=== PATIENT | male | born 1945 | race Caucasian/White ===

== ENCOUNTER 2019-10-14 00:11 | Outpatient (CLI) | payer MEDICARE, SELFPAY ==
[2019-10-14 17:13] LABS: SARS-CoV-2 RNA PCR Negative
== END 2019-10-14 00:12 | disposition home or self-care (01) ==
LOC: ANHCOVIDDT 00:11
PROVIDERS: PCP Nurse Practitioner Family; Visit Provider Internal Medicine Gastroenterology
DX: Z01.812 Encounter for preprocedural laboratory examination (principal); Z11.59 Encounter for screening for other viral diseases
CPT/HCPCS: 87635; C9803; U0003

== ENCOUNTER 2019-10-16 01:34 | Day surgery (SDC) | payer MEDICARE, SELFPAY ==
[2019-10-09 13:52] VITALS: BMI 28.8
[2019-10-16 06:52] VITALS: BP 162/89; PULSE 81; RESP 18; TEMP 37.1; O2SAT 97; BMI 28.5
[2019-10-16] MEDS: LACTATED RINGERS 1,000 ML 30 ML IV CONT (07:00)
--- NOTE | 2019-10-16 07:13 | PM.HPGS ---
History of Present Illness History of Present Illness Consent: Risks, benefits, and alternatives have been discussed and questions answered. Patient agrees to proceed with procedure. Chief complaint: epigastric pain Narrative: Ryan Varghese is a 74 year old W male 2 month history of epigastric abdominal pain which has been intermittent. Usually occurs at night. He has had no nausea vomiting no hematemesis. No prior history of peptic ulcer disease. Patient does take Prilosec 20 mg daily basis for gastroesophageal reflux disease. He states he has had a 10 lb weight loss associated with this as well. No change in bowel pattern. He did have a colonoscopy 2 years ago which was negative. Patient also had a gastroscopy 3 years ago revealing mild esophagitis. Patient states his evaluation included a CT scan of the abdomen and pelvis which was unremarkable except for benign pelvic cyst. He has also had blood work states that his blood count was slightly decreased. Patient states he also gallbladder test several years ago. [facility] Past Medical History Medical History (Updated 10/15/19 @ 08:56 by Sebastián Coppola DO) Anxiety Depression GERD (gastroesophageal reflux disease) History of prostate cancer Hypertension Surgical History Surgical History (Updated 10/15/19 @ 08:56 by Sebastián Coppola DO) History of prostatectomy Meds Home Medications and Allergies Home Medications Medication Instructions Recorded Confirmed Type cholecalciferol (vitamin D3) 25 mcg PO DAILY 10/09/19 10/09/19 History [Vitamin D3] cyanocobalamin (vitamin B-12) 1,000 mcg PO DAILY 10/09/19 10/09/19 History [Vitamin B-12] lisinopril-hydrochlorothiazide 1 tablet PO BID 10/09/19 10/09/19 History mirtazapine 7.5 mg PO DAILY 10/09/19 10/09/19 History omeprazole 20 mg PO DAILY 10/09/19 10/09/19 History vitamin B complex 1 cap PO DAILY 10/09/19 10/09/19 History Allergies Allergy/AdvReac Type Severity Reaction Status Date / Time Sulfa (Sulfonamide Allergy Unknown Muscle Verified 10/16/19 06:51 Antibiotics) Spasms Vital Signs Vital Signs - 24 hr 10/16/19 06:52 Temperature 37.1 C Pulse Rate 81 Respiratory Rate 18 Blood Pressure 162/89 H Pulse Oximetry 97 Exam Const: Orientation/consciousness: patient oriented x3 Resp: Auscultation: clear to auscultation bilaterally Cardio: Rate: regular rate Rhythm: regular rhythm Heart sounds: no murmurs GI: GI Palp: Yes Soft to palpation, No Tenderness to palpation present (GI), Yes No hepatosplenomegaly present and No Palpable mass present Auscultation: normal bowel sounds Neuro: General: patient oriented x3 and no focal motor deficits Extrem: General: no pedal edema Assessment and Plan Additional Plan Gastroscopy for evaluation epigastric abdominal pain and weight loss
--- NOTE | 2019-10-16 07:20 | P.PNAN_ITS ---
Anes - Initial Pre Proc Eval Procedure: Operation Date: 10/16/19 08:00 Proposed Procedures p Esophagogastroduodenoscopy - Jose Rodriguez MD Date/Time: 10/16/19 07:20 Surgeon: Jose Rodriguez MD Pre Op Diagnosis: epigastric pain Patient Data Age: 74 Gender: M Height: 1.78 m Weight: 90.2 kg Last Vital Signs Temp 37.1 C 10/16/19 06:52 Pulse 81 10/16/19 06:52 Resp 18 10/16/19 06:52 BP 162/89 H 10/16/19 06:52 Pulse Ox 97 10/16/19 06:52 Allergies Allergy/AdvReac Type Severity Reaction Status Date / Time Sulfa (Sulfonamide Allergy Unknown Muscle Verified 10/16/19 06:51 Antibiotics) Spasms Home Medications Medication Instructions Recorded Confirmed Type cholecalciferol (vitamin D3) 25 mcg PO DAILY 10/09/19 10/09/19 History [Vitamin D3] cyanocobalamin (vitamin B-12) 1,000 mcg PO DAILY 10/09/19 10/09/19 History [Vitamin B-12] lisinopril-hydrochlorothiazide 1 tablet PO BID 10/09/19 10/09/19 History mirtazapine 7.5 mg PO DAILY 10/09/19 10/09/19 History omeprazole 20 mg PO DAILY 10/09/19 10/09/19 History vitamin B complex 1 cap PO DAILY 10/09/19 10/09/19 History Patient hx anesthesia problems: none Family hx anesthesia problems: none [facility] Past Medical History Medical History (Updated 10/15/19 @ 08:56 by Sebastián Coppola DO) Anxiety Depression GERD (gastroesophageal reflux disease) History of prostate cancer Hypertension Surgical History Surgical History (Updated 10/15/19 @ 08:56 by Sebastián Coppola DO) History of prostatectomy Anes - Eval Final PreProcedure Day of Procedure 10/16/19 07:20 Patient weight: overweight Heart: regular rate and rhythm Lungs: clear to auscultation and normal air movement Airway: Mallampati scale class II Neurological: alert and oriented Last oral intake: >/= 8 hours ASA classification: III Emergent: no Anesthetic plan: proceed Anesthesia type and monitoring: general GIVS and standard monitoring Informed Consent: The patient's anesthetic plan and its attendant risks and benefits were discussed with the patient/family/POA. Questions were solicited and answers provided to the satisfaction of the patient/family/POA.
[2019-10-16] MEDS: BENZOCAINE (*SP) 60 ML SPRAY CAN (HURRICAINE) 1 SPRAY MUCOUS MEM (08:16)
[2019-10-16 08:37] VITALS: BP 116/67; PULSE 64; RESP 19; O2SAT 93
[2019-10-16 08:47] VITALS: BP 124/77; PULSE 64; RESP 21; O2SAT 95
[2019-10-16 08:57] VITALS: BP 138/77; PULSE 64; RESP 21; O2SAT 99
== END 2019-10-16 09:20 | disposition home or self-care (01) ==
PROVIDERS: PCP Nurse Practitioner Family; Visit Provider Internal Medicine Gastroenterology
PROC: 0DJ08ZZ Inspection of Upper Intestinal Tract, Via Natural or Artificial Opening Endoscopic (ICD-10-PCS; CPT 43235; principal; 2019-10-16 08:00)
DX: K21.9 Gastro-esophageal reflux disease without esophagitis (principal); K29.50 Unspecified chronic gastritis without bleeding; I10 Essential (primary) hypertension; F41.8 Other specified anxiety disorders; Z85.46 Personal history of malignant neoplasm of prostate
CPT/HCPCS: 43239; 87081; 88305; J2704; J7120

== ENCOUNTER 2020-04-06 08:55 | Outpatient (CLI) | payer MEDICARE, SELFPAY ==
--- NOTE | ~2020-04-06 | CT_ITS ---
EXAMINATION: CT abdomen pelvis w con EXAM DATE: 04/06/2020 09:28 INDICATION: Prostate cancer . TECHNIQUE: Spiral CT of the abdomen and pelvis was performed following intravenous injection of 100 m L Omnipaque 350. Axial, coronal and sagittal images were reviewed. The dose-length product (DLP) fo r this examination was 558.07 mGy-cm. The exposure was tailored according to patient size (auto mA e xposure control), and iterative reconstruction (ASIR) was used as additional dose reduction technique . There is no prior study for comparison. FINDINGS: The liver, spleen, adrenal glands and pancreas are unremarkable. Gallbladder is unremarkab le. No biliary obstruction. Portal and splenic veins are patent. Kidneys enhance symmetrically. T here is no hydronephrosis. There is a right renal cyst measuring 2 cm. Patient has likely had prosta tectomy. The bladder is unremarkable. There is no retroperitoneal or pelvic lymphadenopathy. Sma ll umbilical and supraumbilical fat-containing hernias. The appendix is normal. The stomach and small bowel are unremarkable. There is moderate scattered co lonic diverticulosis. There is no adjacent inflammatory change to suggest diverticulitis. No free i ntraperitoneal gas. The heart is normal in size. There are no pericardial or pleural effusions. T he lung bases are unremarkable. There are no osteoblastic or osteolytic lesions identified. IMPRESSION: Colonic diverticulosis. No evidence of metastatic disease. Reviewed, dictated and finalized at location A. [employer]
[2020-04-07 11:23] LABS: Estimated Glomerular Filt Rate > 60
== END 2020-04-06 08:56 | disposition home or self-care (01) ==
LOC: ANHIMG 09:01
PROVIDERS: PCP Nurse Practitioner Family; Visit Provider Internal Medicine Hematology & Oncology
DX: C61 Malignant neoplasm of prostate (principal); N28.1 Cyst of kidney, acquired; K42.9 Umbilical hernia without obstruction or gangrene; K57.30 Diverticulosis of large intestine without perforation or abscess without bleeding
CPT/HCPCS: 74177; Q9967

== ENCOUNTER 2022-02-18 14:40 | Outpatient (CLI) | payer MEDICARE, SELFPAY ==
--- NOTE | ~2022-02-18 | CT_ITS ---
EXAMINATION: CT chest abdomen pelvis w con DATE: 02/18/2022 15:21 INDICATION: Prostate cancer. TECHNIQUE: Computed tomography (CT) of the chest, abdomen, and pelvis was performed with 100 mL Omnip aque 350 intravenous contrast. Automated exposure control and iterative reconstruction technique were employed. The dose-length product was 914.98 mGy-cm. COMPARISON: CT abdomen and pelvis 04/06/2020 FINDINGS: CHEST CT: The lungs demonstrate minimal atelectasis. No pleural effusion. The heart size is normal. No pericard ial effusion. There are coronary artery calcifications. There is bilateral gynecomastia. There are br idging endplate osteophytes at multiple levels in the spine, consistent with diffuse idiopathic skele eva hyperostosis (DISH). ABDOMEN/PELVIS CT: The liver and spleen are normal. The pancreas and adrenal glands are normal. There are cysts in the k idneys measuring up to 2.6 cm on the right. There is a 1 mm stone in left kidney. There is a 4.5 cm c yst in left pelvis without change, likely a peritoneal inclusion cyst. There is diverticulosis of the colon without evidence of diverticulitis. There are no dilated loops of bowel. The appendix is brock l. There are no pathologically enlarged lymph nodes. There is chronic fat stranding at the root of th e small bowel mesentery, likely mesenteric panniculitis. There are supraumbilical ventral hernias con taining fat. There is an umbilical hernia containing fat. The prostate is absent. There is severe lum bar spondylosis. IMPRESSION: 1. No evidence of metastatic disease. Reviewed, dictated and finalized at location A.
[2022-02-21 13:33] LABS: Estimated Glomerular Filt Rate > 60
== END 2022-02-18 14:41 | disposition home or self-care (01) ==
PROVIDERS: PCP Nurse Practitioner Family; Visit Provider Internal Medicine Hematology & Oncology
DX: R10.9 Unspecified abdominal pain (principal); Z85.46 Personal history of malignant neoplasm of prostate
CPT/HCPCS: 71260; 74177; Q9967

== ENCOUNTER 2022-03-14 00:17 | Day surgery (SDC) | payer MEDICARE, SELFPAY ==
[2022-03-03 13:45] VITALS: BMI 28.8
[2022-03-14 12:10] VITALS: BP 172/96; PULSE 90; RESP 20; TEMP 36.6; O2SAT 100
[2022-03-14] MEDS: LACTATED RINGERS 1,000 ML 150 ML IV CONT (12:12)
--- NOTE | 2022-03-14 13:28 | WPDANESEPPF ---
Anes - Initial Pre Proc Eval Procedure: Operation Date: 03/14/22 13:30 Proposed Procedures p Esophagogastroduodenoscopy EGD - Sidney Álvarez MD Date/Time: 03/14/22 13:28 Surgeon: Sidney Álvarez MD Pre Op Diagnosis: epigastric pain Patient Data Age: 77 Gender: M Height: 1.78 m Weight: 92.3 kg Last Vital Signs Temp 97.8 F 03/14/22 12:10 Pulse 90 03/14/22 12:10 Resp 20 03/14/22 12:10 BP 172/96 H 03/14/22 12:10 Pulse Ox 100 03/14/22 12:10 O2 Del Method Room Air 03/14/22 12:10 Allergies Allergy/AdvReac Type Severity Reaction Status Date / Time Sulfa (Sulfonamide Allergy Intermediate Muscle Verified 03/14/22 12:08 Antibiotics) Spasms Home Medications Medication Instructions Recorded Confirmed Type lisinopril 20 1 tablet PO BID 10/09/19 03/14/22 History mg-hydrochlorothiazide 12.5 mg tablet mirtazapine 15 mg tablet 7.5 mg PO HS 10/09/19 03/14/22 History omeprazole 20 mg capsule,delayed 20 mg PO DAILY 10/09/19 03/14/22 History release cholecalciferol (vitamin D3) 25 25 mcg PO DAILY 03/03/22 03/14/22 History mcg (1,000 unit) capsule (Vitamin D3) cyanocobalamin (vitamin B-12) 1,000 mcg PO DAILY 03/03/22 03/14/22 History 1,000 mcg tablet (Vitamin B-12) vitamin B complex 1 cap PO DAILY 03/03/22 03/14/22 History Patient hx anesthesia problems: none Family hx anesthesia problems: none Results Review: All pre-operative results and documents have been reviewed as part of the pre-operative evaluation. [facility] Past Medical History Medical History Anxiety Depression GERD (gastroesophageal reflux disease) History of prostate cancer Hypertension Surgical History Surgical History History of prostatectomy Family History Family History Father Heart disease Mother Diabetes mellitus Heart disease Social History Social History Smoking status: Never smoker Alcohol intake: current Drinks per week: 4 Alcohol use details: BEERS Substance use: never Substance use type: does not use Living arrangements: with family Spiritual care concerns: No Anes - Eval Final PreProcedure Day of Procedure 03/14/22 13:28 Patient weight: overweight Heart: regular rate and rhythm Lungs: clear to auscultation Airway: Mallampati scale class II Neurological: alert and oriented Last oral intake: >/= 8 hours ASA classification: III Emergent: no Anesthetic plan: proceed Anesthesia type and monitoring: general GIVS and standard monitoring Results Review: All pre-operative results and documents have been reviewed as part of the pre-operative evaluation. Informed Consent: The patient's anesthetic plan and its attendant risks and benefits were discussed with the patient/family/POA. Questions were solicited and answers provided to the satisfaction of the patient/family/POA.
--- NOTE | 2022-03-14 13:36 | PM.HPGS ---
History of Present Illness History of Present Illness Consent: Risks, benefits, and alternatives have been discussed and questions answered. Patient agrees to proceed with procedure. Chief complaint: epigastric pain Narrative: Ryan Varghese is a 77 year old male Referred for investigation of epigastric pain he states that this has been going on for few years. He will have pain in the epigastric area sometimes towards the right side that will be present almost continuously. Will get a little worse every day for several weeks and then slowly subside over several weeks side each episode lasts a couple of months. He has had no weight loss or vomiting. Previous endoscopies were unremarkable. Review of Systems Review of Systems: All systems reviewed & are unremarkable except as noted in HPI and below PMFSH Past Medical History Medical History Anxiety Depression GERD (gastroesophageal reflux disease) History of prostate cancer Hypertension Surgical History Surgical History History of prostatectomy Family History Family History Father Heart disease Mother Diabetes mellitus Heart disease Social History Social History Smoking status: Never smoker Alcohol intake: current Drinks per week: 4 Alcohol use details: BEERS Substance use: never Substance use type: does not use Living arrangements: with family Spiritual care concerns: No Meds Home Medications and Allergies Home Medications Medication Instructions Recorded Confirmed Type lisinopril 20 1 tablet PO BID 10/09/19 03/14/22 History mg-hydrochlorothiazide 12.5 mg tablet mirtazapine 15 mg tablet 7.5 mg PO HS 10/09/19 03/14/22 History omeprazole 20 mg capsule,delayed 20 mg PO DAILY 10/09/19 03/14/22 History release cholecalciferol (vitamin D3) 25 25 mcg PO DAILY 03/03/22 03/14/22 History mcg (1,000 unit) capsule (Vitamin D3) cyanocobalamin (vitamin B-12) 1,000 mcg PO DAILY 03/03/22 03/14/22 History 1,000 mcg tablet (Vitamin B-12) vitamin B complex 1 cap PO DAILY 03/03/22 03/14/22 History Allergies Allergy/AdvReac Type Severity Reaction Status Date / Time Sulfa (Sulfonamide Allergy Intermediate Muscle Verified 03/14/22 12:08 Antibiotics) Spasms Vital Signs Vital Signs - 24 hr 03/14/22 12:10 Temperature 36.6 C Pulse Rate 90 Respiratory Rate 20 Blood Pressure 172/96 H Pulse Oximetry 100 Oxygen Delivery Room Air Exam Const: General: alert Orientation/consciousness: patient oriented x3 Resp: Auscultation: clear to auscultation bilaterally Cardio: Rhythm: regular rhythm GI: GI Palp: Yes Soft to palpation and No Tenderness to palpation present (GI) Neuro: General: patient oriented x3 Assessment and Plan Assessment and plan (1) Epigastric pain: Code(s): R10.13 - Epigastric pain Status: Acute Assessment and Plan: EGD with possible biopsy or dilatation or cautery.
[2022-03-14 14:12] VITALS: BP 119/75; PULSE 62; RESP 18; O2SAT 100
[2022-03-14 14:22] VITALS: BP 122/74; PULSE 61; RESP 19; O2SAT 100
[2022-03-14 14:32] VITALS: BP 141/82; PULSE 63; RESP 21; O2SAT 98
== END 2022-03-14 14:46 | disposition home or self-care (01) ==
PROVIDERS: PCP Nurse Practitioner Family; Visit Provider Internal Medicine Gastroenterology
PROC: 0DJ08ZZ Inspection of Upper Intestinal Tract, Via Natural or Artificial Opening Endoscopic (ICD-10-PCS; CPT 43235; principal; 2022-03-14 13:30)
DX: K21.9 Gastro-esophageal reflux disease without esophagitis (principal); K31.7 Polyp of stomach and duodenum; I10 Essential (primary) hypertension; F41.9 Anxiety disorder, unspecified; F32.A Depression, unspecified; Z85.46 Personal history of malignant neoplasm of prostate
CPT/HCPCS: 43239; 87081; 88305; J2704; J7120

== ENCOUNTER 2022-05-04 01:15 | Day surgery (SDC) | payer MEDICARE, SELFPAY ==
[2022-04-19 14:55] VITALS: BMI 28.8
--- NOTE | 2022-05-03 13:16 | PM.HPGS ---
History of Present Illness History of Present Illness Consent: Risks, benefits, and alternatives have been discussed and questions answered. Patient agrees to proceed with procedure. Chief complaint: family hx colon ca Narrative: Ryan Varghese is a 77 year old male Referred for colon cancer screening. He has a family history of colon cancer. Review of Systems Review of Systems: All systems reviewed & are unremarkable except as noted in HPI and below PMFSH Past Medical History Medical History Anxiety Depression GERD (gastroesophageal reflux disease) History of prostate cancer Hypertension Surgical History Surgical History History of prostatectomy Family History Family History Father Heart disease Mother Diabetes mellitus Heart disease Social History Social History Smoking status: Never smoker Alcohol intake: current Drinks per week: 5 Alcohol use details: BEERS Substance use: never Substance use type: does not use Living arrangements: with family Spiritual care concerns: No Meds Home Medications and Allergies Home Medications Medication Instructions Recorded Confirmed Type lisinopril 20 1 tablet PO BID 10/09/19 04/19/22 History mg-hydrochlorothiazide 12.5 mg tablet mirtazapine 15 mg tablet 7.5 mg PO HS 10/09/19 04/19/22 History omeprazole 20 mg capsule,delayed 20 mg PO DAILY 10/09/19 04/19/22 History release cholecalciferol (vitamin D3) 25 25 mcg PO DAILY 03/03/22 04/19/22 History mcg (1,000 unit) capsule (Vitamin D3) cyanocobalamin (vitamin B-12) 1,000 mcg PO DAILY 03/03/22 04/19/22 History 1,000 mcg tablet (Vitamin B-12) vitamin B complex 1 cap PO DAILY 03/03/22 04/19/22 History Allergies Allergy/AdvReac Type Severity Reaction Status Date / Time Sulfa (Sulfonamide Allergy Intermediate Muscle Verified 05/04/22 08:10 Antibiotics) Spasms Exam Resp: Auscultation: clear to auscultation bilaterally Cardio: Rate: regular rate Rhythm: regular rhythm GI: GI Palp: Yes Soft to palpation and No Tenderness to palpation present (GI) Assessment and Plan Assessment and plan (1) Colon cancer screening: Code(s): Z12.11 - Encounter for screening for malignant neoplasm of colon Status: Acute Assessment and Plan: Colonoscopy with possible biopsy or polypectomy or cautery or injection of substances.
[2022-05-04 08:11] VITALS: BP 175/99; PULSE 93; RESP 18; TEMP 36.4; O2SAT 97
[2022-05-04] MEDS: LACTATED RINGERS 1,000 ML 150 ML IV CONT (08:20)
--- NOTE | 2022-05-04 08:59 | P.PNAN_ITS ---
Anes - Initial Pre Proc Eval Procedure: Operation Date: 05/04/22 09:30 Proposed Procedures p Screening Colonoscopy - Sidney Álvarez MD Date/Time: 05/04/22 08:59 Surgeon: Sidney Álvarez MD Pre Op Diagnosis: family hx colon ca Patient Data Age: 77 Gender: M Height: 1.78 m Weight: 91.3 kg Last Vital Signs Temp 97.6 F 05/04/22 08:11 Pulse 93 05/04/22 08:11 Resp 18 05/04/22 08:11 BP 175/99 H 05/04/22 08:11 Pulse Ox 97 05/04/22 08:11 O2 Del Method Room Air 05/04/22 08:11 Allergies Allergy/AdvReac Type Severity Reaction Status Date / Time Sulfa (Sulfonamide Allergy Intermediate Muscle Verified 05/04/22 08:10 Antibiotics) Spasms Home Medications Medication Instructions Recorded Confirmed Type lisinopril 20 1 tablet PO BID 10/09/19 04/19/22 History mg-hydrochlorothiazide 12.5 mg tablet mirtazapine 15 mg tablet 7.5 mg PO HS 10/09/19 04/19/22 History omeprazole 20 mg capsule,delayed 20 mg PO DAILY 10/09/19 04/19/22 History release cholecalciferol (vitamin D3) 25 25 mcg PO DAILY 03/03/22 04/19/22 History mcg (1,000 unit) capsule (Vitamin D3) cyanocobalamin (vitamin B-12) 1,000 mcg PO DAILY 03/03/22 04/19/22 History 1,000 mcg tablet (Vitamin B-12) vitamin B complex 1 cap PO DAILY 03/03/22 04/19/22 History Patient hx anesthesia problems: none Family hx anesthesia problems: none Results Review: All pre-operative results and documents have been reviewed as part of the pre- operative evaluation. [facility] Past Medical History Medical History Anxiety Depression GERD (gastroesophageal reflux disease) History of prostate cancer Hypertension Surgical History Surgical History History of prostatectomy Family History Family History Father Heart disease Mother Diabetes mellitus Heart disease Social History Social History Smoking status: Never smoker Alcohol intake: current Drinks per week: 5 Alcohol use details: BEERS Substance use: never Substance use type: does not use Living arrangements: with family Spiritual care concerns: No Anes - Eval Final PreProcedure Day of Procedure 05/04/22 08:59 Patient weight: normal Heart: regular rate and rhythm Lungs: clear to auscultation Airway: Mallampati scale class II Neurological: alert and oriented Last oral intake: >/= 8 hours ASA classification: III Emergent: no Anesthetic plan: proceed Anesthesia type and monitoring: general GIVS and standard monitoring Results Review: All pre-operative results and documents have been reviewed as part of the pre- operative evaluation. Informed Consent: The patient's anesthetic plan and its attendant risks and benefits were discussed with the patient/family/POA. Questions were solicited and answers provided to the satisfaction of the patient/family/POA.
[2022-05-04 09:20] VITALS: BP 117/68; PULSE 66; RESP 20; O2SAT 97
[2022-05-04 09:30] VITALS: BP 168/89; PULSE 77; RESP 25; O2SAT 97
[2022-05-04 09:40] VITALS: BP 156/70; PULSE 78; RESP 25; O2SAT 100
== END 2022-05-04 09:58 | disposition home or self-care (01) ==
PROVIDERS: PCP Nurse Practitioner Family; Visit Provider Internal Medicine Gastroenterology
PROC: 0DJD8ZZ Inspection of Lower Intestinal Tract, Via Natural or Artificial Opening Endoscopic (ICD-10-PCS; CPT 45378; principal; 2022-05-04 09:30)
DX: Z12.11 Encounter for screening for malignant neoplasm of colon (principal); K57.30 Diverticulosis of large intestine without perforation or abscess without bleeding; K64.8 Other hemorrhoids; Z80.0 Family history of malignant neoplasm of digestive organs; K21.9 Gastro-esophageal reflux disease without esophagitis; I10 Essential (primary) hypertension; F41.9 Anxiety disorder, unspecified; F32.A Depression, unspecified; Z85.46 Personal history of malignant neoplasm of prostate
CPT/HCPCS: G0105; J2704; J7120

== ENCOUNTER 2024-02-21 13:39 | Outpatient (CLI) | payer MEDICARE, SELFPAY ==
[2024-02-21 14:16] LABS: Basophils Percent Auto 0.5 % (0.2-1.2); Hemoglobin 13.4 g/dL (14.0-18.0); Immature Granulocyte Absolute 0.02 K/mm3 (0.00-0.031); Immature Granulocyte Percent A 0.2 % (0-0.5); Lymphocytes Absolute Auto 0.99 K/mm3 (0.9-3.2); Lymphocytes Percent Auto 11.8 % (18.3-44.2); Mean Corpuscular HGB Conc 35.3 g/dl (32-36); Mean Corpuscular Hemoglobin 33.6 pg (26-34); Mean Corpuscular Volume 95.2 fl (80-100); Mean Platelet Volume 8.8 fl (7.4-10.4); Monocytes Absolute Auto 0.5 K/mm3 (0.1-0.6); Monocytes Percent Auto 5.8 % (2.6-8.5); Neutrophils Absolute Auto 6.9 K/mm3 (1.3-6.7); Neutrophils Percent Auto 81.7 % (45.5-73.1); Platelet Count Result 284 k/mm3 (150-375); Red Blood Count 3.99 M/mm3 (4.6-6.20); Red Cell Distribution Width 11.9 % (11.5-14.5); White Blood Count 8.4 K/mm3 (4.5-10.0)
[2024-02-21 14:27] LABS: Hemoglobin A1C 5.3 % (<5.7)
[2024-02-21 14:52] LABS: Free T4 Free Thyroxine 1.22 ng/mL (0.78-2.19); Vitamin D 25 Hydroxy 44.1 ng/mL
[2024-02-21 17:04] LABS: Alanine Aminotransferase 18 U/L (6-50); Albumin Level 4.8 g/dL (3.5-5.1); Alkaline Phosphatase 64 U/L (38-126); Anion Gap 12 mmol/L (4-12); Aspartate Amino Transferase 25 U/L (17-59); Blood Urea Nitrogen 9 mg/dL (9-20); Calcium 9.5 mg/dL (8.4-10.2); Carbon Dioxide 28 mmol/L (22-30); Chloride 92 mmol/L (98-107); Cholesterol 159 mg/dL (0-200); Estimated Glomerular Filt Rate > 60; Glucose 100 mg/dL (65-110); HDL Direct 57 mg/dL; Potassium 3.8 mmol/L (3.4-5.0); Sodium 132 mmol/L (137-145); Triglycerides 87 mg/dL (<150)
[2024-02-21 17:15] LABS: LDL Cholesterol Direct 73 mg/dL
[2024-02-21 18:34] LABS: Folic Acid > 20.0 ng/mL (2.76->20)
== END 2024-02-21 13:40 | disposition home or self-care (01) ==
PROVIDERS: PCP Nurse Practitioner Family; Visit Provider Internal Medicine
DX: E53.8 Deficiency of other specified B group vitamins (principal); Z79.899 Other long term (current) drug therapy; E55.9 Vitamin D deficiency, unspecified; I10 Essential (primary) hypertension; R73.09 Other abnormal glucose; Z13.220 Encounter for screening for lipoid disorders; Z13.29 Encounter for screening for other suspected endocrine disorder
CPT/HCPCS: 36415; 80053; 80061; 82306; 82607; 82746; 83036; 84439; 84443; 85025

== ENCOUNTER 2024-02-22 13:17 | Outpatient (CLI) | payer MEDICARE, SELFPAY ==
--- NOTE | ~2024-02-22 | CT_ITS ---
CT of the Abdomen and Pelvis: Indication: Abdominal pain Technique: 2.5 mm axial scans were obtained through the abdomen and pelvis following intravenous adm inistration of 100 cc of Omnipaque 350. Dose reduction technique was used on this scan by utilizing a utomated exposure control and iterative reconstruction technique. The dose-length product (DLP) was 5 22.04 mGy-cm. COMPARISON: 02/18/2022 Findings: Scans through the lung bases are unremarkable. The liver, spleen, pancreas, gallbladder, adrenals and kidneys are within normal limits. No evidence of aortic aneurysm. No lymphadenopathy. No bowel obstruction or bowel wall thickening. There is no evidence to suggest acute appendicitis. Images through the pelvis were performed. Stable 4.1 x 3.0 cm cystic mass along the left pelvic sidew all, likely lymphocele, seroma, or other benign cystic lesion. Urinary bladder unremarkable. No other pelvic mass seen. No ascites. Impression: Stable 4.1 x 3.0 cm benign-appearing cystic mass at the left pelvic sidewall region, possibly lymphoc milly or seroma. No acute abnormality evident. Reviewed, dictated and finalized at location . Impression: Stable 4.1 x 3.0 cm benign-appearing cystic mass at the left pelvic sidewall re gion, possibly lymphocele or seroma. No acute abnormality evident.
[2024-02-22 13:37] LABS: Estimated Glomerular Filt Rate > 60
== END 2024-02-22 13:18 | disposition home or self-care (01) ==
LOC: MICIMG 13:19
PROVIDERS: PCP Internal Medicine; Visit Provider Internal Medicine
DX: R19.09 Other intra-abdominal and pelvic swelling, mass and lump (principal)
CPT/HCPCS: 74177; Q9967

== ENCOUNTER 2024-03-08 10:58 | Outpatient (CLI) | payer MEDICARE, SELFPAY ==
[2024-03-08 11:39] LABS: Basophils Percent Auto 0.4 % (0.2-1.2); Eosinophils Percent Auto 0.1 % (0-4.4); Hematocrit 36.4 % (42.0-52.0); Hemoglobin 12.5 g/dL (14.0-18.0); Immature Granulocyte Absolute 0.02 K/mm3 (0.00-0.031); Immature Granulocyte Percent A 0.2 % (0-0.5); Lymphocytes Absolute Auto 0.89 K/mm3 (0.9-3.2); Lymphocytes Percent Auto 10.9 % (18.3-44.2); Mean Corpuscular HGB Conc 34.3 g/dl (32-36); Mean Platelet Volume 9.1 fl (7.4-10.4); Monocytes Absolute Auto 0.4 K/mm3 (0.1-0.6); Monocytes Percent Auto 5.2 % (2.6-8.5); Neutrophils Absolute Auto 6.8 K/mm3 (1.3-6.7); Neutrophils Percent Auto 83.2 % (45.5-73.1); Platelet Count Result 287 k/mm3 (150-375); Red Blood Count 3.79 M/mm3 (4.6-6.20); Red Cell Distribution Width 12.1 % (11.5-14.5); White Blood Count 8.1 K/mm3 (4.5-10.0)
[2024-03-08 11:58] LABS: Alanine Aminotransferase 17 U/L (6-50); Albumin Level 4.3 g/dL (3.5-5.1); Alkaline Phosphatase 52 U/L (38-126); Anion Gap 8 mmol/L (4-12); Aspartate Amino Transferase 25 U/L (17-59); Bilirubin,Total 0.6 mg/dL (0.2-1.3); Blood Urea Nitrogen 10 mg/dL (9-20); Calcium 9.4 mg/dL (8.4-10.2); Carbon Dioxide 29 mmol/L (22-30); Chloride 96 mmol/L (98-107); Estimated Glomerular Filt Rate > 60; Glucose 117 mg/dL (65-110); Potassium 4.4 mmol/L (3.4-5.0); Sodium 133 mmol/L (137-145)
[2024-03-08 12:30] LABS: Prostate Specific Antigen 0.1 ng/mL (< OR = 4.0)
== END 2024-03-08 10:59 | disposition home or self-care (01) ==
LOC: ANHLAB 10:59
PROVIDERS: PCP Internal Medicine; Visit Provider Internal Medicine Hematology & Oncology
DX: D64.9 Anemia, unspecified (principal); Z79.899 Other long term (current) drug therapy
CPT/HCPCS: 36415; 80053; 82607; 84153; 85025

== ENCOUNTER 2024-04-10 10:57 | Outpatient (CLI) | payer MEDICARE, SELFPAY ==
[2024-04-10 11:22] LABS: Add Urine Microscopic? YES; Appearance Urine Clear (Clear); Bilirubin Urine Negative (Negative); Blood Urine Negative (Negative); Color Urine Dark Yellow (Yellow); Glucose Urine UA Negative (Negative); Ketones Urine Negative (Negative); Leukocyte Esterase Ur Negative LEU/UL (Negative); Nitrate Urine Negative (Negative); Protein Urine Negative (Negative); Specific Grav Ur 1.013 (1.001-1.035); Urobilinogen Urine 0.2 mg/dL (<2.0)
[2024-04-11 16:49] LABS: SS-A <1.0 NEG AI (<1.0 NEG); SS-B <1.0 NEG AI (<1.0 NEG)
== END 2024-04-10 10:58 | disposition home or self-care (01) ==
PROVIDERS: PCP Internal Medicine; Visit Provider Internal Medicine
DX: R35.0 Frequency of micturition (principal); R68.2 Dry mouth, unspecified
CPT/HCPCS: 36415; 81001; 86235

== ENCOUNTER 2024-05-15 00:45 | Day surgery (SDC) | payer MEDICARE, SELFPAY ==
[2024-05-09 14:59] VITALS: BMI 27.3
[2024-05-15 06:23] VITALS: BP 152/76; PULSE 68; RESP 18; O2SAT 99
[2024-05-15] MEDS: LACTATED RINGERS 1,000 ML 150 ML IV CONT (06:33)
--- NOTE | 2024-05-15 06:38 | WPDANESEPPF ---
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 Patient Data Age: 79 Gender: M Height: 1.75 m Weight: 83.5 kg Last Vital Signs Pulse 68 05/15/24 06:23 Resp 18 05/15/24 06:23 BP 152/76 H 05/15/24 06:23 Pulse Ox 99 05/15/24 06:23 O2 Del Method Room Air 05/15/24 06:23 Allergies Allergy/AdvReac Type Severity Reaction Status Date / Time Sulfa (Sulfonamide Allergy Intermediate Muscle Verified 05/09/24 14:52 Antibiotics) Spasms Home Medications ?Medication ?Instructions ?Recorded ?Confirmed ?Type lisinopril 20 1 tablet PO BID 10/09/19 05/15/24 History mg-hydrochlorothiazide 12.5 mg tablet omeprazole 20 mg capsule,delayed 20 mg PO BID 10/09/19 05/15/24 History release cholecalciferol (vitamin D3) 25 25 mcg PO DAILY 03/03/22 05/15/24 History mcg (1,000 unit) capsule (Vitamin D3) cyanocobalamin (vitamin B-12) 1,000 mcg PO DAILY 03/03/22 05/15/24 History 1,000 mcg tablet (Vitamin B-12) vitamin B complex 1 cap PO DAILY 03/03/22 05/15/24 History amlodipine 10 mg tablet 10 mg PO QHS 02/01/24 05/15/24 History alprazolam 0.25 mg tablet 0.25 mg PO TID PRN anxiety 04/30/24 05/15/24 History azelastine 137 mcg (0.1 %) nasal 137 mcg intranasal Q12H PRN 04/30/24 05/09/24 History spray congestion famotidine 20 mg tablet 20 mg PO DAILY #90 tabs 04/30/24 05/15/24 Rx linaclotide 72 mcg capsule 72 mcg PO DAILY #90 caps 04/30/24 05/15/24 Rx (Linzess) eszopiclone 2 mg tablet (Lunesta) 2 mg PO QHS PRN insomnia 05/09/24 05/09/24 History melatonin 4 mg PO HS 05/09/24 05/15/24 History mirtazapine 30 mg tablet 30 mg PO HS 05/09/24 05/15/24 History Patient hx anesthesia problems: none Family hx anesthesia problems: none Results Review: All pre-operative results and documents have been reviewed as part of the pre-operative evaluation. [facility] Past Medical History Medical History Choking Abnormal ankle brachial index (ALIYAH) Encounter for Medicare annual wellness exam Follow up Anxiety and depression Encounter to establish care On salvage determiner drug therapy BMI 27.0-27.9,adult Constipation Family history of colon cancer Depression Anxiety History of prostate cancer GERD (gastroesophageal reflux disease) Hypertension Surgical History Surgical History History of prostatectomy Family History Family History Father Heart disease Mother Diabetes mellitus Heart disease Social History Social History Smoking status: Never smoker Alcohol intake: current Drinks per week: 5 Alcohol use details: BEERS Substance use: never Substance use type: does not use Living arrangements: with family Spiritual care concerns: No Anes - Eval Final PreProcedure Day of Procedure 05/15/24 06:38 Patient weight: overweight Heart: regular rate and rhythm Lungs: clear to auscultation Airway: Mallampati scale class II Neurological: alert and oriented Last oral intake: >/= 8 hours ASA classification: III Emergent: no Anesthetic plan: proceed Anesthesia type and monitoring: general GIVS and standard monitoring Results Review: All pre-operative results and documents have been reviewed as part of the pre-operative evaluation. Informed Consent: The patient's anesthetic plan and its attendant risks and benefits were discussed with the patient/family/POA. Questions were solicited and answers provided to the satisfaction of the patient/family/POA.
--- NOTE | 2024-05-15 07:28 | WPDHPUPDATE1 ---
History and Physical Update Update Date/Time: 05/15/24 07:28 History and Physical has been reviewed, including an updated exam of the patient. There are NO changes in the patient's condition. Risks, benefits, and alternatives have been discussed and questions answered. Patient agrees to proceed with procedure.
[2024-05-15 07:34] VITALS: BP 113/63; PULSE 58; RESP 18; O2SAT 96
[2024-05-15 07:44] VITALS: BP 102/55; PULSE 66; RESP 18; O2SAT 99
[2024-05-15 07:54] VITALS: BP 133/72; PULSE 65; RESP 16; O2SAT 99
--- OUTSIDE RECORDS SUMMARY | 2024-05-16 20:56 | XMS_ITS | Patient Health Summary ---
Author Organization [facility] Address [address] [place] [address] Care Team Providers Care Supervisor Word Processing Name Role Phone Sonya Reid APRN-EMPLOYMENT LAW ATTORNEY Primary Care Provider Note from [facility],non-owned Affiliates and Associated Physician Practices is amultiple site organization consisting of ambulatory clinics and hospital sitesin [place], [place], [place] and [place]. This disclosure is being madepursuant to the Care Everywhere program and may not contain all information available regarding this patient. Last updated 18.[facility] Allergies * Bactrim Ds(Other) * Sulfacetamide(Other) Medications * Be aware that medications may not be up to date on this document. Alwaysverify current medications with the patient. * lisinopril-hydroCHLOROthiazide (Prinzide; Zestoretic) 20-12.5 MG tablet Take 1 tablet twice a day by oral route. * mirtazapine (Remeron) 15 MG tablet Take 0.5 tablets every day by oral route. Active Problems No known active problems Social History Tobacco Use Types Packs/Day Years Used Date Smoking Tobacco: Never Smokeless Tobacco: Never Tobacco Cessation:Counseling Given: Not Answered Sex and Gender Information Value Date Recorded Sex Assigned at Not on file Gender Identity Not on file Sexual Orientation Not on file Procedures * NM DELAY/SECTN FLAP LID,NOS,EAR,LIP(Performed 01/27/2023) Performed for Basal cell carcinoma (BCC) of left side of nose * PROC DELAY/SECTIONING OF FLAP(Performed 01/27/2023) Performed for Basal cell carcinoma (BCC) of left side of nose * NM CHMSRG MOHS MG TQ H/N/H/F/G 1ST STAG 5 BLOC(Performed 01/06/2023) Performed for Basal cell carcinoma of nose * NM CHMSRG MOHS MG TQ H/N/H/F/G EA ADDL STAG(Performed 01/06/2023) Performed for Basal cell carcinoma of nose * NM FORM SKIN PEDICLE FLAP LID,EAR,NOSE(Performed 01/06/2023) Performed for Basal cell carcinoma of nose * DERMATOPATHOLOGY(Performed 12/07/2022) * DERMATOPATHOLOGY(Performed 08/01/2017) * DERMATOPATHOLOGY(Performed 08/30/2011) Results * NM DELAY/SECTN FLAP LID,NOS,EAR,LIP (01/27/2023 2:54 PM CDT) La Nena Bonner MD - 01/27/2023 2:54 PM CDT La Nena Vera MD ? 01/27/2023 ??4:16 PM Patient presents today for second stage of reconstruction of his left nose. His first stage of reconstruction went as follows: Procedure: Mohs micrographic surgery Date of first stage: 01/06/2023 Location: left nose Preop diagnosis: Basal cell carcinoma Postop diagnosis: Basal cell carcinoma Mohs AUC score: 8 Number of stages: 2 Preop size: 1.0x1.5 cm Postop size: 2.1x1.6 cm Depth of final defect: adipose Previous dermpath accession #: [id number] Repair type: interpolation flap Mohs accession #: [id number] DOS:01/27/2023 REPAIR: Melolabial interpolation flap division/takedown Primary Surgeon: La Nena Vera MD Certified Medicine Aide: N/A Repair Size: 4x4 cm Sutures: 5-0 monocryl, 6-0 prolene Patient presents three weeks status-post melolabial interpolation flap repair of an alar defect. The wound is well-healed and appropriate for pedicle division and repair. The defect was identified and a marking pen was used to plan the division and repair. The area was infiltrated with Lidocaine 1% with epinephrine 1:100,000 buffered with sodium bicarbonate 8.4% in a 1:10 ratio, prepped with hibiclens and draped with sterile towels. The pedicle was divided using a #15 blade. The stalk was debrided and thinned including removal of granulation tissue. Hemostasis of the residual tissue stump at the base of the pedicle was obtained using monopolar electrodesiccation. The flap was trimmed and secured to the residual defect with percutaneous simple interrupted and running sutures for meticulous wound edge approximation. The wound was cleansed with saline and ointment was applied along the wound surface. A sterile pressure dressing was applied. Wound care instructions were given verbally and in writing. The patient left the operating suite in stable condition. Dr. Vera performed the entire surgery, and documentation used to initiate this operative report. I entered the information in our [employer] DocFlowsheet with the information provided by Dr. Vera on her handwritten, paper format, surgical worksheet, which was then used to initiate the create of this note. Dr. Vera then reviewed and edited the note as needed to complete the note. Laura Murphy LPN I have reviewed the note, edited it as necessary and performed the entire procedure. La Nena Vera MD Automatic Dispenser Mechanic 01/27/2023 La Nena Vera MD PROCEDURE/MINOR SURG ICAL ORDERABLES * NM FORM SKIN PEDICLE FLAP LID,EAR,NOSE, NM CHMSRG MOHS MG TQ H/N/H/F/G EA ADDL STAG, NM CHMSRG MOHSMG TQ H/N/H/F/G 1ST STAG 5 BLOC (01/06/2023 11:53 AM CDT) Narrative La Nena Vera MD - 01/06/2023 11:53 AM CDT La Nena Vear MD ? 01/06/2023 ??4:39 PM Mohs Micrographic Surgery Operative Note Procedure: Mohs micrographic surgery Date of service: 01/06/2023 Location: left nose Preop diagnosis: Basal cell carcinoma Postop diagnosis: Basal cell carcinoma Mohs AUC score: 8 Number of stages: 2 Preop size: 1.0x1.5 cm Postop size: 2.1x1.6 cm Depth of final defect: adipose Previous dermpath accession #: [id number] Repair type: interpolation flap Mohs accession #: [id number] Surgeon and Pathologist: La Nena Vera MD served as both surgeon and pathologist. No other physician was involved in the cancer removal or pathology interpretation. Assistants: N/A Indications for Mohs Surgery Removal of the patient's tumor is complicated by the following clinical features: Clinical area critical for tissue conservation (Area H: central face, eyelids, eyebrows, nose, lips, chin, ear, periauricular, bahai, genitalia, hands, feet, ankles, nail units and areola). Based on my medical judgement, Mohs surgery is the most appropriate treatment for this cancer compared to other treatments. I discussed alternative treatments to Mohs surgery and specifically discussed the risks and benefits of curettage, excision with permanent sections, and foregoing treatment. The rationale for Mohs was explained to the patient and consent was obtained. The risks, benefits and alternatives to therapy were discussed in detail. Specifically, the risks of infection, scarring, bleeding, prolonged wound healing, incomplete removal, allergy to anesthesia, nerve injury and recurrence were addressed. Prior to the procedure, the treatment site was clearly identified and confirmed by the patient. All components of Calvin Protocol/PAUSE Rule completed. STAGE I: The patient was placed on the operating table. The cancer was identified and outlined. The entire surgical field was prepped with hibiclens. The surgical site was anesthetized using Lidocaine 1% with epinephrine 1:100,000 buffered with sodium bicarbonate 8.4% in a 1:10 ratio.The area of clinically apparent tumor was debulked with a 2 mm curette. The layer of tissue was then surgically excised using a #15 blade and was then transferred onto a specimen sheet maintaining the orientation of the specimen. Hemostasis was obtained using monopolar electrodesiccation. The wound site was then covered with a dressing while the tissue samples were processed for examination. The specimen was oriented, mapped and divided. Each section was then inked and processed in the Mohs lab using the Mohs protocol and submitted for frozen section. The histopathologic sections were reviewed by the surgeon in conjunction with the reference map. Total blocks: 1 Total slides: 3 Frozen sections were examined by the surgeon and revealed residual tumor. Tumor was indicated in red on the reference map. Cell morphology: basaloid nests with peripheral palisading and abundant mucin (nodular BCC) Pathological pattern: Basal cell carcinoma, nodular Depth of invasion: Dermis Scar tissue: Not Present Perineural invasion: Not Present Inflammation obscuring possible tumor presence: Not Present STAGE II: The patient was prepped in the same fashion as the first stage. Using a similar technique to that described above, a thin layer of tissue was removed from all areas where tumor was visible on the previous stage. The tissue was again oriented, mapped, dyed, and processed as above. Histopathologic sections were reviewed in conjunction with the reference map. Total blocks: 1 Total slides: 1 Frozen sections were examined by the surgeon and revealed: No additional tumor. Histology: No malignant cells seen in the sections examined. No additional histologic findings appreciated. Torrey Le [facility] CLIA # [id number] [facility] Blending Plant Operator: La Nena Vera MD Reconstruction: ??Cheek to Nose Interpolation Flap Surgeon: ??Haroldo Vera MD Repair size: 4x5cm Sutures: 4-0 monocryl, 5-0 prolene PROCEDURES: The patient was taken to the operative suite and placed supine on the surgical suite procedure table. ??The nasal wound was identified and infiltrated with 1 % Lidocaine with epinephrine 1:100,000 buffered with sodium bicarbonate 8.4% in a 1:10 ratio. ?? The defect was then cleansed and prepped withhibiclens and draped with sterile drapes. ??Using a marker, the cheek to nose interpolation flap repair was planned. ??The flap was incised sharply to the level of fat and raised leaving a thin layer of SQ fat on the area to be inset and a pedicle of SQ and muscle at the superior aspect. ?A pedicle of subcutaneous fat was left at the superior aspect. ??Hemostasis was obtained with monopolar electrodesiccation. ??The secondary defect and muscle repaired using buried dermal sutures along the nasofacial sulcus. ??The flap was secured to the defect using buried dermal sutures. ??The epidermis was then carefully approximated using 4-0 monocryl and 5-0 prolene epidermal sutures throughout the length of the flap and secondary defect. ??The wound was cleansed with saline and an ointment was applied. ??A sterile xeroform gauze dressing was wrapped around the pedicle and the wound was dressed with telfa, gauze and tape. ??The patient left the operating suite in stable condition. ??The patient will return in seven to ten days for suture removal. ??The patient will return in three weeks for the second stage of repair including division and takedown of the interpolation flap. ??Wound care was reviewed verbally and in writing. He will return in 3 weeks for a flap takedown and suture removal. He was also prescribed Cephalexin 500mg po tid for [address] Vera performed the entire surgery, and documentation used to initiate this operative report. I entered the information in our [facility] DocFlowsheet with the information provided by Dr. Vera on her handwritten, paper format, surgical worksheet, which was then used to initiate the create of this note. Dr. Vera then reviewed and edited the note as needed to complete the note. Laura Murphy LPN I have reviewed the note, edited it as necessary and performed the entire procedure. La Nena Vera MD Automatic Dispenser Mechanic 01/06/2023 La Nena Vera MD PROCEDURE/MINOR SURG ICAL ORDERABLES * DERMATOPATHOLOGY (12/07/2022 12:00 AM CDT) Only the most recent of3 resultswithin the time period is included. Case Report Dermatopathology Report ? Case: [id number] ? Authorizing Provider: ??Shemar Gonzalez MD ?Collected: ? 12/07/2022 12:00 AM ? Ordering Location: ? [facility] DermPath Lab ? Received: ?12/09/2022 04:56 PM ? Pathologist: ? Deisi Braxton MD ? Specimen: ?Skin, left side nose ? 3 12:56 PM CDT DERMATOPATHOLOGY LABORATORY Final Diagnosis Specimen A. SKIN, left side nose: BASAL CELL CARCINOMA, NODULAR TYPE (C44.311) 3 12:56 PM CDT DERMATOPATHOLOGY LABORATORY Clinical History R/O BCC, AK, SCC 12:56 PM CDT DERMATOPATHOLOGY LABORATORY Gross Description Specimen A: Received is one formalin filled container labeled with the patient's name and designated left side nose. The specimen consists of a shave biopsy measuring 5x6x1 mm. Jar 0. 12:56 PM CDT DERMATOPATHOLOGY LABORATORY Microscopic Description Specimen A. SKIN, left side nose: Within the dermis there are aggregates of basaloid cells with a high nuclear to cytoplasmic ratio and peripheral palisading. 12:56 PM CDT DERMATOPATHOLOGY LABORATORY Disclaimer An external and internal positive and negative controls are appropriate for the histochemical, immunohistochemical and immunofluorescence stain(s) in this case (if any), except where stated explicitly. The performance characteristics of the stain(s) cited in this report were developed and its performance characteristic determined by the Dermatopathology Laboratory at [facility], directed by Dr. Abdirahman Swann. These tests need not be, and therefore are not, approved by the [place] Food and Drug Administration. The tests are used for clinical purposes. Billing Codes Specimen Charges Stain Charges 50426 1 3 12:56 PM CDT DERMATOPATHOLOGY LABORATORY Embedded Images 3 12:56 PM CDT DERMATOPATHOLOGY LABORATORY Pathology/Cytolog y TISSUE SPECIMEN FROM SKIN / Unknown 12/07/2022 12/09/2022 4:56 PM CDT Shemar Gonzalez MD LAB - PATHOLOGY/CYTO LOGY ORDERABLES DERMATOPATHOLOGY LABORATORY [facility] - Department of Dermatology [address] [phone] Care Teams Supervisor Word Processing Relationship Specialty Start Date End Date Sonya Reid, CAR FERRIER-EMPLOYMENT LAW ATTORNEY [address] [place] [phone] PCP - General Nurse Practitioner Family 01/06/23
--- OUTSIDE RECORDS SUMMARY | 2024-05-16 20:56 | XMS_ITS | Encounter Summary ---
Author Organization [facility] Address [address] [place] [address] Care Team Providers Care Cane Weigher Helper Name Role Phone Cher Kirby MD Primary Care Provider [phone] Sonya Reid APRN-OCCUPATIONAL HEALTH AND SAFETY MANAGER Primary Care Provider Encounter Details Date Type Department Care Team (Late st Contact Info) Description 12/09/2022 Lab Requisition [facility] - DermPath Lab [address] [place] [phone] Shemar Gonzalez MD [address] [place] [address] Social History Tobacco Use Types Packs/Day Years Used Date Smoking Tobacco: Never Assessed Sex and Gender Information Value Date Recorded Sex Assigned at Not on file Gender Identity Not on file Sexual Orientation Not on file documented as of this encounter Plan of Treatment Not on file documented as of this encounter Procedures Procedure Name Priority Date/Time Associated Diagnosis Comments DERMATOPATHOLOGY Routine 12/07/2022 12:0 0 AM CDT documented in this encounter Results * DERMATOPATHOLOGY (12/07/2022 12:00 AM CDT) Case Report Dermatopathology Report ? Case: [id number] ? Authorizing Provider: ??Shemar Gonzalez MD ?Collected: ? 12/07/2022 12:00 AM ? Ordering Location: ? [facility] DermPath Lab ? Received: ?12/09/2022 04:56 PM ? Pathologist: ? Deisi Braxton MD ? Specimen: ?Skin, left side nose ? 3 12:56 PM [facility] DERMATOPATHOLOGY LABORATORY Final Diagnosis Specimen A. SKIN, left side nose: BASAL CELL CARCINOMA, NODULAR TYPE (C44.311) 3 12:56 PM [facility] DERMATOPATHOLOGY LABORATORY Clinical History R/O BCC, AK, SCC 3 12:56 PM [facility] DERMATOPATHOLOGY LABORATORY Gross Description Specimen A: Received is one formalin filled container labeled with the patient's name and designated left side nose. The specimen consists of a shave biopsy measuring 5x6x1 mm. Jar 0. 3 12:56 PM [facility] DERMATOPATHOLOGY LABORATORY Microscopic Description Specimen A. SKIN, left side nose: Within the dermis there are aggregates of basaloid cells with a high nuclear to cytoplasmic ratio and peripheral palisading. 3 12:56 PM [facility] DERMATOPATHOLOGY LABORATORY Disclaimer An external and internal positive and negative controls are appropriate for the histochemical, immunohistochemical and immunofluorescence stain(s) in this case (if any), except where stated explicitly. The performance characteristics of the stain(s) cited in this report were developed and its performance characteristic determined by the Dermatopathology Laboratory at [facility], directed by Dr. Abdirahman Swann. These tests need not be, and therefore are not, approved by the [place] Food and Drug Administration. The tests are used for clinical purposes. Billing Codes Specimen Charges Stain Charges 94868 1 3 12:56 PM CDT DERMATOPATHOLOGY LABORATORY Embedded Images 3 12:56 PM CDT DERMATOPATHOLOGY LABORATORY Pathology/Cytolog y TISSUE SPECIMEN FROM SKIN / Unknown 12/07/2022 12/09/2022 4:56 PM CDT Shemar Gonzalez MD LAB - PATHOLOGY/CYTO LOGY ORDERABLES DERMATOPATHOLOGY LABORATORY [facility] - Department of Dermatology [address] [phone] documented in this encounter Visit Diagnoses Not on filedocumented in this encounter Care Teams Cane Weigher Helper Relationship Specialty Start Date End Date Cher Kirby MD [address] [place] [phone] PCP - General 02/19/13 01/05/23 Sonya Reid APRN-OCCUPATIONAL HEALTH AND SAFETY MANAGER [address] [place] [phone] PCP - General Nurse Practitioner Family 01/06/23 documented as of this encounter
--- OUTSIDE RECORDS SUMMARY | 2024-05-16 20:56 | XMS_ITS | Referral Summary ---
Author Organization [facility] Address [address] [place] [address] Care Team Providers Care Drill Doctor Name Role Phone Sonya Reid APRN-SHAREPOINT SPECIALIST Primary Care Provider Source Comments [facility],non-owned Affiliates and Associated Physician Practices is amultiple site organization consisting of ambulatory clinics and hospital sitesin [place], [place], [place] and [place]. This disclosure is being madepursuant to the Care Everywhere program and may not contain all information available regarding this patient. Last updated 18.[facility] Allergies Active Allergy Reactions Criticality Noted Date Comments Bactrim Ds Other 01/06/2023 Muscle twitching and insomnia Sulfacetamide Other 01/06/2023 Muscles twitch and insomnia Medications * Be aware that medications may not be up to date on this document. Alwaysverify current medications with the patient. Medication Sig Dispensed Refills Start Date End Date Status lisinopril-hydroCHLORO thiazide (Prinzide; Zestoretic) 20-12.5 MG tablet Take 1 tablet twice a day by oral route. Active mirtazapine (Remeron) 15 MG tablet Take 0.5 tablets every day by oral route. Active Active Problems No known active problems Social History Tobacco Use Types Packs/Day Years Used Date Smoking Tobacco: Never Smokeless Tobacco: Never Tobacco Cessation:Counseling Given: Not Answered Sex and Gender Information Value Date Recorded Sex Assigned at Not on file Gender Identity Not on file Sexual Orientation Not on file Plan of Treatment Not on file Care Teams Drill Doctor Relationship Specialty Start Date End Date Sonya Reid APRN-SHAREPOINT SPECIALIST [address] [place] [phone] PCP - General Nurse Practitioner Family 01/06/23
--- OUTSIDE RECORDS SUMMARY | 2024-05-16 20:56 | XMS_ITS ---
Author Organization [facility] [email or web address] Address [address] [facility] [address] [place] [address] Care Team Providers Care Motorcyles Final Inspector Name Role Phone Grabiel Varma MD Primary Care Provider Gracy Sarmiento Unavailable [phone] Allergies Allergen (clinical drug ingredient) Drug/Non Drug Allergy documented on EMR Reaction Allergy Type Onset Date Status Substance with sulfonamide structure and antibacterial mechanism of action (substance) Sulfa Antibiotics Unknown Drug Allergy Active REASON FOR VISIT F/U Decrease Remeron Medications Medication SIG (Take, Route, Frequency, Duration) Notes Start Date End Date Status Omeprazole 20 MG 1 capsule 1/2 to 1 hour before morning meal Orally Once a day Active Vitamin B Complex Ac tive Vitamin E Active Mirtazapine 30 MG 1 tablet at bedtime Oral Once a day for 90 days d/c 15 mg dose Active ALPRAZolam 0.25 MG 1 tablet Oral three times a day for 30 days As needed 04/26/2024 Active Stool Softener Activ e MiraLax 17 GM/SCOOP 1 scoop mixed with 8 ounces of fluid Orally Once a day Active Fiber suplement Active amLODIPine Besylate 10 MG 1 tablet Orally Once a day Active Melatonin 5 MG 1 tablet in the evening Orally Once a day Active Lunesta 1 MG 1 tablet immediately before bedtime Orally Once a day Active Social History Tobacco Use: Social History Observation Description Date Details (start date - stop date) Never Smoker NA - NA Sex Assigned At : Social History Observation Description Sex Assigned At Male Household Question Answer Notes Marital status: Number of adults in household: 2 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 Yes with Women only Tobacco Control (Standard) Question Answer Notes Tobacco use: Nonsmoker AUDIT-C (Standard) Question Answer Notes Did you have a drink contain ing alcohol in the past year? Yes How often did you have a dri nk containing alcohol in the past year? 2 to 3 times a week (3 points) Vital Signs Blood pressure systolic 150 mm Hg 04/26/19 25 Blood pressure diastolic 90 mm Hg 025 Heart Rate 71 /min 04/26/2024 Height 70 in 04/26/2024 Weight 185 lbs 04/26/2024 BMI 26.54 kg/m2 04/26/2024 Height-cm 177.8 cm 04/26/2024 Weight-kg 83.91 kg 04/26/2024 Encounters Encounter Location Date Provider Diagnosis [facility] [address] [address] 04/26/2024 Gracy Garcia MDD (major depressive disorder), recurrent episode, mild F33.0 ; JORDAN (generalized anxiety disorder) F41.1 and Primary insomnia F51.01 Assessments Encounter Date Diagnosis (ICD Code) Assessment Notes Treatment Notes Treatment Clinical Notes Section Notes 04/26/2024 MDD (major depressive disorder), recurrent episode, mild (ICD-10 - F33.0) Learning About Depression Screening material was published, Learning About Depression material was published, Learning About How to Get Help During a Mental Health Crisis material was published, Seasonal Affective Disorder: Care Instructions material was published 1.Depression- patient reported would like to increase dose- presently taking Remeron 15 mg at bedtime - will increase Remeron 30 mg bedtime - for depression, also help sleep and appetite 2. Anxiety increase Xanax 0.25 mg three a day as needed for anxiety [facility] educated not to take with Lunesta at bedtime and risk of respitatory depression 3. Primary Insomnia hx Lunesta 1 mg- not taking in a while Melatonin 2 mg bedtime OT SLUMS= 27 02/23/24 http_s://www.ronnie. org/Ovbei-Mvqhot-L llness/Mental-Heal th-Conditions http_s://psychcent [employer].com/depression /wmq-tqydpresv-fas oxggm-wz-rxfwahwza n#treatments http__s://www.nimh .nih.gov/health/to pics/mental-health -medications http__s://www.ronnie .org/About-Mental- Illness/Treatments /Jnqgxq-Ltdaeg-Hom ications Discussed and educated pt regarding benzodiazepines are generally not intended for prolonged use and that use can cause tolerance, dependence, depression, and associated memory issues including dementias (this list is not exhaustive). Benzodiazepine use is generally not recommended concurrently with pain medications and/or other controlled substances educated on all medications, benefits, side effects and risk, and educated on depression, anxiety, and ADHD, mood d/o and educated on compliance of medications, metabolic and movement d/o education appointment is, continue therapy discussion with patient about course of treatment and patient instructions. education on serotonin syndrome SSRI/SNRI side effects discussed including but not limited to, gastric upset, nausea, vomiting, diarrhea and/or constipation, weight changes, sexual side effects including loss of libido, increased suicidal thoughts/behaviors in children and young adults, and serotonin syndrome. Medication Management and Follow-Up - Plan: - Schedule follow-up appointments every 1-3 months to monitor the patient's response to the medication regimen. - Reinforce the importance of avoiding recreational drug use due to potential neurotoxicity and interactions with prescribed medications. 04/26/2024 JORDAN (generalized anxiety disorder) (ICD-10 - F41.1) Generalized Anxiety Disorder: Care Instructions material was published, Learning About Generalized Anxiety Disorder material was published, Learning About Anxiety Disorders material was published 1.Depression- patient reported would like to increase dose- presently taking Remeron 15 mg at bedtime - will increase Remeron 30 mg bedtime - for depression, also help sleep and appetite 2. Anxiety increase Xanax 0.25 mg three a day as needed for anxiety [facility] educated not to take with Lunesta at bedtime and risk of respitatory depression 3. Primary Insomnia hx Lunesta 1 mg- not taking in a while Melatonin 2 mg bedtime OT SLUMS= 27 02/23/24 http_s://www.ronnie. org/Kemzc-Ykvxeh-Q llness/Mental-Heal th-Conditions http_s://psychcent [employer].com/depression /nye-qqfhxguep-nrg jovqv-zv-akojfmuao n#treatments http__s://www.nimh .nih.gov/health/to pics/mental-health -medications http__s://www.ronnie .org/About-Mental- Illness/Treatments /Kjjnjk-Vcxomj-Cio ications Discussed and educated pt regarding benzodiazepines are generally not intended for prolonged use and that use can cause tolerance, dependence, depression, and associated memory issues including dementias (this list is not exhaustive). Benzodiazepine use is generally not recommended concurrently with pain medications and/or other controlled substances educated on all medications, benefits, side effects and risk, and educated on depression, anxiety, and ADHD, mood d/o and educated on compliance of medications, metabolic and movement d/o education appointment is, continue therapy discussion with patient about course of treatment and patient instructions. education on serotonin syndrome SSRI/SNRI side effects discussed including but not limited to, gastric upset, nausea, vomiting, diarrhea and/or constipation, weight changes, sexual side effects including loss of libido, increased suicidal thoughts/behaviors in children and young adults, and serotonin syndrome. Medication Management and Follow-Up - Plan: - Schedule follow-up appointments every 1-3 months to monitor the patient's response to the medication regimen. - Reinforce the importance of avoiding recreational drug use due to potential neurotoxicity and interactions with prescribed medications. 04/26/2024 Primary insomnia (ICD-10 - F51.01) Learning About Sleeping Well material was published, Insomnia: Care Instructions material was published 1.Depression- patient reported would like to increase dose- presently taking Remeron 15 mg at bedtime - will increase Remeron 30 mg bedtime - for depression, also help sleep and appetite 2. Anxiety increase Xanax 0.25 mg three a day as needed for anxiety [facility] educated not to take with Lunesta at bedtime and risk of respitatory depression 3. Primary Insomnia hx Lunesta 1 mg- not taking in a while Melatonin 2 mg bedtime OTC SLUMS= 27 02/23/24 http_s://www.ronnie. org/Feali-Uwqfua-R llness/Mental-Heal th-Conditions http_s://psychcent [employer].com/depression /yxp-eccslzcqa-exf psgqn-vw-lhqzhqrxf n#treatments http__s://www.nim .nih.gov/health/to pics/mental-health -medications http__s://www.ronnie .org/About-Mental- Illness/Treatments /Qongdj-Jhihgp-Bjc ications Discussed and educated pt regarding benzodiazepines are generally not intended for prolonged use and that use can cause tolerance, dependence, depression, and associated memory issues including dementias (this list is not exhaustive). Benzodiazepine use is generally not recommended concurrently with pain medications and/or other controlled substances educated on all medications, benefits, side effects and risk, and educated on depression, anxiety, and ADHD, mood d/o and educated on compliance of medications, metabolic and movement d/o education appointment is, continue therapy discussion with patient about course of treatment and patient instructions. education on serotonin syndrome SSRI/SNRI side effects discussed including but not limited to, gastric upset, nausea, vomiting, diarrhea and/or constipation, weight changes, sexual side effects including loss of libido, increased suicidal thoughts/behaviors in children and young adults, and serotonin syndrome. Medication Management and Follow-Up - Plan: - Schedule follow-up appointments every 1-3 months to monitor the patient's response to the medication regimen. - Reinforce the importance of avoiding recreational drug use due to potential neurotoxicity and interactions with prescribed medications. Plan Of Treatment Medication Medication Name Sig Start Date Stop Date Notes Mirtazapine 30 MG 1 tablet at bedtime Oral Once a day for 90 days d/c 15 mg dose ALPRAZolam 0.25 MG 1 tablet Oral three times a day for 30 days 04/26/2024 Treatment Notes Assessment Notes MDD (major depressive disord er), recurrent episode, mild Learning About Depression Screening material was published, Learning About Depression material was published, Learning About How to Get Help During a Mental Health Crisis material was published, Seasonal Affective Disorder: Care Instructions material was published JORDAN (generalized anxiety disorder) Gener alized Anxiety Disorder: Care Instructions material was published, Learning About Generalized Anxiety Disorder material was published, Learning About Anxiety Disorders material was published Primary insomnia Learning About Sleep ing Well material was published, Insomnia: Care Instructions material was published Next Appt Details Follow Up: 2 Months, Reason: fu increase Remeron and Xanax Provider Name:Gracy Garcia , 07/01/2024 10:45:00 AM, [address], [address], [place], [address], Progress Notes * Ryan VARGHESE ADOB:[birth year] (79 yo M)Acc No.[id number]:04/26/2024 Patient:Ryan APONTE Provider:?AURORA BENSON :1945???Age:79 Y???Sex:Male Ar e:04/26/2024 Address:[address] [place] [address] Pcp:Grabiel Varma MD Subjective: * Chief Complaints: * ???1. F/U Decrease Remeron. * HPI: ???Depression Screening:?JORDAN-7 (2018 Edition)?Feeling nervous, anxious, or on edge?Several days,?Not being able to stop or control worrying?Several days,?Worrying too much about different things?More than hafl the days,?Trouble relaxing?More than half the days,?Being so restless that it is hard to sit still?Not at all,?Becoming easily annoyed or irritable?Not at all,?Feeling afraid as if something awful might happen?Not at all,?Total JORDAN-7 Score?6,?Interpretation of Total?(5 to 9) Mild.? Follow up depression, anxiety, and sleep? since last visit reported I was doing fine until 2 weeks ago I was having issues with my throat and I am a half empty type madhu and worried and anxious and think about cancer and see provider next week and I been trying to come off Remeron I have constipation and on Linezz and things going good then my throat and stress out and anxious, and thinking about getting Lorazepam to TID and I only had it BID and been cutting? back on sleep med to 15 mg dose and wonder if should go back to 30 mg dose, I am sleeping with Melatonin 4 mg and average 7 hours and once in while need to get up and walk around but most time not super fidgety and I had 4-5 things go wrong with me last 6 months, I feel down and out at times and what simona happen next, appetite not too bad I put on few pounds, I am not having any issues swallowing food or pills, no hopeless or helpless, just worried about what I have and thraot cancer worried,??no psychosis no janine no SI/HI, no agitation no irritable and motivation and interest not as much as used to be I still clean house, I get out and do things and go out with friends and store, conentration and focus comes and goes and not as much as before,? 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 ???Dixon-Suicide Severity Rating Scale:?Suicide Risk (CSRS-screener)?in the past one month Have you wished you were or wished you could go to sleep and not wake up??No.?Depression screening:?PHQ-9?Little interest or pleasure in doing things?More than half the days,?Feeling down, depressed, or hopeless?More than half the days,?Trouble falling or staying asleep, or sleeping too much?Several days,?Feeling tired or having little energy?Several days,?Poor appetite or overeating?Several days,?Feeling bad about yourself or that you are a failure, or have let yourself or your family down?Several days,?Trouble concentrating on things, such as reading the newspaper or watching television?Several days,?Moving or speaking so slowly that other people could have noticed; or the opposite, being so fidgety or restless that you have been moving around a lot more than usual?Not at all,?Thoughts that you would be better off or of hurting yourself in some way?Not at all,?Total Score?9,?Interpretation?Mild Depression.?Intervention?Depression Screening Findings?Positve,?Follow-Up for Depression?Mental health treatment assessment, Patient follow-up to return when and if necessary,?Suicide Risk Assessment Performed? ,?Additional Evaluation for Depression?Psychiatric interview and evaluation,?Name of the standardized tool used for adult depression screening:?Patient Health Questionnaire (PHQ-9).? * ROS:?Psychiatric:?Delusions?denies.?See HPI reports?no shortness of breath no chest pain,? no palpitations, no known heart murmur, and no ankle swelling;? no cough. ?reports abdominal pain, seen PCP and CT 02/22/24 no nausea, no vomiting, reported chronic constipation on rx, no changes appetite, no diarrhea, and reported GERD on rx ?reports no headaches and no migraines but reports no loss of consciousness, no weakness, no numbness, no seizures, no dizziness, no tremor, no gait dysfunction, and no paralysis. ?reports?sleep disturbances restless sleep, and no memory loss?but reports mild depression, feeling safe in a relationship, no alcohol abuse, reported mild anxiety, no hallucinations, no suicidal thoughts, no mood swings, no agitation,? ?reports?fatigue. DRY MOUTH- improved ? reports no fever, no significant weight gain, and reported weight loss. reports no incontinence, no difficulty urinating, and no increased frequency. ?reports no muscle aches, no muscle weakness, no arthralgias/joint pain, reported back pain, no swelling in the extremities, no neck pain, and no difficulty walking SLUMS= 27 02/23/24 throat issues - see PCP. * Medical History:?Past Psychi atric History: Anxiety Disorder, abdominal aortic aneurysm: No, atrial fibrillation: No, chronic fatigue syndrome: No, essential tremor: No, hyperlipidemia: No, hypertension: Yes, Parkinson's disease: No, restless leg syndrome: No, stroke: No, subdural hematoma: No, type 1 diabetes mellitus: No, type 2 diabetes mellitus: No, vitamin B12 deficiency: Yes, vitamin D deficiency: No, GERD. * Social History:?Tobacco Use:?Tobacco Control (Standard)?Tobacco use:?Nonsmoker.?Sexual History:?Sexual History?Had sex in the past 12 months (vaginal, oral, or anal)??Yes,?with?Women only.?Drug/Alcohol:?Drugs?Have you used drugs other than those for medical reasons in the past 12 months??No.?Caffeine?Intake:?none.?Do you smoke marijuana?: Denies. Do you drink alcohol?: Yes. 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 Safety issues?Are there any firearms in the house??No.?Advance Care Planning?Are you your own decision-maker?Yes,?Do you have Power of Rn Examiner for Health or Medical??Yes,?Do you have a power of resident in diagnostic radiology for health??Yes,?Do you have power of resident in diagnostic radiology for Medical ??Yes,?If yes, then please bring the POA paperwork so that we can upload it.?No.?Social History:?Household?Marital Status:?,?Number of Adults in household:?2,?Number of Children in Household:?0,?Level of Education:?Professional Schools/Masters/PhD.? * Medications:?Taking Lunesta 1 MG Tablet 1 tablet immediately before bedtime Orally Once a day , Taking Stool Softener , Taking Fiber , Notes to Pharmacist: suplement, Taking MiraLax 17 GM/SCOOP Powder 1 scoop mixed with 8 ounces of fluid Orally Once a day , Taking Melatonin 5 MG Tablet 1 tablet in the evening Orally Once a day , Taking amLODIPine Besylate 10 MG Tablet 1 tablet Orally Once a day , Taking Vitamin E , Taking Vitamin B Complex , Taking Omeprazole 20 MG Capsule Delayed Release 1 capsule 1/2 to 1 hour before morning meal Orally Once a day , Taking Mirtazapine 15 MG Tablet 1 tablet at bedtime Oral Once a day , Notes to Pharmacist: d/c 30 mg dose and 45 mg dose, Taking ALPRAZolam 0.25 MG Tablet 1 tablet Oral Twice a day As needed, Notes to Pharmacist: change dose to BID prn, Medication List reviewed and reconciled with the patient * Allergies:?Sulfa Antibiotics . Objective: * Vitals:?BP:150/90mm Hg, HR:7 1/min, Wt:185lbs, Wt-k.91 kg, Ht: 70 in, Ht-cm: 177.8 cm, BMI:26.54Index, Body Surface Area: 2.03. * Examination: ???Psychiatry: ?Appearance:?well-groomed.?Abnormal body movements:?none.?Affect / mood:?appropriate, full range.?Aggression:?low.?Anger control:?good.?Attention:?good.?Attitude:?cooperative.?Homicidal ideation:?none.?Suicidal ideation:?none.?Memory status:?SLUMS = 27 ?02/23/24 ?no impairment noted, .?Degree of awareness of surroundings:?within normal limits.?Delusions:?no.?Hallucinations:?no.?Impulse control:?good.?Insight:?good.?Intellectual functioning:?average.?Calculation - Intellectual function:?not tested.?Literacy - Intellectual function:?not tested.?Comprehension - Intellectual function:?average.?Abstract / proverb - Intellectual function:?not tested.?Similarities / opposites - Intellectual function:?not tested.?Judgement:?good.?Orientation:?awake, alert and oriented x 3.?Perceptual disorders:?no perceptual disorder noted.?Psychomotor activity:?within normal range.?Speech / language:?appropriate pitch/modulation.?Thought content:?appropriate.?Thought process:?intact.?Neurology: ?Cognition Assessment Tools Used?.? Assessment: * Assessment: 1.?MDD (major depressive dis order), recurrent episode, mild - F33.0 (Primary)???2.?JORDAN (generalized anxiety disorder) - F41.1???3.?Primary insomnia - F51.01??? 1.Depression- patient report ed would like to increase dose- presently taking Remeron 15 mg at bedtime - will increase Remeron 30 mg bedtime - for depression, also help sleep and appetite 2. Anxiety increase Xanax 0.25 mg three a day as needed for anxiety [facility] educated not to take with Lunesta at bedtime and risk of respitatory depression 3. Primary Insomnia hx Lunesta 1 mg- not taking in a while Melatonin 2 mg bedtime OT SLUMS= 27 02/23/24 http_s://www.ronnie.org/Xehsa-Ftoflm-Mydxyjc/Lromhu-Otxjbk-Bclypobwyz http_s://psychcentral.com/depression/rus-utswsulxb-rtwvunhz-of-depression#treatm ents http__s://www.nimh.nih.gov/health/topics/ufwtss-shwslx-ixxelhjdfki http__s://www.ronnie.org/Fmpyt-Idzbnv-Edpbnzg/Treatments/Fjydsl-Uebbxy-Qrzkkbtpvhh Discussed and educated pt regarding benzodiazepines are generally not intended for prolonged use and that use can cause tolerance, dependence, depression, and associated memory issues including dementias (this list is not exhaustive). Benzodiazepine use is generally not recommended concurrently with pain medications and/or other controlled substances educated on all medications, benefits, side effects and risk, and educated on depression, anxiety, and ADHD, mood d/o and educated on compliance of medications, metabolic and movement d/o education appointment is, continue therapy discussion with patient about course of treatment and patient instructions. education on serotonin syndrome SSRI/SNRI side effects discussed including but not limited to, gastric upset, nausea, vomiting, diarrhea and/or constipation, weight changes, sexual side effects including loss of libido, increased suicidal thoughts/behaviors in children and young adults, and serotonin syndrome. Medication Management and Follow-Up - Plan: - Schedule follow-up appointments every 1-3 months to monitor the patient's response to the medication regimen. - Reinforce the importance of avoiding recreational drug use due to potential neurotoxicity and interactions with prescribed medications. Plan: * Treatment: 2.?JORDAN (generalized anxiety disorder)? Refill ALPRAZolam Tablet, 0.25 MG, 1 tablet, Oral, three times a day As needed, 30 days, 90 Tablet, Refills 2.?? Notes: Generalized Anxiety Disorder: Care Instructions material was published, Learning About Generalized Anxiety Disorder material was published, Learning About Anxiety Disorders material was published?? 3.?Primary insomnia? Notes: Learning About Sleeping Well material was published, Insomnia: Care Instructions material was published?? * Procedure Codes:?18596 BEHAV ASSMT W/SCORE & DOCD/STAND INSTRUMENT, G2211 VISIT COMPLEXITY INHERENT TO ONGOING CARE RELATED TO A PATIENT'S SINGLE, SERIOUS CONDITION OR A COMPLEX CONDITION * Preventive Medicine:? ??Counseling:?BP Management:?FIRST HYPERTENSIVE BP READING FOLLOW-UP PLAN:?Follow-up 1 month Follow up with your PCP,?LIFESTYLE RECOMMENDATION:?Lifestyle education, REFERRAL TO ALTERNATIVE / PRIMARY CARE PROVIDER:?Referral to general medical service Recommended Nonpharmacologic Interventions (Lifestyle Modifications) - Weight ReductionA heart-healthy diet , such as Dietary Approaches to Stop Hypertension (DASH) Eating PlanDietary Sodium RestrictionIncreased Physical ActivityModeration in alcohol consumption,?WEIGHT REDUCTION RECOMMENDATION: educated on healthy b/p 120/80monitor b/p at homerefer to PCP, Urgent care/ERheart healthy diet and exciselimit salt intakelimit soda intake and caffieneincrease water.? * Follow Up:?2 Months (Reason: fu increase Remeron and Xanax) * Billing Information: * Visit Code:? 31302 OFFICE OUTPATIENT VISIT 25 MINUTES DETAILED HISTORY AND EXAM/MODERATE MEDICAL DECISION MAKING. * Procedure Codes:? 41468 BEHAV ASSMT W/SCORE & DOCD/STAND INSTRUMENT. G2211 VISIT COMPLEXITY INHERENT TO ONGOING CARE RELATED TO A PATIENT'S SINGLE, SERIOUS CONDITION OR A COMPLEX CONDITION. * WARE DEVELOPMENT MANAGER Sign off status: Completed true * Provider:?AURORA BENSON Date:? Generated for Serena garces/Vishal/Deborah on:?05/16/2024 08:56 PM SOFTWARE DEVELOPMENT MANAGER History and Physical Notes * HPI (History of Present Illness) Category Sub-Category Detail Notes Category Not es Depression screening PHQ-9 Little inte rest or pleasure in doing things: More than half the days Feeling down, depressed, or hopeless: Mo re than half the days Trouble falling or staying asleep, or sl eeping too much: Several days Feeling tired or having little energy: S everal days Poor appetite or overeating: Several day s Feeling bad about yourself o r that you are a failure, or have let yourself or your family down: Several days Trouble concentrating on thi ngs, such as reading the newspaper or watching television: Several days Moving or speaking so slowly that other people could have noticed; or the opposite, being so fidgety or restless that you have been moving around a lot more than usual: Not at all Thoughts that you would be b dario off or of hurting yourself in some way: Not at all Total Score: 9 Interpretation: Mild Depression Intervention Depression Screening Findings: P ositve Follow-Up for Depression: Critical access hospital treatment assessment, Patient follow-up to return when and if necessary Suicide Risk Assessment Performed: Additional Evaluation for De pression: Psychiatric interview and evaluation Name of the standardized too l used for adult depression screening:: Patient Health Questionnaire (PHQ-9) Depression Screening JORDAN-7 (2018 Edition) Feeling nervous, anxious, or on edge: Several days Follow up depression, anxiety, and sleep since last visit reported I was doing fine until 2 weeks ago I was having issues with my throat and I am a half empty type madhu and worried and anxious and think about cancer and see provider next week and I been trying to come off Remeron I have constipation and on Linezz and things going good then my throat and stress out and anxious, and thinking about getting Lorazepam to TID and I only had it BID and been cutting back on sleep med to 15 mg dose and wonder if should go back to 30 mg dose, I am sleeping with Melatonin 4 mg and average 7 hours and once in while need to get up and walk around but most time not super fidgety and I had 4-5 things go wrong with me last 6 months, I feel down and out at times and what simona happen next, appetite not too bad I put on few pounds, I am not having any issues swallowing food or pills, no hopeless or helpless, just worried about what I have and thraot cancer worried, no psychosis no janine no SI/HI, no agitation no irritable and motivation and interest not as much as used to be I still clean house, I get out and do things and go out with friends and store, conentration and focus comes and goes and not as much as before, 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 ETOH none in 2 month hx 2-3 times a week smoking denies labs PCP 02/14 drugs- denies SLUMS= 27 02/23/24 rx hx Remeron, Xanax, Melatonin, Zoloft (did not help), Pristiq, Ambien, Trazodone (fatigue in am) Not being able to stop or control worryi ng: Several days Worrying too much about different things : More than hafl the days Trouble relaxing: More than half the day s Being so restless that it is hard to sit still: Not at all Becoming easily annoyed or irritable: No t at all Feeling afraid as if something awful ron ht happen: Not at all Total JORDAN-7 Score: 6 Interpretation of Total: (5 to 9) Mild Dixon-Suicide Severity Rating Scale Suicide Risk (CSRS-screener) in the past one month Have you wished you were or wished you could go to sleep and not wake up?: No Examination Category Sub-Category Detail Notes Category Not es Neurology Cognition Assessment Tools Used Total score SLU MS: 27 Psychiatry Appearance: well-groomed Attitude: cooperative Psychomotor activity: within normal rang e Abnormal body movements: none Attention: good Degree of awareness of surroundings: wit hin normal limits Orientation: awake, alert and german ented x 3 Affect / mood: appropriate, full ra nge Speech / language: appropriate pitch/mo dulation Insight: good Judgement: good Thought process: intact Thought content: appropriate Perceptual disorders: no perceptual diso rder noted Aggression: low Anger control: good Suicidal ideation: none Homicidal ideation: none Intellectual functioning: average Impulse control: good Memory status: SLUMS = 27 02/23/24 n o impairment noted, Delusions: no Hallucinations: no Calculation - Intellectual function: not tested Literacy - Intellectual function: not te sted Comprehension - Intellectual function: a verage Abstract / proverb - Intellectual functi on: not tested Similarities / opposites - I ntellectual function: not tested
--- OUTSIDE RECORDS SUMMARY | 2024-05-16 20:56 | XMS_ITS ---
Author Organization [facility] Address [address] [facility] [address] [place] [address] Care Team Providers Care Research Management Associate Name Role Phone Grabiel Varma MD Primary Care Provider Kary Sarmiento Unavailable [phone] Allergies Allergen (clinical drug ingredient) Drug/Non Drug Allergy documented on EMR Reaction Allergy Type Onset Date Status Substance with sulfonamide structure and antibacterial mechanism of action (substance) Sulfa Antibiotics Unknown Drug Allergy Active REASON FOR VISIT Follow Up medications Medications Medication SIG (Take, Route, Frequency, Duration) Notes Start Date End Date Status MiraLax 17 GM/SCOOP 1 scoop mixed with 8 ounces of fluid Orally Once a day Active Lunesta 1 MG 1 tablet immediately before bedtime Orally Once a day Active ALPRAZolam 0.25 MG 1 tablet Oral Twice a day for 30 days As needed change dose to BID prn 03/15/2024 Active Fiber suplement Active Stool Softener Activ e Omeprazole 20 MG 1 capsule 1/2 to 1 hour before morning meal Orally Once a day Active Vitamin B Complex Ac tive Vitamin E Active Mirtazapine 15 MG 1 tablet at bedtime Oral Once a day for 90 days d/c 30 mg dose and 45 mg dose Active Melatonin 5 MG 1 tablet in the evening Orally Once a day Active amLODIPine Besylate 10 MG 1 tablet Orally Once a day Active Social History [...] (3 points) Vital Signs Blood pressure systolic 139 mm Hg 03/15/20 24 Blood pressure diastolic 78 mm Hg 024 Heart Rate 71 /min 03/15/2024 Height 70 in 03/15/2024 Weight 184.4 lbs 03/15/2024 BMI 26.46 kg/m2 03/15/2024 Height-cm 177.8 cm 03/15/2024 Weight-kg 83.64 kg 03/15/2024 Encounters Encounter Location Date Provider Diagnosis [facility] [place] [facility] [address] [address] 03/15/2024 Kary Garcia MDD (major depressive disorder), recurrent episode, mild F33.0 ; JORDAN (generalized anxiety disorder) F41.1 and Primary insomnia F51.01 Assessments Encounter Date Diagnosis (ICD Code) Assessment Notes Treatment Notes Treatment Clinical Notes Section Notes 03/15/2024 MDD (major depressive disorder), recurrent episode, mild (ICD-10 - F33.0) Learning About Depression Screening material was published, Learning About Depression material was published, Learning About How to Get Help During a Mental Health Crisis material was published, Seasonal Affective Disorder: Care Instructions material was published 1.Depression- patient reported constipation on rx and would like to decrease dose- presently taking Remeron 30 mg at bedtime - will decrease Remeron 15 mg bedtime - for depression, also help sleep and appetite 2. Anxiety Xanax 0.25 mg twice a day as needed for anxiety [facility] [employer] educated not to take with Lunesta at bedtime and risk of respitatory depression 3. Primary Insomnia patient stopepd after 2 days d/c Trazodone 50 mg at bedtime- reported fatigue in am Melatonin 2 mg bedtime OTC SLUMS= 27 02/23/24 http_s://www.ronnie. org/Zqyih-Otsbyh-I llness/Mental-Heal th-Conditions http_s://psychcent ral.com/depression /cai-vwkrtvuoy-cqg tdzlu-yi-qjtnbvbnn n#treatments http__s://www.nimh .nih.gov/health/to pics/mental-health -medications http__s://www.ronnie .org/About-Mental- Illness/Treatments /Kxalso-Pepqjy-Sfe ications Discussed and educated pt regarding benzodiazepines [...] potential neurotoxicity and interactions with prescribed medications. 03/15/2024 JORDAN (generalized anxiety disorder) (ICD-10 - F41.1) Generalized Anxiety Disorder: Care Instructions material was published, Learning About Generalized Anxiety Disorder material was published, Learning About Anxiety Disorders material was published 1.Depression- patient reported constipation on rx and would like to decrease dose- presently taking Remeron 30 mg at bedtime - will decrease Remeron 15 mg bedtime - for depression, also help sleep and appetite 2. Anxiety Xanax 0.25 mg twice a day as needed for anxiety [facility] [employer] educated not to take with Lunesta at bedtime and risk of respitatory depression 3. Primary Insomnia patient stopepd after 2 days d/c Trazodone 50 mg at bedtime- reported fatigue in am Melatonin 2 mg bedtime OTC SLUMS= 27 02/23/24 http_s://www.ronnie. org/Drrxt-Gqcwei-J llness/Mental-Heal th-Conditions http_s://psychcent ral.com/depression /man-kquteqyxj-fll xdync-oa-bvrzpzlqn n#treatments http__s://www.nimh .nih.gov/health/to pics/mental-health -medications http__s://www.ronnie .org/About-Mental- Illness/Treatments /Ghyaoj-Korwhb-Zci ications Discussed and educated pt regarding benzodiazepines [...] potential neurotoxicity and interactions with prescribed medications. 03/15/2024 Primary insomnia (ICD-10 - F51.01) Learning About Sleeping Well material was published, Insomnia: Care Instructions material was published 1.Depression- patient reported constipation on rx and would like to decrease dose- presently taking Remeron 30 mg at bedtime - will decrease Remeron 15 mg bedtime - for depression, also help sleep and appetite 2. Anxiety Xanax 0.25 mg twice a day as needed for anxiety [facility] [employer] educated not to take with Lunesta at bedtime and risk of respitatory depression 3. Primary Insomnia patient stopepd after 2 days d/c Trazodone 50 mg at bedtime- reported fatigue in am Melatonin 2 mg bedtime OTC SLUMS= 27 02/23/24 http_s://www.ronnie. org/Qcfdl-Enxsrc-R llness/Mental-Heal th-Conditions http_s://psychMaster Route.com/depression /ysf-lespijhir-xtj mmnxl-du-qhbgvugqb n#treatments http__s://www.nimh .nih.gov/health/to pics/mental-health -medications http__s://www.ronnie .org/About-Mental- Illness/Treatments /Atcgsf-Jmzbmm-Vah ications Discussed and educated pt regarding benzodiazepines [...] Name Sig Start Date Stop Date Notes ALPRAZolam 0.25 MG 1 tablet Oral Twice a day for 30 days 03/15/2024 change dose to BID prn traZODone HCl 50 MG 1 tablet at bedtime Orally Once a day for 30 days Mirtazapine 15 MG 1 tablet at bedtime Oral Once a day for 90 days d/c 30 mg dose and 4 5 mg dose Treatment Notes Assessment Notes MDD (major depressive [...] was published Next Appt Details Follow Up: 6 Weeks, Reason: F/U Decrease Remeron Provider Name:Kary Garcia , 07/01/2024 10:45:00 AM, [address] [facility] [address] [address] [address], [facility] [address], [place], [address], Progress Notes * Ryan VARGHESE ADOB:[birth year] (79 yo M)Acc No.[id number]:03/15/2024 Patient:?Ryan VARGHESE Provider:?KARY GARCIA PMHNP :1945???Age:79 Y???Sex:Male Ar e:03/15/2024 Address:[address] [place], [place] [id number] Pcp:Grabiel Varma MD Subjective: * Chief Complaints: * ???1. Follow Up medications. * HPI: ???[place]-Suicide Severity Rating Scale:?Suicide Risk (CSRS-screener)?in the past one month Have you wished you were or wished you could go to sleep and not wake up??No,?in the past one month Have you actually had any thoughts of killing yourself??No,?Have you ever done anything, started to do anything, or prepared to do anything to end your life??No.?Depression Screening:?JORDAN-7 (2018 Edition)?Feeling nervous, anxious, or on edge?Several days,?Not being able to stop or control worrying?Not at all,?Worrying too much about different things?Nearly every day,?Trouble relaxing?Nearly every day, Being so restless that it is hard to sit still?Several days,?Becoming easily annoyed or irritable?Not at all,?Feeling afraid as if something awful might happen?Not at all.? Follow up depression, anxiety, and sleep? since last visit reported increase Remeron, Xanax and stopped Lunesta and added Trazodone I feel I had Tazadone made me tired in day and I stopped it and I am on Remeron, Melatonin and if I get up in middle night I take 0.25 Xanax, I sleep pretty good I feel like i have to urinate more and mouth dry and I felt increase constipation at 45 mg dose Remeron and I went back to 30 mg dose after 2 days, If I start to feel better I may like to taper off rx, and I feel looking back on hx constipation with rx I may want to come down on rx, I take rx for constipation, I saw provider and Madayzz I am going to try, I am sleeping average 6.5 hours, appetite comes and goes, seen PCP yesterday weight been stable, I feel once in a while sad and uptight when see providers and always have, I feel sometimes need ot ge tup and move around, no psychosis no janine no SI/HI, no agitation no irritable and motivation and interest comes and goes, conentration and focus comes and goes,??I take Xanax 0.5 mg at night and I have not picked up the one from here and I cu tit in half I have enough at home. I usuallt not need it in day and I have anxious today and when see providers,I like ot stayy on lowest dose Xanax if I can, no hopeless or helpless just sometimes frustrated with how things are going,? 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 ???Depression screening:?PHQ-9?Little interest or pleasure in doing things?More than half the days,?Feeling down, depressed, or hopeless?Not at all,?Trouble falling or staying asleep, or sleeping too much?Several days,?Feeling tired or having little energy?Several days,?Poor appetite or overeating?Several days,?Feeling bad about yourself or that you are a failure, or have let yourself or your family down?Not at all,?Trouble concentrating on things, such as reading the newspaper or watching television?Not at all,?Moving or speaking so slowly that other people could have noticed; or the opposite, being so fidgety or restless that you have been moving around a lot more than usual?Not at all,?Thoughts that you would be better off or of hurting yourself in some way?Not at all,?Total Score?5,?Interpretation?Mild Depression.?Intervention?Depression Screening Findings?Positve,?Follow-Up for Depression?Mental health treatment assessment, Patient follow-up to return when and if necessary,?Suicide Risk Assessment Performed? ,?Additional Evaluation for Depression?Psychiatric interview and evaluation,?Name of the standardized tool used for adult depression screening:?Patient Health Questionnaire (PHQ-9).? * ROS:?Psychiatric:?Delusions?denies.?See HPI reports?no shortness of breath when walking but reports no chest pain, no arm pain on exertion, no shortness of breath when lying down, no palpitations, no known heart murmur, and no ankle swelling;? no cough. ?reports abdominal pain, seen PCP and CT 02/22/24 no nausea, no vomiting, reported chronic constipation on rx, less appetite, no diarrhea, and reported GERD on [...] thoughts, no mood swings, no agitation,? ?reports?fatigue. ? reports no fever, no significant weight gain, and reported weight loss. reports no incontinence, no difficulty urinating, and no increased frequency. ?reports no muscle aches, no muscle weakness, no arthralgias/joint pain, reported back pain, no swelling in the extremities, no neck pain, and no difficulty walking SLUMS= 27 02/23/24. * Medical History:?Past Psychi atric History: Anxiety [...] your own decision-maker?Yes,?Do you have Power of Lacing Cutter for Health or Medical??Yes,?Do you have a power of sous chef kitchen manager for health??Yes,?Do you have power of sous chef kitchen manager for Medical ??Yes,?If yes, then please bring [...] meal Orally Once a day , Taking traZODone HCl 50 MG Tablet 1 tablet at bedtime Orally Once a day , Taking Mirtazapine 45 MG Tablet 1 tablet at bedtime Oral Once a day , Notes to Pharmacist: d/c 30 mg dose, Taking ALPRAZolam 0.25 MG Tablet 1 tablet Oral three times a day As needed, Notes to Pharmacist: change dose to TID prn, Medication List reviewed and reconciled with the patient * Allergies:?Sulfa Antibiotics . Objective: * Vitals:?BP:139/78mm Hg, HR:7 1/min, Wt:184.4lbs, Wt-k.64 kg, Ht: 70 in, Ht- cm: 177.8 cm, BMI:26.46Index, Body Surface Area: 2.03. * Examination: ???Psychiatry: [...] - F41.1???3.?Primary insomnia - F51.01??? 1.Depression- patient reported constipation on rx and would like to decrease dose- presently taking Remeron 30 mg at bedtime? - will decrease Remeron 15 mg bedtime - for depression, also help sleep and appetite 2. Anxiety ?Xanax 0.25 mg twice a day as needed for anxiety ?[employer]? educated not to take with Lunesta at bedtime and risk of respitatory depression 3. Primary Insomnia patient stopepd after 2 days? d/c Trazodone 50 mg at bedtime- reported fatigue in am? Melatonin 2 mg bedtime OTC SLUMS= 27 02/23/24 http_s://www.ronnie.org/Dmqcd-Ujcgpy-Ggjjepd/Gpzcpt-Ssslcx-Gfatqucnxa http_s://psychcentral.com/depression/aib-bjhshotre-nbudbxbt-of-depression#treatm ents http__s://www.nimh.nih.gov/health/topics/pcrjlf-ghggqy-kghusrofncz http__s://www.ronnie.org/Lgyyr-Sluiib-Hyjvpdc/Treatments/Pstdwe-Fotept-Kzchwxdgqwk Discussed and educated pt regarding benzodiazepines are [...] ALPRAZolam Tablet, 0.25 MG, 1 tablet, Oral, Twice a day As needed, 30 days, 60 Tablet, Refills 0, Notes to Pharmacist: change dose to BID prn.?? Notes: Generalized Anxiety Disorder: Care Instructions material was published, Learning About Generalized Anxiety Disorder material was published, Learning About Anxiety Disorders material was published?? 3.?Primary insomnia? Stop traZODone HCl Tablet, 50 MG, 1 tablet at bedtime, Orally, Once a day, 30 days, 30 Tablet.?? Notes: Learning About Sleeping Well material was published, Insomnia: Care Instructions material was published?? * Procedure Codes:?90181 BEHAV ASSMT W/SCORE & DOCD/STAND INSTRUMENT, 36968 BEHAV ASSMT W/SCORE & DOCD/STAND INSTRUMENT, G2211 VISIT COMPLEXITY INHERENT TO ONGOING CARE RELATED TO A PATIENT'S SINGLE, SERIOUS CONDITION OR A COMPLEX CONDITION * Preventive Medicine:? ??Counseling:?BP Management:?PRE-HYPERTENSIVE FOLLOW-UP PLAN:?Follow-up 2 weeks ____,?LIFESTYLE RECOMMENDATION:?Lifestyle education,?REFERRAL TO ALTERNATIVE / PRIMARY CARE PROVIDER:?Referral to general physician educated on healthy b/p 120/80monitor b/p at homerefer to PCP, Urgent care/ERheart healthy diet and exciselimit salt intakelimit soda intake and caffieneincrease water.? * Follow Up:?6 Weeks (Reason: F/U Decrease Remeron) * Billing Information: * Visit Code:? 58412 OFFICE OUTPATIENT VISIT 25 MINUTES DETAILED HISTORY AND EXAM/MODERATE MEDICAL DECISION MAKING. * Procedure Codes:? 11369 BEHAV ASSMT W/SCORE & DOCD/STAND INSTRUMENT. 78117 BEHAV ASSMT W/SCORE & DOCD/STAND INSTRUMENT. G2211 VISIT COMPLEXITY INHERENT TO ONGOING CARE RELATED TO A PATIENT'S SINGLE, SERIOUS CONDITION OR A COMPLEX CONDITION. * ROLLING SUPERVISOR Sign off status: Completed true * Provider:?AURORA BENSON Date:? Generated for Serena garecs/Vishal/eTransmitting on:?05/16/2024 08:56 PM COLD ROLLING SUPERVISOR History and Physical Notes * HPI (History of Present Illness) Category Sub-Category Detail Notes Category Not es Depression screening PHQ-9 Little inte rest or pleasure in doing things: More than half the days Feeling down, depressed, or hopeless: No t at all Trouble falling or staying asleep, or sl eeping too much: Several days Feeling tired or having little energy: S everal days Poor appetite or overeating: Several day s Feeling bad about yourself o r that you are a failure, or have let yourself or your family down: Not at all Trouble concentrating on thi ngs, such as reading the newspaper or watching television: Not at all Moving or speaking so slowly that other people could have noticed; or the opposite, being so fidgety or restless that you have been moving around a lot more than usual: Not at all Thoughts that you would be b dario off or of hurting yourself in some way: Not at all Total Score: 5 Interpretation: Mild Depression Intervention Depression Screening Findings: P ositve Follow-Up for Depression: [facility] treatment assessment, Patient follow-up to return when and if necessary Suicide Risk Assessment Performed: Additional Evaluation for De pression: Psychiatric interview and evaluation Name of the standardized too l used for adult depression screening:: Patient Health Questionnaire (PHQ-9) Depression Screening JORDAN-7 (2018 Edition) Feeling nervous, anxious, or on edge: Several days Follow up depression, anxiety, and sleep since last visit reported increase Remeron, Xanax and stopped Lunesta and added Trazodone I feel I had Tazadone made me tired in day and I stopped it and I am on Remeron, Melatonin and if I get up in middle night I take 0.25 Xanax, I sleep pretty good I feel like i have to urinate more and mouth dry and I felt increase constipation at 45 mg dose Remeron and I went back to 30 mg dose after 2 days, If I start to feel better I may like to taper off rx, and I feel looking back on hx constipation with rx I may want to come down on rx, I take rx for constipation, I saw provider and Madayzz I am going to try, I am sleeping average 6.5 hours, appetite comes and goes, seen PCP yesterday weight been stable, I feel once in a while sad and uptight when see providers and always have, I feel sometimes need ot ge tup and move around, no psychosis no janine no SI/HI, no agitation no irritable and motivation and interest comes and goes, conentration and focus comes and goes, I take Xanax 0.5 mg at night and I have not picked up the one from here and I cu tit in half I have enough at home. 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 ETOH none in 2 month hx 2-3 times a week smoking denies labs PCP 02/14 drugs- denies SLUMS= 27 02/23/24 rx hx Remeron, Xanax, Melatonin, Zoloft (did not help), Pristiq, Ambien, Trazodone (fatigue in am) Not being able to stop or control worryi ng: Not at all Worrying too much about different things : Nearly every day Trouble relaxing: Nearly every day Being so restless that it is hard to sit still: Several days Becoming easily annoyed or irritable: No t at all Feeling afraid as if something awful ron ht happen: Not at all [place]-Suicide Severity Rating Scale Suicide Risk (CSRS-screener) in the past one month Have you wished you were or wished you could go to sleep and not wake up?: No in the past one month Have y ou actually had any thoughts of killing yourself?: No ?Have you ever done anything , started to do anything, or prepared to do anything to end your life?: No Examination Category Sub-Category Detail Notes Category [...]
--- OUTSIDE RECORDS SUMMARY | 2024-05-16 20:56 | XMS_ITS ---
Author Organization [facility] [employer] [facility] Address [address] [facility] [address] [facility] [address] [place] [address] Care Team Providers Care Type Inspector Name Role Phone Grabiel Varma MD Primary Care Provider Gracy Sarmiento Unavailable [phone] REASON FOR VISIT Alprazolam Social History Sex Assigned At : Social History Observation Description Sex Assigned At Male Encounters Encounter Location Date Provider Diagnosis [facility] [place] [id number] [facility] [address] [address] 02/23/2024 Gracy Garcia Plan Of Treatment Next Appt Details Provider Name:Gracy Garcia , 07/01/2024 10:45:00 AM, [address], [facility] [address], [place], [address], Progress Notes * Ryan VARGHESE ADOB:[birth year] (78 yo M)Acc No.[id number]:02/23/2024 Patient:?Ryan VARGHESE :1945???Age:78 Y???Sex:Male Address:[address] [place] [address], [address] * true * Date:? Generated for Carmeni mili/Vishal/eTransmitting on:?05/16/2024 08:56 PM TERRAZZO LAYER
--- OUTSIDE RECORDS SUMMARY | 2024-05-16 20:56 | XMS_ITS | Encounter Summary ---
Author Organization [facility] Address [address] [place] [address] Care Team Providers Care Product Representative Name Role Phone Cher Kirby MD Primary Care Provider Sonya Reid Primary Care Provider Encounter Details Date Type Department Care Team (Late st Contact Info) Description 08/01/2017 Lab Requisition [facility] DermPath Lab [address] [facility] [place] [address] Shemar Gonzalez MD [address] [place] [address] Social History Tobacco Use Types Packs/Day Years Used Date Smoking Tobacco: Never Assessed Sex and Gender Information Value Date Recorded Sex Assigned at Not on file Gender Identity Not on file Sexual Orientation Not on file documented as of this encounter Plan of Treatment Not on file documented as of this encounter Procedures Procedure Name Priority Date/Time Associated Diagnosis Comments DERMATOPATHOLOGY Routine 08/01/2017 12:0 0 AM CDT documented in this encounter Results * DERMATOPATHOLOGY (08/01/2017 12:00 AM CDT) Case Report Dermatopathology Report ? Case: [id number] ? Authorizing Provider: ??Shemar Gonzalez MD ?Collected: ? 08/01/2017 12:00 AM ? Pathologist: ? Birgit Sherwood MD ?Received: ?08/01/2017 11:57 AM ? Specimen: ?Skin, right sup. occiput scalp hairline ? 1:58 PM CDT DERMATOPATHOLOGY LABORATORY Final Diagnosis Specimen A. SKIN, right sup. occiput scalp hairline: INTRADERMAL NEVUS (D23.4) PRESENT AT MARGIN 1:58 PM CDT DERMATOPATHOLOGY LABORATORY Clinical History R/O nevus vs BCC. Check margins. 1:58 PM CDT DERMATOPATHOLOGY LABORATORY Gross Description Specimen: A: Received is one formalin filled container labeled with the patient's name and designated right sup. occiput scalp hairline. The specimen consists of a shave biopsy measuring 8c9o3dm. The margin is inked green. Jar 0. 1:58 PM CDT DERMATOPATHOLOGY LABORATORY Microscopic Description Specimen A. SKIN, right sup. occiput scalp hairline: There are nests of cytologically bland melanocytes within the dermis that mature with depth. This lesion is present at the margin of the specimen. 1:58 PM CDT DERMATOPATHOLOGY LABORATORY Disclaimer An external and internal positive and negative controls are appropriate for the histochemical, immunohistochemical and immunofluorescence stain(s) in this case (if any), except where stated explicitly. The performance characteristics of the stain(s) cited in this report were developed and its performance characteristic determined by the Dermatopathology Laboratory at [facility]. These tests need not be, and therefore are not, approved by the [place] Food and Drug Administration. The tests are used for clinical purposes. Billing Codes Specimen Charges Stain Charges 34009 1 8 1:58 PM CDT DERMATOPATHOLOGY LABORATORY Embedded Images 8 1:58 PM CDT DERMATOPATHOLOGY LABORATORY Pathology/Cytolog y TISSUE SPECIMEN FROM SKIN / Unknown 08/01/2017 08/01/2017 11:57 AM CDT Shemar Gonzalez MD LAB - PATHOLOGY/CYTO LOGY ORDERABLES DERMATOPATHOLOGY LABORATORY [facility] - Department of Dermatology [address] [place] [address], 5th Floor Lab [address] [phone] documented in this encounter Visit Diagnoses Not on filedocumented in this encounter Care Teams Product Representative Relationship Specialty Start Date End Date Cher Kirby MD [address] [place] [phone] PCP - General 02/19/13 01/05/23 Sonya Reid, MARKETING PROGRAMS MANAGER-LEGAL OFFICER [address] [place] [phone] PCP - General Nurse Practitioner Family 01/06/23 documented as of this encounter
--- OUTSIDE RECORDS SUMMARY | 2024-05-16 20:56 | XMS_ITS | CONTINUITY OF CARE DOCUMENT ---
Author Name crystal rojas Address Unknown Organization [facility] Address [address] [place] [address] [address] [place] [address] Phone [phone] Care Team Providers Care Travel Physical Therapist Name Role Phone Ludin Martinez MD Unavailable [phone] KONG HEALY MD Unavailable [phone] KONG HEALY MD Unavailable [phone] VITAL SIGNS Date Observation Value Provider blood pressure, diastolic 86 mm[Hg] Claire seph [place] blood pressure, systolic 118 mm[Hg] Benjamín eph [place] SOCIAL HISTORY Date Observation Value Provider smoking status never Sunny khan FUNCTIONAL STATUS Date Observation Value Provider periodic limb movement index absent (0) Sunny De La Garza INSURANCE PROVIDERS Payer name Policy type / Coverage type Amber red alliance party ID [email or web address] insurance company [id number] [place] [employer] Medicare [id number]
--- OUTSIDE RECORDS SUMMARY | 2024-05-16 20:56 | XMS_ITS | Clinical Summary ---
Author Organization [facility] Address [address] [place] [address] Care Team Providers Care Machine Lay Out Worker Name Role Phone Sonya Reid APRN-WAITER/WAITRESS TOURIST CLASS Primary Care Provider Source Comments [facility],non-owned Affiliates and Associated Physician Practices is amultiple site organization consisting of ambulatory clinics and hospital sitesin [place], [place], [place]. This disclosure is being madepursuant to the Care Everywhere program and may not contain all information available regarding this patient. Last updated 18.[facility] Allergies Active Allergy Reactions Criticality Noted Date [...] Orientation Not on file Plan of Treatment Health Maintenance Due Date Last Done Comments MEDICARE AWV ? 12 MONTHS 1945 HEPATITIS C SCREENING 03/07/1965 DTAP/TDAP/TD VACCINES (1 - Tdap) 1966 PNEUMOCOCCAL VACCINE 50+ (1 of 1 - PCV) 1997 ZOSTER VACCINE (1 of 2) 1997 Respiratory Syncytial Virus (RSV) Vaccine Pt: or over 60 yrs (1 - 1-dose 75+ series) 2022 COVID-19 VACCINE (3 - 2023-2 5 season) 2023 07/26/2020, 06/25/2020 INFLUENZA VACCINE (#1) 2023 12/23/2021 DEPRESSION SCREENING 04/24/2024 HEPATITIS B VACCINE Aged Out No longe r eligible based on patient's age to complete this topic HIB VACCINE Aged Out No longer eligi ble based on patient's age to complete this topic HPV VACCINE Aged Out No longer eligi ble based on patient's age to complete this topic MENINGOCOCCAL (Group B) VACCINE Aged Out No longer eligible b ased on patient's age to complete this topic MENINGOCOCCAL VACCINE Aged Out No dereck tommy eligible based on patient's age to complete this topic Care Teams Machine Lay Out Worker Relationship Specialty Start Date End Date Sonya Reid APRN-WAITER/WAITRESS TOURIST CLASS [address] [place] [phone] PCP - General Nurse Practitioner Family 01/06/23
--- OUTSIDE RECORDS SUMMARY | 2024-05-16 20:57 | XMS_ITS | Patient Health Record ---
Author Organization [facility] [employer] Address [address] [facility] [address] [place] [address] Care Team Providers Care Hospital Attendant Name Role Phone Kojo ORR, Grabiel Primary Care Provider Gracy Sarmiento Unavailable [phone] Allergies Allergen (clinical drug ingredient) Drug/Non Drug Allergy documented on EMR Reaction Allergy Type Onset Date Status Substance with sulfonamide structure and antibacterial mechanism of action (substance) Sulfa Antibiotics Unknown Drug Allergy Active Results Component Value Reference Range Notes UDT Reviewed date:02/23/2024 10:47:14 AM Interpretation: Performing Lab: Notes/Report: THC NEG 0 - 50 ng/ml Cocaine NEG 0 - 300 ng/ml Amphetamine NEG 0 - 1000 ng/ml Buprenorphine (BUP) NEG 0 - 10 ng/ml Secobarbital (Bar) NEG 0 - 300 ng/ml Oxazepam (BZO) NEG 0 - 300 ng/ml 3-krpnrwmrop-1,3-brorsqtq-0,3-diphenylpyrrolidine (JOHNNIE P) NEG 0 - 300 ng/ml Methamphetamine (MET) NEG 0 - 1000 ng/ml Methylenedioxymethamphetamine (MDMA) NEG 0 - 500 ng/ml Morphine (MOP 300/VUR9164) NEG 0 - 300 ng/ml Methadone (MTD) NEG 0 - 300 ng/ml Phencyclidine (PCP) NEG 0 - 25 ng/ml Propoxyphene (PPX) NEG 0 - 300 ng/ml Nortriptyline (TCA) NEG 0 - 1000 ng/ml Oxycodone NEG 0 - 300 ng/ml Reason For Referral No Information Medications Medication SIG (Take, Route, Frequency, Duration) Notes Start Date End Date Status Omeprazole 20 MG 1 capsule 1/2 to 1 hour before morning meal Orally Once a day Active Stool Softener Activ e Lunesta 1 MG 1 tablet immediately before bedtime Orally Once a day Active MiraLax 17 GM/SCOOP 1 scoop mixed with 8 ounces of fluid Orally Once a day Active Fiber suplement Active amLODIPine Besylate 10 MG 1 tablet Orally Once a day Active Melatonin 5 MG 1 tablet in the evening Orally Once a day Active Vitamin B Complex Ac tive Vitamin E Active Mirtazapine 30 MG 1 tablet at bedtime Oral Once a day for 90 days d/c 15 mg dose Active ALPRAZolam 0.25 MG 1 tablet Oral three times a day for 30 days As needed 04/26/2024 Active Social History Tobacco Use: Social History [...] to 3 times a week (3 points) Problems Problem Type SNOMED Code ICD Code Onset Dates Problem Status W/U Status Risk Notes Problem 3413380 Primary insomnia (F51.01) Active confirmed Problem 31527367 JORDAN (generalized anxiety disorder) (F41.1) Active confirmed Problem [id number] MDD (major depressive disorder), recurrent episode, mild (F33.0) Active confirmed Vital Signs Heart Rate 71 /min 04/26/2024 Respiratory Rate 16 /min 02/23/2024 Height-cm 177.8 cm 04/26/2024 Blood pressure diastolic 90 mm Hg 04/26/2024 Weight-kg 83.91 kg 04/26/2024 Height 70 in 04/26/2024 Blood pressure systolic 150 mm Hg 04/26/2024 Weight 185 lbs 04/26/2024 BMI 26.54 kg/m2 04/26/2024 Encounters Encounter Location Date Provider Diagnosis [place] [address] [facility] [address] [place] [address] 02/23/2024 Gracy Therlázaro MDD (major depressive disorder), recurrent episode, mild F33.0 ; JORDAN (generalized anxiety disorder) F41.1 and Primary insomnia F51.01 [facility] [address] [facility] [address] [place] [address] 03/15/2024 Gracy Radha MDD (major depressive disorder), recurrent episode, mild F33.0 ; JORDAN (generalized anxiety disorder) F41.1 and Primary insomnia F51.01 [facility] [address] [facility] [address] [place] [address] 04/26/2024 Gracy Radha MDD (major depressive disorder), recurrent episode, mild F33.0 ; JORDAN (generalized anxiety disorder) F41.1 and Primary insomnia F51.01 [facility] [address] [address] 02/22/2024 Gracy Radha [place] [address] [address] 02/23/2024 Gracy Radha Assessments Encounter Date Diagnosis (ICD Code) Assessment [...] three a day as needed for anxiety [facility] educated not to take with Lunesta at bedtime and risk of respitatory depression 3. Primary Insomnia hx Lunesta 1 mg- not taking in a while Melatonin 2 mg bedtime OTC SLUMS= 27 02/23/24 http_s://www.ronnie. org/Tgeun-Sopsuy-U llness/Mental-Heal th-Conditions http_s://psychcent ral.com/depression /wqo-ybnizgklr-jot xurnm-cd-znijwmjkt n#treatments http__s://www.nimh .nih.gov/health/to pics/mental-health -medications http__s://www.ronnie .org/About-Mental- Illness/Treatments /Dnpflt-Viaxws-Vjw ications Discussed and educated pt regarding benzodiazepines [...] twice a day as [facility] educated not to take with Lunesta at bedtime and risk of respitatory depression 3. Primary Insomnia patient stopepd after 2 days d/c Trazodone 50 mg at bedtime- reported fatigue in am Melatonin 2 mg bedtime OTC SLUMS= 27 02/23/24 http_s://www.ronnie. org/Ywbng-Vqouhd-V llness/Mental-Heal th-Conditions http_s://psychcent Puridify.com/depression /qeq-zdxqdhadi-yiq ctxym-dh-juthspyfc n#treatments http__s://www.[facility] .nih.gov/health/to pics/mental-health -medications http__s://www.ronnie .org/About-Mental- Illness/Treatments /Avlxkm-Jwdrbs-Lfr ications Discussed and educated pt regarding benzodiazepines [...] neurotoxicity and interactions with prescribed medications. 03/15/2024 MDD (major depressive disorder), recurrent episode, [...] twice a day as needed [facility] educated not to take with Lunesta at bedtime and risk of respitatory depression 3. Primary Insomnia patient stopepd after 2 days d/c Trazodone 50 mg at bedtime- reported fatigue in am Melatonin 2 mg bedtime OTC SLUMS= 27 02/23/24 http_s://www.ronnie. org/Eapte-Hrltan-T llness/Mental-Heal th-Conditions http_s://psychcent Puridify.com/depression /icr-cuhqxjald-bcs uwrdr-mm-iizpccwfu n#treatments http__s://www.nimh .nih.gov/health/to pics/mental-health -medications http__s://www.ronnie .org/About-Mental- Illness/Treatments /Xqxpcv-Nrgdjn-Eaa ications Discussed and educated pt regarding benzodiazepines [...] potential neurotoxicity and interactions with prescribed medications. 02/23/2024 JORDAN (generalized anxiety disorder) (ICD-10 - F41.1) Generalized Anxiety Disorder: Care Instructions material was published, Learning About Generalized Anxiety Disorder material was published, Learning About Anxiety Disorders material was published presently taking Remeron 30 mg bedtime, Xanax 0.25 mg bedtime, Melatonin 5 mg bedtime, Lunesta 1 mg bedtime 1.Depression - increase Remeron 45 mg bedtime - for depression, also help sleep and appetite 2. Anxiety will increase Xanax 0.25 mg three times a day as needed for anxiety PCP filled RX Recently [facility] [address] [facility] due 02/29/24 educated not to take with Lunesta at bedtime and risk of respitatory depression 3. Primary Insomnia discuss Trazodone for sleep and educated on rx add Trazodone 50 mg at bedtime- will tritate as needed Melatonin 5-10 mg bedtime OTC d/c Lunesta 1 mg bedtime discuss control substance Lunesta and Benzo and will try to stop Lunesta and adding Trazodone in place of Lunesta SLUMS= 27 02/23/24 http_s://www.ronnie. org/Ufxgu-Rntrkf-G llness/Mental-Heal th-Conditions http_s://psychNXTM.com/depression /hpr-qoetfbart-zll ckpov-oy-udfhaesnx n#treatments http__s://www.nimh .nih.gov/health/to pics/mental-health -medications http__s://www.ronnie .org/About-Mental- Illness/Treatments /Yaztum-Ivrjto-Gwx ications Discussed and educated pt regarding benzodiazepines [...] potential neurotoxicity and interactions with prescribed medications. 02/23/2024 MDD (major depressive disorder), recurrent episode, mild (ICD-10 - F33.0) Learning About Depression Screening material was published, Learning About Depression material was published, Learning About How to Get Help During a Mental Health Crisis material was published, Seasonal Affective Disorder: Care Instructions material was published presently taking Remeron 30 mg bedtime, Xanax 0.25 mg bedtime, Melatonin 5 mg bedtime, Lunesta 1 mg bedtime 1.Depression - increase Remeron 45 mg bedtime - for depression, also help sleep and appetite 2. Anxiety will increase Xanax 0.25 mg three times a day as needed for anxiety PCP filled RX Recently [facility] due 02/29/24 educated not to take with Lunesta at bedtime and risk of respitatory depression 3. Primary Insomnia discuss Trazodone for sleep and educated on rx add Trazodone 50 mg at bedtime- will tritate as needed Melatonin 5-10 mg bedtime OTC d/c Lunesta 1 mg bedtime discuss control substance Lunesta and Benzo and will try to stop Lunesta and adding Trazodone in place of Lunesta SLUMS= 27 02/23/24 http_s://www.ronnie. org/Dyfpr-Yfdyiv-P llness/Mental-Heal th-Conditions http_s://psychcent Puridify.com/depression /fub-zuxbplapx-vsw eyqdi-hg-twnwguuuk n#treatments http__s://www.nimh .nih.gov/health/to pics/mental-health -medications http__s://www.ronnie .org/About-Mental- Illness/Treatments /Onunzd-Aunylc-Jyx ications Discussed and educated pt regarding benzodiazepines [...] potential neurotoxicity and interactions with prescribed medications. 02/23/2024 Primary insomnia (ICD-10 - F51.01) Learning About Sleeping Well material was published, Insomnia: Care Instructions material was published presently taking Remeron 30 mg bedtime, Xanax 0.25 mg bedtime, Melatonin 5 mg bedtime, Lunesta 1 mg bedtime 1.Depression - increase Remeron 45 mg bedtime - for depression, also help sleep and appetite 2. Anxiety will increase Xanax 0.25 mg three times a day as needed for anxiety PCP filled RX Recently [facility] due 02/29/24 educated not to take with Lunesta at bedtime and risk of respitatory depression 3. Primary Insomnia discuss Trazodone for sleep and educated on rx add Trazodone 50 mg at bedtime- will tritate as needed Melatonin 5-10 mg bedtime OTC d/c Lunesta 1 mg bedtime discuss control substance Lunesta and Benzo and will try to stop Lunesta and adding Trazodone in place of Lunesta SLUMS= 27 02/23/24 http_s://www.ronnie. org/Favxz-Twxcah-J llness/Mental-Heal th-Conditions http_s://psychcent Puridify.com/depression /woy-gdszavhvi-dsl wbxbq-cp-qtijszxls n#treatments http__s://www.nimh .nih.gov/health/to pics/mental-health -medications http__s://www.ronnie .org/About-Mental- Illness/Treatments /Djugea-Ngxfhe-Kmf ications Discussed and educated pt regarding benzodiazepines [...] twice a day as needed for anxiety [facility] educated not to take with Lunesta at bedtime and risk of respitatory depression 3. Primary Insomnia patient stopepd after 2 days d/c Trazodone 50 mg at bedtime- reported fatigue in am Melatonin 2 mg bedtime OTC SLUMS= 27 02/23/24 http_s://www.ronnie. org/Qkhfi-Toolie-N llness/Mental-Heal th-Conditions http_s://psychcent Puridify.com/depression /sno-ybtjtijnd-bij dmhva-ie-hsykvzyyz n#treatments http__s://www.nimh .nih.gov/health/to pics/mental-health -medications http__s://www.ronnie .org/About-Mental- Illness/Treatments /Nzodso-Senolp-Vlv ications Discussed and educated pt regarding benzodiazepines [...] three a day as needed for anxiety [facility] educated not to take with Lunesta at bedtime and risk of respitatory depression 3. Primary Insomnia hx Lunesta 1 mg- not taking in a while Melatonin 2 mg bedtime OTC SLUMS= 27 02/23/24 http_s://www.ronnie. org/Pkvoc-Elfaoy-K llness/Mental-Heal th-Conditions http_s://psychNXTM.com/depression /kac-hvjhrtvry-qsx ulzee-jd-umctozrfk n#treatments http__s://www.nimh .nih.gov/health/to pics/mental-health -medications http__s://www.ronnie .org/About-Mental- Illness/Treatments /Pyrldx-Mbtsdp-Fqy ications Discussed and educated pt regarding benzodiazepines [...] three a day as needed for anxiety [facility] educated not to take with Lunesta at bedtime and risk of respitatory depression 3. Primary Insomnia hx Lunesta 1 mg- not taking in a while Melatonin 2 mg bedtime OTC SLUMS= 27 02/23/24 http_s://www.ronnie. org/Najmc-Xelaun-A llness/Mental-Heal th-Conditions http_s://[employer] [place].Blucarat/depression /wnl-qfcjwmrad-byb ixzeb-qv-bpksxlupc n#treatments http__s://www.nimh .nih.gov/health/to pics/mental-health -medications http__s://www.ronnie .org/About-Mental- Illness/Treatments /Pzsjsw-Srlqbo-Bln ications Discussed and educated pt regarding benzodiazepines [...] potential neurotoxicity and interactions with prescribed medications. 02/23/2024 Other Learning About Depression Screening material was printed referral to the local chapter or national office of the Alzheimer's Association ( ; http://www.alz. org), the Alzheimer's Disease Education and Referral Center (ADEAR) ( ; http://www.[place]. nih.gov/Alzheim ers/), , Mirtazapine Oral Tablet (MIRTAZAPINE - ORAL) material was published, Alprazolam Oral Tablet (ALPRAZOLAM - ORAL) material was published, Trazodone Oral Tablet (TRAZODONE - ORAL) material was published presently taking Remeron 30 mg bedtime, Xanax 0.25 mg bedtime, Melatonin 5 mg bedtime, Lunesta 1 mg bedtime 1.Depression - increase Remeron 45 mg bedtime - for depression, also help sleep and appetite 2. Anxiety will increase Xanax 0.25 mg three times a day as needed for anxiety PCP filled RX Recently [employer] [facility] due 02/29/24 educated not to take with Lunesta at bedtime and risk of respitatory depression 3. Primary Insomnia discuss Trazodone for sleep and educated on rx add Trazodone 50 mg at bedtime- will tritate as needed Melatonin 5-10 mg bedtime OTC d/c Lunesta 1 mg bedtime discuss control substance Lunesta and Benzo and will try to stop Lunesta and adding Trazodone in place of Lunesta SLUMS= 27 02/23/24 http_s://www.ronnie. org/Nrivu-Flknyb-D llness/Mental-Heal th-Conditions http_s://psychcent ral.com/depression /uto-xzjxfjtmo-tik fmynj-xh-mluxtolch n#treatments http__s://www.nimh .nih.gov/health/to pics/mental-health -medications http__s://www.ronnie .org/About-Mental- Illness/Treatments /Csrkwn-Wzcjlx-Dqt ications Discussed and educated pt regarding benzodiazepines [...] interactions with prescribed medications. Plan Of Treatment Next Appt Details Provider Name:Gracy Garcia , 07/01/2024 10:45:00 AM, [address] [facility] [address] [facility], [place], [address], Insurance Providers Payer Name Payer Address Payer Phone Subscriber Number Group Number Insured Name Patient Relationship to Insured Coverage Start Date Coverage End Date Medicare-[place] Medicare [address] [place] [address] [id number] Ryan Varghese Self - patient is the insured [facility] Medicare Supplement [address] [facility] [address] [id number] VargheseRyan Self - patient is the insured Medical (General) History Medical History History ICD Code Past Psychiatric History: Anxiety Disord er abdominal aortic aneurysm: No atrial fibrillation: No chronic fatigue syndrome: No essential tremor: No hyperlipidemia: No hypertension: Yes Parkinson's disease: No restless leg syndrome: No stroke: No subdural hematoma: No type 1 diabetes mellitus: No type 2 diabetes mellitus: No vitamin B12 deficiency: Yes vitamin D deficiency: No GERD Surgical History Surgery Date(Month/Year) Prostate Removal 2015
--- OUTSIDE RECORDS SUMMARY | 2024-05-16 20:57 | XMS_ITS | Clinical Summary ---
Author Organization [facility] Address [facility] [place] [address] Care Team Providers Care Bathing Suit Maker Name Role Phone Baldo Perera Primary Care Provider [phone] Allergies Active Allergy Reactions Criticality Noted Date Comments Sulfa (Sulfonamide Antibiotics) Other (See comments) Low 10/07/2019 Reaction: Insomnia, ??Other, Reaction: Other Reaction: Insomnia, ??Other, ?? Muscles twitch and insomnia Sulfamethoxazole-Tri methoprim Other (See comments) Medium 10/07/2019 Muscle twitching and insomnia Medications amLODIPine (NORVASC) 5 mg tablet Take 1 tablet (5 mg total) by mouth daily Active azelastine (ASTELIN) 137 mcg (0.1 %) nasal spray Administer 2 sprays into each nostril daily Active cyclobenzaprine (FLEXERIL) 10 mg tablet Take by mouth every 12 (twelve) hours as needed for muscle spasms [address] (VOLTAREN) 75 mg EC tablet Take 1 tablet (75 mg total) by mouth every 12 (twelve) hours as needed for pain Active famotidine (PEPCID) 20 mg tablet Take 1 tablet (20 mg total) by mouth nightly as needed for indigestion or heartburn Active lisinopril-hydr oCHLOROthiazide (ZESTORETIC) 20-12.5 mg per tablet Take 2 tablets by mouth daily 9 Active mirtazapine (REMERON) 15 mg tablet Take 0.5 tablets (7.5 mg total) by mouth nightly 0 Active omeprazole (PriLOSEC) 20 mg capsule Take 1 capsule (20 mg total) by mouth daily 0 Active cetirizine (ZyrTEC) 10 mg tablet Take 1 tablet (10 mg total) by mouth daily as needed for allergies Active cholecalciferol (VITAMIN D-3) 1,000 unit capsule Take 1 capsule (1,000 Units total) by mouth daily 5 Active cyanocobalamin, vitamin B-12, (Vitamin B-12) 2,500 mcg tablet Take 1 tablet (2,500 mcg total) by mouth daily 9 Active vitamin B complex capsule Take 1 capsule by mouth daily 9 Active tamsulosin (FLOMAX) 0.4 mg extended release capsule Acti ve tadalafiL (Cialis) 5 mg tablet TK UTD 6 Active sertraline (ZOLOFT) 50 mg tablet Active polymyxin B-trimethoprim (POLYTRIM) ophthalmic solution INSTILL 1 DROP INTO both AFFECTED EYES BY OPHTHALMIC ROUTE EVERY 6 HOURS for 5 days Active oxyCODONE-aceta minophen (PERCOCET) 5-325 mg per tablet Active hydroCHLOROthia zide (HYDRODIURIL) 25 mg tablet TAKE 1 TABLET EVERY DAY BY ORAL ROUTE Active finasteride (PROSCAR) 5 mg tablet Active eszopiclone (Lunesta) 3 mg tablet Take 1 tablet every day by oral route for 90 days. Active diazePAM (VALIUM) 2 mg tablet Active ciprofloxacin (CIPRO) 500 mg tablet Take by mouth every 12 (twelve) hours Active aspirin 81 mg enteric coated tablet Take 1 tablet every day by oral route for 90 days. 3 Active methocarbamoL (ROBAXIN) 500 mg tablet Take 2 tablets 4 times a day by oral route. 3 Active ALPRAZolam (XANAX) 0.5 mg tablet Take 1 tablet every day by oral route for 90 days. Active predniSONE (DELTASONE) 10 mg tablet pack Take 1 tablet (10 mg total) by mouth daily 4 Active cyclobenzaprine (FLEXERIL) 10 mg tablet Take 1 tablet (10 mg total) by mouth every 12 (twelve) hours as needed for muscle spasms Active methylPREDNISol one (MEDROL DOSEPACK) 4 mg Dosepack Take 1 tablet (4 mg total) by mouth Active Active Problems Problem Noted Date Diagnosed Date Prostatism 01/19/2024 Abdominal pain 01/19/2024 Anxiety 01/19/2024 Diarrhea 01/19/2024 Dysuria 01/19/2024 Hyperlipidemia 01/19/2024 Essential hypertension 01/19/2024 Left lower quadrant pain 01/19/2024 Pernicious anemia 01/19/2024 Sleep disorder 01/19/2024 Vitamin D deficiency 01/19/2024 Lumbar radiculopathy 01/09/2024 Lumbar spondylosis 01/09/2024 Arthralgia of left knee 01/01/2024 Chronic low back pain 01/01/2024 Neuralgia of left sciatic nerve 01/01/2024 Cervical lymphadenopathy 11/20/2023 Cough 11/20/2023 Nasal congestion 11/20/2023 Seasonal allergic rhinitis 11/20/2023 Sore throat 11/20/2023 Gastroesophageal reflux disease without esophagi tis 10/11/2023 History of radical prostatectomy 10/11/2023 Overweight 10/11/2023 Vitamin B12 deficiency (non anemic) 10/11/2023 Major depressive disorder 10/06/2022 Mixed anxiety and depressive disorder 10/06/2022 Macrocytic anemia 04/08/2021 History of prostate cancer 04/09/2020 Primary erectile dysfunction 09/07/2017 Fatigue 11/07/2016 Rib pain 11/07/2016 Tight chest 11/07/2016 Low back strain 08/31/2016 Steatosis of liver 08/31/2016 Malignant neoplasm of prostate 07/29/2015 Overview (08/03/2017): Description: s/p RRP 09/07/2015------[place] 4+3, (-) margins, T2c Prostate cancer 07/29/2015 Nocturia 01/03/2012 Pain in testicle 01/03/2012 Immunizations Name Administration Dates Next Due Influenza, Quad, Adjuvantate d, Intramuscular 02/16/2022,02/11/2021 Influenza, Quadrivalent, Hig h Dose, Preservative Free, Intrr 02/18/2023,12/28/2020 Influenza, Unspecified 12/23/2021 Moderna SARS-CoV-2 Monovalen t Vaccination (12+ YRS) 07/26/2020 Pneumococcal Conjugate PCV 13 06/01/2016, 017 Pneumococcal Polysaccharide PPV23 07/03/2012 RSV Vaccine, Pref, Recombina nt, Subunit, Adjuvanted, PF, IM (Arexvy) 12/30/2022 Sars-CoV-2, Unspecified 11/22/2021,07/26/2021, Tdap 12/29/2019,02/15/2010 ZOSTER LIVE 06/05/2007 ZOSTER Recombinant 04/08/2019,01/07/2019 Surgical History Surgery Date Site/Laterality Comments TONSILLECTOMY Tonsillectomy - (Added by TW Conv) PROSTATE BIOPSY Needle Biopsy Of Prostate - 2008 - PIN (Added by TW Conv) PROSTATE SURGERY FL UPPER GI AIR CONTRAST W KUB 01/29/2024 Left Medical History Medical History Date Comments Personal history of diseases of the blood and blood-forming organs and certain disorders involving the immune mechanism History of anemia - (Added b y TW Conv) Personal history of other di seases of the circulatory system History of hypertension - (A dded by TW Conv) GERD (gastroesophageal reflux disease) Cancer (CMS/HCC) (HCC) Hypertension Family History Medical History Relation Name Comments Cancer Father Shemar Family history of malignant neoplasm - (Added by TW Conv) Cancer Mother [place] Family history of malignant neoplasm - (Added by TW Conv) Diabetes Mother [place] Heart disease Mother [place] Hypertension Mother [place] Relation Name Status Comments Father Shemar Mother [place] Social History Tobacco Use Types Packs/Day Years Used Date Smoking Tobacco: Never Cigarettes Smokeless Tobacco: Never AUDIT-C Answer Date Recorded Q1: How often do you have a drink containing alc ohol? Monthly or less 02/06/2024 Q2: How many drinks containi ng alcohol do you have on a typical day when you are drinking? 1 or 2 02/06/2024 Q3: How often do you have si x or more drinks on one occasion? Never 02/06/2024 Personal Safety Answer Date Recorded Have you ever been in or are you currently in a harmful physical or emotional relationship or is someone making you feel afraid or unsafe? 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 Gender Identity Not on file Sexual Orientation Not on file Occupation Industry Job Start Date Job End Date Not on file Not on file Not on file Not on file Obstetrics History Last Filed Vital Signs Vital Sign Reading Time Taken Comments Blood Pressure 145/69 01/29/2024 9:32 AM CDT Pulse 66 01/29/2024 9:32 AM CDT Temperature 36.9 ??C (98.4 ??F) 01/09/2024 6:44 AM CD T Respiratory Rate 16 01/29/2024 9:32 AM CDT Oxygen Saturation 100% 01/09/2024 10:35 AM CDT Inhaled Oxygen Concentration - - Weight 86.7 kg (191 lb 3.2 oz) 01/19/2024 10:07 AM CDT Height 172.1 cm (5' 7.75 ) 01/19/2024 10:07 AM C DT Body Mass Index 29.29 01/19/2024 10:07 AM CDT Plan of Treatment Health Maintenance Due Date Last Done Comments Depression Screening 1945 Fall Risk Assessment 1945 Hepatitis C Screening 1945 Hepatitis B Screening 1965 Well Visit 65+ 2012 Covid-19 Vaccine ( season) 2023 02/03/2023, 01/02/2022, 11/22/2021, Additional history exists Influenza Vaccine (#1) 2023 , 02/16/2022, 12/23/2021, Additional history exists DTaP/Tdap/Td Vaccine (3 - Td or Tdap) 12/28/2029 12/29/2019, 02/15/2010 Pneumococcal vaccine 65+ Completed 017, 05/01/2016, 07/03/2012 Zoster Vaccine Completed 04/08/2019, 12/23, 06/05/2007 Insurance [facility] MEDICARE [facility] Care Teams Bathing Suit Maker Relationship Specialty Start Date End Date Baldo Perera PA [address] [place] [address] PCP - General Physician [employer] Developer 01/15/24
--- OUTSIDE RECORDS SUMMARY | 2024-05-16 20:57 | XMS_ITS | Referral Summary ---
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
--- OUTSIDE RECORDS SUMMARY | 2024-05-16 20:57 | XMS_ITS | Data Portability ---
Author Organization MD Ludmila PABONAshanti Rey Address [address] [place] [address] Assessment No assessment recorded. Plan of Treatment Reminders Order Date Submit Date Provider Last Modified By Organization Details Last Modified Time Details Appointments None record ed. Lab None record ed. Referral None record ed. Procedures None record ed. Surgeries None record ed. Imaging None record ed. Medication Orders None record ed. Patient TargetsNo targets recorded. Patient InstructionsNo instructions recorded. Reason for Referral None Reported. Medical Equipment None Reported. Vitals None Recorded Social History None recorded. Functional Status None recorded. Mental Status None recorded. Family History Nothing Reported. Medical History No medical history recorded. Immunizations Vaccine Type Date Status Note Provider Nam e and Address Organization Details Recorded Time COVID-19, mRNA, LNP-S, PF, 100 mcg/0.5mL dose or 50 mcg/0.25mL dose 05/28/2020 completed MARGARET Balbuena, [facility] 05/28/2020 16:10:53 COVID-19, mRNA, LNP-S, PF, 100 mcg/0.5mL dose or 50 mcg/0.25mL dose 06/25/2020 completed JOHN Hughes, [facility] 06/25/2020 13:20:39 Past Encounters Encounter ID Performer Location Encounter Start Date Encounter Closed Date Diagnosis/Indication Diagnosis SNOMED-CT Code Diagnosis ICD10 Code Diagnosis Note [id number] JEFF Hawley 14 4 [facility] [place] [id number] 1 05/28/2020 12:54:50 05/29/2020 06:10:51 Administration of SARS-CoV-2 antigen vaccine [id number] Z23 [id number] JEFF Hawley 14 IM 4 [facility] [place] [id number] 06/25/2020 12:06:15 06/26/2020 07:27:52 Administration of SARS-CoV-2 antigen vaccine [id number] Z23 Health Concerns Section Related Observation LastModified by Organization Detai ls LastModified Time None Recorded Concern Status LastModified by Organization Details LastModified Time None Recorded Advance Directives Directive None Recorded Payers Encounter Date Sequence Insurance Name Policy Number Policy Lozano Covered Member ID Lozano Member ID Guarantor Name 05/28/2020 1 [place] Ryan Varghese [id number] Ryan Varghese 05/28/2020 2 [employer] OPTIONS (MEDICARE SUPPLEMENT) Ryan Varghese [id number] Ryan Varghese 06/25/2020 1 [place] Ryan Varghese [id number] Ryan Varghese 06/25/2020 2 [employer] OPTIONS (MEDICARE SUPPLEMENT) Ryan Varghese [id number] Ryan Vagrhese
--- OUTSIDE RECORDS SUMMARY | 2024-05-16 20:57 | XMS_ITS | Clinical Summary ---
Author Organization [facility] Marie Nugent Address [address] [place] [address] Care Team Providers Care Gem Technician Name Role Phone Sonya Reid SAMPLE WORKER Primary Care Provider [phone] Allergies Active Allergy Reactions Criticality Noted Date Comments Sulfa (Sulfonamide Antibiotics) Other (See Comments) 10/07/2019 Reaction: Insomnia, Other, Sulfamethoxazole-Tri methoprim Hepatic Dysfunction Medium 10/07/2019 Medications lisinopril-hydr oCHLOROthiazide (ZESTORETIC) 20-12.5 mg tablet 0 Active omeprazole (PriLOSEC) 20 mg Capsule, Delayed Release(E.C.) 0 Active mirtazapine (REMERON) 15 mg tablet PATIENT TAKE HALF OF DOSAGE 7.5 0 Active amLODIPine (NORVASC) 2.5 mg tablet amlodipine 2.5 mg tablet TAKE 1 TABLET BY MOUTH DAILY Active ALPRAZolam (XANAX) 0.5 mg tablet Take 0.5 mg by mouth daily. Active Active Problems Problem Noted Date Diagnosed Date Macrocytic anemia 04/08/2021 History of prostate cancer 04/09/2020 Encounters Date Type Department Care Team Description 05/16/2024 External Device Data STL ABSTRACTION Provider, Abstract 05/14/2024 External Device Data STL ABSTRACTION Provider, Abstract 05/07/2024 External Device Data STL ABSTRACTION Provider, Abstract 03/14/2024 10:00 AM CARBURETOR MECHANIC Office Visit [facility] On[facility] H[facility]ology - [address] [place] [phone] Noé Gill MD Chronic anemia (Primary Dx); History of prostate cancer 2024 Orders Only [facility] [address] [place] [address] Noé Gill MD 02/26/2024 External Device Data STL ABSTRACTION Provider, Abstract from Last 3 Months Family History Medical History Relation Name Comments Cancer Brother Cancer Father Shemar Lung Heart Disease Father Shemar Lung Cancer Father Shemar Cancer Mother [place] Colon Cancer Mother [place] Diabetes Mother [place] Heart Disease Mother [place] Hypertension Mother [place] Breast Cancer Sister 3 Liset Relation Name Status Comments Brother Daughter Alive Father [place] Mother [place] Sister 1 Alive Sister 2 Alive Sister 3 [place] Social History Tobacco Use Types Packs/Day Years Used Date Smoking Tobacco: Never Smokeless Tobacco: Never Tobacco Cessation:Counseling Given: Not Answered Alcohol Use Standard Drinks/Week Comments Yes 12 (1 standard drink = 0.6 oz pu re alcohol) OCCASSIONLLY Sex and Gender Information Value Date Recorded Sex Assigned at Not on file Legal Sex Male 1:23 PM CDT Gender Identity Not on file Sexual Orientation Not on file Last Filed Vital Signs Vital Sign Reading Time Taken Comments Blood Pressure 132/66 03/14/2024 10:16 AM CARBURETOR MECHANIC Pulse 74 03/14/2024 10:16 AM CARBURETOR MECHANIC Temperature 36.7 ??C (98 ??F) 03/14/2024 10:16 AM CARBURETOR MECHANIC Respiratory Rate 14 03/14/2024 10:16 AM CARBURETOR MECHANIC Oxygen Saturation 98% 03/14/2024 10:16 AM CARBURETOR MECHANIC Inhaled Oxygen Concentration - - Weight 83.5 kg (184 lb) 03/14/2024 10:16 AM CARBURETOR MECHANIC Height 177.8 cm (5' 10 ) 02/17/2022 10:57 AM CDT Body Mass Index 26.4 02/17/2022 10:57 AM CDT Plan of Treatment Upcoming Encounters Date Type Department Care Team (Late st Contact Info) Description 03/10/2025 10:15 AM CARBURETOR MECHANIC Office Visit [facility] Hematology [address] [place] [address] Noé Gill MD [facility] [address] [place] [address] Health Maintenance Due Date Last Done Comments RSV VACCINE (60+ or ) (1 - 1-dose 75+ series) 2022 INFLUENZA VACCINE (#1) 2023 3, 02/16/2022, 02/11/2021, Additional history exists DTAP/TDAP/TD VACCINES (3 - T d or Tdap) 12/28/2029 12/29/2019, 02/15/2010 PNEUMOCOCCAL VACCINE 65+ YEARS Completed 0 06/01/2016, 05/01/2016, 07/03/2012 ZOSTER VACCINE Completed 04/08/2019, 12/23, 06/05/2007 COLORECTAL SCREENING Discontinued 05/04/2022, 05/03/2022, 05/15/2017, Additional history exists Colorectal Cancer Screening Discontinued FIT-DNA Q 3 years Discontinued FIT/FOBT Q 1 year Discontinued Flex Sig/CT Colonography Q 5 years Discontinued Procedures Procedure Name Priority Date/Time Associated Diagnosis Comments COMPREHENSIVE METABOLIC PANEL Routine 03/08/2024 11:01 AM CARBURETOR MECHANIC from Last 3 Months Results * COMPREHENSIVE METABOLIC PANEL (03/08/2024 11:01 AM CARBURETOR MECHANIC) Blood Noé Gill MD CHEMISTRY ORDERABLES Final Resu lt from Last 3 Months Insurance MEDICARE PART A AND B [facility] [id number] [place] [id number] MEDICARE PART A AND B [facility] [id number] [place] [id number] Care Teams Gem Technician Relationship Specialty Start Date End Date Sonya Reid FNP [address] [phone] PCP - General Nurse Practitioner Family 10/04/19
--- OUTSIDE RECORDS SUMMARY | 2024-05-16 20:57 | XMS_ITS | Data Portability ---
Author Organization [place] - [facility] [employer], Main Office Address [address] [place] [address] Care Team Providers Care Medical Sales Associate Name Role Phone NILSON KEARNEY Primary Care Provider [phone] NILSON KEARNEY Referring Provider NILSON KEARNEY Primary Care Provider [phone] Assessment Encounter Date Assessment Date Assessment LastModified by Organization Details LastModified Time 01/09/2024 01/09/2024 The patient has lumbar radiculopathy affecting the left lower extremity mainly in the lateral calf and leg. He has positive provocative maneuvers he may have significant stenosis with nerve root impingement due to hypertrophic changes or disc impingement. Other sources of the pain have been ruled out, he has taken a course of oral steroids followed by diclofenac which is not helping. We will get him started with a course of physical therapy in the meantime we will also set up an MRI scan of his lumbar spine to see if he does indeed have significant nerve root impingement and or stenosis. We will talk about treatment options from there once we get the MRI scan results. If his symptoms suddenly worsen or change he is instructed to call immediately. He voiced understanding and agrees with the above plan. 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 He has such significant findings I think we need to refer him to a spine surgeon he would like to go over to [facility] for spine surgery consultation. Talked about the possibility of lumbar epidural steroid injections versus surgical options he is going to speak with the spine surgeon about these options and go from there. Certainly if his symptoms worsen or change suddenly he is instructed to call or go to the emergency room. We will give him a course of oral prednisone to take in case he needs it currently he is on diclofenac 75 mg b.i.d. I have advised him take this on a regular basis unless he is on the prednisone. He also has physical therapy set up he is starting this today. He will continue with current conservative vision until he sees the spine surgeon he voiced understanding and agreed with the above plan. He was given a copy of his x-rays and MRI scan and reports today to take with him as well. Not available 01/15/2024 10:12:35 Plan of Treatment Reminders Order Date Submit Date Provider Last Modified By Organization Details Last Modified Time Details Appointments None recorded. Lab BMP, serum or plasma 2023 [facility] (Lab), [address] [place], [address], 15:13:06 magnesium, serum or plasma 2023 [facility] (Lab), [address] [place], [address], 15:13:00 Referral physical therapist referral - please contact patient to schedule [address] [facility], [address], [place], [address], 12:02:23 orthopedic spine surgeon referral - please contact patient to schedule 2023 [facility] Referral Program, [facility], [place], [address], 09:14:22 Procedures None recorded. Surgeries None recorded. Imaging MRI, lumbar spine, w/o contrast - patient to schedule 2023 JERMAN Not available 13:20:21 Medication Orders prednisone 10 mg tablets in a dose pack 2023 [facility] [address], [address], [place], [address], 17:43:32 docusate sodium [address] [facility] [address], [address], [place], [address], 17:46:49 polyethylen e glycol 3350 17 gram/dose oral powder 2023 [facility] [address], [address], [place], [address], 17:46:50 Trulance [address] [facility] [address], [address], [place], [address], 17:52:54 buspirone [address] [facility] [address], [address], [place], [address], 17:50:26 mirtazapine 30 mg tablet 2023 [facility], [address], [id number], 17:50:23 Lunesta [address] [facility] [address], [address], [place], [address], 17:51:44 alprazolam 0.[address] [facility] [address], [address], [place], [address], 15:10:23 mirtazapine 30 mg tablet 2023 024 JERMAN [facility] [address], [address] [facility], [place], [address], 15:10:18 Patient TargetsNo targets recorded. Patient InstructionsNo instructions recorded. Reason for Referral Physical Therapist Referral for Low back pain please contact patient to schedule Referring Physician: Yony Mast Orthopedic Surgery, Encounter Date: 01/09/2024 Orthopedic Spine Surgeon Ref erral for Lumbar radiculopathy please contact patient to schedule Referring Physician: Yony Mast Orthopedic Surgery, Encounter Date: 01/15/2024 Results Created Date Observation Date Name Description Value Unit Range Abnormal Flag Note LastModifiedBy Organization Detail LastModifiedTime 02/15/2002/15/2024 MAGNE SIUM magnesium 2.0 mg/dL 1.6-2. 3 Not Available [facility] (Lab) [address] [place], [address], 02/15/2024 15:13:00 02/15/2002/15/2024 BASIC METAB OLIC PANEL sodium 131 mmol/ L 137-14 5 low Not Available [facility] (Lab) [address] [place], [address], 02/15/2024 15:13:06 02/15/2002/15/2024 BASIC METAB OLIC PANEL potassium 4.6 mmol/ L 3.5-5. 1 Not Available [facility] (Lab) [address] [place], [address], 02/15/2024 15:13:06 02/15/2002/15/2024 BASIC METAB OLIC PANEL chloride 98 mmol/ L 98-107 Not Available [facility] (Lab) [address] [place], [address], 02/15/2024 15:13:06 02/15/2002/15/2024 BASIC METAB OLIC PANEL carbon dioxide 29 mmol/ L 22-30 Not Available [facility] (Lab) [address] [place], [address], 02/15/2024 15:13:06 02/15/2002/15/2024 BASIC METAB OLIC PANEL anion gap 8.6 mmol/ L 14-22 low Not Available [facility] (Lab) [address] [place], [address], 02/15/2024 15:13:06 02/15/2002/15/2024 BASIC METAB OLIC PANEL glucose 101 mg/dL 70-99 high Not Available [facility] (Lab) [address] [place], [address], 02/15/2024 15:13:06 02/15/2002/15/2024 BASIC METAB OLIC PANEL BUN 7 mg/dL 8-19 low Not Available [facility] (Lab) [address] [place], [address], 02/15/2024 15:13:06 02/15/2002/15/2024 BASIC METAB OLIC PANEL creatinine 0.88 mg/dL 0.66-1 .25 Not Available [facility] (Lab) [address] [place], [address], 02/15/2024 15:13:06 02/15/2002/15/2024 BASIC METAB OLIC PANEL GFR >60 Refer ence Range : [place] [facility] GFR Healt hy Adult : >60 mL/mi n/1.7 3 m2 Chron ic Kidne y Disea se: 15-60 mL/mi n/1.7 3 m2 Kidne y Failu re: <15/m L/min /1.73 m2 www.n iddk. nih.g ov The MDRD study equat ion has not been valid ated in child lakhwinder <18 years of age; pregn ant women ; the elder ly >85 years of age; or in some racia l or ethni c subgr oups, such as Hispa nics. Outsi de the valid ated adilene eters , estim ated GFR is less accur ate, requi ring clini sathish judgm ent on a case- by-ca se basis . Clini sathish inter preta tion for other races and ages must be made by the clini radha. The MDRD study equat ion has not been valid ated for the evalu ation of serum creat inine relat ed to nutri katelynn l statu s or medic ation usage . For perso ns <18 years of age, a pedia tric GFR calcu lator is avail able on the [facility] websi te: https ://ww w.kid chris.o rg/pr ofess ional s/kdo qi/gf r_cal culat or Not Available [facility] (Lab) [address] [place], [address], 02/15/2024 15:13:06 02/15/2002/15/2024 BASIC METAB OLIC PANEL calcium 10.1 mg/dL 8.4-10 .2 Not Available [facility] (Lab) [address] [place], [address], 02/15/2024 15:13:06 01/02/20 XR, knee, 3 view [facility] [address] [place] [address] [phone] Patien t Name: DEEPTHI MARTINEZ Access ion #: [id number] Sex: M : 1944 5 Dictat ed By: Michaelle cardoza Attend ing Physic shahram: WALI KEARNEY Orderi Physic shahram: WALI KEARNEY Exam Date: 2023 09:21 AM Exam Name: XR KNEE LT 3V Admitt ing Diagno sis(es ): CLINIC AL INFORM ATION: 78 years old, Male; PAIN OF LEFT KNEE JOINT. TECHNI QUE: 3 views of the left knee were obtain ed. COMPAR MARCELINA: None FINDIN GS: No acute fractu re or disloc ation. Modera te joint space narrow ing in the medial and patell ofemor al compar tments . No focal soft tissue swelli ng. Small joint effusi on. IMPRES FRANKIE: 1. No eviden ce of acute bony abnorm ality. 2. Nonacu te findin gs as detail ed above. Electr onical ly Signed by: Michaelle cardoza at 2023 08:01: 49 AM Page 1 [email or web address] [facility] (Imaging) [address] [place], [address], 01/02/2024 11:32:12 01/02/20 24 XR, lumbo sacra l spine , 4 or more view [facility] [address] [place] [address] Patien t Name: DEEPTHI MARTINEZ Access ion #: [id number] Sex: M : 1944 7 Dictat ed By: Michaelle cardoza Attend ing Physic shahram: WALI KEARNEY Orderi ng Physic shahram: WALI KEARNEY Exam Date: 2023 09:26 AM Exam Name: XR L SPINE 4V+ Admitt ing Diagno sis(es ): CLINIC AL INFORM ATION: 78 years old, Male; LOW BACK PAIN. TECHNI QUE: 5 views of the lumbar spine were obtain ed. COMPAR MARCELINA: None FINDIN GS: Straig htenin g of the normal lumbar lordos is. Minima l retrol isthes is of L2 on L3 and minima l retrol isthes is of L3 on L4. Verteb ral body height s are mainta ined. Enameler ior elemen ts are intact . No acute fractu re. Multil evel disc space narrow ing, greate st at the L4-L5 level, where there is modera te to severe disc space narrow ing with associ ated endpla te sclero sis and endpla te spurri ng. Multil evel modera te facet hypert rophy, greate st at the L4-L5 level. Promin ent osteop hytic spurri ng at multip le levels , promin ent bridgi ng anteri or osteop hytes at L1-L2. Parasp inal soft tissue s are grossl y unrema rkable . IMPRES FRANKIE: 1. No acute fractu re or malali gnment . 2. Degene rative disc diseas e and facet diseas e in the lumbar spine as detail ed above. Electr onical ly Signed by: Michaelle cardoza at 2023 08:03: 54 AM Page 1 [email or web address] [facility] (Imaging) [address] [place], [address], 01/02/2024 11:32:13 01/11/20 24 MRI, lumba r spine , w/o contr ast [facility] [address] [place] [address] Patien t Name: DEEPTHI MARTINEZ Access ion #: [id number] Sex: M : 1944 5 Dictat ed By: Michaelle cardoza Attend ing Physic shahram: YONY MAST Orderi ng Physic shahram: YONY MAST Exam Date: 2023 09:06 AM Exam Name: MRI L SPINE WO Admitt ing Diagno sis(es ): CLINIC AL INFORM ATION: 78 years old, Male; low back pain. TECHNI QUE: Multis equenc e multip lanar MRI images of the lumbar spine were obtain ed withou t contra st. COMPAR MARCELINA: Radiog raphs dated 2023. INTERP RETATI ON: Minima l retrol isthes is of L2 on L3. Minima l retrol isthes is of L5 on S1. Verteb ral body height s are mainta ined. Enameler ior elemen ts are intact . No focal suspic ious marrow signal abnorm ality. Visual ized spinal cord and cauda equina are within normal limits . The conus medull tyron is approp riate in signal at the L1 level. Mild fatty change s in the parasp inal muscul ature in the lumbos acral spine. Partia lly visual ized 2 cm right renal cyst. L1-L2: Disc desicc ation. No signif icant disc bulge or spinal canal stenos is. Facet hypert rophy with mild bilate ral neural forami nal stenos es. L2-L3: Disc desicc ation with modera te disc space narrow ing and diffus e disc bulge causin g severe spinal canal stenos is and efface ment of the latera l recess es with concom itant infold ing of the ligame ntum flavum contri buting to the spinal canal stenos is. Facet hypert rophy and encroa chment of the neural forami na by the disc bulge contri buting to severe bilate ral neural forami nal stenos es. Severe crowdi ng of the cauda equina due to the spinal canal stenos is. L3-L4: Disc desicc ation with diffus e disc bulge causin g modera te spinal canal stenos is and partia l efface ment of the latera l recess es. Facet hypert rophy and encroa chment of the neural forami na by the disc bulge contri butes to modera te to severe spinal canal stenos is. L4-L5: Disc desicc ation with severe disc space narrow ing. Mild disc bulge Page 1 [facility] [address] [address] Patien t Name: DEEPTHI MARTINEZ Access ion #: [id number] Sex: M : 1944 3 Dictat ed By: Michaelle Pacheco [facility] Physic shahram: KEZIA BHAKTA [facility] Physic shahram: YONY MAST Exam Date: 2023 09:06 AM Exam Name: MRI L SPINE WO Admitt ing Diagno sis(es ): mildly indent ing the ventra l aspect of the thecal sac. Mild spinal canal stenos is. Partia l efface ment of the latera l recess es. Facet hypert rophy and encroa chment of the neural forami na by the disc bulge contri butes to severe bilate ral neural forami nal stenos es. L5-S1: Disc desicc ation with diffus e disc bulge mildly indent ing the ventra l aspect of the thecal sac. No signif icant spinal canal stenos is. Facet hypert rophy with modera te bilate ral neural forami nal stenos es, right greate r than left. IMPRES FRANKIE: 1. Degene rative disc diseas e and facet diseas e in the lumbar spine with associ ated spinal canal, subart icular , and neural forami nal stenos es as detail ed above. 2. Minima l retrol isthes is of L2 on L3 and minima l retrol isthes is of L5 on S1. 3. Additi onal findin gs as detail ed above. Electr onical ly Signed by: Michaelle cardoza at 2023 10:07: 22 AM Page 2 [email or web address] [facility] ([facility]) [address] [place], [address], 01/11/2024 13:44:05 Result Notes None recorded. Problems Name Problem SNOMED Code Status Onset Date Resolution Date Notes Provider Name and Address Organization Details Recorded Time Mixed anxiety and depressive disorder 355056440 Active 2022 Not Available [employer] 3 11:41:48 Major depressive disorder 345488967 Active 2022 Not Available [facility] 3 11:41:48 Hypertensi ve disorder 67620924 Active 2023 Nilson Kearney MD [address] [place] [address], [place], [address] , [employer] 4 10:53:38 Gastroesop hageal reflux disease without esophagiti s 637384513 Active 2023 Nilson Kearney MD [address] [place] [address], [place], [address] , [employer] 4 10:53:45 Overweight 744975973 Active 2023 Nilson Kearney MD [address] [facility], [place], [address] , [employer] 4 10:54:01 History of radical prostatect alyssia 0270037147852 09 Active 2023 Nilson Kearney MD [address] [facility], [place], [address] , [place] [facility] 4 11:07:18 Depressive disorder 01824455 Active 2023 Nilson Kearney MD [address], [place], [address] , [place] [facility] 4 11:11:15 Vitamin B12 deficiency (non anemic) 13920317 Active 2023 Nilson Kearney MD [address], [place], [address] , [facility] 4 11:15:57 Nasal congestion 71879867 Active 2023 Nilson Kearney MD [address], [place], [address] , [facility] 4 10:34:01 Sore throat 633943472 Active 2023 Nilson Kearney MD [address], [place], [address] , [facility] - [facility] 4 10:34:07 Cough 66305545 Active 2023 Nilson Kearney MD [address], [place], [address] , [facility] - [facility] 4 10:34:13 Seasonal allergic rhinitis 703509522 Active 2023 Nilson Kearney MD [address], [place], [address] , [facility] - [facility] 4 10:42:15 Lateral cervical lymphadeno chelsey 648561782 Active 2023 Nilson Kearney MD [address], [place], [address] , [facility] - [facility] 4 11:24:27 Chronic low back pain 363626413 Active 2023 Nilson Kearney MD [address], [place], [address] , [facility] - [facility] 4 15:24:59 Pain of left knee joint 7819963021205 07 Active 2023 Nilson Kearney MD [address], [place], [address] , [facility] - [facility] 4 15:26:04 Left side sciatica 1853870010321 04 Active 2023 Nilson Kearney MD [address], [place], [address] , [facility] - [facility] 4 15:27:20 Low back pain 696693679 Active 2023 Malena Sabihajamal sampson, [place] [facility] 4 15:02:51 Lumbar radiculopa thy 790176738 Active 2023 ROSS Quevedo [address], [place], [address] , [facility] - [facility] 4 15:15:06 Lumbar spondylosi s 497407139 Active 2023 ROSS Quevedo [address], [place], [address] , [facility] - [facility] 4 15:15:14 Chronic idiopathic constipati on 99217048 Active 2023 Nilson Kearney MD [address], [place], [address] , [facility] - [facility] 4 17:43:46 Anxiety disorder 245896777 Active 2023 Nilson Kearney MD [address], [place], [address] , [facility] 4 17:49:15 Chronic insomnia 793173059 Active 2023 Nilson Kearney MD [address], [place], [address] , [facility] 4 17:50:36 Hypomagnes emia 147545707 Active 2023 Nilson Kearney MD [address], [place], [address] , [employer] 4 15:03:25 Isolated head tremor 062236650 Active 2023 Nilson Kearney MD [address], [place], [address] , [employer] 4 15:21:08 Nocturia 113509317 Active Not Available [facility] 3 11:41:48 History of prostatism 320191559 Active Not Available [facility] 3 11:41:48 Steatosis of liver 790313420 Active 2016 Not Available [facility] 3 11:41:48 Abdominal pain 66998275 Active Not Available [facility] 3 11:41:48 Gastroesop hageal reflux disease 011419220 Active Not Available [facility] 3 11:41:48 Tight chest 00347937 Active 2016 Not Available [facility] 3 11:41:48 Rib pain 584824360 Active 2016 Not Available [facility] 3 11:41:48 Low back strain 352623795 Active 2016 Not Available [facility] 3 11:41:48 Left lower quadrant pain 258814831 Active Not Available [facility] 3 11:41:48 Vitamin D deficiency 92465573 Active Not Available [facility] 3 11:41:48 Sleep disorder 66313739 Active Not Available [facility] 3 11:41:48 Primary erectile dysfunctio n 519169169 Active 2017 Not Available [facility] 3 11:41:48 Anxiety 57018567 Active Not Available [facility] 3 11:41:48 Dysuria 93856625 Active Not Available [facility] 3 11:41:48 Hyperlipid emia 95904097 Active Not Available [facility] 3 11:41:48 Essential hypertensi on 74893456 Active Not Available [facility] 3 11:41:48 Diarrhea 49026014 Active Not Available [facility] 3 11:41:48 Pernicious anemia 45797807 Active Not Available [facility] 3 11:41:48 Fatigue 48436558 Active 2016 Not Available [facility] 3 11:41:48 History of pancreatit is 0413664529475 7 Active 2016 Not Available [facility] 3 11:41:48 Problem Notes None recorded. Procedures Surgical History Date Name Laterality Status Provider Name and Address Organization Details Recorded Time 3 colonoscopy completed Not Available [facility] 06/23/19 04:43:10 8 Colonoscopy completed Not Available [facility] 06/23/19 04:43:10 6 Prostatectomy completed Not Available [facility] 2022 04:43:10 3 colonoscopy completed Not Available [facility] 06/23/19 04:43:10 1 endoscopy completed Not Available [facility] 04:43:10 Imaging Results Imaging Date Name Status LastModified by Organiz ation Details LastModified Time 01/02/2024 XR, knee, 3 view completed [address] (Imaging) [address] [place], [address], 01/02/2024 11:32:12 01/02/2024 XR, lumbosacral spine, 4 or more view completed [email or web address] [facility] (Imaging) [address] [place], [address], 01/02/2024 11:32:13 01/11/2024 MRI, lumbar spine, w/o contrast completed [email or web address] [facility] (Imaging) [address] [place], [address], 01/11/2024 13:44:05 Procedure Notes None recorded. Medical Equipment None Reported. Allergies Allergen ID Allergen Name Allergen Category Reaction Reaction Severity Criticality Documentation Date Start Date Code Code System Note Provider Name and Address Organization Details Recorded Time 83495 Substance with sulfonami de structure and antibacte rial mechanism of action (substanc e) medicatio n insomnia Not available Not available 01/09/2024 46987 8003 SNOMED Nitza Paz, [employer] null, [place] [facility] 4 14:44:52 7150 Bactrim medicatio n Not available Not available Not available 06/22/2022 80470 9 RxNorm insom francisco Not Available [facility] 3 04:56:37 Medications Name Sig Start Date Stop Date Status Note LastModified by Organization Details LastModified Time cyclobenzap rine 10 mg tablet TAKE 1 TABLET BY MOUTH EVERY 12 HOURS NEEDED 01/08 completed Not Available Not Available Not Available amoxicillin 500 mg capsule TAKE ONE CAPSULE BY MOUTH THREE TIMES DAILY UNTIL GONE 04/05 completed Not Available Not Available Not Available prednisone 10 mg tablet TAKE 1 TABLET BY MOUTH, 3 TIMES A DAY FOR 3 DAYS, TAKE 1 TABLET BY MOUTH 2 TIMES A DAY FOR 2 DAYS, TAKE 1 TABLET BY MOUTH ONCE A DAY FOR 1 DAY 01/29 completed Not Available Not Available Not Available doxycycline hyclate 100 mg capsule 12/31 completed Not Available Not Available Not Available trazodone 50 mg tablet TAKE 1 TABLET BY MOUTH ONCE DAILY AT BEDTIME FOR 30 DAYS active Not Available Not Available No t Available cetirizine 10 mg tablet TAKE 1 TABLET BY MOUTH EVERY DAY DIRECTED FOR 30 DAYS 01/08 completed Not Available Not Available Not Available Stool Softener 100 mg capsule TAKE 1 CAPSULE BY MOUTH TWICE DAILY DIRECTED active Not Available Not Available No t Available lisinopril 20 mg-hydrochl orothiazide 12.5 mg tablet TAKE 2 TABLETS BY MOUTH DAILY IN THE MORNING 2023 active Not Available Not Available Not Avai lable nystatin 100,000 unit/gram topical ointment JUANA QID TO RED RASH AT CORNERS OF LIPS 04/08 completed Not Available Not Available Not Available sucralfate 1 gram tablet TK 1 T PO TID AC AND HS active Not Available Not Available No t Available phenazopyri dine 200 mg tablet TK ONE T PO TID 12/10 completed Not Available Not Available Not Available amlodipine 2.5 mg tablet TAKE 1 TABLET BY MOUTH DAILY 10/10 completed Not Available Not Available Not Available Aspir-Low 81 mg tablet,shannon yed release Take 1 tablet every day by oral route for 90 days. 2012 active Not Available Not Available Not Avai lable amlodipine 5 mg tablet TAKE 1 TABLET BY MOUTH DAILY AT BEDTIME 2023 active Not Available Not Available Not Avai lable ciprofloxac in 500 mg tablet TK 1 T PO Q 12 H active Not Available Not Available No t Available prednisone 10 mg tablets in a dose pack Take 1 tab by mouth, 3 times a day for 3 daysTake 1 tab by mouth 2 times a day for 2 daysTake 1 tab by mouth once a day for 1 day 01/29 completed Not Available Not Available Not Available oxycodone-a cetaminophe n 5 mg-325 mg tablet active Not Available Not Available No t Available alprazolam 0.5 mg tablet TAKE 1 TABLET BY MOUTH ONCE DAILY active Not Available Not Available No t Available alprazolam 0.25 mg tablet active Not Available Not Available Not Available famotidine 20 mg tablet TAKE 1 TABLET BY MOUTH DAILY AT BEDTIME NEEDED active Not Available Not Available No t Available tamsulosin 0.4 mg capsule active Not Available Not Available Not Available Robaxin 500 mg tablet Take 2 tablets 4 times a day by oral route. 2012 active Not Available Not Available Not Avai lable diazepam 2 mg tablet active Not Available Not Available No t Available prednisolon e sodium phosphate 1 % eye drops 11/07 completed Not Available Not Available Not Available cephalexin 500 mg capsule TAKE 1 CAPSULE BY MOUTH THREE TIMES DAILY FOR 7 DAYS 04/05 completed Not Available Not Available Not Available mirtazapine 30 mg tablet Take 1 tablet every day by oral route at bedtime for 90 days. 2023 active Not Available Not Available Not Avai lable diclofenac 0.1 % eye drops 11/07 completed Not Available Not Available Not Available tobramycin 0.3 % eye drops 11/07 completed Not Available Not Available Not Available buspirone 10 mg tablet TAKE 1 TABLET BY MOUTH EVERY 12 HOURS NEEDED active Not Available Not Available No t Available polymyxin B sulfate 10,000 unit-trimet hoprim 1 mg/mL eye drops INSTILL 1 DROP INTO both AFFECTED EYES BY OPHTHALMI C ROUTE EVERY 6 HOURS for 5 days active Not Available Not Available No t Available omeprazole 20 mg capsule,del ayed release TAKE 1 CAPSULE BY MOUTH IN THE MORNING 2023 active Not Available Not Available Not Avai lable mirtazapine 45 mg tablet active Not Available Not Available Not Available diclofenac sodium 75 mg tablet,shannon yed release TAKE 1 TABLET BY MOUTH EVERY 12 HOURS NEEDED 01/08 completed Not Available Not Available Not Available hydrochloro thiazide 25 mg tablet TAKE 1 TABLET EVERY DAY BY ORAL ROUTE active Not Available Not Available No t Available mirtazapine 15 mg tablet Take 0.5 tablets every day by oral route at bedtime for 90 days. 02/13 completed Not Available Not Available Not Available azelastine 137 mcg (0.1 %) nasal spray USE 2 SPRAYS IN EACH NOSTRIL DAILY 01/08 completed Not Available Not Available Not Available polyethylen e glycol 3350 17 gram/dose oral powder MIX 17 G OF POWDER WITH 8 OZ OF LIQUID AND DRINK ONCE DAILY active Not Available Not Available No t Available methylpredn isolone 4 mg tablets in a dose pack TAKE BY MOUTH DIRECTED ON INSIDE OF PACKAGE 01/29 completed Not Available Not Available Not Available lisinopril 40 mg tablet TAKE 1 TABLET EVERYDAY BY ORAL ROUTE 10/08 completed Not Available Not Available Not Available sertraline 50 mg tablet active Not Available Not Available Not Available doxycycline hyclate 100 mg tablet 12/31 completed Not Available Not Available Not Available finasteride 5 mg tablet active Not Available Not Available Not Available amoxicillin 875 mg-potassiu m clavulanate 125 mg tablet TAKE 1 TABLET BY MOUTH EVERY 12 HOURS FOR 10 DAYS DIRECTED 12/31 completed Not Available Not Available Not Available tobramycin 0.3 %-dexametha sone 0.1 % eye drops,suspe nsion 08/31 completed Not Available Not Available Not Available Vitamin B12 500 mcg tablet Take 1 tablet every day by oral route. 01/08 completed Not Available Not Available Not Available Vitamin D3 25 mcg (1,000 unit) capsule Take 1 capsule every day by oral route. 01/08 completed Not Available Not Available Not Available Vigamox 0.5 % eye drops INSTILL 1 GTT IN SURGICAL EYE TID TO BEGIN ONE DAY PRIOR TO SURGERY active Not Available Not Available No t Available Cialis 5 mg tablet TK UTD active Not Available Not Available Not Available eszopiclone 2 mg tablet TAKE 1 TABLET BY MOUTH EVERY DAY AT BEDTIME active Not Available Not Available No t Available Lunesta 3 mg tablet Take 1 tablet every day by oral route for 90 days. active Not Available Not Available No t Available Boostrix Tdap 2.5 Lf unit-8 mcg-5 Lf/0.5 mL intramuscul ar syringe PHARMACY ADMINISTE RED 04/08 completed Not Available Not Available Not Available sildenafil (pulmonary hypertensio n) 20 mg tablet TAKE UP TO 5 TABLETS BY MOUTH ON AN EMPTY STOMACH NEEDED 04/07 completed Not Available Not Available Not Available Nevanac 0.1 % eye drops,suspe nsion 12/31 completed Not Available Not Available Not Available vitamin B complex 1 PO QD 08/31 completed Not Available Not Available Not Available diclofenac sodium 2023 active Not Available Not Available Not Avai lable Baby Aspirin 01/08 completed Not Available Not Available Not Available peg 3350 240 gram-electr olytes 22.72 gram-6.72 g-5.84 g powdr for soln 03/07 completed Not Available Not Available Not Available Pristiq 50 mg tablet,exte nded release TAKE ONE TABLET BY MOUTH ONCE DAILY 11/07 completed Not Available Not Available Not Available Durezol 0.05 % eye drops 12/31 completed Not Available Not Available Not Available PEG-3350 with flavor packs 420 gram oral solution 12/31 completed Not Available Not Available Not Available Linzess 72 mcg capsule active Not Available Not Available Not Available Trulance 3 mg tablet Take 1 tablet every day by oral route for 30 days. 2023 active Not Available Not Available Not Avai lable Shingrix (PF) 50 mcg/0.5 mL intramuscul ar suspension, kit PHARMACIS T ADMINISTE RED IMMUNIZAT ION ADMINISTE RED AT TIME OF DISPENSIN G 09/24 completed Not Available Not Available Not Available Vitals Date Recorded Body height Body mass index (BMI) Body weight Provider Name and Address Organization Details Last Updated DateTime 01/09/2024 177.8 cm 28.7 kg/m2 34625.47 g Nitza Paz CNA [facility] 01/09/2024 14:44:18 Date Recorded Body height Body mass index (BMI) Body weight Provider Name and Address Organization Details Last Updated DateTime 01/15/2024 177.8 cm 28.7 kg/m2 00945.47 g Nitza Paz CNA [facility] 01/15/2024 09:40:16 Date Recorded Body height Body mass index (BMI) Body weight Body temperature Heart rate Respiratory rate Oxygen saturation Oxygen saturation in Arterial blood by Pulse oximetry Systolic blood pressure Diastolic blood pressure Provider Name and Address Organization Details Last Updated DateTime 177.8 cm 27.5 kg/m2 02799.5 8 g 98.6 [degF] 74 /min 20 /min 99 % 99 % 134 mm[Hg] 70 mm[Hg] Chauncey Bledsoe [facility] 17:41:19 Date Recorded Body height Body mass index (BMI) Body weight Body temperature Heart rate Respiratory rate Oxygen saturation Oxygen saturation in Arterial blood by Pulse oximetry Systolic blood pressure Diastolic blood pressure Provider Name and Address Organization Details Last Updated DateTime 177.8 cm 27.7 kg/m2 60191.3 3 g 98.2 [degF] 78 /min 16 /min 99 % 99 % 118 mm[Hg] 70 mm[Hg] Chauncey Bledsoe [facility] 14:56:56 Social History Question Answer Notes LastModified by Organizat ion Details LastModified Time Tobacco Smoking Status [facility]23 10:51:53 Do You Have An Advance Directive? Yes [email or web address] Information not available 10/06/2022 What Is Your Level Of Alcohol Consumption? Occasional [id number] Information not available 06/22/2022 Are You Blind Or Do You Have Difficulty Seeing? No Information not available 04/05/2023 Is Blood Transfusion Acceptable In An Emergency? Yes Information not available 04/05/2023 What Is Your Level Of Caffeine Consumption? Moderate [id number] Information not available 06/22/2022 How Much Tobacco Do You Chew? None [id number] Information not available 06/22/2022 What Is Your Code Status? Full Code Information not available 04/05/2023 In The 14 Days Before Symptom Onset, Have You Had Close Contact With A Laboratory-confi rmed COVID-19 While That Case Was Ill? No Information not available 04/05/2023 In The 14 Days Before Symptom Onset, Have You Had Close Contact With A Person Who Is Under Investigation For COVID-19 While That Person Was Ill? No Information not available 04/05/2023 Are You Currently Employed? No Information not available 04/05/2023 Are You Deaf Or Do You Have Serious Difficulty Hearing? No Information not available 04/05/2023 What Type Of Diet Are You Following? REGULAR [id number] Information not available 06/22/2022 Which Illicit Or Recreational Drugs Have You Used? None Information not available 04/05/2023 Do You Or Have You Ever Used E-cigarettes Or Vape? Never Used Electronic Cigarettes Information not available 04/05/2023 What Is Your Occupation? RETIRED Information not available 04/05/2023 Have There Been Any Changes To Your Family Or Social Situation? No Information not available 04/05/2023 Do You Use Insect Repellent Routinely? Yes Information not available 04/05/2023 [facility] Information not available 04/05/2023 Do You Have A Medical Power Of Field Project Manager? Yes Information not available 04/05/2023 Have You Ever Been Counseled For Unhealthy Alcohol Use? No Information not available 04/05/2023 Do You Have Any Pets? No Information not available 04/05/2023 What Is Your Relationship Status? [id number] Information not available 06/22/2022 Do You Use Your Seat Belt Or Car Seat Routinely? Yes Information not available 04/05/2023 Do You Have Smoke And Carbon Monoxide Detectors In Your Home? Yes Information not available 04/05/2023 Are You Passively Exposed To Smoke? No Information not available 04/05/2023 Are There Any Smokers In Your House? No Information not available 04/05/2023 Do You Participate In Social Media? No Information not available 04/05/2023 Do You Feel Stressed (tense, Restless, Nervous, Or Anxious, Or Unable To Sleep At Night)? [id number] Information not available 04/05/2023 Do You Use Any Illicit Or Recreational Drugs? No Information not available 04/05/2023 Do You Use Sunscreen Routinely? Yes Information not available 04/05/2023 Have You Recently Traveled Abroad? No Information not available 04/05/2023 Do You Have Any Dietary Restrictions? No Information not available 04/05/2023 Sex: Unknown Functional Status Question Answer Note LastModified by Organizat ion Details LastModified Time Do you have difficulty walking or climbing stairs? No Information not available 04/05/2023 Do you have transportation difficulties? No Information not available 04/05/2023 Are you able to walk? YESWOREST Information not available 04/05/2023 Do you have difficulty doing errands alone? No Information not available 04/05/2023 Are you able to care for yourself? No Information n ot available 04/05/2023 Do you have difficulty dressing or bathing? No Information not available 04/05/2023 What is your exercise level? Moderate [id number] Information not available 06/22/2022 Mental Status Question Answer Note LastModified by Organization D etails LastModified Time Do you have difficulty concentrating, remembering or making decisions? No Information no t available 04/05/2023 Family History Relationship Description Onset Age of this Age Resolved Age Notes LastModified by Organization Details LastModified Time Father Malignant tumor of lung [email or web address] Not available 2023 09:38:40 Father Family history of stroke [email or web address] Not available 2023 09:38:40 Mother Coronary arterioscler osis garcia ry bypass 4 vessel [email or web address] Not available 01/15/2024 09:38:40 Mother Malignant tumor of colon [email or web address] Not available 2023 09:38:40 Mother Heart disease [email or web address] Not available 2023 14:46:55 Mother Hypertensive disorder [email or web address] Not available 2023 14:47:18 Mother Diabetes mellitus [email or web address] Not available 2023 14:47:28 Sister Malignant tumor of breast [email or web address] Not available 2023 09:38:40 Medical History Condition Response BLINDNESS N RHEUMATIC FEVER N KIDNEY STONES N BLADDER PROBLEMS N MRSA N OTHER # 1 N POLIO N LUNG DISEASE/DISORDER N RADIATION / CHEMOTHERAPY N COPD N Other # 2 N BLOOD DISEASES N SURGERY N EAR OR HEARING PROBLEMS N MUMPS N BOWEL PROBLEMS N FEMALE PROBLEMS / INFECTIONS N DEPRESSION (INCLUDING POST ) N STROKE/TIA N THYROID DISEASE N ULCERS N BENIGN PROSTATIC HYPERPLASIA N MEASLES N CERVICALGIA N TB SKIN TEST N MYOCARDIAL INFARCTION N PARAPELGIA N OBESITY N GERD/NAUSEA N ANEURYSM N URINARY/BLADDER/KIDNEY PROBLEMS N CORONARY ARTERY DISEASE (CAD) Y MENIERE'S DISEASE N ADDICTION CONCERNS N ENDOMETRIOSIS N USE OF BLOOD THINNERS N SKIN PROBLEMS N EMPHYSEMA N GASTROINTESTINAL DISORDER N MUSCLE,JOINT OR BONE PROBLEMS N GASTROINTESTINAL BLEEDING N BLOOD CLOTS N ASTHMA N CATARACTS N ERECTILE DYSFUNCTION N GI PROBLEMS N CHF N Low Testosterone N NEUROPATHY N INFERTILITY N AIDS/HIV N FRACTURES N CHEMOTHERAPY / RADIATION N VISION/EYE PROBLEMS N LIVER DISEASE N MALE HYPOGONADISM N HYPERTENSION Y TOURETTE'S N ANXIETY DISORDER Y BLOOD TRANSFUSION N ANEMIA/BLOOD DISORDER Y CHRONIC EAR INFECTIONS N BRONCHITIS N TUBERCULOSIS N GLAUCOMA N FOOT PROBLEM N DIVERTICULITIS N CHICKENPOX N SLEEP APNEA N ALLERGIES/HAYFEVER Y INFECTIOUS DISEASE N HEART ARRHYTHMIA N PROSTATE Y INSOMNIA N HIGH CHOLESTEROL / HYPERLIPIDEMIA N HYPERTHYROIDISM N EYE PROBLEMS N EATING DISORDER N EDEMA N CHRONIC PAIN SYNDROME N CAROTID BLOCKAGE N CONSTIPATION N BACK / NECK PROBLEMS Y HAVE YOU BEEN HOSPITALIZED OR SEEN IN [facility] IN THE PAST YEAR ? N ATHEROSCLEROSIS N BREAST PROBLEMS N DIALYSIS N ECZEMA N FIBROMYALGIA N OSTEOPOROSIS N ARTHRITIS N NO SIGNIFICANT PAST MEDICAL HISTORY N APPENDICITIS N DIABETES, TYPE N BAD TEETH N HEARTBURN / REFLUX Y ADD/ADHD N AUTISM SPECTRUM DISORDER (ASD) N HEPATITIS / LIVER DISEASE N PULMONARY DISEASE N GOUT N SLEEP DISORDER N ALZHEIMER'S DISEASE N PAIN N HERPES N DEMENTIA N HEADACHES/MIGRAINES N SEIZURES/EPILEPSY N VASCULAR DISEASE N PACEMAKER N DIZZINESS N HEART DISEASE/HEART PROBLEMS N KIDNEY DISEASE N DEVELOPMENTAL OR BEHAVIORAL DISORDERS N MULTIPLE SCLEROSIS N SCARLET FEVER N MENTAL DISORDER/ILLNESS N CARDIAC ARRHYTHMIA N CANCER: SPECIFY Y PNEUMONIA N ATRIAL FIBRILLATION N Gall Stones N PULMONARY EMBOLISM N AUTOIMMUNE DISEASE N Immunizations Vaccine Type Date Status Note Provider Nam e and Address Organization Details Recorded Time RSV, recombinant, protein subunit RSVpreF, adjuvant reconstituted, 0.5 mL, PF 3 completed KAREL Wilson, [facility] 04/05/2023 10:55:58 SARS-COV-2 (COVID-19) vaccine, UNSPECIFIED 2 [facility] 10:55:58 SARS-COV-2 (COVID-19) vaccine, UNSPECIFIED 1 completed KAREL Wilson, [facility] 04/05/2023 10:55:58 COVID-19, mRNA, LNP-S, PF, 100 mcg/0.5mL dose or 50 mcg/0.25mL dose 1 [facility]05/2023 10:55:58 COVID-19, mRNA, LNP-S, PF, 100 mcg/0.5mL dose or 50 mcg/0.25mL dose 1 completed KAREL Wilson, [facility] 04/05/2023 10:55:58 zoster live 9 completed KAREL Wilson, [facility] 04/05/2023 10:55:58 zoster live 9 [facility]23 10:55:58 Pneumococcal conjugate PCV 13 7 completed KAREL Wilson, [facility] 04/05/2023 10:55:58 influenza, unspecified formulation 2 completed Sonya Rodriguez RN null, [facility] 04/05/2023 10:55:58 SARS-COV-2 (COVID-19) vaccine, UNSPECIFIED 2 completed Sonya Rodriguez RN null, [facility] 04/05/2023 10:55:58 Influenza, high-dose, quadrivalent, PF 1 completed Sonya Rodriguez RN null, [facility] 04/05/2023 10:55:58 Tdap 0 completed Sonya Rodriguez RN null, [facility] 04/05/2023 10:55:58 pneumococcal polysaccharide PPV23 3 completed Sonya Rodriguez RN null, [facility] 04/05/2023 10:55:58 Tdap 0 completed Sonya Rodriguez RN null, [facility] 04/05/2023 10:55:58 zoster live 8 completed Sonya Rodriguez RN null, [facility] 04/05/2023 10:55:58 Past Encounters Encounter ID Performer Location Encounter Start Date Encounter Closed Date Diagnosis/Indication Diagnosis SNOMED-CT Code Diagnosis ICD10 Code Diagnosis Note [id number] [address] [address] 1 10/07/2020 00:00:00 10/07/2020 11:14:[id number] [address] 1 04/07/2021 00:00:00 04/07/2021 11:23:[id number] [address] 1 10/06/2021 00:00:00 10/06/2021 11:45:[id number] [address] 1 04/06/2022 00:00:00 04/06/2022 11:26:25 [id number] Sonya Reid NP [address] [address] 1 10/06/2022 10:51:42 10/06/2022 11:42:46 Essential hypertension 71368601 I10 Amlodipine 2.5 mg po daily.Symone nopril 20 mg- hctz 12.5 mg po bid Hyperlipidemia 68780931 E78.5 Low fat diet. Vitamin D deficiency 347 95210 E55.9 Vit d 1,000 IU po daily. Gastroesop hageal reflux disease 430111490 K21.9 Omeprazole 20 mg po daily. 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 Nocturia 951102507 R35.[address] Gill in May 2022. Pt states ok. Major depr essive disorder 548758946 F32.9 Mirtazapin e 15 mg, 1/2 tab po daily.Dr[address] Gonzalez left practice.P t to watch weight and stay rested. [id number] Sonya Reid NP [address] [address] 04/05/2023 10:50:18 04/05/2023 11:39:22 Hyperlipidemia 09823572 E78.5 Low fat diet. Essential hypertension 81928991 I10 Amlodipine 2.5 mg po daily. Incraese to 5 mg po nightly and call in 5 days with bp readings.L isinopril 20 mg- hctz 12.5 mg po bid Vitamin D deficiency 347 82392 E55.9 Vit d 1,000 IU po daily. Gastroesop hageal reflux disease 600639874 K21.9 Omeprazole 20 mg po daily. Anxiety 14448520 F41.9 Stable. Mixed anxi ety and depressive disorder 754496403 F41.8 Mirtazapin e 15 mg 1/2 tab po nightly.Dr Colton Gonzalez left practice. [place] office took over.Pt to watch weight and stay rested. Nocturia 102089515 R35.[address] Gill in May 2022. Pt states ok. Major depr essive disorder 591517488 F32.9 Mirtazapin e 15 mg, 1/2 tab po daily.Dr[address] Gonzalez left practice.P t to watch weight and stay rested. [id number] Nilson Kearney MD [address] [address] 10/11/2023 10:47:53 10/11/2023 11:46:16 Hypertensive disorder 49913071 I10 Gastroesop hageal reflux disease without esophagitis 577874746 K21.9 Vitamin D deficiency 347 48230 E55.9 Overweight 092336702 E66 .3 History of radical prostatectomy 7119908876 88576 Z90.79 2016 Depressive disorder 3548 9007 F32.A Vitamin B1 2 deficiency (non anemic) 54903916 E53.8 Hyperlipidemia 57791628 E78.5 [id number] Nilson Kearney MD [address] [address] 11/20/2023 10:25:15 11/20/2023 11:26:52 Nasal congestion 25875417 R09.81 Sore throat 950135973 J0 2.9 Seasonal a llergic rhinitis 952308113 J30.2 Lateral ce rvical lymphadenopathy 045491793 R59.0 Lt - 1 [id number] Nilson Kearney MD [address] [address] 01/01/2024 15:10:20 01/01/2024 15:42:43 Chronic low back pain 863000346 M54.50 Pain of le ft knee joint 1484897210 97313 M25.562 Left side sciatica 99072 40044 73830 M54.32 Overweight 382537979 E66 .3 [id number] ROSS Quevedo [facility] [address] [place] [address] 01/09/2024 14:39:41 01/09/2024 16:18:09 Low back pain 664105099 M54.50 Lumbar radiculopathy 128 076024 M54.16 Lumbar spondylosis 08208 0009 M47.420 [id number] ROSS Quevedo [facility] Ortho Karin Mitchell [address] [place] [address] 01/15/2024 09:37:34 01/15/2024 10:40:15 Lumbar radiculopathy 152808588 M54.16 Lumbar spondylosis 02221 0009 M47.896 Low back pain 740838075 M54.50 [id number] Nilson Keanrey MD [address] [address] 01/30/2024 17:25:24 01/30/2024 17:57:04 Chronic idiopathic constipation 01277638 K59.04 Depressive disorder 3548 9007 F32.A Anxiety disorder 2408851 06 F41.9 Chronic insomnia 2109696 04 F51.04 [id number] Nilson Kearney MD [address] [address] 02/14/2024 14:45:22 02/14/2024 15:24:03 Anxiety disorder 857225000 F41.9 Chronic id iopathic constipation 05109696 K59.04 Advised pt to f/u with his GI about this too. Depressive disorder 3548 9007 F32.A Gastroesop hageal reflux disease without esophagitis 864714313 K21.9 Advised pt to f/u with his GI about this too. Hypomagnesemia 760476700 E83.42 Hypertensive disorder 38 204974 I10 Isolated head tremor 230 680527 G25.0 [id number] Nilson Kearney MD [address] [address] 02/15/2024 09:17:55 02/15/2024 14:06:20 Health Concerns Section Related Observation LastModified by Organization Detai ls LastModified Time None Recorded Concern Status LastModified by Organization Details LastModified Time None Recorded Advance Directives Directive Y: Payers Encounter Date Sequence Insurance Name Policy Number Policy Lozano Covered Member ID Lozano Member ID Guarantor Name 01/09/2024 1 [place] Ryan Martinez [id number] Ryan Martinez 01/09/2024 2 [employer] OPTION - PLAN F (MEDICARE SUPPLEMENT) Ryan Martinez [id number] Ryan Martinez 01/15/2024 1 [place] Martinez [id number] Ryan Martinez 01/15/2024 2 [employer] HE[employer] OPTION - PLAN F (MEDICARE SUPPLEMENT) Ryan Martinez [id number] Ryan Martinez 01/30/2024 1 [place] Martinez [id number] Ryan Martinez 01/30/2024 2 [employer] OPTION - PLAN F (MEDICARE SUPPLEMENT) Ryan Martinez [id number] Ryan Martinez 02/14/2024 1 [place] Martinez [id number] Ryan Martinez 02/14/2024 2 [employer] OPTION - PLAN F (MEDICARE SUPPLEMENT) Ryan Martinez [id number] Ryan Martinez 02/15/2024 1 [place] Martinez [id number] Ryan Martinez 02/15/2024 2 [facility] HEALTHCARE OPTION - PLAN F (MEDICARE SUPPLEMENT) Ryan Martinez [id number] Ryan Martinez Notes Date Note Type Note Provider Name and Address Organization Details Recorded Time 01/09/2024 text/html The patient is a 78-year-old male who presents with left lower extremity pain ongoing for about 3 weeks now. He denies any trauma or injury no weakness in the lower extremity pain is localized to the left lateral calf radiating down towards the ankle. He was having a lot of pain went to see his primary care physician who ordered a course of oral prednisone followed by diclofenac 75 mg b.i.d. with food. He states that the prednisone was working pretty well giving him some relief allowing him to sleep however as soon as he finished the steroids within 24 hours he was back at the emergency room complaining of severe aching pain. He denies any bowel or bladder symptoms does not have any back pain but has had previous back issues with similar symptoms 13 years ago. He states that time he did physical therapy and took steroids and this took care of the problem. States this time the pain is much worse. Despite recent conservative measures his symptoms continue. He had x-rays done of his left knee which did not show any significant findings minor osteoarthritis is noted. He also had x-rays done of his lumbar spine as it sounds more like he has radiculopathy. He states he does not have any numbness or tingling no bowel or bladder symptoms no weakness in the lower extremity. If he tries to bend over to far or have a straight leg raise exam done this reproduces his left lower extremity pain. He also had a venous duplex scan to check for DVT which was negative. He has no trauma or injuries to the left lower extremity no evidence of swelling or tightness no bruising is noted. He comes in today for initial evaluation and treatment. His back x-rays and his knee x-rays were reviewed in detail today with the patient his back x-rays show pretty significant multilevel degenerative change with disc space narrowing greatest at L4-5 with endplate spurring at multiple levels there is a prominent bridging anterior osteophyte noted at the L1-L2 level. I agree with the above findings. New past medical history sheet was reviewed and signed on intake sheet of today's date drug allergies current medications family social history previous surgical history 10 point review of systems was reviewed and discussed in detail today with the patient. ROSS Quevedo [address] [facility], [facility] [address], [place], [address], [place] - [facility] [employer] 01/09/2024 15:15:48 01/15/2024 text/html Patient returns for recheck and MRI scan results of his lumbar spine. The patient was having severe pain with radiculopathy down the left lower extremity. He had positive provocative maneuvers on his exam consistent with likely significant stenosis and nerve root impingement. The MRI scan results show severe central spinal canal stenosis with effacement of the lateral recesses contributing to the impingement of the neural foraminal canals causing severe bilateral neural foraminal stenosis also. L3-4 shows moderate spinal canal stenosis facet hypertrophy and encroachment on the neural foraminal canals the disc bulge does contribute to moderate to severe spinal canal stenosis. There is a mild disc bulge at L4-5 and multiple levels of moderate to severe neural foraminal stenosis due to degenerative disc disease and facet joint hypertrophy. Today I reviewed the MRI scan in detail today with the patient I agree with the above findings. The patient went through a course of oral prednisone stated this really only helped while he was on the prednisone today he states he is not feeling quite as bad as it was last week. His pain comes and goes but he does get some pretty severe symptoms that keeps him awake at night prevents him from going about his daily activities. Denies any bowel or bladder symptoms no weakness but does have deep aching pain along the course of the lateral calf of the left lower extremity. He comes in today for recheck. ROSS Quevedo [address] [facility], [address], [place], [address], [employer] [facility] [employer] 01/15/2024 10:14:21 01/30/2024 text/html ACV: C/o constipation for last 1.5-2 months that is not getting better with otc meds. Last BM today, but it was little. Denies any blood in stool. Pt is f/u with Pain clinic and got epidural shot with them yesterday. Denies any incontinence. Pt is going on a cruise for 18 days on this [place]. Last c-scope in 05/16 and it was normal as per pt. Needs refills on his meds for his mood, anxiety and insomnia. Denies any mood swings/SI/HI. Nilson Kearney MD [address], [facility] [address], [place], [address], [facility] [employer] [facility] [employer] 01/30/2024 18:05:01 02/14/2024 text/html ACV: C/o facial flushing and hot feeling for last 4-5 days. Pt has started taking OTC Magnesium for last 2.5 weeks and its helping with his constipation. Pt also has talked with is GI about her GERD and PPI use and he has cut down Omeprazole from BID to QD and famotidine at bedtime. C/o his anxiety is not controlled with Buspirone. Pt was on Xanax in the past and it was controlling his symptoms better, so he wants to go back on it. Trulance and Linzess are costly for pt. Nilson Kearney MD [address], [address], [place], [address], [facility] [employer] [facility] [employer] 02/14/2024 15:22:14
--- OUTSIDE RECORDS SUMMARY | 2024-05-16 20:57 | XMS_ITS | Encounter Summary ---
Author Organization [facility] Address [address] [place] [address] Care Team Providers Care Assistant Cook Name Role Phone Sonya Reid Primary Care Provider [phone] Encounter Details Date Type Department Care Team (Late st Contact Info) Description 05/14/2024 External Device Data STL ABSTRACTION Provider, Abstract NO ADDRESS ON FILE Social History Tobacco Use Types Packs/Day Years Used Date Smoking Tobacco: Never Smokeless Tobacco: Never Alcohol Use Standard Drinks/Week Comments Yes 12 (1 standard drink = 0.6 oz pu re alcohol) OCCASSIONLLY Sex and Gender Information Value Date Recorded Sex Assigned at Not on file Legal Sex Male 1:23 PM CDT Gender Identity Not on file Sexual Orientation Not on file documented as of this encounter Plan of Treatment Upcoming Encounters Date Type Department Care Team (Late st Contact Info) Description 03/10/2025 10:15 AM DIRECTOR MARKET INTELLIGENCE Office Visit [facility] Oncology and Hematology - Richard [address] [facility] [address] [place] [address] Noé Gill MD [address] [facility] [address] [place] [address] documented as of this encounter Visit Diagnoses Not on filedocumented in this encounter Care Teams Assistant Cook Relationship Specialty Start Date End Date Sonya Reid FNP [address] [facility] [address] [place] [phone] PCP - General Nurse Practitioner Family 10/04/19 documented as of this encounter
--- OUTSIDE RECORDS SUMMARY | 2024-05-16 20:57 | XMS_ITS ---
Author Organization [facility] Address [address] [place] [address] Care Team Providers Care Training Specialist Name Role Phone Baldo Perera Primary Care Provider [phone] Active Problems Problem Noted Date Diagnosed Date [...] prostate 07/29/2015 Overview (08/03/2017): Description: s/p RRP 09/07/2015------Deborah 4+3, (-) margins, T2c Prostate cancer 07/29/2015 Nocturia 01/03/2012 Pain in testicle 01/03/2012 Current Oncology Plans No current plan information found. Past Plans No past plan information found. Radiation Treatments * No radiation treatments are documented for this patient in [facility]. Treatments may have been administered in another system. Lifetime Dose Tracking * Chemical Lifetime Dose Automatic Entry Manual Entr y Fluoro Time 1.002 minutes 1.002 minutes 0 minutes Air kerma at the reference point (Ka,r) 0.001 mGy 0 .001 mGy 0 mGy
== END 2024-05-15 08:10 | disposition home or self-care (01) ==
PROVIDERS: PCP Internal Medicine; Visit Provider Internal Medicine Gastroenterology
PROC: 0DJ08ZZ Inspection of Upper Intestinal Tract, Via Natural or Artificial Opening Endoscopic (ICD-10-PCS; CPT 43239; principal; 2024-05-15 07:30)
DX: R19.8 Other specified symptoms and signs involving the digestive system and abdomen (principal); K29.50 Unspecified chronic gastritis without bleeding; K21.9 Gastro-esophageal reflux disease without esophagitis; I10 Essential (primary) hypertension; F41.8 Other specified anxiety disorders; Z79.899 Other long term (current) drug therapy; Z98.890 Other specified postprocedural states; Z85.46 Personal history of malignant neoplasm of prostate; Z80.0 Family history of malignant neoplasm of digestive organs; Z82.49 Family history of ischemic heart disease and other diseases of the circulatory system
CPT/HCPCS: 43239; 88305; 88342; J2704; J7120

== ENCOUNTER 2024-05-20 13:27 | Outpatient (CLI) | payer MEDICARE, SELFPAY ==
--- NOTE | ~2024-05-20 | XR_ITS ---
MODIFIED ESOPHAGRAM HISTORY: Dysphagia. TECHNIQUE: Modified barium esophagram was performed by speech pathologist under radiologist fluorosco pic guidance. This was recorded on tape. The exam was reviewed on 05/20/2024 15:25 EPIC PRELUDE ANALYST. The DAP for this procedure was 0.8Gycm2. Fluoroscopy time is 1 minute. FINDINGS: Lateral projection of the cervical spine demonstrates atherosclerotic disease with anteri or osteophyte formation at the level of C5/C6. Trace penetration which clears without aspiration.. IMPRESSION: Please refer to speech pathologist detailed report. Reviewed, dictated and finalized at location A. PRELUDE ANALYST
--- OUTSIDE RECORDS SUMMARY | 2024-05-20 14:12 | XMS_ITS | Encounter Summary ---
Author Organization [facility] Address [address] [place] [address] Care Team Providers Care Hand Box Coverer Name Role Phone Cher Kirby MD Primary Care Provider Sonya Reid Primary Care Provider Encounter Details Date Type Department Care Team (Late st Contact Info) Description 08/01/2017 Lab Requisition [facility] DermPath Lab [address] [facility] [place] [address] Shemar Gonzalez MD [address] [place] [address] Social History Tobacco Use Types Packs/Day Years [...] CDT) Case Report Dermatopathology Report ? Case: [id number] ? Authorizing Provider: ??Shemar Gonzalez MD ?Collected: [...] specimen consists of a shave biopsy measuring [id number]. The margin is inked green. Jar 0. [...] characteristic determined by the Dermatopathology Laboratory at [facility]. These tests need not be, and therefore are not, approved by the [place] Food and Drug Administration. The tests are used for clinical purposes. Billing Codes Specimen Charges Stain Charges 06701 1 8 1:58 PM CDT DERMATOPATHOLOGY LABORATORY Embedded Images 8 1:58 PM CDT DERMATOPATHOLOGY LABORATORY Pathology/Cytolog y TISSUE SPECIMEN FROM SKIN / Unknown 08/01/2017 08/01/2017 11:57 AM CDT Shemar Gonzalez MD LAB - PATHOLOGY/CYTO LOGY ORDERABLES DERMATOPATHOLOGY LABORATORY [facility] - Department of Dermatology [address] [place] [address], 5th Floor Lab [address] [phone] documented in this encounter Visit Diagnoses Not on filedocumented in this encounter Care Teams Hand Box Coverer Relationship Specialty Start Date End Date Cher Kirby MD [address] [place] [phone] PCP - General 02/19/13 01/05/23 Sonya Reid, CAR CUSTOMIZER-PRESSURE TANK OPERATOR [address] [place] [phone] PCP - General Nurse Practitioner Family 01/06/23 documented as of this encounter
--- OUTSIDE RECORDS SUMMARY | 2024-05-20 14:12 | XMS_ITS | Clinical Summary ---
Author Organization [facility] Marie Nugent Address [address] [place] [address] Care Team Providers Care Assembly Line Brazer Name Role Phone Sonya Reid SWIMMING PROFESSOR Primary Care Provider Allergies Active Allergy Reactions Criticality Noted Date [...] STL ABSTRACTION Provider, Abstract 03/14/2024 10:00 AM HALL COORDINATOR Office Visit [facility] Oncology and Hematology - Richard [address] [place] [address] Noé Gill MD Chronic anemia (Primary Dx); History of prostate cancer 2024 Orders Only [facility] Oncology and Hematology Richard [address] [place] [address] Noé Gill MD 02/26/2024 External Device Data STL ABSTRACTION Provider, Abstract from Last 3 Months Family History Medical History Relation Name Comments Cancer Brother Cancer Father Shemar Lung Heart Disease Father Shemar Lung Cancer Father Shemar Cancer Mother [place] Colon Cancer Mother [place] Diabetes Mother [place] Heart Disease Mother [place] Hypertension Mother [place] Breast Cancer Sister 3 Liset Relation Name Status Comments Brother Daughter Alive Father Shemar Mother [place] Sister 1 Alive Sister 2 Alive Sister [...] Comments Blood Pressure 132/66 03/14/2024 10:16 AM HALL COORDINATOR Pulse 74 03/14/2024 10:16 AM HALL COORDINATOR Temperature 36.7 ??C (98 ??F) 03/14/2024 10:16 AM HALL COORDINATOR Respiratory Rate 14 03/14/2024 10:16 AM HALL COORDINATOR Oxygen Saturation 98% 03/14/2024 10:16 AM HALL COORDINATOR Inhaled Oxygen Concentration - - Weight 83.5 kg (184 lb) 03/14/2024 10:16 AM HALL COORDINATOR Height 177.8 cm (5' 10 ) 02/17/2022 10:57 AM CDT Body Mass Index 26.4 02/17/2022 10:57 AM CDT Plan of Treatment Upcoming Encounters Date Type Department Care Team (Late st Contact Info) Description 03/10/2025 10:15 AM HALL COORDINATOR Office Visit [facility] Oncology and Hematology Richard [address] [place] [address] Noé Gill MD [address] [facility] [address] [place] [address] Health Maintenance Due Date Last [...] COMPREHENSIVE METABOLIC PANEL Routine 03/08/2024 11:01 AM HALL COORDINATOR from Last 3 Months Results * COMPREHENSIVE METABOLIC PANEL (03/08/2024 11:01 AM HALL COORDINATOR) Blood Noé Gill MD CHEMISTRY ORDERABLES Final Resu lt from Last 3 Months Insurance MEDICARE PART A AND B [facility] [id number] [place] [id number] MEDICARE PART A AND B [facility] [id number] [place] [id number] Care Teams Assembly Line Brazer Relationship Specialty Start Date End Date Sonya Reid FNP [address] [phone] PCP - General Nurse Practitioner Family 10/04/19
--- OUTSIDE RECORDS SUMMARY | 2024-05-20 14:12 | XMS_ITS | Data Portability ---
Author Organization [place] [facility] Address [address] [facility] [place] [address] Assessment No assessment recorded. Plan of Treatment [...] 50 mcg/0.25mL dose 05/28/2020 completed MARGARET Balbuena, [facility] 05/28/2020 16:10:53 COVID-19, mRNA, LNP-S, PF, 100 mcg/0.5mL dose or 50 mcg/0.25mL dose 06/25/2020 completed JOHN Hughes, [facility] 06/25/2020 13:20:39 Past Encounters Encounter ID Performer Location Encounter Start Date Encounter Closed Date Diagnosis/Indication Diagnosis SNOMED-CT Code Diagnosis ICD10 Code Diagnosis Note [id number] JEFF Hawley 14 4 [facility] [place] [address]293 1 05/28/2020 12:54:50 05/29/2020 06:10:51 Administration of SARS-CoV-2 antigen vaccine [id number] Z23 [id number] JEFF Hawley 14 IM 4 [facility] [place] 12320-034 1 06/25/2020 12:06:15 06/26/2020 07:27:52 Administration of SARS-CoV-2 antigen vaccine [id number] Z23 Health Concerns Section Related Observation LastModified by Organization Detai ls LastModified Time None Recorded Concern Status LastModified by Organization Details LastModified Time None Recorded Advance Directives Directive None Recorded Payers Encounter Date Sequence Insurance Name Policy Number Policy Lozano Covered Member ID Lozano Member ID Guarantor Name 05/28/2020 1 [place] Ryan Varghese [id number] Ryan Varghese 05/28/2020 2 [employer] OPTIONS (MEDICARE SUPPLEMENT) Ryan Varghese [id number] Ryan Varghese 06/25/2020 1 [place] Ryan Varghese [id number] Ryan Varghese 06/25/2020 2 [employer] OPTIONS (MEDICARE SUPPLEMENT) Ryan Varghese [id number] Ryan Varghese
--- OUTSIDE RECORDS SUMMARY | 2024-05-20 14:12 | XMS_ITS ---
Author Organization [facility] [employer] Address [address] [facility] [address] [place] [address] Care Team Providers Care Chrome Tanner Name Role Phone Grabiel Varma MD Primary Care Provider Kary Sarmiento Unavailable [phone] Allergies Allergen (clinical drug ingredient) Drug/Non Drug [...] 03/15/2024 Encounters Encounter Location Date Provider Diagnosis [facility] [employer] [facility] [address] [address] 03/15/2024 Kary Garcia MDD (major depressive disorder), [...] twice a day as needed for [facility] educated not to take with Lunesta at bedtime and risk of respitatory depression 3. Primary Insomnia patient stopepd after 2 days d/c Trazodone 50 mg at bedtime- reported fatigue in am Melatonin 2 mg bedtime OTC SLUMS= 27 02/23/24 http_s://www.ronnie. org/Zlfzs-Uepfwq-Q llness/Mental-Heal th-Conditions http_s://psychcent ral.com/depression /pas-kyuqjlxqc-oqm xfojz-ls-ozehdgmen n#treatments http__s://www.nimh .nih.gov/health/to pics/mental-health -medications http__s://www.ronnie .org/About-Mental- Illness/Treatments /Tyfvvi-Hksaox-Dmy ications Discussed and educated pt regarding benzodiazepines [...] twice a day as needed for anxiety [facility] [employer] [facility] educated not to take with Lunesta at bedtime and risk of respitatory depression 3. Primary Insomnia patient stopepd after 2 days d/c Trazodone 50 mg at bedtime- reported fatigue in am Melatonin 2 mg bedtime OTC SLUMS= 27 02/23/24 http_s://www.ronnie. org/Xvwvg-Nkirvt-W llness/Mental-Heal th-Conditions http_s://psychcent ral.com/depression /jdl-jfyrwhmjq-umg anfwr-fi-oymvhlrrg n#treatments http__s://www.nimh .nih.gov/health/to pics/mental-health -medications http__s://www.ronnie .org/About-Mental- Illness/Treatments /Troumy-Xxfpza-Onv ications Discussed and educated pt regarding benzodiazepines [...] twice a day as needed for anxiety [facility] [employer] educated not to take with Lunesta at bedtime and risk of respitatory depression 3. Primary Insomnia patient stopepd after 2 days d/c Trazodone 50 mg at bedtime- reported fatigue in am Melatonin 2 mg bedtime OTC SLUMS= 27 02/23/24 http_s://www.ronnie. org/Zpyyp-Bijfqk-F llness/Mental-Heal th-Conditions http_s://psychPodaddies.com/depression /lgr-qzxmuojok-ums iueek-qp-dycdyhrwf n#treatments http__s://www.nimh .nih.gov/health/to pics/mental-health -medications http__s://www.ronnie .org/About-Mental- Illness/Treatments /Luyodu-Zajukv-Fwo ications Discussed and educated pt regarding benzodiazepines [...] Provider Name:Kary Garcia , 07/01/2024 10:45:00 AM, [address] [facility] [address], [facility] [address], [place], [address], Progress Notes * Ryan VARGHESE ADOB:[birth year] (79 yo M)Acc No.[id number]:03/15/2024 Patient:?Ryan VARGHESE Provider:?KARY GARCIA PMHNP :1945???Age:79 Y???Sex:Male Ar e:03/15/2024 Address:[address] [place], [place] [id number] Pcp:Grabiel Varma MD Subjective: * Chief Complaints: * ???1. Follow Up medications. * HPI: ???[place]-Suicide Severity Rating Scale:?Suicide Risk (CSRS-screener)?in the past [...] frustrated with how things are going,? 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 educated not to take with Lunesta at bedtime and risk of respitatory depression 3. Primary Insomnia patient stopepd after 2 days? d/c Trazodone 50 mg at bedtime- reported fatigue in am? Melatonin 2 mg bedtime OTC SLUMS= 27 02/23/24 http_s://www.ronnie.org/Zeimn-Dzrtxj-Zgbzadd/Vnphyk-Zrdqos-Sdmaracgsy http_s://psychcentral.com/depression/gyn-gytjsdjmd-guaureya-of-depression#treatm ents http__s://www.nimh.nih.gov/health/topics/fkheif-qkmltp-ywdunckbuoq http__s://www.ronnie.org/Txhld-Rasfhq-Dmpaqif/Treatments/Vuzusj-Zuwhvr-Kzwgibutoln Discussed and educated pt regarding benzodiazepines are [...] Care Instructions material was published?? * Procedure Codes:?17754 BEHAV ASSMT W/SCORE & DOCD/STAND INSTRUMENT, 66773 BEHAV ASSMT W/SCORE & DOCD/STAND INSTRUMENT, G2211 [...] Remeron) * Billing Information: * Visit Code:? 23957 OFFICE OUTPATIENT VISIT 25 MINUTES DETAILED HISTORY AND EXAM/MODERATE MEDICAL DECISION MAKING. * Procedure Codes:? 59161 BEHAV ASSMT W/SCORE & DOCD/STAND INSTRUMENT. 38006 BEHAV ASSMT W/SCORE & DOCD/STAND INSTRUMENT. G2211 VISIT COMPLEXITY INHERENT TO ONGOING CARE RELATED TO A PATIENT'S SINGLE, SERIOUS CONDITION OR A COMPLEX CONDITION. * R WORKER WELL SERVICE Sign off status: Completed true * Provider:?AURORA BENSON Date:? 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
--- OUTSIDE RECORDS SUMMARY | 2024-05-20 14:13 | XMS_ITS ---
Author Organization [facility] [employer] Address [address] [facility] [address] [place] [address] Care Team Providers Care Engine Setter Name Role Phone Grabiel Varma MD Primary Care Provider Gracy Sarmiento Unavailable [phone] Allergies Allergen (clinical drug ingredient) Drug/Non Drug [...] 04/26/2024 Encounters Encounter Location Date Provider Diagnosis [facility] [employer] [facility] [address] [address] 04/26/2024 Gracy Garcia MDD (major depressive disorder), [...] three a day as needed for anxiety [facility] educated not to take with Lunesta at bedtime and risk of respitatory depression 3. Primary Insomnia hx Lunesta 1 mg- not taking in a while Melatonin 2 mg bedtime OT SLUMS= 27 02/23/24 http_s://www.ronnie. org/Arxaz-Zmqqcu-D llness/Mental-Heal th-Conditions http_s://psychcent Productiv.com/depression /vil-blocqppdv-wvg beejm-fu-qxdhikusg n#treatments http__s://www.nimh .nih.gov/health/to pics/mental-health -medications http__s://www.ronnie .org/About-Mental- Illness/Treatments /Aebrtd-Zgpsne-Uzh ications Discussed and educated pt regarding benzodiazepines [...] three a day as needed for anxiety [facility] educated not to take with Lunesta at bedtime and risk of respitatory depression 3. Primary Insomnia hx Lunesta 1 mg- not taking in a while Melatonin 2 mg bedtime OT SLUMS= 27 02/23/24 http_s://www.ronnie. org/Ltpnf-Lvzkgu-L llness/Mental-Heal th-Conditions http_s://psychcent Productiv.com/depression /fvf-riycidlli-esq wrjzi-bv-itgrwobuv n#treatments http__s://www.nimh .nih.gov/health/to pics/mental-health -medications http__s://www.ronnie .org/About-Mental- Illness/Treatments /Ufjzdu-Mgfzlt-Gmg ications Discussed and educated pt regarding benzodiazepines [...] three a day as needed for anxiety [facility] Place educated not to take with Lunesta at bedtime and risk of respitatory depression 3. Primary Insomnia hx Lunesta 1 mg- not taking in a while Melatonin 2 mg bedtime OTC SLUMS= 27 02/23/24 http_s://www.ronnie. org/Mupaj-Fhatqr-X llness/Mental-Heal th-Conditions http_s://psychcent Productiv.com/depression /uby-zkaqpzzsm-jto adgvh-ll-apqtpbtol n#treatments http__s://www.nim .nih.gov/health/to pics/mental-health -medications http__s://www.ronnie .org/About-Mental- Illness/Treatments /Aeztlu-Daoiok-Ais ications Discussed and educated pt regarding benzodiazepines [...] Provider Name:Gracy Garcia , 07/01/2024 10:45:00 AM, [address], [address], [place], [address], Progress Notes * Ryan VARGHESE ADOB:[birth year] (79 yo M)Acc No.[id number]:04/26/2024 Patient:Ryan APONTE Provider:?AURORA BENSON :1945???Age:79 Y???Sex:Male Ar e:04/26/2024 Address:[address] [place] [address] Pcp:Grabiel Varma MD Subjective: * Chief Complaints: [...] and not as much as before,? 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 ???[place]-Suicide Severity Rating Scale:?Suicide Risk (CSRS-screener)?in the past [...] your own decision-maker?Yes,?Do you have Power of Car Worker Helper for Health or Medical??Yes,?Do you have a power of injection molding process technician for health??Yes,?Do you have power of injection molding process technician for Medical ??Yes,?If yes, then please bring [...] three a day as needed for anxiety [facility] educated not to take with Lunesta at bedtime and risk of respitatory depression 3. Primary Insomnia hx Lunesta 1 mg- not taking in a while Melatonin 2 mg bedtime OT SLUMS= 27 02/23/24 http_s://www.ronnie.org/Sryoa-Frdouj-Mpaxirn/Wynmww-Yaqutp-Pzhtblusjt http_s://psychcentral.com/depression/tri-xfmhxfmyn-xzjznuia-of-depression#treatm ents http__s://www.nimh.nih.gov/health/topics/qsfejw-hdfowc-pqeabilvvlc http__s://www.ronnie.org/Uprpp-Vbaeqx-Erjehap/Treatments/Dakhhq-Zqbedk-Powtrvpkwra Discussed and educated pt regarding benzodiazepines are [...] Care Instructions material was published?? * Procedure Codes:?08108 BEHAV ASSMT W/SCORE & DOCD/STAND INSTRUMENT, G2211 [...] Xanax) * Billing Information: * Visit Code:? 83058 OFFICE OUTPATIENT VISIT 25 MINUTES DETAILED HISTORY AND EXAM/MODERATE MEDICAL DECISION MAKING. * Procedure Codes:? 26240 BEHAV ASSMT W/SCORE & DOCD/STAND INSTRUMENT. G2211 VISIT COMPLEXITY INHERENT TO ONGOING CARE RELATED TO A PATIENT'S SINGLE, SERIOUS CONDITION OR A COMPLEX CONDITION. * L ENGINE TECHNICIAN Sign off status: Completed true * Provider:?AURORA BENSON Date:? 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
--- OUTSIDE RECORDS SUMMARY | 2024-05-20 14:13 | XMS_ITS ---
Author Organization [facility] Potential [facility] Address [address] [facility] [address] [facility] [address] [place] [address] Care Team Providers Care Skilled Nursing Case Manager Name Role Phone Grabiel Varma MD Primary Care Provider Gracy Sarmiento Unavailable [phone] REASON FOR VISIT Alprazolam Social History Sex Assigned At : Social History Observation Description Sex Assigned At Male Encounters Encounter Location Date Provider Diagnosis [facility] [place] [id number] [facility] [address] [address] 02/23/2024 Gracy Garcia Plan Of Treatment Next Appt Details Provider Name:Gracy Garcia , 07/01/2024 10:45:00 AM, [address], [facility] [address], [place], [address], Progress Notes * Ryan VARGHESE ADOB:[birth year] (78 yo M)Acc No.[id number]:02/23/2024 Patient:?Ryan VARGHESE :1945???Age:78 Y???Sex:Male Address:[address] [place] [address], [address] * true * Date:? Generated for Carmeni mili/Vishal/eTransmitting on:?05/20/2024 02:13 PM [employer]
--- OUTSIDE RECORDS SUMMARY | 2024-05-20 14:13 | XMS_ITS | Encounter Summary ---
Author Organization [facility] Address [address] [place] [address] Care Team Providers Care Mental Health Advanced Practice Nurse Name Role Phone Cher Kirby MD Primary Care Provider Sonya Reid APRN-CHIEF PSYCHOLOGIST Primary Care Provider Encounter Details Date Type Department Care Team (Late st Contact Info) Description 12/09/2022 Lab Requisition [facility] - DermPath Lab [address] [facility] [place] [id number] Shemar Gonzalez MD [address] [place] [address] Social History Tobacco Use Types Packs/Day Years [...] CDT) Case Report Dermatopathology Report ? Case: [id number] ? Authorizing Provider: ??Shemar Gonzalez MD ?Collected: ? 12/07/2022 12:00 AM ? Ordering Location: ? [facility] DermPath Lab ? Received: ?12/09/2022 04:56 PM ? Pathologist: ? Deisi Braxton MD ? Specimen: ?Skin, left side nose ? 3 12:56 PM [facility] DERMATOPATHOLOGY LABORATORY Final Diagnosis Specimen A. SKIN, left side nose: BASAL CELL CARCINOMA, NODULAR TYPE (C44.311) 3 12:56 PM [facility] DERMATOPATHOLOGY LABORATORY Clinical History R/O BCC, AK, SCC 3 12:56 PM [facility] DERMATOPATHOLOGY LABORATORY Gross Description Specimen A: Received is one formalin filled container labeled with the patient's name and designated left side nose. The specimen consists of a shave biopsy measuring 5x6x1 mm. Jar 0. 3 12:56 PM [facility] DERMATOPATHOLOGY LABORATORY Microscopic Description Specimen A. SKIN, left side nose: Within the dermis there are aggregates of basaloid cells with a high nuclear to cytoplasmic ratio and peripheral palisading. 3 12:56 PM [facility] DERMATOPATHOLOGY LABORATORY Disclaimer An external and internal positive and negative controls are appropriate for the histochemical, immunohistochemical and immunofluorescence stain(s) in this case (if any), except where stated explicitly. The performance characteristics of the stain(s) cited in this report were developed and its performance characteristic determined by the Dermatopathology Laboratory at [facility], directed by Dr. Abdirahman Swann. These tests need not be, and therefore are not, approved by the [place] Food and Drug Administration. The tests are used for clinical purposes. Billing Codes Specimen Charges Stain Charges 10628 1 3 12:56 PM [facility] DERMATOPATHOLOGY LABORATORY Embedded Images 3 12:56 PM [facility] DERMATOPATHOLOGY LABORATORY Pathology/Cytolog y TISSUE SPECIMEN FROM SKIN / Unknown 12/07/2022 12/09/2022 4:56 PM CDT Shemar Gonzalez MD LAB - PATHOLOGY/CYTO LOGY ORDERABLES DERMATOPATHOLOGY LABORATORY [facility] - Department of Dermatology [address], [address] [phone] documented in this encounter Visit Diagnoses Not on filedocumented in this encounter Care Teams Mental Health Advanced Practice Nurse Relationship Specialty Start Date End Date Cher Kirby MD [address] [place] [phone] PCP - General 02/19/13 01/05/23 Sonya Reid APRN-CHIEF PSYCHOLOGIST [address] [place] [phone] PCP - General Nurse Practitioner Family 01/06/23 documented as of this encounter
--- OUTSIDE RECORDS SUMMARY | 2024-05-20 14:13 | XMS_ITS | Data Portability ---
Author Organization [place] - [facility] [employer], Main Office Address [address] [place] [address] Care Team Providers Care Tactical Debriefer Name Role Phone NILSON KEARNEY Primary Care Provider NILSON KEARNEY Referring Provider NILSON KEARNEY Primary Care Provider Assessment Encounter Date Assessment Date Assessment LastModified [...] he would like to go over to [facility] for spine surgery consultation. Talked about [...] recorded. Lab BMP, serum or plasma 2023 [facility] (Lab), [address] [place], [address], 15:13:06 magnesium, serum or plasma 2023 [facility] (Lab), [address] [place], [address], 15:13:00 Referral physical therapist referral - please contact patient to schedule [email or web address] [facility], [address], [place], [address], 12:02:23 orthopedic spine surgeon referral - please contact patient to schedule 2023 [facility] Referral Program, [facility], [place], [address], 09:14:22 Procedures None recorded. Surgeries None recorded. Imaging MRI, lumbar spine, w/o contrast - patient to schedule 2023 JERMAN Not available 13:20:21 Medication Orders prednisone 10 mg tablets in a dose pack 2023 [email or web address] [facility] [address], [address], [place], [address], 17:43:32 docusate sodium 100 mg capsule 2023 [facility] [address], [address], [place], [address], 17:46:49 polyethylen e glycol 3350 17 gram/dose oral powder 2023 [facility] [address], [address], [place], [address], 17:46:50 Trulance 3 mg tablet 2023 [facility] [address], [address], [place], [address], 17:52:54 buspirone 10 mg tablet 2023 [facility] [address], [address], [place], [address], 17:50:26 mirtazapine 30 mg tablet 2023 [facility], [address], [id number], 17:50:23 Lunesta 2 mg tablet 2023 [facility] [address], [address], [place], [address], 17:51:44 alprazolam 0.5 mg tablet 2023 [facility] [address], [address], [place], [address], 15:10:23 mirtazapine 30 mg tablet 2023 024 JERMAN [facility] [address]25, [address] [facility], [place], [address], 15:10:18 Patient TargetsNo targets recorded. Patient InstructionsNo [...] magnesium 2.0 mg/dL 1.6-2. 3 Not Available [facility] (Lab) [address] [place], [address], 02/15/2024 15:13:00 02/15/2002/15/2024 BASIC METAB OLIC PANEL sodium 131 mmol/ L 137-14 5 low Not Available [facility] (Lab) [address] [place], [address], 02/15/2024 15:13:06 02/15/2002/15/2024 BASIC METAB OLIC PANEL potassium 4.6 mmol/ L 3.5-5. 1 Not Available [facility] (Lab) [address] [place], [address], 02/15/2024 15:13:06 02/15/2002/15/2024 BASIC METAB OLIC PANEL chloride 98 mmol/ L 98-107 Not Available [facility] (Lab) [address] [place], [address], 02/15/2024 15:13:06 02/15/2002/15/2024 BASIC METAB OLIC PANEL carbon dioxide 29 mmol/ L 22-30 Not Available [facility] (Lab) [address] [place], [address], 02/15/2024 15:13:06 02/15/2002/15/2024 BASIC METAB OLIC PANEL anion gap 8.6 mmol/ L 14-22 low Not Available [facility] (Lab) [address] [place], [address], 02/15/2024 15:13:06 02/15/2002/15/2024 BASIC METAB OLIC PANEL glucose 101 mg/dL 70-99 high Not Available [facility] (Lab) [address] [place], [address], 02/15/2024 15:13:06 02/15/2002/15/2024 BASIC METAB OLIC PANEL BUN 7 mg/dL 8-19 low Not Available [facility] (Lab) [address] [place], [address], 02/15/2024 15:13:06 02/15/2002/15/2024 BASIC METAB OLIC PANEL creatinine 0.88 mg/dL 0.66-1 .25 Not Available [facility] (Lab) [address] [place], [address], 02/15/2024 15:13:06 02/15/2002/15/2024 BASIC METAB OLIC PANEL GFR >60 Refer ence Range : [place] ge GFR Healt hy Adult : >60 [...] calcu lator is avail able on the [facility] websi te: https ://ww w.kid chris.o rg/pr ofess ional s/kdo qi/gf r_cal culat or Not Available [facility] (Lab) [address] [place], [address], 02/15/2024 15:13:06 02/15/2002/15/2024 BASIC METAB OLIC PANEL calcium 10.1 mg/dL 8.4-10 .2 Not Available [facility] (Lab) [address] [place], [address], 02/15/2024 15:13:06 01/02/20 XR, knee, 3 view [facility] [address] [place] [address] [phone] Patien t Name: DEEPTHI MARTINEZ Access ion #: [id number] Sex: M : 1944 5 Dictat [...] at 2023 08:01: 49 AM Page 1 [email or web address] [facility] (Imaging) [address] [place], [address], 01/02/2024 11:32:12 01/02/20 24 XR, lumbo sacra l spine , 4 or more view [facility] [address] [place] [address] Patien t Name: DEEPTHI MARTINEZ Access ion #: [id number] Sex: M : 1944 5 Dictat [...] ral body height s are mainta ined. Safety Consultant ior elemen ts are intact . No [...] at 2023 08:03: 54 AM Page 1 [email or web address] [facility] (Imaging) [address] [place], [address], 01/02/2024 11:32:13 01/11/20 24 MRI, lumba r spine , w/o contr ast [facility] [address] [place] [address] Patien t Name: DEEPTHI MARTINEZ Access ion #: [id number] Sex: M : 1944 3 Dictat ed By: Michaelle cardoza Attend ing Physic shahram: YONY MAST Orderi ng Physic shahram: YONY MATS Exam Date: 2023 09:06 AM Exam Name: [...] ral body height s are mainta ined. Safety Consultant ior elemen ts are intact . No [...] narrow ing. Mild disc bulge Page 1 [facility] [address] [address] Patien t Name: DEEPTHI MARTINEZ Access ion #: [id number] Sex: M : 1944 3 Dictat ed By: Michaelle Pacheco [facility] Physic shahram: KEZIA BHAKTA [facility] Physic shahram: YONY MAST Exam Date: 2023 [...] 2023 10:07: 22 AM Page 2 [email or web address] [facility] ([facility]) [address] [facility] [place], [address], 01/11/2024 13:44:05 Result Notes None recorded. Problems Name Problem SNOMED Code Status Onset Date Resolution Date Notes Provider Name and Address Organization Details Recorded Time Mixed anxiety and depressive disorder 439743654 Active 2022 Not Available [facility] 3 11:41:48 Major depressive disorder 618789773 Active 2022 Not Available [facility] 3 11:41:48 Hypertensi ve disorder 69057134 Active 2023 Nilson Kearney MD [address] [address], [place], [address] , [employer] 4 10:53:38 Gastroesop hageal reflux disease without esophagiti s 629647602 Active 2023 Nilson Kearney MD [address] [place] [address], [place], [address] , [employer] 4 10:53:45 Overweight 168439499 Active 2023 Nilson Kearney MD [address] [facility], [place], [address] , [employer] 4 10:54:01 History of radical prostatect alyssia 8577617940771 09 Active 2023 Nilson Kearney MD [address] [facility], [place], [address] , [place] [facility] 4 11:07:18 Depressive disorder 33221945 Active 2023 Nilson Kearney MD [address], [place], [address] , [place] [facility] 4 11:11:15 Vitamin B12 deficiency (non anemic) 49670889 Active 2023 Nilson Kearney MD [address], [place], [address] , [facility] 4 11:15:57 Nasal congestion 96578818 Active 2023 Nilson Kearney MD [address], [place], [address] , [facility] 4 10:34:01 Sore throat 095948824 Active 2023 Nilson Kearney MD [address], [place], [address] , [facility] 4 10:34:07 Cough 05428066 Active 2023 Nilson Kearney MD [address], [place], [address] , [facility] 4 10:34:13 Seasonal allergic rhinitis 127624377 Active 2023 Nilson Kearney MD [address], [place], [address] , [facility] 4 10:42:15 Lateral cervical lymphadeno chelsey 735302650 Active 2023 Nilson Kearney MD [address], [place], [address] , [facility] 4 11:24:27 Chronic low back pain 226796845 Active 2023 Nilson Kearney MD [address], [place], [address] , [facility] 4 15:24:59 Pain of left knee joint 4871957772898 07 Active 2023 Nilson Kearney MD [address], [place], [address] , [facility] 4 15:26:04 Left side sciatica 6116977793296 04 Active 2023 Nilson Kearney MD [address], [place], [address] , [facility] 4 15:27:20 Low back pain 481772999 Active 2023 Malena Sabihajamal sampson, [place] [facility] 4 15:02:51 Lumbar radiculopa thy 559640673 Active 2023 ROSS Quevedo [address], [place], [address] , [facility] 4 15:15:06 Lumbar spondylosi s 636143523 Active 2023 ROSS Quevedo [address], [place], [address] , [facility] 4 15:15:14 Chronic idiopathic constipati on 31530712 Active 2023 Nilson Kearney MD [address], [place], [address] , [facility] 4 17:43:46 Anxiety disorder 632304648 Active 2023 Nilson Kearney MD [address], [place], [address] , [facility] 4 17:49:15 Chronic insomnia 682598602 Active 2023 Nilson Kearney MD [address], [place], [address] , [facility] 4 17:50:36 Hypomagnes emia 960183817 Active 2023 Nilson Kearney MD [address], [place], [address] , [employer] 4 15:03:25 Isolated head tremor 859069414 Active 2023 Nilson Kearney MD [address], [place], [address] , [employer] 4 15:21:08 Nocturia 222458450 Active Not Available [facility] 3 11:41:48 History of prostatism 434157969 Active Not Available [facility] 3 11:41:48 Steatosis of liver 498934168 Active 2016 Not Available [facility] 3 11:41:48 Abdominal pain 47792919 Active Not Available [facility] 3 11:41:48 Gastroesop hageal reflux disease 855077427 Active Not Available [facility] 3 11:41:48 Tight chest 42273309 Active 2016 Not Available [facility] 3 11:41:48 Rib pain 683345716 Active 2016 Not Available [facility] 3 11:41:48 Low back strain 060933359 Active 2016 Not Available [facility] 3 11:41:48 Left lower quadrant pain 195361286 Active Not Available [facility] 3 11:41:48 Vitamin D deficiency 57236097 Active Not Available [facility] 3 11:41:48 Sleep disorder 83114443 Active Not Available [facility] 3 11:41:48 Primary erectile dysfunctio n 000533340 Active 2017 Not Available [facility] 3 11:41:48 Anxiety 49405238 Active Not Available [facility] 3 11:41:48 Dysuria 03046039 Active Not Available [facility] 3 11:41:48 Hyperlipid emia 95697818 Active Not Available [facility] 3 11:41:48 Essential hypertensi on 65771387 Active Not Available [facility] 3 11:41:48 Diarrhea 27352668 Active Not Available [facility] 3 11:41:48 Pernicious anemia 30862730 Active Not Available [facility] 3 11:41:48 Fatigue 61375026 Active 2016 Not Available [facility] 3 11:41:48 History of pancreatit is 3737649017744 7 Active 2016 Not Available [facility] 3 11:41:48 Problem Notes None recorded. Procedures Surgical History Date Name Laterality Status Provider Name and Address Organization Details Recorded Time 3 colonoscopy completed Not Available [facility] 06/23/19 04:43:10 8 Colonoscopy completed Not Available [facility] 06/23/19 04:43:10 6 Prostatectomy completed Not Available [facility] 2022 04:43:10 3 colonoscopy completed Not Available [facility] 06/23/19 04:43:10 1 endoscopy completed Not Available [facility] 04:43:10 Imaging Results Imaging Date Name Status LastModified by Organiz ation Details LastModified Time 01/02/2024 XR, knee, 3 view completed [address] (Imaging) [address] [place], [address], 01/02/2024 11:32:12 01/02/2024 XR, lumbosacral spine, 4 or more view completed [email or web address] [facility] (Imaging) [address] [place], [address], 01/02/2024 11:32:13 01/11/2024 MRI, lumbar spine, w/o contrast completed [email or web address] [facility] (Imaging) [address] [place], [address], 01/11/2024 13:44:05 Procedure Notes None recorded. Medical Equipment None Reported. Allergies Allergen ID Allergen Name Allergen Category Reaction Reaction Severity Criticality Documentation Date Start Date Code Code System Note Provider Name and Address Organization Details Recorded Time 81302 Substance with sulfonami de structure and antibacte rial mechanism of action (substanc e) medicatio n insomnia Not available Not available 01/09/2024 43436 8003 SNOMED Nitza Paz, FREIGHT BROKER null, [place] [facility] [place] [employer] 4 14:44:52 7150 Bactrim medicatio n Not available Not available Not available 06/22/2022 75762 9 RxNorm insom francisco Not Available [facility] [...] Updated DateTime 01/09/2024 177.8 cm 28.7 kg/m2 86086.47 g Nitza Paz CNA [facility] 01/09/2024 14:44:18 Date Recorded Body height Body mass index (BMI) Body weight Provider Name and Address Organization Details Last Updated DateTime 01/15/2024 177.8 cm 28.7 kg/m2 13512.47 g Nitza Paz CNA [facility] 01/15/2024 09:40:16 Date Recorded Body height Body mass index (BMI) Body weight Body temperature Heart rate Respiratory rate Oxygen saturation Oxygen saturation in Arterial blood by Pulse oximetry Systolic blood pressure Diastolic blood pressure Provider Name and Address Organization Details Last Updated DateTime 177.8 cm 27.5 kg/m2 22757.5 8 g 98.6 [degF] 74 /min 20 /min 99 % 99 % 134 mm[Hg] 70 mm[Hg] Chauncey Bledsoe [facility] 17:41:19 Date Recorded Body height Body mass index (BMI) Body weight Body temperature Heart rate Respiratory rate Oxygen saturation Oxygen saturation in Arterial blood by Pulse oximetry Systolic blood pressure Diastolic blood pressure Provider Name and Address Organization Details Last Updated DateTime 177.8 cm 27.7 kg/m2 87710.3 3 g 98.2 [degF] 78 /min 16 /min 99 % 99 % 118 mm[Hg] 70 mm[Hg] Chauncey Bledsoe [facility] 14:56:56 Social History Question Answer Notes LastModified by Organizat ion Details LastModified Time Tobacco Smoking Status Never [facility]oker [facility]05[facility]2023 10:51:53 Do You Have An Advance Directive? Yes [email or web address] Information not available 10/06/2022 What Is Your Level Of Alcohol Consumption? Occasional [id number] Information not available 06/22/2022 Are You Blind Or Do You Have Difficulty Seeing? No Information not available 04/05/2023 Is Blood Transfusion Acceptable In An Emergency? Yes Information not available 04/05/2023 What Is Your Level Of Caffeine Consumption? Moderate [id number] Information not available 06/22/2022 How Much Tobacco Do You Chew? None [id number] Information not available 06/22/2022 What Is Your [...] Type Of Diet Are You Following? REGULAR [id number] Information not available 06/22/2022 Which Illicit Or [...] not available 04/05/2023 Where Do You Live? [facility] Information not available 04/05/2023 Do You Have A Medical Power Of Customer Solutions Specialist? Yes Information not available 04/05/2023 Have You Ever Been Counseled For Unhealthy Alcohol Use? No Information not available 04/05/2023 Do You Have Any Pets? No Information not available 04/05/2023 What Is Your Relationship Status? [id number] Information not available 06/22/2022 Do You Use [...] Anxious, Or Unable To Sleep At Night)? [id number] Information not available 04/05/2023 Do You Use [...] 04/05/2023 What is your exercise level? Moderate [id number] Information not available 06/22/2022 Mental Status [...] EAR OR HEARING PROBLEMS N MUMPS N FEMALE PROBLEMS / INFECTIONS N DEPRESSION (INCLUDING POST ) N BOWEL PROBLEMS N STROKE/TIA N THYROID DISEASE N ULCERS [...] GLAUCOMA N FOOT PROBLEM N DIVERTICULITIS N SLEEP APNEA N CHICKENPOX N ALLERGIES/HAYFEVER Y INFECTIOUS DISEASE N PROSTATE Y HEART ARRHYTHMIA N INSOMNIA N HIGH CHOLESTEROL / HYPERLIPIDEMIA N EYE PROBLEMS N HYPERTHYROIDISM N EATING DISORDER N EDEMA N CHRONIC PAIN SYNDROME N CAROTID BLOCKAGE N CONSTIPATION N BACK / NECK PROBLEMS Y HAVE YOU BEEN HOSPITALIZED OR SEEN IN [facility] IN THE PAST YEAR ? N ATHEROSCLEROSIS [...] DISORDER N ALZHEIMER'S DISEASE N PAIN N DEMENTIA N HERPES N SEIZURES/EPILEPSY N HEADACHES/MIGRAINES N VASCULAR DISEASE N PACEMAKER N DIZZINESS N HEART DISEASE/HEART PROBLEMS N KIDNEY DISEASE N SCARLET FEVER N MULTIPLE SCLEROSIS N DEVELOPMENTAL OR BEHAVIORAL DISORDERS N MENTAL DISORDER/ILLNESS N CANCER: SPECIFY Y CARDIAC ARRHYTHMIA N PNEUMONIA N ATRIAL FIBRILLATION N Gall Stones N PULMONARY EMBOLISM N AUTOIMMUNE DISEASE N Immunizations Vaccine Type Date Status Note Provider Nam e and Address Organization Details Recorded Time RSV, recombinant, protein subunit RSVpreF, adjuvant reconstituted, 0.5 mL, PF 3 completed KAREL Wilson, [facility] 04/05/2023 10:55:58 SARS-COV-2 (COVID-19) vaccine, UNSPECIFIED 2 completed [facility] 04/05/2023 10:55:58 SARS-COV-2 (COVID-19) vaccine, UNSPECIFIED 1 completed KAREL Wilson, [facility] 04/05/2023 10:55:58 COVID-19, mRNA, LNP-S, PF, 100 mcg/0.5mL dose or 50 mcg/0.25mL dose 1 completed [facility] 04/05/2023 10:55:58 COVID-19, mRNA, LNP-S, PF, 100 mcg/0.5mL dose or 50 mcg/0.25mL dose 1 completed KAREL Wilson, [facility] 04/05/2023 10:55:58 zoster live 9 completed KAREL Wilson, [facility] 04/05/2023 10:55:58 zoster live 9 completed [facility] 04/05/2023 10:55:58 Pneumococcal conjugate PCV 13 7 completed KAREL Wilson, [facility] 04/05/2023 10:55:58 influenza, unspecified formulation 2 completed Sonya Rodriguez RN null, [facility] 04/05/2023 10:55:58 SARS-COV-2 (COVID-19) vaccine, UNSPECIFIED 2 completed Sonya Rodriguez RN null, [facility] 04/05/2023 10:55:58 Influenza, high-dose, quadrivalent, PF 1 completed Sonya Rodriguez RN null, [facility] 04/05/2023 10:55:58 Tdap 0 completed Sonya Rodriguez RN null, [facility] 04/05/2023 10:55:58 pneumococcal polysaccharide PPV23 3 completed Sonya Rodriguez RN null, [facility] 04/05/2023 10:55:58 Tdap 0 completed Sonya Rodriguez RN null, [facility] 04/05/2023 10:55:58 zoster live 8 completed Sonya Rodriguez RN null, [facility] 04/05/2023 10:55:58 Past Encounters Encounter ID Performer Location Encounter Start Date Encounter Closed Date Diagnosis/Indication Diagnosis SNOMED-CT Code Diagnosis ICD10 Code Diagnosis Note [id number] [address] [address] 10/07/2020 00:00:00 10/07/2020 11:14:[id number] [address] 04/07/2021 00:00:00 04/07/2021 11:23:[id number] [address] 10/06/2021 00:00:00 10/06/2021 11:45:[id number] [address] 04/06/2022 00:00:00 04/06/2022 11:26:25 [id number] Sonya Reid NP [address] [address] 10/06/2022 10:51:42 10/06/2022 11:42:46 Essential hypertension 22016910 I10 Amlodipine 2.5 mg po daily.Symone nopril 20 mg- hctz 12.5 mg po bid Hyperlipidemia 02328592 E78.5 Low fat diet. Vitamin D deficiency 347 24748 E55.9 Vit d 1,000 IU po daily. Gastroesop hageal reflux disease 509982420 K21.9 Omeprazole 20 mg po daily. Mixed anxi ety and depressive disorder 881991284 F41.8 Mirtazapin e 15 mg 1/2 tab po nightly.Dr Colton Gonzalez left practice.P t to watch weight and stay rested. Nocturia 336732541 R35.[address] Gill in May 2022. Pt states ok. Major depr essive disorder 376605514 F32.9 Mirtazapin e 15 mg, 1/2 tab po daily.Dr. Gonzalez left practice.P t to watch weight and stay rested. [id number] Sonya Reid NP [address] [address] 04/05/2023 10:50:18 04/05/2023 11:39:22 Hyperlipidemia 73671288 E78.5 Low fat diet. Essential hypertension 50199296 I10 Amlodipine 2.5 mg po daily. Incraese to 5 mg po nightly and call in 5 days with bp readings.L isinopril 20 mg- hctz 12.5 mg po bid Vitamin D deficiency 347 36284 E55.9 Vit d 1,000 IU po daily. Gastroesop hageal reflux disease 079377975 K21.9 Omeprazole 20 mg po daily. Anxiety 80352732 F41.9 Stable. Mixed anxi ety and depressive disorder 897961823 F41.8 Mirtazapin e 15 mg 1/2 tab po nightly.Dr Colton Gonzalez left practice. [place] office took over.Pt to watch weight and stay rested. Nocturia 698708960 R35.[address] Gill in May 2022. Pt states ok. Major depr essive disorder 262886006 F32.9 Mirtazapin e 15 mg, 1/2 tab po daily.Dr[address] Gonzalez left practice.P t to watch weight and stay rested. [id number] Nilson Kearney MD [address] [address] 10/11/2023 10:47:53 10/11/2023 11:46:16 Hypertensive disorder 43840885 I10 Gastroesop hageal reflux disease without esophagitis 443839001 K21.9 Vitamin D deficiency 347 77370 E55.9 Overweight 351220125 E66 .3 History of radical prostatectomy 6066174252 68284 Z90.79 2016 Depressive disorder 3548 9007 F32.A Vitamin B1 2 deficiency (non anemic) 40468586 E53.8 Hyperlipidemia 06694282 E78.5 [id number] Nilson Kearney MD [address] [address] 11/20/2023 10:25:15 11/20/2023 11:26:52 Nasal congestion 66285370 R09.81 Sore throat 178578024 J0 2.9 Seasonal a llergic rhinitis 002823428 J30.2 Lateral ce rvical lymphadenopathy 197087056 R59.0 Lt - 1 [id number] Nilson Kearney MD [address] [address] 01/01/2024 15:10:20 01/01/2024 15:42:43 Chronic low back pain 230919890 M54.50 Pain of le ft knee joint 7664142237 48036 M25.562 Left side sciatica 64725 73614 70364 M54.32 Overweight 508040912 E66 .3 [id number] ROSS Quevedo [facility] [place] [address] [place] [address] 01/09/2024 14:39:41 01/09/2024 16:18:09 Low back pain 689620124 M54.50 Lumbar radiculopathy 128 307043 M54.16 Lumbar spondylosis 05314 0009 M47.198 [id number] ROSS Quevedo [facility] [place] [address] [place] [address] 01/15/2024 09:37:34 01/15/2024 10:40:15 Lumbar radiculopathy 897575157 M54.16 Lumbar spondylosis 45972 0009 M47.896 Low back pain 853175685 M54.50 [id number] Nilson Kearney MD [address] [address] 01/30/2024 17:25:24 01/30/2024 17:57:04 Chronic idiopathic constipation 35701699 K59.04 Depressive disorder 3548 9007 F32.A Anxiety disorder 2828342 06 F41.9 Chronic insomnia 3691145 04 F51.04 [id number] Nilson Kearney MD [address] [address] 02/14/2024 14:45:22 02/14/2024 15:24:03 Anxiety disorder 854647395 F41.9 Chronic id iopathic constipation 86867546 K59.04 Advised pt to f/u with his GI about this too. Depressive disorder 3548 9007 F32.A Gastroesop hageal reflux disease without esophagitis 585082263 K21.9 Advised pt to f/u with his GI about this too. Hypomagnesemia 399624091 E83.42 Hypertensive disorder 38 577851 I10 Isolated head tremor 230 679207 G25.0 [id number] Nilson Kearney MD [address] [address] 02/15/2024 09:17:55 02/15/2024 14:06:20 Health Concerns Section Related Observation LastModified by Organization Detai ls LastModified Time None Recorded Concern Status LastModified by Organization Details LastModified Time None Recorded Advance Directives Directive Y: Payers Encounter Date Sequence Insurance Name Policy Number Policy Lozano Covered Member ID Lozano Member ID Guarantor Name 01/09/2024 1 [place] Ryan Martinez [id number] Ryan Martinez 01/09/2024 2 [employer] HE[employer] OPTION - PLAN F (MEDICARE SUPPLEMENT) Ryan Martinez [id number] Ryan Martinez 01/15/2024 1 [place] Martinez [id number] Ryan Martinez 01/15/2024 2 [employer] HEALTHCARE OPTION - PLAN F (MEDICARE SUPPLEMENT) Ryan Martinez [id number] Ryan Martinez 01/30/2024 1 [place] Martinez [id number] Ryan Martinez 01/30/2024 2 [employer] HE[employer] OPTION - PLAN F (MEDICARE SUPPLEMENT) Ryan Martinez [id number] Ryan Martinez 02/14/2024 1 [place] Martinez [id number] Ryan Martinez 02/14/2024 2 [employer] HE[employer] OPTION - PLAN F (MEDICARE SUPPLEMENT) Ryan Martinez [id number] Ryan Martinez 02/15/2024 1 [place] Martinez [id number] Ryan Martinez 02/15/2024 2 [facility] HEALTH[facility] OPTION - PLAN F (MEDICARE SUPPLEMENT) Ryan Martinez [id number] Ryan Martinez Notes Date Note Type Note [...] today with the patient. ROSS Quevedo [address] [facility], [facility] [address], [place], [address], [place] [facility] [employer] 01/09/2024 15:15:48 01/15/2024 text/html Patient returns for [...] in today for recheck. ROSS Quevedo [address] [facility], [place], [address], [employer] [facility] [employer] 01/15/2024 10:14:21 01/30/2024 text/html ACV: C/o constipation [...] swings/SI/HI. Nilson Kearney MD [address], [facility] [address], [place], [address], [facility] [employer] [facility] [employer] 01/30/2024 18:05:01 02/14/2024 text/html ACV: C/o facial [...] pt. Nilson Kearney MD [address], [address], [place], [address], [facility] [employer] [facility] [employer] 02/14/2024 15:22:14
--- OUTSIDE RECORDS SUMMARY | 2024-05-20 14:13 | XMS_ITS | Patient Health Record ---
Author Organization [facility] Address [address] [facility] [address] [place] [address] Care Team Providers Care Academic Affairs Director Name Role Phone Kojo ORR, Grabiel Primary Care Provider Gracy Sarmiento Unavailable [phone] Allergies Allergen (clinical drug ingredient) Drug/Non Drug [...] Oxazepam (BZO) NEG 0 - 300 ng/ml 5-duihrpkydx-8,4-iysnvipx-0,3-diphenylpyrrolidine (JOHNNIE P) NEG 0 - 300 ng/ml Methamphetamine (MET) NEG 0 - 1000 ng/ml Methylenedioxymethamphetamine (MDMA) NEG 0 - 500 ng/ml Morphine (MOP 300/LFA4649) NEG 0 - 300 ng/ml Methadone (MTD) [...] Problem Status W/U Status Risk Notes Problem 9811226 Primary insomnia (F51.01) Active confirmed Problem 74706755 JORDAN (generalized anxiety disorder) (F41.1) Active confirmed Problem 943239615 MDD (major depressive disorder), recurrent episode, mild (F33.0) Active confirmed Vital Signs Heart Rate 71 /min 04/26/2024 Respiratory Rate 16 /min 02/23/2024 Height-cm 177.8 cm 04/26/2024 Blood pressure diastolic 90 mm Hg 04/26/2024 Weight-kg 83.91 kg 04/26/2024 Height 70 in 04/26/2024 Blood pressure systolic 150 mm Hg 04/26/2024 Weight 185 lbs 04/26/2024 BMI 26.54 kg/m2 04/26/2024 Encounters Encounter Location Date Provider Diagnosis [place] [address] [facility] [address] [place] [address] 02/23/2024 Gracy Radha MDD (major depressive disorder), recurrent episode, mild F33.0 ; JORDAN (generalized anxiety disorder) F41.1 and Primary insomnia F51.01 [facility] [facility] [address] [facility] [address] [place] [address] 03/15/2024 Gracy Radha MDD (major depressive disorder), recurrent episode, mild F33.0 ; JORDAN (generalized anxiety disorder) F41.1 and Primary insomnia F51.01 [facility] [facility] [address] [facility] [address] [place] [address] 04/26/2024 Gracy Radha MDD (major depressive disorder), recurrent episode, mild F33.0 ; JORDAN (generalized anxiety disorder) F41.1 and Primary insomnia F51.01 [facility] [facility] [address] [address] 02/22/2024 [facility] [employer] [place] [address] [address] 02/23/2024 Gracy Garcia Assessments Encounter Date Diagnosis (ICD Code) Assessment Notes Treatment Notes Treatment Clinical Notes Section Notes 02/23/2024 JORDAN (generalized anxiety disorder) (ICD-10 - [...] place of Lunesta SLUMS= 27 02/23/24 http_s://www.ronnie. org/Insou-Ospmwa-O llness/Mental-Heal th-Conditions http_s://psychcent Graspr.com/depression /ttj-koqdgkona-wml uadrg-kj-miciurmhb n#treatments http__s://www.nimh .nih.gov/health/to pics/mental-health -medications http__s://www.ronnie .org/About-Mental- Illness/Treatments /Tuquey-Ebzvkl-Srg ications Discussed and educated pt regarding benzodiazepines [...] needed for anxiety PCP filled RX Recently [facility] due 02/29/24 educated not to [...] place of Lunesta SLUMS= 27 02/23/24 http_s://www.ronnie. org/Kgaqu-Vjksmn-R llness/Mental-Heal th-Conditions http_s://psychcent Graspr.com/depression /vqg-clgccophg-blb qowwt-tz-dnfdpujzo n#treatments http__s://www.nimh .nih.gov/health/to pics/mental-health -medications http__s://www.ronnie .org/About-Mental- Illness/Treatments /Izbhuh-Egyvie-Lad ications Discussed and educated pt regarding benzodiazepines [...] twice a day as needed for anxiety [facility] educated not to take with Lunesta at bedtime and risk of respitatory depression 3. Primary Insomnia patient stopepd after 2 days d/c Trazodone 50 mg at bedtime- reported fatigue in am Melatonin 2 mg bedtime OT SLUMS= 27 02/23/24 http_s://www.ronnie. org/Yakys-Avvdqg-P llness/Mental-Heal th-Conditions http_s://psychcent Graspr.com/depression /uxl-myqzvhdzh-ahr yxpqo-qz-hkdsthhbd n#treatments http__s://www.nimh .nih.gov/health/to pics/mental-health -medications http__s://www.ronnie .org/About-Mental- Illness/Treatments /Knjhci-Rckqte-Hos ications Discussed and educated pt regarding benzodiazepines [...] twice a day as needed for anxiety [facility] educated not to take with Lunesta at bedtime and risk of respitatory depression 3. Primary Insomnia patient stopepd after 2 days d/c Trazodone 50 mg at bedtime- reported fatigue in am Melatonin 2 mg bedtime OT SLUMS= 27 02/23/24 http_s://www.ronnie. org/Bwqql-Qjsjsj-M llness/Mental-Heal th-Conditions http_s://psychcent Graspr.com/depression /fin-kmklbsuqx-ftj stgwg-gl-lcorgrgbp n#treatments http__s://www.nimh .nih.gov/health/to pics/mental-health -medications http__s://www.ronnie .org/About-Mental- Illness/Treatments /Rulksz-Kkghvn-Cgx ications Discussed and educated pt regarding benzodiazepines [...] neurotoxicity and interactions with prescribed medications. 04/26/2024 MDD (major depressive disorder), recurrent episode, [...] three a day as needed for anxiety [facility] educated not to take with Lunesta at bedtime and risk of respitatory depression 3. Primary Insomnia hx Lunesta 1 mg- not taking in a while Melatonin 2 mg bedtime OT SLUMS= 27 02/23/24 http_s://www.ronnie. org/Mhpvi-Gihwrq-B llness/Mental-Heal th-Conditions http_s://psychcent Graspr.com/depression /wsz-yznhgqklc-pmo vqktn-gc-ptiayplgk n#treatments http__s://www.nimh .nih.gov/health/to pics/mental-health -medications http__s://www.ronnie .org/About-Mental- Illness/Treatments /Dcetid-Ewixqb-Ogd ications Discussed and educated pt regarding benzodiazepines [...] place of Lunesta SLUMS= 27 02/23/24 http_s://www.ronnie. org/Ciomm-Fsuqtl-G llness/Mental-Heal th-Conditions http_s://psychcent Graspr.com/depression /dkm-piazacdos-hws zetto-ut-kysnbmwwv n#treatments http__s://www.nimh .nih.gov/health/to pics/mental-health -medications http__s://www.ronnie .org/About-Mental- Illness/Treatments /Tmetiu-Cyyuiu-Lao ications Discussed and educated pt regarding benzodiazepines [...] three a day as needed for anxiety [facility] educated not to take with Lunesta at bedtime and risk of respitatory depression 3. Primary Insomnia hx Lunesta 1 mg- not taking in a while Melatonin 2 mg bedtime OTC SLUMS= 27 02/23/24 http_s://www.ronnie. org/Eqbxz-Rdhuuv-L llness/Mental-Heal th-Conditions http_s://psychcent Graspr.com/depression /ktj-vyhzqwaxz-cos jqwkm-mw-qwqfieyaz n#treatments http__s://www.nimh .nih.gov/health/to pics/mental-health -medications http__s://www.ronnie .org/About-Mental- Illness/Treatments /Ojhawq-Nrniro-Eyc ications Discussed and educated pt regarding benzodiazepines [...] twice a day as needed for anxiety [facility] educated not to take with Lunesta at bedtime and risk of respitatory depression 3. Primary Insomnia patient stopepd after 2 days d/c Trazodone 50 mg at bedtime- reported fatigue in am Melatonin 2 mg bedtime OT SLUMS= 27 02/23/24 http_s://www.ronnie. org/Lruyz-Kkcmmk-I llness/Mental-Heal th-Conditions http_s://psychEvomail.com/depression /ovf-hijgtlzlk-iok xznhj-lf-dldzllzzu n#treatments http__s://www.nimh .nih.gov/health/to pics/mental-health -medications http__s://www.ronnie .org/About-Mental- Illness/Treatments /Lcguqi-Mdxsqz-Qde ications Discussed and educated pt regarding benzodiazepines [...] three a day as needed for anxiety [facility] educated not to take with Lunesta at bedtime and risk of respitatory depression 3. Primary Insomnia hx Lunesta 1 mg- not taking in a while Melatonin 2 mg bedtime OTC SLUMS= 27 02/23/24 http_s://www.ronnie. org/Yiqhv-Lpaohd-B llness/Mental-Heal th-Conditions http_s://AVOB.Altobeam/depression /qmh-plnqetwrk-ysw jqfya-ha-pmzdlvvsx n#treatments http__s://www.nimh .nih.gov/health/to pics/mental-health -medications http__s://www.ronnie .org/About-Mental- Illness/Treatments /Vrrdrl-Giwxnz-Evr ications Discussed and educated pt regarding benzodiazepines [...] needed for anxiety PCP filled RX Recently [facility] due 02/29/24 educated not to [...] place of Lunesta SLUMS= 27 02/23/24 http_s://www.ronnie. org/Wtajh-Uuljgg-R llness/Mental-Heal th-Conditions http_s://psychcent ral.com/depression /zpf-jubnrigxy-qhb zlxke-mm-crvoljfpt n#treatments http__s://www.nimh .nih.gov/health/to pics/mental-health -medications http__s://www.ronnie .org/About-Mental- Illness/Treatments /Jquyzi-Dlgtja-Ewf ications Discussed and educated pt regarding benzodiazepines [...] Name:Gracy Garcia , 07/01/2024 10:45:00 AM, [address] [facility] [address], [facility] [address], [place], [address], Insurance Providers Payer Name Payer Address Payer Phone Subscriber Number Group Number Insured Name Patient Relationship to Insured Coverage Start Date Coverage End Date Medicare-Nd Medicare [address] [place] [address] [id number] Ryan Varghese Self - patient is the insured [facility] Medicare Supplement [address] [facility] [place] [address] [id number] VargheseRyan Self - patient is the [...]
--- OUTSIDE RECORDS SUMMARY | 2024-05-20 14:13 | XMS_ITS | Clinical Summary ---
Author Organization [facility] Address [address] [place] [address] Care Team Providers Care Public Address System Operator Name Role Phone Sonya Reid APRN-MUNICIPAL FIREFIGHTER Primary Care Provider Source Comments [facility],non-owned Affiliates and Associated Physician Practices is amultiple site organization consisting of ambulatory clinics and hospital sitesin [place], [place] and [place]. This disclosure is being madepursuant to the Care Everywhere program and may not contain all information available regarding this patient. Last updated 18.[facility] Allergies Active Allergy Reactions Criticality Noted Date [...] age to complete this topic Care Teams Public Address System Operator Relationship Specialty Start Date End Date Sonya Reid APRN-MUNICIPAL FIREFIGHTER [address] [place] [address] PCP - General Nurse Practitioner Family 01/06/23
--- OUTSIDE RECORDS SUMMARY | 2024-05-20 14:13 | XMS_ITS | CONTINUITY OF CARE DOCUMENT ---
Author Name crystal rojas Address Unknown Organization [facility] Address [address] [place] [address] [address] [place] [address] Phone [phone] Care Team Providers Care Construction Trench Digger Name Role Phone Ludin Martinez MD Unavailable [phone] KONG HEALY MD Unavailable KONG HEALY MD Unavailable VITAL SIGNS Date Observation Value Provider blood pressure, diastolic 86 mm[Hg] Claire seph [place] blood pressure, systolic 118 mm[Hg] Benjamín eph [place] SOCIAL HISTORY Date Observation Value Provider smoking status never Sunny khan FUNCTIONAL STATUS Date Observation Value Provider periodic limb movement index absent (0) Sunny De La Garza INSURANCE PROVIDERS Payer name Policy type / Coverage type Amber red republican ID AARP [place] insurance company [id number] [employer] Medicare [id number]
--- OUTSIDE RECORDS SUMMARY | 2024-05-20 14:13 | XMS_ITS | Referral Summary ---
Author Organization [facility] Address [address] [place] [address] Care Team Providers Care Labourers Name Role Phone Sonya Reid APRN-STREET AND BUILDING DECORATOR Primary Care Provider Source Comments [facility],non-owned Affiliates and Associated Physician Practices is amultiple site organization consisting of ambulatory clinics and hospital sitesin [place], [place], [place] and [place]. This disclosure is being madepursuant to the Care Everywhere program and may not contain all information available regarding this patient. Last updated 18.[facility] Allergies Active Allergy Reactions Criticality Noted Date [...] of Treatment Not on file Care Teams Labourers Relationship Specialty Start Date End Date Sonya Reid APRN-STREET AND BUILDING DECORATOR [address] [place] [address] PCP - General Nurse Practitioner Family 01/06/23
--- OUTSIDE RECORDS SUMMARY | 2024-05-20 14:13 | XMS_ITS | Patient Health Summary ---
Author Organization [facility] Address [address] [place] [address] Care Team Providers Care Talent Acquisition Partner Name Role Phone Sonya Reid APRN-LARD RENDERER Primary Care Provider Note from [facility],non-owned Affiliates and Associated Physician Practices is amultiple site organization consisting of ambulatory clinics and hospital sitesin [place], [place], [place] and [place]. This disclosure is being madepursuant to the Care Everywhere program and may not contain all information available regarding this patient. Last updated 18.[facility] Allergies * Bactrim Ds(Other) * Sulfacetamide(Other) Medications [...] Sexual Orientation Not on file Procedures * CA DELAY/SECTN FLAP LID,NOS,EAR,LIP(Performed 01/27/2023) Performed for Basal cell carcinoma (BCC) of left side of nose * PROC DELAY/SECTIONING OF FLAP(Performed 01/27/2023) Performed for Basal cell carcinoma (BCC) of left side of nose * CA CHMSRG MOHS MG TQ H/N/H/F/G 1ST STAG 5 BLOC(Performed 01/06/2023) Performed for Basal cell carcinoma of nose * CA [facility] MOHS MG TQ H/N/H/F/G EA ADDL STAG(Performed 01/06/2023) Performed for Basal cell carcinoma of nose * CA FORM SKIN PEDICLE FLAP LID,EAR,NOSE(Performed 01/06/2023) Performed for Basal cell carcinoma of nose * DERMATOPATHOLOGY(Performed 12/07/2022) * DERMATOPATHOLOGY(Performed 08/01/2017) * DERMATOPATHOLOGY(Performed 08/30/2011) Results * CA DELAY/SECTN FLAP LID,NOS,EAR,LIP (01/27/2023 2:54 PM CDT) [...] final defect: adipose Previous dermpath accession #: [id number] Repair type: interpolation flap Mohs accession #: [id number] DOS:01/27/2023 REPAIR: Melolabial interpolation flap division/takedown Primary Surgeon: La Nena Vera MD Neurology Director: N/A Repair Size: 4x4 cm Sutures: 5-0 [...] report. I entered the information in our [employer] DocFlowsheet with the information provided by Dr. Vera on her handwritten, paper format, surgical worksheet, which was then used to initiate the create of this note. Dr. Vera then reviewed and edited the note as needed to complete the note. Laura Murphy LPN I have reviewed the note, edited it as necessary and performed the entire procedure. La Nena Vera MD Underwriter Solicitation Director 01/27/2023 La Nena Vera MD PROCEDURE/MINOR SURG ICAL ORDERABLES * CA FORM SKIN PEDICLE FLAP LID,EAR,NOSE, CA CHMSRG MOHS MG TQ H/N/H/F/G EA ADDL STAG, CA CHMSRG MOHSMG TQ H/N/H/F/G 1ST STAG 5 BLOC (01/06/2023 11:53 AM CDT) Narrative La Nena Vera MD - 01/06/2023 11:53 AM CDT La Nena Vera MD ? 01/06/2023 ??4:39 PM Mohs Micrographic Surgery Operative Note Procedure: Mohs micrographic surgery Date of service: 01/06/2023 Location: left nose Preop diagnosis: Basal cell carcinoma Postop diagnosis: Basal cell carcinoma Mohs AUC score: 8 Number of stages: 2 Preop size: 1.0x1.5 cm Postop size: 2.1x1.6 cm Depth of final defect: adipose Previous dermpath accession #: [id number] Repair type: interpolation flap Mohs accession #: [...] eyelids, eyebrows, nose, lips, chin, ear, periauricular, church, genitalia, hands, feet, ankles, nail units and [...] confirmed by the patient. All components of [place] Protocol/PAUSE Rule completed. STAGE I: The patient [...] No additional histologic findings appreciated. [facility] CLIA # [id number] [facility] [employer] Construction Worker: La Nena Vera MD Reconstruction: ??Cheek to [...] report. I entered the information in our [facility] DocFlowsheet with the information provided by Dr. Vera on her handwritten, paper format, surgical worksheet, which was then used to initiate the create of this note. Dr. Vera then reviewed and edited the note as needed to complete the note. Laura Murphy LPN I have reviewed the note, edited it as necessary and performed the entire procedure. La Nena Vera MD Underwriter Solicitation Director 01/06/2023 La Nena Vera MD PROCEDURE/MINOR SURG ICAL ORDERABLES * DERMATOPATHOLOGY (12/07/2022 12:00 AM CDT) Only the most recent of3 resultswithin the time period is included. Case Report Dermatopathology Report ? Case: [id number] ? Authorizing Provider: ??Shemar Gonzalez MD ?Collected: ? 12/07/2022 12:00 AM ? Ordering Location: ? [facility] DermPath Lab ? Received: ?12/09/2022 [...] characteristic determined by the Dermatopathology Laboratory at [facility], directed by Dr. Abdirahman Swann. These tests need not be, and therefore are not, approved by the [place] Food and Drug Administration. The tests are used for clinical purposes. Billing Codes Specimen Charges Stain Charges 17811 1 3 12:56 PM CDT DERMATOPATHOLOGY LABORATORY Embedded Images 3 12:56 PM CDT DERMATOPATHOLOGY LABORATORY Pathology/Cytolog y TISSUE SPECIMEN FROM SKIN / Unknown 12/07/2022 12/09/2022 4:56 PM CDT Shemar Gonzalez MD LAB - PATHOLOGY/CYTO LOGY ORDERABLES DERMATOPATHOLOGY LABORATORY [facility] - Department of Dermatology [address] [phone] Care Teams Talent Acquisition Partner Relationship Specialty Start Date End Date Sonya Reid, LEATHERSMITH-LARD RENDERER [address] [place] [address] PCP - General Nurse Practitioner Family 01/06/23
--- NOTE | 2024-05-23 11:16 | REHSTMBS ---
Assessment and note entered by Harmony Graves, FREIGHT AND PASSENGER AGENT Modified Barium Swallow Evaluation Feeding Type Recommended Oral Food Consistency Regular, Level 7 Liquid Consistency Thin (0) ST Clinical Summary The above pleasant and cooperative pt was seen for an outpatient modified barium swallow. He was alert & oriented, and able to follow commands. He is currently on a regular diet and reports a 2 week difficulty in that food is catching in his throat but then added that it suddenly went away which he could not explain as to why but thought it was nerves . He denied coughing or choking associated with liquids or solids. The patient was seated for a lateral view and presented with 5cc of thin liquid barium via spoon , pudding consistency barium via a spoon, cracker coated with barium pudding via spoon, and uncontrolled thin liquid barium. This was presented via a cup & straw. Oral preparatory and oral phase symptoms: none. Pharyngeal phase symptoms: within functional limits; trace and very shallow laryngeal penetration occurred (age appropriate) but cleared and no aspiration risk. However, it should be noted that pt presented with small bony anterior protrusions at C5/6 which were without effect. Esophageal stage symptoms: none . Overall, no aspiration occurred. Impressions: Normal swallow Ability No further ST is warranted at this time.
== END 2024-05-20 13:28 | disposition home or self-care (01) ==
PROVIDERS: PCP Internal Medicine; Visit Provider Internal Medicine Gastroenterology
DX: R19.8 Other specified symptoms and signs involving the digestive system and abdomen (principal); T17.308A Unspecified foreign body in larynx causing other injury, initial encounter
CPT/HCPCS: 92611

== ENCOUNTER 2024-07-23 09:08 | Outpatient (CLI) | payer MEDICARE, SELFPAY ==
--- NOTE | ~2024-07-23 | US_ITS ---
EXAMINATION: US art doppler w press LE BI DATE: 07/23/2024 11:13 CDT INDICATION: History of prostate malignancy. Hypertension. Paralysis, tingling and numbness in the fee t TECHNIQUE: Segmental pressures and plethysmographic and Doppler waveforms of the brachial and lower e xtremity arteries were obtained. COMPARISON: None. FINDINGS: Right and left brachial artery pressures of 147 mm Hg and 149 mm Hg, respectively, are concordant (no rmal difference <= 30 mmHg). The right high-thigh pressure index is not obtained. The right ankle-brachial index (ALIYAH) is 1.25 (no rmal >= 0.9-1.0). The right great toe-brachial index (TBI) is 0.64 (normal >= 0.60). Doppler waveform s are biphasic in the right lower extremity. The left high-thigh pressure index is 1.31. The left ALIYAH is 0.66. Arterial Doppler waveforms are mixe d biphasic and triphasic. IMPRESSION: 1. Normal bilateral ankle-brachial indices. Reviewed, dictated and finalized at location A.
--- OUTSIDE RECORDS SUMMARY | 2024-07-23 09:37 | XMS_ITS | CONTINUITY OF CARE DOCUMENT ---
Author Name crystal rojas Address Unknown Organization [facility] Address [address] [place] [address] [address] [place] [address] Phone [phone] Care Team Providers Care Bottom Painter Name Role Phone Ludin Martinez MD Unavailable [phone] KONG HEALY MD Unavailable [phone] KONG HEALY MD Unavailable VITAL SIGNS Date [...] Policy type / Coverage type Amber red libertarian ID AARP [place] insurance company [id number] [place] Medicare [id number]
--- OUTSIDE RECORDS SUMMARY | 2024-07-23 09:37 | XMS_ITS | Encounter Summary ---
Author Organization [facility] Address [address] [place] [address] Care Team Providers Care Inspector Tester Sorter Name Role Phone Cher Kirby MD Primary Care Provider [phone] Sonya Reid Primary Care Provider Encounter Details Date Type Department Care Team (Late st Contact Info) Description 12/09/2022 Lab Requisition [facility] - DermPath Lab [address] [facility] [facility] [place] [address] Shemar Goznalez MD [address] [place] [address] Social History Tobacco Use Types Packs/Day Years [...] 12:00 AM CDT) Case Report Dermatopathology Report Case: [id number] Authorizing Provider: Shemar Gonzalez MD Collected: 12/07/2022 12:00 AM Ordering Location: [facility] DermPath Lab Received: 12/09/2022 04:56 PM Pathologist: Deisi Braxton MD Specimen: Skin, left side nose 12:56 PM CDT DERMATOPATHOLOGY LABORATORY Final Diagnosis Specimen A. SKIN, left side nose: BASAL CELL CARCINOMA, NODULAR TYPE (C44.311) 12:56 PM CDT DERMATOPATHOLOGY LABORATORY Clinical History [...] characteristic determined by the Dermatopathology Laboratory at [facility], directed by Dr. Abdirahman Swann. These tests need not be, and therefore are not, approved by the [place] Food and Drug Administration. The tests are used for clinical purposes. Billing Codes Specimen Charges Stain Charges 95197 1 12:56 PM CDT DERMATOPATHOLOGY LABORATORY Embedded Images 12:56 PM CDT DERMATOPATHOLOGY LABORATORY Pathology/Cytolog y TISSUE SPECIMEN FROM SKIN / Unknown 12/07/2022 12/09/2022 4:56 PM CDT Shemar Gonzalez MD LAB - PATHOLOGY/CYTO LOGY ORDERABLES DERMATOPATHOLOGY LABORATORY [facility] - Department of Dermatology [facility] Medicine [address] [place] [address], [address] [phone] documented in this encounter Visit Diagnoses Not on filedocumented in this encounter Care Teams Inspector Tester Sorter Relationship Specialty Start Date End Date Cher Kirby MD [address] [place] [phone] PCP - General 02/19/13 01/05/23 Sonya Reid APRN-FOOD SERVICE LEAD [address] [place] [phone] PCP - General Nurse Practitioner Family 01/06/23 documented as of this encounter
--- OUTSIDE RECORDS SUMMARY | 2024-07-23 09:37 | XMS_ITS ---
Author Organization [facility] Address [address] [place] [phone] Care Team Providers Care Pastry Supervisor Name Role Phone Baldo Perera Primary Care Provider [phone] Active Problems Problem Noted Date Diagnosed Date [...] prostate 07/29/2015 Overview (08/03/2017): Description: s/p RRP 09/07/2015------[place] 4+3, (-) margins, T2c Prostate cancer 07/29/2015 Nocturia 01/03/2012 Pain in testicle 01/03/2012 Current Treatment and Therapy Plans No current plan information found. Past Treatment and Therapy Plans No past plan information found. Lifetime Dose Tracking * Chemical Lifetime Dose Automatic Entry Manual Entr y Fluoro Time 1.002 minutes 1.002 minutes 0 minutes Air kerma at the reference point (Ka,r) 0.001 mGy 0 .001 mGy 0 mGy
--- OUTSIDE RECORDS SUMMARY | 2024-07-23 09:37 | XMS_ITS | Encounter Summary ---
Author Organization [facility] Address [address] [facility] [place] [address] Care Team Providers Care Computer Tape Librarian Name Role Phone Sonya Reid HARBOR BOAT PILOT-POLYSOMNOGRAPHY TECHNOLOGIST Primary Care Provider Encounter Details Date Type Department Care Team (Late st Contact Info) Description 05/21/2024 Lab Requisition [facility] - DermPath Lab [address] [facility], [place] [address] Marilyn Nicolas MD [address] [facility] [address] [place] [address] Social History Tobacco Use Types Packs/Day Years Used Date Smoking Tobacco: Never Smokeless Tobacco: Never Sex and Gender Information Value Date Recorded Sex Assigned at Not on file Gender Identity Not on file Sexual Orientation Not on file documented as of this encounter Plan of Treatment Not on file documented as of this encounter Procedures Procedure Name Priority Date/Time Associated Diagnosis Comments DERMATOPATHOLOGY Routine 05/21/2024 2:33 PM IMMERSION METAL CLEANER documented in this encounter Results * DERMATOPATHOLOGY (05/21/2024 2:33 PM IMMERSION METAL CLEANER) Case Report Dermatopathology Report Case: [id number] Authorizing Provider: Marilyn Nicolas MD Collected: 05/21/2024 02:33 PM Ordering Location: [facility] Physician [facility] - Received: 05/22/2024 01:03 PM DermPath Lab Pathologist: Deisi Braxton MD Specimens: A) - Skin, right inf cheek B) - Skin, right neck 3:57 PM IMMERSION METAL CLEANER DERMATOPATHOLOGY LABORATORY Final Diagnosis Specimen A. SKIN, right inf cheek: HYPERPLASTIC (HYPERTROPHIC) ACTINIC KERATOSIS, ERODED; EXTENDING TO THE BASE OF THE SPECIMEN (L57.0) (see microscopic description and comment) Specimen B. SKIN, right neck: SQUAMOUS CELL CARCINOMA IN-SITU, PAGETOID TYPE; PRESENT AT THE BASE OF THE SPECIMEN (D04.4) (see microscopic description and comment) 3:57 PM [facility] DERMATOPATHOLOGY LABORATORY Clinical History A: R/O BCC B: R/O NMSC 3:57 PM [facility] DERMATOPATHOLOGY LABORATORY Gross Description Specimen A: Received is one formalin filled container labeled with the patient's name and designated right inf cheek. The specimen consists of a shave biopsy measuring 7x4x1 mm. Jar 0. Specimen B: Received is one formalin filled container labeled with the patient's name and designated right neck. The specimen consists of a shave biopsy measuring 7x5x1 mm. Jar 0. 3:57 PM [facility] DERMATOPATHOLOGY LABORATORY Microscopic Description Specimen A. SKIN, right inf cheek: There is hyperkeratosis alternating with parakeratosis. There is epidermal hyperplasia with disorderly maturation of keratinocytes with nuclear pleomorphism confined to the lower half of the epidermis. This process extends to the base of the specimen. The epidermis is focally necrotic and covered with a scale-crust. There is fibrin at the base. COMMENT: A squamous cell carcinoma cannot be ruled out. Specimen B. SKIN, right neck: Sections show nests of cells with pale cytoplasm and thin strands of relatively normal keratinocytes intervening. There is overlying parakeratosis. The lesion extends to the base of the biopsy. Lesional cells are positive with p63. MART-1/Melan-A staining highlights regular periodicity of melanocytes along the dermoepidermal junction. COMMENT: An invasive squamous cell carcinoma cannot be ruled out. 3:57 PM [facility] DERMATOPATHOLOGY LABORATORY Disclaimer An external and internal positive and negative controls are appropriate for the histochemical, immunohistochemical and immunofluorescence stain(s) in this case (if any), except where stated explicitly. The performance characteristics of the stain(s) cited in this report were developed and its performance characteristic determined by the Dermatopathology Laboratory at [facility], directed by Dr. Abdirahman Swann. These tests need not be, and therefore are not, approved by the [place] Food and Drug Administration. The tests are used for clinical purposes. Billing Codes Specimen Charges Stain Charges 13511 22726 1 1 93376 96139 1 1 5 3:57 PM IMMERSION METAL CLEANER DERMATOPATHOLOGY LABORATORY Embedded Images 3:57 PM IMMERSION METAL CLEANER DERMATOPATHOLOGY LABORATORY Pathology/Cytology TISSUE SPECIMEN FROM SKIN / Unknown 05/21/2024 2:33 PM IMMERSION METAL CLEANER 05/22/2024 1:03 PM IMMERSION METAL CLEANER Miscellaneous samples (specimen) TISSUE SPECIMEN FROM SKIN / Unknown 05/21/2024 2:33 PM IMMERSION METAL CLEANER 05/22/2024 1:03 PM IMMERSION METAL CLEANER Marilyn Nicolas MD LAB - PATHOLOGY/CYT OLOGY ORDERABLES DERMATOPATHOLOGY LABORATORY [facility] - Department of Dermatology [facility] [address] [place] [address], [address] [phone] documented in this encounter Visit Diagnoses Not on filedocumented in this encounter Care Teams Computer Tape Librarian Relationship Specialty Start Date End Date Sonya Reid, HARBOR BOAT PILOT-POLYSOMNOGRAPHY TECHNOLOGIST [address] [place] [address] PCP - General Nurse Practitioner Family 01/06/23 documented as of this encounter
--- OUTSIDE RECORDS SUMMARY | 2024-07-23 09:37 | XMS_ITS | Clinical Summary ---
Author Organization [facility] [employer] Address [address] [place] [address] Care Team Providers Care Oil Pipeline Dispatcher Name Role Phone Sonya Reid APRN-PRIMARY SPECIAL EDUCATION TEACHER Primary Care Provider Source Comments [facility] [employer],non-owned Affiliates and Associated Physician Practices is amultiple site organization consisting of ambulatory clinics and hospital sitesin [place], [place], [place] and [place]. This disclosure is being madepursuant to the Care Everywhere program and may not contain all information available regarding this patient. Last updated 18.[facility] [employer] Allergies Active Allergy Reactions Criticality Noted Date [...] Active Active Problems No known active problems Encounters Date Type Department Care Team Description 07/15/2024 Lab Requisition [facility] - DermPath Lab [address] [place] [phone] Marilyn Nicolas MD 06/27/2024 Lab Requisition [facility] - DermPath Lab [address] [place] [phone] Benita OrtizeDO 05/21/2024 Lab Requisition [facility] - DermPath Lab [address] [place] [address] Marilyn Nicolas MD from Last 3 Months Social History Tobacco Use Types Packs/Day Years Used Date Smoking Tobacco: Never Smokeless Tobacco: Never Tobacco Cessation:Counseling Given: Not Answered Sex and Gender Information Value Date Recorded Sex Assigned at Not on file Gender Identity Not on file Sexual Orientation Not on file Plan of Treatment Health Maintenance Due Date Last Done Comments MEDICARE AWV 12 MONTHS 1945 HEPATITIS C SCREENING 03/07/1965 [...] complete this topic MENINGOCOCCAL (Group B) VACCINE SHARED DECISION-MAKING Aged Out No longer eligible based on patient's age to complete this topic MENINGOCOCCAL GROUPS A/C/Y/W VACCINE Aged Out No longer eligible b ased on patient's age to complete this topic Procedures Procedure Name Priority Date/Time Associated Diagnosis Comments DERMATOPATHOLOGY Routine 06/27/2024 1:15 PM WOODEN FRAME BUILDER DERMATOPATHOLOGY Routine 05/21/2024 2:33 PM WOODEN FRAME BUILDER from Last 3 Months Results * DERMATOPATHOLOGY (06/27/2024 1:15 PM WOODEN FRAME BUILDER) Only the most recent of2 resultswithin the time period is included. Case Report Dermatopathology Report Case: [id number] Authorizing Provider: Benita Ortiz DO Collected: 06/27/2024 01:15 PM Ordering Location: [facility] - Received: 07/01/2024 08:03 AM DermPath Lab Pathologist: Remington Swann MD Specimen: Skin, right neck 1:41 PM CDT DERMATOPATHOLOGY LABORATORY Final Diagnosis Specimen A. SKIN, right neck: DERMAL SCAR RESIDUAL SQUAMOUS CELL CARCINOMA NOT IDENTIFIED (L90.5) 1:41 PM CDT DERMATOPATHOLOGY LABORATORY Clinical History BC Proven, R/O SCCIS, Pagetoid Type 1:41 PM CDT DERMATOPATHOLOGY LABORATORY Gross Description Specimen A: Received is one formalin filled container labeled with the patient's name and designated right neck. The specimen consists of a non-oriented ellipse of skin measuring 86y63d1 mm. The epidermal surface is unremarkable. The margin is inked green. The 12 o'clock and 6 o'clock tips are submitted in cassette 1. The remainder of the ellipse is serially sectioned and submitted in cassette 2-3. Jar 0. 1:41 PM CDT DERMATOPATHOLOGY LABORATORY Microscopic Description Specimen A. SKIN, right neck: There are fibroblasts and collagen bundles oriented parallel to the skin surface. There are elongated blood vessels, some of which are oriented perpendicular to the skin surface. No residual squamous cell carcinoma is identified. 1:41 PM CDT DERMATOPATHOLOGY LABORATORY Disclaimer An external and internal positive and negative controls are appropriate for the histochemical, immunohistochemical and immunofluorescence stain(s) in this case (if any), except where stated explicitly. The performance characteristics of the stain(s) cited in this report were developed and its performance characteristic determined by the Dermatopathology Laboratory at [facility], directed by Dr. Abdirahman Swann. These tests need not be, and therefore are not, approved by the [place] Food and Drug Administration. The tests are used for clinical purposes. Billing Codes Specimen Charges Stain Charges 59858 1 1:41 PM CDT DERMATOPATHOLOGY LABORATORY Embedded Images 1:41 PM CDT DERMATOPATHOLOGY LABORATORY Pathology/Cytolo gy TISSUE SPECIMEN FROM SKIN / Unknown 06/27/2024 1:15 PM WOODEN FRAME BUILDER 07/01/2024 8:03 AM CDT Benita Ortiz DO LAB - PATHOLOGY/C YTOLOGY ORDERABLES DERMATOPATHOLOGY LABORATORY [facility] - Department of Dermatology [address], [address] [phone] from Last 3 Months Care Teams Oil Pipeline Dispatcher Relationship Specialty Start Date End Date Sonya Reid, DINING ROOM CASHIER-PRIMARY SPECIAL EDUCATION TEACHER [address] [place] [phone] PCP - General Nurse Practitioner Family 01/06/23
--- OUTSIDE RECORDS SUMMARY | 2024-07-23 09:37 | XMS_ITS | Encounter Summary ---
Author Organization [facility] Address [address] [facility] [place] [address] Care Team Providers Care Transfer And Pumphouse Operator Name Role Phone Cher Kirby MD Primary Care Provider [phone] Sonya Reid Primary Care Provider Encounter Details Date Type Department Care Team (Late st Contact Info) Description 08/01/2017 Lab Requisition [facility] Care DermPath Lab [address] [facility] [place] [address] Shemar Gonzalez MD [address] [place] [address] Social History Tobacco Use Types Packs/Day Years [...] AM CDT) Case Report Dermatopathology Report Case: [id number] Authorizing Provider: Shemar Gonzalez MD Collected: 08/01/2017 12:00 AM Pathologist: Birgit Sherwood MD Received: 08/01/2017 11:57 AM Specimen: Skin, right sup. occiput scalp hairline 8 1:58 PM CDT DERMATOPATHOLOGY LABORATORY Final Diagnosis [...] specimen consists of a shave biopsy measuring 5b5v1gd. The margin is inked green. Jar 0. [...] characteristic determined by the Dermatopathology Laboratory at [facility]. These tests need not be, and therefore are not, approved by the [place] Food and Drug Administration. The tests are used for clinical purposes. Billing Codes Specimen Charges Stain Charges 43220 1 1:58 PM CDT DERMATOPATHOLOGY LABORATORY Embedded Images 1:58 PM CDT DERMATOPATHOLOGY LABORATORY Pathology/Cytolog y TISSUE SPECIMEN FROM SKIN / Unknown 08/01/2017 08/01/2017 11:57 AM CDT Shemar Gonzalez MD LAB - PATHOLOGY/CYTO LOGY ORDERABLES DERMATOPATHOLOGY LABORATORY [facility] - Department of Dermatology [address] [place] [address], 5th Floor Lab [address] [phone] documented in this encounter Visit Diagnoses Not on filedocumented in this encounter Care Teams Transfer And Pumphouse Operator Relationship Specialty Start Date End Date Cher Kirby MD [address] [place] [phone] PCP - General 02/19/13 01/05/23 Sonya Reid APRN-WOOL HAT SANDING MACHINE OPERATOR [address] [place] [phone] PCP - General Nurse Practitioner Family 01/06/23 documented as of this encounter
--- OUTSIDE RECORDS SUMMARY | 2024-07-23 09:37 | XMS_ITS | Clinical Summary ---
Author Organization [facility] Address [facility] [place] [address] Care Team Providers Care Interior Designer Name Role Phone Baldo Perera Primary Care Provider [phone] Allergies Active Allergy Reactions Criticality Noted Date Comments Sulfa (Sulfonamide Antibiotics) Other (See comments) Low 10/07/2019 Reaction: Insomnia, Other, Reaction: Other Reaction: Insomnia, Other, Muscles twitch and insomnia Sulfamethoxazole-Tri methoprim Other [...] Nocturia 01/03/2012 Pain in testicle 01/03/2012 Immunizations Immunization Administration Dates Next Due Influenza, Quad, Adjuvantate [...] TW Conv) GERD (gastroesophageal reflux disease) Cancer (HCC) Hypertension Family History Medical History Relation Name Comments Cancer Father Shemar Family history of malignant neoplasm - (Added by TW Conv) Cancer Mother [place] Family history of malignant neoplasm - (Added by TW Conv) Diabetes Mother [place] Heart disease Mother [place] Hypertension Mother [place] Relation Name Status Comments Father Shemar Mother [place] Social History Tobacco Use Types Packs/Day Years [...] on file Legal 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 Gender Identity Not on file Sexual Orientation Not on file Occupation Industry Job Start Date Job End Date Not on file Not on file Not on file Not on file Obstetrics History Last Filed Vital Signs Vital Sign Reading Time Taken Comments Blood Pressure 145/69 01/29/2024 9:32 AM CDT Pulse 66 01/29/2024 9:32 AM CDT Temperature 36.9 C (98.4 F) 01/09/2024 6:44 AM CDT Respiratory Rate 16 01/29/2024 9:32 AM CDT [...] Zoster Vaccine Completed 04/08/2019, 12/23, 06/05/2007 Insurance MEDICARE [facility] MEDICARE [facility] Care Teams Interior Designer Relationship Specialty Start Date End Date Baldo Perera PA [address] [place] [address] PCP - General Physician Biology Department Chair 01/15/24
--- OUTSIDE RECORDS SUMMARY | 2024-07-23 09:37 | XMS_ITS ---
Author Organization [facility] [employer] Address [address] [facility] [address] [place] [address] Care Team Providers Care Bridge Leverman Name Role Phone Grabiel Varma MD Primary Care Provider Gracy Sarmiento Unavailable [phone] Allergies Allergen (clinical drug ingredient) Drug/Non Drug [...] 04/26/2024 Encounters Encounter Location Date Provider Diagnosis [facility] [employer] [facility] [address] [address] 04/26/2024 Gracy Garcia MDD (major depressive disorder), [...] three a day as needed for anxiety [facility] [employer] educated not to take with Lunesta at bedtime and risk of respitatory depression 3. Primary Insomnia hx Lunesta 1 mg- not taking in a while Melatonin 2 mg bedtime OT SLUMS= 27 02/23/24 http_s://www.ronnie. org/Kcifu-Uyyprn-Z llness/Mental-Heal th-Conditions http_s://psychcent dbTwang.com/depression /ect-uushslkca-fft dskba-gx-jsyurbxwc n#treatments http__s://www.nimh .nih.gov/health/to pics/mental-health -medications http__s://www.ronnie .org/About-Mental- Illness/Treatments /Rnzxmg-Qdxttr-Ucj ications Discussed and educated pt regarding benzodiazepines [...] three a day as needed for anxiety [facility] [employer] educated not to take with Lunesta at bedtime and risk of respitatory depression 3. Primary Insomnia hx Lunesta 1 mg- not taking in a while Melatonin 2 mg bedtime OT SLUMS= 27 02/23/24 http_s://www.ronnie. org/Qtuiq-Sryodi-F llness/Mental-Heal th-Conditions http_s://psychcent dbTwang.com/depression /hhq-wkxmygbjo-cqt qsurp-to-eznvtxdvh n#treatments http__s://www.nimh .nih.gov/health/to pics/mental-health -medications http__s://www.ronnie .org/About-Mental- Illness/Treatments /Pkauyi-Rjhvwz-Kkr ications Discussed and educated pt regarding benzodiazepines [...] three a day as needed for anxiety [facility] educated not to take with Lunesta at bedtime and risk of respitatory depression 3. Primary Insomnia hx Lunesta 1 mg- not taking in a while Melatonin 2 mg bedtime OTC SLUMS= 27 02/23/24 http_s://www.ronnie. org/Vxeon-Wvmpey-E llness/Mental-Heal th-Conditions http_s://psychcent dbTwang.com/depression /vll-oqauzhfbg-std ehjof-oo-shsmzwsbx n#treatments http__s://www.nim .nih.gov/health/to pics/mental-health -medications http__s://www.ronnie .org/About-Mental- Illness/Treatments /Wkjzjx-Qflbzw-Nnk ications Discussed and educated pt regarding benzodiazepines [...] Remeron and Xanax Provider Name:Gracy Garcia , 10/01/2024 10:45:00 AM, [address], [address], [place], [address], Progress Notes * Ryan VARGHESE ADOB:[birth year] (79 yo M)Acc No.[id number]:04/26/2024 Patient: Ryan PHELAN Provider: AURORA OTT :1945 A ge:79 Y S ex:Male Date:04/26/2024 Address:[address] [place] [address] Pcp:Grabiel Varma MD Subjective: * Chief Complaints: * 1 . F/U Decrease Remeron. * HPI: D epression Screening: JORDAN-7 (2018 Edition) F eeling nervous, anxious, or on edge?Several days, N ot being able to stop or control worrying S everal days, W orrying too much about different things M ore than hafl the days, T rouble relaxing M ore than half the days, B eing so restless that it is hard to sit still N ot at all, B ecoming easily annoyed or irritable N ot at all, F eeling afraid as if something awful might happen?Not at all, T otal JORDAN-7 Score 6 , I nterpretation of Total ( 5 to 9) Mild. 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 C [place]-Suicide Severity Rating Scale: Suicide Risk (CSRS-screener) i n the past one month Have you wished you were or wished you could go to sleep and not wake up? N o. D epression screening: PHQ-9 L ittle interest or pleasure in doing things M ore than half the days, F eeling down, depressed, or hopeless M ore than half the days, T rouble falling or staying asleep, or sleeping too much S everal days, F eeling tired or having little energy S everal days, P oor appetite or overeating S everal days, F eeling bad about yourself or that you are a failure, or have let yourself or your family down S everal days, T rouble concentrating on things, such as reading the newspaper or watching television?Several days, M oving or speaking so slowly that other people could have noticed; or the opposite, being so fidgety or restless that you have been moving around a lot more than usual N ot at all, T houghts that you would be better off or of hurting yourself in some way N ot at all, T otal Score 9 , I nterpretation M ild Depression. I ntervention D epression Screening Findings P ositve, F ollow-Up for Depression M ental health treatment assessment, Patient follow-up to return when and if necessary, S uicide Risk Assessment Performed , A dditional Evaluation for Depression P sychiatric interview and evaluation, N samanta of the standardized tool used for adult depression screening: P atient Health Questionnaire (PHQ-9). * ROS: P sychiatric: Delusions d enies. S ee HPI reports n o shortness of breath no chest pain, no palpitations, no known heart murmur, and no ankle swelling; no cough. r eports abdominal pain, seen PCP and CT 02/22/24 no nausea, no vomiting, reported chronic constipation on rx, no changes appetite, no diarrhea, and reported GERD on rx r eports no headaches and no migraines but reports no loss of consciousness, no weakness, no numbness, no seizures, no dizziness, no tremor, no gait dysfunction, and no paralysis. r eports s leep disturbances restless sleep, and no memory loss b ut reports mild depression, feeling safe in a relationship, no alcohol abuse, reported mild anxiety, no hallucinations, no suicidal thoughts, no mood swings, no agitation, r eports f atigue. DRY MOUTH- improved reports no fever, no significant weight gain, and reported weight loss. reports no incontinence, no difficulty urinating, and no increased frequency. r eports no muscle aches, no muscle weakness, no arthralgias/joint pain, reported back pain, no swelling in the extremities, no neck pain, and no difficulty walking SLUMS= 27 02/23/24 throat issues - see PCP. * Medical History: P ast Psychiatric History: Anxiety Disorder, abdominal aortic aneurysm: No, atrial fibrillation: No, chronic fatigue syndrome: No, essential tremor: No, hyperlipidemia: No, hypertension: Yes, Parkinson's disease: No, restless leg syndrome: No, stroke: No, subdural hematoma: No, type 1 diabetes mellitus: No, type 2 diabetes mellitus: No, vitamin B12 deficiency: Yes, vitamin D deficiency: No, GERD. * Social History: T obacco Use: T obacco Control (Standard) T obacco use: N onsmoker. S exual History: S exual History H ad sex in the past 12 months (vaginal, oral, or anal)? Y es, w ith W omen only. D rug/Alcohol: D rugs H ave you used drugs other than those for medical reasons in the past 12 months??No. C affeine I ntake: n one. D o you smoke marijuana?: Denies. Do you drink alcohol?: Yes. AUDIT-C (Standard) D id you have a drink containing alcohol in the past year? Y es, H ow often did you have a drink containing alcohol in the past year? 2 to 3 times a week (3 points). 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 N o, A md household pets? N o. M iscellaneous: O ccupation: Retiered. Safety issues A re there any firearms in the house? N o. A dvance Care Planning A re you your own decision-maker Y es, D o you have Power of Prison Classification Counselor for Health or Medical? Y es, D o you have a power of commercial real estate attorney for health? Y es, D o you have power of commercial real estate attorney for Medical ? Y es, I f yes, then please bring the POA paperwork so that we can upload it. N o. S ocial History: Miguel A Macedo arital Status: Hiral Aiken umber of Adults in household: 2 , N umber of Children in Household: 0 , L evel of Education: P SEAT 4a/Masters/PhD. * Medications: T aking Lunesta 1 MG Tablet 1 tablet immediately [...] reviewed and reconciled with the patient * Allergies: S ulfa Antibiotics. Objective: * Vitals: B P:150/90mm Hg, HR:71/min, Wt:185lbs, Wt-k.91 kg, Ht: 70 in, Ht-cm: 177.8 cm, BMI:26.54Index, Body Surface Area: 2.03. * Examination: P sychiatry: Appearance: w ell-groomed. Abnormal body movements: n one. Affect / mood: a ppropriate, full range. Aggression: l ow. Anger control: g ood. Attention: g ood. Attitude: c ooperative. Homicidal ideation: n one. Suicidal ideation: n one. Memory status: S LUMS = 27 02/23/24 no impairment noted, . Degree of awareness of surroundings: w ithin normal limits.? Delusions: n o. Hallucinations: n o. Impulse control: g ood. Insight: g ood. Intellectual functioning: a verage. Calculation - Intellectual function: n ot tested. Literacy - Intellectual function: n ot tested. Comprehension - Intellectual function: a verage. Abstract / proverb - Intellectual function: n ot tested.? Similarities / opposites - Intellectual function: n ot tested. Judgement: g ood. Orientation: a wake, alert and oriented x 3. Perceptual disorders: n o perceptual disorder noted. Psychomotor activity: w ithin normal range. Speech / language: a ppropriate pitch/modulation. Thought content: a ppropriate. Thought process: i ntact. N eurology: Cognition Assessment Tools Used T otal score SLUMS 27. Assessment: * Assessment: 1. M DD (major depressive disorder), recurrent episode, mild - F33.0 (Primary) 2 . G AD (generalized anxiety disorder) - F41.1 3 . 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 Anxiety increase Xanax 0.25 mg three a day as needed for anxiety [employer] educated not to take with Lunesta at bedtime and risk of respitatory depression 3. Primary Insomnia hx Lunesta 1 mg- not taking in a while Melatonin 2 mg bedtime OT SLUMS= 27 02/23/24 http_s://www.ronnie.org/Ojebj-Kcgvxf-Avkosqt/Rqjult-Jpezad-Fpdssykvgv http_s://psychcentral.com/depression/itj-lzohzzfjk-mgkqhmto-of-depression#treatm ents http__s://www.nimh.nih.gov/health/topics/ecppdv-prpzvw-rildhdfmwdi http__s://www.ronnie.org/Thndl-Uohqer-Aubgqdf/Treatments/Abxbrk-Hylbfc-Rfglwswqfpy Discussed and educated pt regarding benzodiazepines are [...] interactions with prescribed medications. Plan: * Treatment: 2. G AD (generalized anxiety disorder) Refill ALPRAZolam Tablet, 0.25 MG, 1 tablet, Oral, three times a day As needed, 30 days, 90 Tablet, Refills 2. Notes: Generalized Anxiety Disorder: Care Instructions material was published, Learning About Generalized Anxiety Disorder material was published, Learning About Anxiety Disorders material was published 3. P rimary insomnia Notes: Learning About Sleeping Well material was published, Insomnia: Care Instructions material was published * Procedure Codes: 9 6127 BEHAV ASSMT W/SCORE & DOCD/STAND INSTRUMENT, G2211 VISIT COMPLEXITY INHERENT TO ONGOING CARE RELATED TO A PATIENT'S SINGLE, SERIOUS CONDITION OR A COMPLEX CONDITION * Preventive Medicine: Counseling: B P Management: F IRST HYPERTENSIVE BP READING FOLLOW-UP PLAN: F ollow-up 1 month Follow up with your PCP, Keivn BALL RECOMMENDATION: Kevin ball education, REFERRAL TO ALTERNATIVE / PRIMARY CARE PROVIDER: R eferral to general medical service Recommended Nonpharmacologic Interventions (Lifestyle Modifications) - Weight ReductionA heart-healthy diet , such as Dietary Approaches to Stop Hypertension (DASH) Eating PlanDietary Sodium RestrictionIncreased Physical ActivityModeration in alcohol consumption, W EIGHT REDUCTION RECOMMENDATION: educated on healthy b/p 120/80monitor b/p at homerefer to PCP, Urgent care/ERheart healthy diet and exciselimit salt intakelimit soda intake and caffieneincrease water. * Follow Up: 2 Months (Reason: fu increase Remeron and Xanax) * Billing Information: * Visit Code: 17406 OFFICE OUTPATIENT VISIT 25 MINUTES DETAILED HISTORY AND EXAM/MODERATE MEDICAL DECISION MAKING. * Procedure Codes: 75745 BEHAV ASSMT W/SCORE & DOCD/STAND INSTRUMENT. G2211 VISIT COMPLEXITY INHERENT TO ONGOING CARE RELATED TO A PATIENT'S SINGLE, SERIOUS CONDITION OR A COMPLEX CONDITION. 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
--- OUTSIDE RECORDS SUMMARY | 2024-07-23 09:37 | XMS_ITS | Encounter Summary ---
Author Organization [facility] Address [address] [place] [address] Care Team Providers Care Stores Assistant Name Role Phone Sonya Reid Primary Care Provider Encounter Details Date Type Department Care Team (Late st Contact Info) Description 07/15/2024 Lab Requisition [facility] [address] [facility] [place] [address] Marilyn Nicolas MD [address] [facility] [address] [place] [address] Social History Tobacco Use Types Packs/Day Years Used Date Smoking Tobacco: Never Smokeless Tobacco: Never Sex and Gender Information Value Date Recorded Sex Assigned at Not on file Gender Identity Not on file Sexual Orientation Not on file documented as of this encounter Plan of Treatment Pending Results Name Type Priority Associated Diagnoses Date /Time DERMATOPATHOLOGY Pathology Cytology Routine 07/15/2024 9:16 AM CDT documented as of this encounter Visit Diagnoses Not on filedocumented in this encounter Care Teams Stores Assistant Relationship Specialty Start Date End Date Sonya Reid APRN-CNP [address] [place] [address] PCP - General Nurse Practitioner Family 01/06/23 documented as of this encounter
--- OUTSIDE RECORDS SUMMARY | 2024-07-23 09:37 | XMS_ITS ---
Author Organization [facility] [employer] Address [address] [facility] [address] [place] [address] Care Team Providers Care Dairy Inspector Name Role Phone Grabiel Varma MD Primary Care Provider Gracy Sarmiento Unavailable [phone] Allergies Allergen (clinical drug ingredient) Drug/Non Drug Allergy documented on EMR Reaction Allergy Type Onset Date Status Substance with sulfonamide structure and antibacterial mechanism of action (substance) Sulfa Antibiotics Unknown Drug Allergy Active REASON FOR VISIT f/u increase Remeron Medications Medication SIG (Take, Route, Frequency, Duration) Notes Start Date End Date Status Mirtazapine 30 MG 1 tablet at bedtime Oral Once a day for 90 days Active Vitamin B Complex Ac tive Vitamin E Active ALPRAZolam 0.25 MG 1 tablet Oral three times a day for 30 days As needed 04/26/2024 Active Omeprazole 20 MG 1 capsule 1/2 to 1 h our before morning meal Orally Once a day Active MiraLax 17 GM/SCOOP 1 scoop mixed with 8 ounces of fluid Orally Once a day Active Fiber suplement Active Stool Softener Activ e amLODIPine Besylate 10 MG 1 tablet Orally Once a day Active Melatonin 5 MG 1 tablet in the even ing Orally Once a day Active Lunesta 1 MG 1 tablet immediately before bedtime Orally Once a day Active Mirtazapine 15 MG 1 tablet at bedtime Oral Once a day for 90 days Active Social History Tobacco Use: Social History [...] Problem Status W/U Status Risk Notes Problem Depression Screening (852723138) Encounter for screening for depression (Z13.31) Active confirmed Problem Screening for cardiovascular system disease (202472359) Encounter for screening for cardiovascular disorders (Z13.6) Active confirmed Vital Signs Blood pressure systolic 133 mm Hg 07/02/19 25 Blood pressure diastolic 76 mm Hg 025 Heart Rate 77 /min 07/01/2024 Height 70 in 07/01/2024 Weight 189.4 lbs 07/01/2024 BMI 27.17 kg/m2 07/01/2024 Height-cm 177.8 cm 07/01/2024 Weight-kg 85.91 kg 07/01/2024 Encounters Encounter Location Date Provider Diagnosis 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 Anxiety Xanax 0.25 mg three a day as needed for anxiety- not taking often [employer] educated not to take with Lunesta at bedtime and risk of respitatory depression 3. Primary Insomnia hx Lunesta 1 mg- not taking in a while Melatonin bedtime OT SLUMS= 27 02/23/24 http_s://www.ronnie .org/About-Mental -Illness/Mental-H ealth-Conditions http_s://psychcen [employer]Loopl.com/depressi on/the-cognitive- blvfcqvh-hu-egbsg ssion#treatments http__s://www.[facility].nih.gov/health/ topics/mental-hea lt-medications http__s://www.nam i.org/About-Menta l-Illness/Treatme nts/Mental-Health -Medications Discussed and educated pt regarding benzodiazepines are [...] effects including loss of libido, increased suicidal thoughts/behavior s in children and young adults, and serotonin syndrome. Medication Management and Follow-Up - Plan: - Schedule follow-up appointments every 1-3 months to monitor the patient's response to the medication regimen. - Reinforce the importance of avoiding recreational drug use due to potential neurotoxicity and interactions with prescribed medications. 07/01/2024 Encounter for screening for cardiovascular disorders (ICD-10 - Z13.6) 1.Depression- patient reported would like to decrease dose- presently taking Remeron 30 mg at bedtime reported improved bowel issues on rx and helped mood - will decrease Remeron 15 mg bedtime - for depression, also help sleep and appetite 2. Anxiety Xanax 0.25 mg three a day as needed for anxiety- not taking often [employer] educated not to take with Lunesta at bedtime and risk of respitatory depression 3. Primary Insomnia hx Lunesta 1 mg- not taking in a while Melatonin bedtime OTC SLUMS= 27 02/23/24 http_s://www.ronnie .org/About-Mental -Illness/Mental-H ealth-Conditions http_s://psychcen tral.com/depressi on/the-cognitive- cklxsanb-hi-zyhyb ssion#treatments http__s://www.[facility].nih.gov/health/ topics/mental-hea [facility]-medications http__s://www.nam i.org/About-Menta l-Illness/Treatme nts/Mental-Health -Medications Discussed and educated pt regarding benzodiazepines are [...] effects including loss of libido, increased suicidal thoughts/behavior s in children and young adults, and serotonin syndrome. Medication Management and Follow-Up - Plan: - Schedule follow-up appointments every 1-3 months to monitor the patient's response to the medication regimen. - Reinforce the importance of avoiding recreational drug use due to potential neurotoxicity and interactions with prescribed medications. 07/01/2024 MDD (major depressive disorder), recurrent episode, mild (ICD-10 - F33.0) Learning About Depression Screening material was published, Learning About Depression material was published, Learning About How to Get Help During a Mental Health Crisis material was published, Seasonal Affective Disorder: Care Instructions material was published 1.Depression- patient reported would like to decrease dose- presently taking Remeron 30 mg at bedtime reported improved bowel issues on rx and helped mood - will decrease Remeron 15 mg bedtime - for depression, also help sleep and appetite 2. Anxiety Xanax 0.25 mg three a day as needed for anxiety- not taking often [employer] educated not to take with Lunesta at bedtime and risk of respitatory depression 3. Primary Insomnia hx Lunesta 1 mg- not taking in a while Melatonin bedtime OTC SLUMS= 27 02/23/24 http_s://www.ronnie .org/About-Mental -Illness/Mental-H ealth-Conditions http_s://psychcen SaveUp.com/depressi on/the-cognitive- oqrivoex-rs-kfoen ssion#treatments http__s://www.[facility].nih.gov/health/ topics/mental-hea lth-medications http__s://www.nam i.org/About-Menta l-Illness/Treatme nts/Mental-Health -Medications Discussed and educated pt regarding benzodiazepines are [...] effects including loss of libido, increased suicidal thoughts/behavior s in children and young adults, and serotonin syndrome. Medication Management and Follow-Up - Plan: - Schedule follow-up appointments every 1-3 months to monitor the patient's response to the medication regimen. - Reinforce the importance of avoiding recreational drug use due to potential neurotoxicity and interactions with prescribed medications. 07/01/2024 JORDAN (generalized anxiety disorder) (ICD-10 - F41.1) Generalized Anxiety Disorder: Care Instructions material was published, Learning About Generalized Anxiety Disorder material was published, Learning About Anxiety Disorders material was published 1.Depression- patient reported would like to decrease dose- presently taking Remeron 30 mg at bedtime reported improved bowel issues on rx and helped mood - will decrease Remeron 15 mg bedtime - for depression, also help sleep and appetite 2. Anxiety Xanax 0.25 mg three a day as needed for anxiety- not taking often [employer] educated not to take with Lunesta at bedtime and risk of respitatory depression 3. Primary Insomnia hx Lunesta 1 mg- not taking in a while Melatonin bedtime OTC SLUMS= 27 02/23/24 http_s://www.ronnie .org/About-Mental -Illness/Mental-H ealth-Conditions http_s://psychcen [employer]Loopl.com/depressi on/the-cognitive- ozwaflol-kt-iqpmc ssion#treatments http__s://www.[facility].nih.gov/health/ topics/mental-hea lth-medications http__s://www.nam i.org/About-Menta l-Illness/Treatme nts/Mental-Health -Medications Discussed and educated pt regarding benzodiazepines are [...] effects including loss of libido, increased suicidal thoughts/behavior s in children and young adults, and serotonin syndrome. Medication Management and Follow-Up - Plan: - Schedule follow-up appointments every 1-3 months to monitor the patient's response to the medication regimen. - Reinforce the importance of avoiding recreational drug use due to potential neurotoxicity and interactions with prescribed medications. 07/01/2024 Primary insomnia (ICD-10 - F51.01) Learning About Sleeping Well material was published, Insomnia: Care Instructions material was published 1.Depression- patient reported would like to decrease dose- presently taking Remeron 30 mg at bedtime reported improved bowel issues on rx and helped mood - will decrease Remeron 15 mg bedtime - for depression, also help sleep and appetite 2. Anxiety Xanax 0.25 mg three a day as needed for anxiety- not taking often [employer] educated not to take with Lunesta at bedtime and risk of respitatory depression 3. Primary Insomnia hx Lunesta 1 mg- not taking in a while Melatonin bedtime OTC SLUMS= 27 02/23/24 http_s://www.ornnie .org/About-Mental -Illness/Mental-H ealth-Conditions http_s://psychcen SaveUp.com/depressi on/the-cognitive- tqmhcxjo-ly-tcmjn ssion#treatments http__s://www.[facility].nih.gov/health/ topics/mental-hea lth-medications http__s://www.nam i.org/About-Menta l-Illness/Treatme nts/Mental-Health -Medications Discussed and educated pt regarding benzodiazepines are [...] effects including loss of libido, increased suicidal thoughts/behavior s in children and young adults, and serotonin syndrome. Medication Management and Follow-Up - Plan: - Schedule follow-up appointments every 1-3 months to monitor the patient's response to the medication regimen. - Reinforce the importance of avoiding recreational drug use due to potential neurotoxicity and interactions with prescribed medications. Plan Of Treatment Medication Medication Name Sig Start Date Stop Date Notes Mirtazapine 15 MG 1 tablet at bedtime Oral Once a day for 90 days Treatment Notes Assessment Notes MDD (major depressive [...] was published Next Appt Details Follow Up: 3 Months, Reason: decrease Remeron Provider Name:Gracy Radha , 10/01/2024 10:45:00 AM, [address], [facility] [address], [place], [address], Progress Notes * Ryan VARGHESE ADOB:[birth year] (79 yo M)Acc No.[id number]:07/01/2024 Patient: Ryan PHELAN Provider: HERMINIA OTTHNP :1945 A ge:79 Y S ex:Male Date:07/01/2024 Address:[address] [place], [place] [address] Pcp:Grabiel Varma MD Subjective: * Chief Complaints: * 1 . f/u increase Remeron. * HPI: D epression Screening: JORDAN-7 (2018 Edition) F eeling nervous, anxious, or on edge?Several days, N ot being able to stop or control worrying N ot at all, W orrying too much about different things N ot at all, T rouble relaxing S everal days, B eing so restless that it is hard to sit still S everal days, B ecoming easily annoyed or irritable?Not at all, F eeling afraid as if something awful might happen N ot at all, T otal JORDAN-7 Score 3 , I nterpretation of Total ( 0 to 4) No Anxiety. Follow up depression, anxiety, and sleep since last visit reported I was doing fine I feel I want to decreae Remeron 15 mg I went on cruise and gave me something to do, I was in [facility] and had a lot to do and things been pretty good other coleman, rt side neck skin cancer removed last , and did not do Mols cut it out and biopsy and I feel not too bad wiht depression and anxiety, I feel not sad or down, no hopeless and no helpless, sleep good, Melatonin 4 mg and Magnesuim 250 mg and not taking much Xanax 3 -4 tablets since last visit, appetite good and anxiety good, no psychosis no janine no SI/HI, no agitation no irritable and motivation and interest good and I feel concentration and focus not bad I used to do my own taxes and not take them, 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 ETOH [...] ittle interest or pleasure in doing things S everal days, F eeling down, depressed, or hopeless N ot at all, T rouble falling or staying asleep, or sleeping too much N ot at all, F eeling tired or having little energy N ot at all, P oor appetite or overeating N ot at all, F eeling bad about yourself or that you are a failure, or have let yourself or your family down N ot at all, T rouble concentrating on things, such as reading the newspaper or watching television S everal , M oving or speaking so slowly that other people could have noticed; or the opposite, being so fidgety or restless that you have been moving around a lot more than usual N ot at all, T houghts that you would be better off or of hurting yourself in some way N ot at all, T otal Score 2 , Interpretation M inimal Depression. I ntervention D epression Screening Findings?Negative, S uicide Risk Assessment Performed . * ROS: P sychiatric: Delusions d enies. P erformance Met: N ormal blood pressure reading documented, follow-up not required ( G8783)See HPI reports n o shortness of breath no chest pain, no palpitations, no known heart murmur, and no ankle swelling; no cough. r eports abdominal pain, seen PCP and CT 02/22/24 no nausea, no vomiting, reported chronic constipation on rx, no changes appetite, no diarrhea, and reported GERD on rx on RX for bowels and improved r eports no headaches and no migraines [...] swings, no agitation, r eports f atigue. right side neck bandage - skin cancer removed 07/16 DRY MOUTH- improved reports no fever, no [...] times a week (3 points). 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 N o, A dc household pets? N o. M iscellaneous: O ccupation: Retiered. Safety issues A re there any firearms in the house? N o. A dvance Care Planning A re you your own decision-maker Y es, D o you have Power of Nutritional Chemist for Health or Medical? Y es, D o you have a power of senior trial attorney for health? Y es, D o you have power of senior trial attorney for Medical ? Y es, I f yes, then please bring the POA paperwork so that we can upload it. N o. S ocial History: Miguel A Macedo arital Status: Adair gonzalez, N umber of Adults in household: 2 , N umber of Children in Household: 0 , L evel of Education: P [employer]/Masters/PhD. * Medications: T aking Lunesta 1 MG [...] meal Orally Once a day , Taking ALPRAZolam 0.25 MG Tablet 1 tablet Oral three times a day As needed, Taking Mirtazapine 30 MG Tablet 1 tablet at bedtime Oral Once a day , Medication List reviewed and reconciled with the patient * Allergies: S ulfa Antibiotics. Objective: * Vitals: B P:133/76mm Hg, HR:77/min, Wt:189.4lbs, Wt-k.91 kg, Ht: 70 in, Ht-cm: 177.8 cm, BMI:27.17Index, Body Surface Area: 2.06. * Examination: P sychiatry: Appearance: w ell-groomed. [...] episode, mild - F33.0 (Primary) 2 . E ncounter for screening for depression - Z13.31 3 . E ncounter for screening for cardiovascular disorders - Z13.6 4 . G AD (generalized anxiety disorder) - F41.1 5 . P rimary insomnia - F51.01 1.Depression- patient report ed would like to decrease dose- presently taking Remeron 30 mg at bedtime reported improved bowel issues on rx and helped mood - will decrease Remeron 15 mg bedtime - for depression, also help sleep and appetite 2. Anxiety Xanax 0.25 mg three a day as needed for anxiety- not taking often [employer] educated not to take with Lunesta at bedtime and risk of respitatory depression 3. Primary Insomnia hx Lunesta 1 mg- not taking in a while Melatonin bedtime OT SLUMS= 27 02/23/24 http_s://www.ronnie.org/Zolnl-Kuhgux-Maaydls/Tzetvn-Orqcrk-Xlpmpyouoh http_s://psychcentral.com/depression/nzj-saljwjfaj-ejzfduqb-of-depression#treatm ents http__s://www.nim.nih.gov/health/topics/aqjxmy-wbqzwo-jfiqwbifraz http__s://www.ronnie.org/Vafgq-Wkcihr-Vpjxous/Treatments/Mwxwge-Jhcnra-Mfoftmtbqdd Discussed and educated pt regarding benzodiazepines are [...] Treatment: 2. G AD (generalized anxiety disorder) Notes: Generalized Anxiety Disorder: Care Instructions material was published, Learning About Generalized Anxiety Disorder material was published, Learning About Anxiety Disorders material was published 3. P rimary insomnia Notes: Learning About Sleeping Well material was published, Insomnia: Care Instructions material was published * Procedure Codes: 9 6127 BEHAV ASSMT W/SCORE & DOCD/STAND INSTRUMENT, G8783 NORMAL BP READING DOC F/U NOT RQR, G2211 VISIT COMPLEXITY INHERENT TO ONGOING CARE RELATED TO A PATIENT'S SINGLE, SERIOUS CONDITION OR A COMPLEX CONDITION, G8752 MOST RECENT SYSTOLIC BP < 140MM HG, G8754 MOST RECENT DIASTOLIC BP < 90MM HG * Follow Up: 3 Months (Reason: decrease Remeron) * Billing Information: * Visit Code: 15713 OFFICE OUTPATIENT VISIT 25 MINUTES DETAILED HISTORY AND EXAM/MODERATE MEDICAL DECISION MAKING. * Procedure Codes: 09452 BEHAV ASSMT W/SCORE & DOCD/STAND INSTRUMENT. G8783 NORMAL BP READING DOC F/U NOT RQR. G2211 VISIT COMPLEXITY INHERENT TO ONGOING CARE RELATED TO A PATIENT'S SINGLE, SERIOUS CONDITION OR A COMPLEX CONDITION. G8752 MOST RECENT SYSTOLIC BP < 140MM HG. G8754 MOST RECENT DIASTOLIC BP < 90MM HG. * Sign off status: Completed true * Provider: AURORA OTT Date: 0 07/01/2024 Generated for Serena garces/Vishal/Deborah on: 0 07/23/2024 09:37 AM CDT History and Physical Notes * HPI (History of Present Illness) Category Sub-Category Detail Notes Category Not es Depression screening PHQ-9 Little inte rest or pleasure in doing things: Several days Feeling down, depressed, or hopeless: No t at all Trouble falling or staying asleep, or sl eeping too much: Not at all Feeling tired or having little energy: N ot at all Poor appetite or overeating: Not at all Feeling bad about yourself o r that [...] some way: Not at all Total Score: 2 Interpretation: Minimal Depression Intervention Depression Screening Findings: N egative Suicide Risk Assessment Performed: ____ Depression Screening JORDAN-7 (2018 Edition) Feeling nervous, anxious, or on edge: Several days Follow up depression, anxiety, and sleep since last visit reported I was doing fine I feel I want to decreae Remeron 15 mg I went on cruise and gave me something to do, I was in [place] and had a lot to do and things been pretty good other co[place], rt side neck skin cancer removed last , and did not do Mols cut it out and biopsy and I feel not too bad wiht depression and anxiety, I feel not sad or down, no hopeless and no helpless, sleep good, Melatonin 4 mg and Magnesuim 250 mg and not taking much Xanax 3 -4 tablets since last visit, appetite good and anxiety good, no psychosis no janine no SI/HI, no agitation no irritable and motivation and interest good and I feel concentration and focus not bad I used to do my own taxes and not take them, 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 ETOH none in 2 month hx 2-3 times a week smoking denies labs PCP 02/14 drugs- denies SLUMS= 27 02/23/24 rx hx Remeron, Xanax, Melatonin, Zoloft (did not help), Pristiq, Ambien, Trazodone (fatigue in am) Not being able to stop or control worryi ng: Not at all Worrying too much about different things : Not at all Trouble relaxing: Several days Being so restless that it is hard to sit still: Several days Becoming easily annoyed or irritable: No t at all Feeling afraid as if something awful ron ht happen: Not at all Total JORDAN-7 Score: 3 Interpretation of Total: (0 to 4) No Anx iety [place]-Suicide Severity Rating Scale Suicide Risk (CSRS-screener) in [...]
--- OUTSIDE RECORDS SUMMARY | 2024-07-23 09:37 | XMS_ITS ---
Author Organization [facility] Address [address] [facility] [address] [place] [address] Care Team Providers Care Journeyman Carpenter Name Role Phone Grabiel Varma MD Primary Care Provider Gracy Sarmiento Unavailable [phone] Allergies Allergen (clinical drug ingredient) Drug/Non Drug [...] 03/15/2024 Encounters Encounter Location Date Provider Diagnosis [facility] Differential [facility] [address] [address] 03/15/2024 Gracy Garcia MDD (major depressive disorder), recurrent [...] twice a day as needed for anxiety [facility] educated not to take with Lunesta at bedtime and risk of respitatory depression 3. Primary Insomnia patient stopepd after 2 days d/c Trazodone 50 mg at bedtime- reported fatigue in am Melatonin 2 mg bedtime OTC SLUMS= 27 02/23/24 http_s://www.ronnie. org/Rfzpi-Matyqy-Y llness/Mental-Heal th-Conditions http_s://psychcent ral.com/depression /prr-dfopgwaqb-ktz iobrn-sw-ncsnhllzq n#treatments http__s://www.nimh .nih.gov/health/to pics/mental-health -medications http__s://www.ronnie .org/About-Mental- Illness/Treatments /Xtrlor-Arrfsi-Cdj ications Discussed and educated pt regarding benzodiazepines [...] twice a day as needed for anxiety [facility] [place] educated not to take with Lunesta at bedtime and risk of respitatory depression 3. Primary Insomnia patient stopepd after 2 days d/c Trazodone 50 mg at bedtime- reported fatigue in am Melatonin 2 mg bedtime OTC SLUMS= 27 02/23/24 http_s://www.ronnie. org/Vogfk-Qlctib-R llness/Mental-Heal th-Conditions http_s://psychcent ral.com/depression /qbv-abibqtquf-maf fsejo-zf-dlfvcgglh n#treatments http__s://www.nimh .nih.gov/health/to pics/mental-health -medications http__s://www.ronnie .org/About-Mental- Illness/Treatments /Ykdkyw-Zmkokk-Gak ications Discussed and educated pt regarding benzodiazepines [...] twice a day as needed for anxiety [facility] [place] educated not to take with Lunesta at bedtime and risk of respitatory depression 3. Primary Insomnia patient stopepd after 2 days d/c Trazodone 50 mg at bedtime- reported fatigue in am Melatonin 2 mg bedtime OTC SLUMS= 27 02/23/24 http_s://www.ronnie. org/Ngpej-Jzfnzf-E llness/Mental-Heal th-Conditions http_s://psychMimi [employer].com/depression /plp-umfvhqxto-msi vtgyv-ko-gejpusoky n#treatments http__s://www.nimh .nih.gov/health/to pics/mental-health -medications http__s://www.ronnie .org/About-Mental- Illness/Treatments /Teqkuy-Yzxvrt-Obx ications Discussed and educated pt regarding benzodiazepines [...] 6 Weeks, Reason: F/U Decrease Remeron Provider Name:Gracy Radha , 10/01/2024 10:45:00 AM, [address], [facility] [address], [place], [address], Progress Notes * Ryan VARGHESE ADOB:[birth year] (79 yo M)Acc No.[id number]:03/15/2024 Patient: Ryan PHELAN Provider: Lore GARCIA PMHNP :1945 A ge:79 Y S ex:Male Date:03/15/2024 Address:[address] [place], [place] [id number] Pcp:Grabiel Varma MD Subjective: * Chief Complaints: * 1 . Follow Up medications. * HPI: C [place]-Suicide Severity Rating Scale: Suicide Risk (CSRS-screener) i n the past one month Have you wished you were or wished you could go to sleep and not wake up? N o, i n the past one month Have you actually had any thoughts of killing yourself? N o, H ave you ever done anything, started to do anything, or prepared to do anything to end your life? N o. D epression Screening: JORDAN-7 (2018 Edition) F eeling nervous, anxious, or on edge?Several days, N ot being able to stop or control worrying N ot at all, W orrying too much about different things N early every day, T rouble relaxing N early every day, Being so restless that it is hard to sit still S everal days, B ecoming easily annoyed or irritable N ot at all, F eeling afraid as if something awful might happen N ot at all.? 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 D epression screening: PHQ-9 L ittle interest [...] as reading the newspaper or watching television N ot at all,?Moving or speaking so slowly that other people could have noticed; or the opposite, being so fidgety or restless that you have been moving around a lot more than usual N ot at all, T houghts that you would be better off or of hurting yourself in some way N ot at all, T otal Score 5 , I nterpretation M ild Depression. I ntervention D epression Screening Findings P ositve, F ollow-Up for Depression M ental health treatment assessment, Patient follow-up to return when and if necessary, S uicide Risk Assessment Performed , A dditional Evaluation for Depression P sychiatric interview and evaluation, N samanta of the standardized tool used for adult depression screening: [facility] (PHQ-9). * ROS: P sychiatric: Delusions d enies. S ee HPI reports n o shortness of breath when walking but reports [...] swings, no agitation, r eports f atigue. reports no fever, no significant weight gain, and reported weight loss. reports no incontinence, no difficulty urinating, and no increased frequency. r eports no muscle aches, no muscle weakness, no arthralgias/joint pain, reported back pain, no swelling in the extremities, no neck pain, and no difficulty walking SLUMS= 27 02/23/24. * Medical History: P ast Psychiatric History: [...] a week (3 points). H ousehold: H frandy M arital status: m arried, N umber of adults in household: 2 , L evel of education: p [employer]/Masters/PhD retired teacher, A il household tobacco use? N o, A il household pets? N o. M iscellaneous: O ccupation: Retiered. Safety issues A re there any firearms in the house? N o. A dvance Care Planning A re you your own decision-maker Y es, D o you have Power of Box Toe Cutter for Health or Medical? Y es, D o you have a power of assistant prosecuting attorney for health? Y es, D o you have power of assistant prosecuting attorney for Medical ? Y es, I f yes, then please bring the POA paperwork so that we can upload it. N o. S ocial History: H ouseparul M arital Status: M arried, N umber of Adults in household: 2 , N umber of Children in Household: 0 , L evel of Education: P [employer]/Masters/PhD. * Medications: T aking Lunesta 1 MG [...] S ulfa Antibiotics. Objective: * Vitals: B P:139/78mm Hg, HR:71/min, Wt:184.4lbs, Wt-k.64 kg, Ht: 70 in, Ht-cm: 177.8 cm, BMI:26.46Index, Body Surface Area: 2.03. * Examination: P [...] P rimary insomnia - F51.01 1.Depression- patient reported constipation on rx and would like to decrease dose- presently taking Remeron 30 mg at bedtime - will decrease Remeron 15 mg bedtime - for depression, also help sleep and appetite 2. Anxiety X anax 0.25 mg twice a day as needed for anxiety [facility] educated not to take with Lunesta at bedtime and risk of respitatory depression 3. Primary Insomnia patient stopepd after 2 days d/c Trazodone 50 mg at bedtime- reported fatigue in am Melatonin 2 mg bedtime OT SLUMS= 27 02/23/24 http_s://www.ronnie.org/Txasw-Cepfla-Lzuqcbt/Kmkgwv-Qqkfya-Jzsiyhcsio http_s://psychcentral.com/depression/fdl-ttyovpwge-lbjpfgke-of-depression#treatm ents http__s://www.nimh.nih.gov/health/topics/eahxwe-svsbso-prgwhplrsey http__s://www.ronnie.org/Mnrks-Gmhkom-Fblcuhi/Treatments/Vvllwp-Uystok-Wanvocxhzjk Discussed and educated pt regarding benzodiazepines are [...] Notes to Pharmacist: change dose to BID prn. Notes: Generalized Anxiety Disorder: Care Instructions material was published, Learning About Generalized Anxiety Disorder material was published, Learning About Anxiety Disorders material was published 3. P rimary insomnia Stop traZODone HCl Tablet, 50 MG, 1 tablet at bedtime, Orally, Once a day, 30 days, 30 Tablet. Notes: Learning About Sleeping Well material was published, Insomnia: Care Instructions material was published * Procedure Codes: 9 6127 BEHAV ASSMT W/SCORE & DOCD/STAND INSTRUMENT, 82686 BEHAV ASSMT W/SCORE & DOCD/STAND INSTRUMENT, G2211 VISIT COMPLEXITY INHERENT TO ONGOING CARE RELATED TO A PATIENT'S SINGLE, SERIOUS CONDITION OR A COMPLEX CONDITION * Preventive Medicine: Counseling: B P Management: P RE-HYPERTENSIVE FOLLOW-UP PLAN: F ollow-up 2 weeks ____, L QUINN RECOMMENDATION: L ifestyle education, R EFERRAL TO ALTERNATIVE / PRIMARY CARE PROVIDER: R eferral to general physician educated on healthy b/p 120/80monitor b/p at homerefer to PCP, Urgent care/ERheart healthy diet and exciselimit salt intakelimit soda intake and caffieneincrease water. * Follow Up: 6 Weeks (Reason: F/U Decrease Remeron) * Billing Information: * Visit Code: 05653 OFFICE OUTPATIENT VISIT 25 MINUTES DETAILED HISTORY AND EXAM/MODERATE MEDICAL DECISION MAKING. * Procedure Codes: 13054 BEHAV ASSMT W/SCORE & DOCD/STAND INSTRUMENT. 25749 BEHAV ASSMT W/SCORE & DOCD/STAND INSTRUMENT. G2211 VISIT COMPLEXITY INHERENT TO ONGOING CARE RELATED TO A PATIENT'S SINGLE, SERIOUS CONDITION OR A COMPLEX CONDITION. 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
--- OUTSIDE RECORDS SUMMARY | 2024-07-23 09:37 | XMS_ITS | Data Portability ---
Author Organization [facility] Address [address] [place] [address] Assessment No assessment recorded. Plan of Treatment [...] 50 mcg/0.25mL dose 05/28/2020 completed MARGARET Balbuena, [facility] 05/28/2020 16:10:53 COVID-19, mRNA, LNP-S, PF, 100 mcg/0.5mL dose or 50 mcg/0.25mL dose 06/25/2020 completed JOHN Hughes, [facility] 06/25/2020 13:20:39 Past Encounters Encounter ID Performer Location Encounter Start Date Encounter Closed Date Diagnosis/Indication Diagnosis SNOMED-CT Code Diagnosis ICD10 Code Diagnosis Note [id number] JEFF Hawley 14 [address] [facility] [place] [id number] 1 05/28/2020 12:54:50 05/29/2020 06:10:51 Administration of SARS-CoV-2 antigen vaccine [id number] Z23 [id number] JEFF Hawley 14 IM 4 [facility] [place] [id number] 1 06/25/2020 12:06:15 06/26/2020 07:27:52 Administration of SARS-CoV-2 antigen vaccine [id number] Z23 Health Concerns Section Related Observation LastModified by Organization Detai ls LastModified Time None Recorded Concern Status LastModified by Organization Details LastModified Time None Recorded Advance Directives Directive None Recorded Payers Encounter Date Sequence Insurance Name Policy Number Policy Lozano Covered Member ID Lozano Member ID Guarantor Name 05/28/2020 1 [place] Ryan Varghese [id number] Ryan Varghese 05/28/2020 2 [employer] HE[employer] OPTIONS (MEDICARE SUPPLEMENT) Ryan Varghese [id number] Ryan Varghese 06/25/2020 1 [place] Varghese [id number] Ryan Varghese 06/25/2020 2 [employer] HE[employer] OPTIONS (MEDICARE SUPPLEMENT) Ryan Varghese [id number] Ryan Varghese
--- OUTSIDE RECORDS SUMMARY | 2024-07-23 09:37 | XMS_ITS | Referral Summary ---
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
--- OUTSIDE RECORDS SUMMARY | 2024-07-23 09:37 | XMS_ITS | Encounter Summary ---
Author Organization [facility] Address [address] [facility] [place] [address] Care Team Providers Care Diving Coach Name Role Phone Sonya Reid BRENDON-INDUSTRIAL RENDERER Primary Care Provider Encounter Details Date Type Department Care Team (Late st Contact Info) Description 06/27/2024 Lab Requisition [facility] - DermPath Lab [address] [facility] [place] [address] Benita Ortiz DO [address] [facility] [address] [place] [address] Social History Tobacco Use Types Packs/Day Years [...] Diagnosis Comments DERMATOPATHOLOGY Routine 06/27/2024 1:15 PM CHANGE CONTROL MANAGER documented in this encounter Results * DERMATOPATHOLOGY (06/27/2024 1:15 PM CHANGE CONTROL MANAGER) Case Report Dermatopathology Report Case: [id number] Authorizing Provider: Benita Ortiz DO Collected: 06/27/2024 01:15 PM Ordering Location: [facility] - Received: 07/01/2024 08:03 AM DermPath Lab [...] of a non-oriented ellipse of skin measuring 76f02p2 mm. The epidermal surface is unremarkable. The [...] characteristic determined by the Dermatopathology Laboratory at [facility], directed by Dr. Abdirahman Swann. These tests need not be, and therefore are not, approved by the [place] Food and Drug Administration. The tests are used for clinical purposes. Billing Codes Specimen Charges Stain Charges 30395 1 1:41 PM CDT DERMATOPATHOLOGY LABORATORY Embedded Images 1:41 PM CDT DERMATOPATHOLOGY LABORATORY Pathology/Cytolo gy TISSUE SPECIMEN FROM SKIN / Unknown 06/27/2024 1:15 PM CHANGE CONTROL MANAGER 07/01/2024 8:03 AM CDT Benita Ortiz DO LAB - PATHOLOGY/C YTOLOGY ORDERABLES DERMATOPATHOLOGY LABORATORY [facility] - Department of Dermatology [facility] [address] [place] [address], [address] [phone] documented in this encounter Visit Diagnoses Not on filedocumented in this encounter Care Teams Diving Coach Relationship Specialty Start Date End Date Sonya Reid APRN-INDUSTRIAL RENDERER [address] [place] [phone] PCP - General Nurse Practitioner Family 01/06/23 documented as of this encounter
--- OUTSIDE RECORDS SUMMARY | 2024-07-23 09:37 | XMS_ITS | Clinical Summary ---
Author Organization [facility] Marie Nugent Address [address] [place] [address] Care Team Providers Care Automotive Manager Name Role Phone Sonya Reid Primary Care Provider Allergies Active Allergy Reactions [...] Encounters Date Type Department Care Team Description 07/10/2024 External Device Data STL ABSTRACTION Provider, Abstract 06/29/2024 External Device Data STL ABSTRACTION Provider, Abstract 06/28/2024 External Device Data STL ABSTRACTION Provider, Abstract 06/11/2024 External Device Data STL ABSTRACTION Provider, Abstract 05/16/2024 External Device Data STL ABSTRACTION Provider, Abstract 05/14/2024 External Device Data STL ABSTRACTION Provider, Abstract 05/07/2024 External Device Data STL ABSTRACTION Provider, Abstract from Last 3 Months Family History Medical History Relation Name Comments Cancer Brother Cancer Father Shemar Lung Heart Disease Father Shemar Lung Cancer Father Shemar Cancer Mother [place] Colon Cancer Mother [place] Diabetes Mother [place] Heart Disease Mother [place] Hypertension Mother [place] Breast Cancer Sister 3 Liset Relation Name Status Comments Brother Daughter Alive Father Shemar Mother [place] Sister 1 Alive Sister 2 Alive Sister [...] Comments Blood Pressure 132/66 03/14/2024 10:16 AM PAPETERIE TABLE ASSEMBLER Pulse 74 03/14/2024 10:16 AM PAPETERIE TABLE ASSEMBLER Temperature 36.7 C (98 F) 03/14/2024 10:16 AM PAPETERIE TABLE ASSEMBLER Respiratory Rate 14 03/14/2024 10:16 AM PAPETERIE TABLE ASSEMBLER Oxygen Saturation 98% 03/14/2024 10:16 AM PAPETERIE TABLE ASSEMBLER Inhaled Oxygen Concentration - - Weight 83.5 kg (184 lb) 03/14/2024 10:16 AM PAPETERIE TABLE ASSEMBLER Height 177.8 cm (5' 10 ) 02/17/2022 10:57 AM CDT Body Mass Index 26.4 02/17/2022 10:57 AM CDT Plan of Treatment Upcoming Encounters Date Type Department Care Team (Late st Contact Info) Description 03/10/2025 10:15 AM PAPETERIE TABLE ASSEMBLER Office Visit [facility] Oncology and Hematology - [place] [address] [facility] [address] [facility] [address] [place] [address] Noé Gill MD [address] [facility] [address] [place] [address] Health Maintenance Due Date Last Done Comments RSV VACCINE (60+ or ) (1 - 1-dose 75+ series) 2022 INFLUENZA VACCINE (#1) 2023 3, 02/16/2022, 02/11/2021, Additional history exists DTAP/TDAP/TD VACCINES (3 - T d or Tdap) 12/28/2029 12/29/2019, 02/15/2010 PNEUMOCOCCAL VACCINE 50+ YEARS Completed 0 06/01/2016, 05/01/2016, 07/03/2012 ZOSTER VACCINE Completed 04/08/2019, 12/23, 06/05/2007 COLORECTAL SCREENING Discontinued 05/04/2022, 05/03/2022, 05/15/2017, Additional history exists Colorectal Cancer Screening Discontinued FIT-DNA Q 3 years Discontinued FIT/FOBT Q 1 year Discontinued Flex Sig/CT Colonography Q 5 years Discontinued Insurance MEDICARE PART A AND B [facility] [id number] MEDICARE PART A AND B [facility] [id number] Care Teams Automotive Manager Relationship Specialty Start Date End Date Sonya Reid FNP [address] [address] PCP - General Nurse Practitioner Family 10/04/19
--- OUTSIDE RECORDS SUMMARY | 2024-07-23 09:38 | XMS_ITS | Data Portability ---
Author Organization MD - [facility], Main Office Address [address] [place] [address] Care Team Providers Care Cherry Cutter Name Role Phone NILSON KEARNEY Primary Care Provider NILSON KEARNEY Referring Provider [phone] NILSON KEARNEY Primary Care Provider Assessment Encounter [...] he would like to go over to [facility] for spine surgery consultation. Talked about the [...] recorded. Lab BMP, serum or plasma 2023 [facility] (Lab), [address] [place], [address], 15:13:06 magnesium, serum or plasma 2023 [facility] (Lab), [address] [place], [address], 15:13:00 Referral orthopedic spine surgeon referral - please contact patient to schedule 2023 [facility] Stream[facility] Referral Program, [facility] [place], [address], 09:14:22 physical therapist referral - please contact patient to schedule [email or web address], [address], [place], [address], 12:02:23 Procedures None recorded. Surgeries None recorded. Imaging MRI, lumbar spine, w/o contrast - patient to schedule 2023 PECUL[facility]AR Not available 13:20:21 Medication Orders alprazolam 0.5 mg tablet 2023 [facility] [address], [address], [place], [address], 15:10:23 mirtazapine 30 mg tablet 2023 [facility] [address], [address], [place], [address], 15:10:18 docusate sodium 100 mg capsule 2023 [facility] [address], [address], [place], [address], 17:46:49 polyethylen e glycol 3350 17 gram/dose oral powder 2023 [facility] [address], [address], [place], [address], 17:46:50 Trulance 3 mg tablet 2023 [facility] [address], [address], [place], [address], 17:52:54 buspirone 10 mg tablet 2023 [facility] [address], [address], [place], [address], 17:50:26 mirtazapine 30 mg tablet 2023 [facility], [address], [id number], 17:50:23 Lunesta 2 mg tablet 2023 [facility] [address], [address], [place], [address], 17:51:44 prednisone 10 mg tablets in a dose pack 2023 024 [email or web address] [facility] [address], [address] [place], [address], 17:43:32 Patient TargetsNo targets recorded. Patient InstructionsNo instructions [...] magnesium 2.0 mg/dL 1.6-2. 3 Not Available [facility] (Lab) [address] [place], [address], 02/15/2024 15:13:00 02/15/2002/15/2024 BASIC METAB OLIC PANEL sodium 131 mmol/ L 137-14 5 low Not Available [facility] (Lab) [address] [place], [address], 02/15/2024 15:13:06 02/15/2002/15/2024 BASIC METAB OLIC PANEL potassium 4.6 mmol/ L 3.5-5. 1 Not Available [facility] (Lab) [address] [place], [address], 02/15/2024 15:13:06 02/15/2002/15/2024 BASIC METAB OLIC PANEL chloride 98 mmol/ L 98-107 Not Available [facility] (Lab) [address] [place], [address], 02/15/2024 15:13:06 02/15/2002/15/2024 BASIC METAB OLIC PANEL carbon dioxide 29 mmol/ L 22-30 Not Available [facility] (Lab) [address] [place], [address], 02/15/2024 15:13:06 02/15/2002/15/2024 BASIC METAB OLIC PANEL anion gap 8.6 mmol/ L 14-22 low Not Available [facility] (Lab) [address] [place], [address], 02/15/2024 15:13:06 02/15/2002/15/2024 BASIC METAB OLIC PANEL glucose 101 mg/dL 70-99 high Not Available [facility] (Lab) [address] [place], [address], 02/15/2024 15:13:06 02/15/2002/15/2024 BASIC METAB OLIC PANEL BUN 7 mg/dL 8-19 low Not Available [facility] (Lab) [address] [place], [address], 02/15/2024 15:13:06 02/15/2002/15/2024 BASIC METAB OLIC PANEL creatinine 0.88 mg/dL 0.66-1 .25 Not Available [facility] (Lab) [address] [place], [address], 02/15/2024 15:13:06 02/15/2002/15/2024 BASIC METAB OLIC PANEL GFR >60 Refer ence Range : [place] [facility] GFR Healt hy Adult : >60 [...] calcu lator is avail able on the [facility] websi te: https ://ww w.kid chris.o rg/pr ofess ional s/kdo qi/gf r_cal culat or Not Available [facility] (Lab) [address] [place], [address], 02/15/2024 15:13:06 02/15/2002/15/2024 BASIC METAB OLIC PANEL calcium 10.1 mg/dL 8.4-10 .2 Not Available [facility] (Lab) [address] [place], [address], 02/15/2024 15:13:06 01/02/20 XR, knee, 3 view [facility] [address] [place] [address] Patien t Name: DEEPTHI MARTINEZ Access ion #: [id number] Sex: M : 1944 5 Dictat [...] at 2023 08:01: 49 AM Page 1 [facility] (Imaging) [address] [place], [address], 01/02/2024 11:32:12 01/02/20 24 XR, lumbo sacra l spine , 4 or more view [facility] [address] [place] [address] [phone] Patien t Name: DEEPTHI MARTINEZ Access ion #: [id number] Sex: M : 1944 5 Dictat [...] ral body height s are mainta ined. [employer] Le[employer] Tester ior elemen ts are intact . No [...] at 2023 08:03: 54 AM Page 1 [email or web address] [facility] (Imaging) [address] [place], [address], 01/02/2024 11:32:13 01/11/20 24 MRI, lumba r spine , w/o contr ast [facility] [address] [place] [address] Patien t Name: DEEPTHI MARTINEZ Access ion #: [id number] Sex: M : 1944 3 Dictat [...] ral body height s are mainta ined. [employer] ior elemen ts are intact . No [...] narrow ing. Mild disc bulge Page 1 [facility] [address] [address] Patien t Name: DEEPTHI MARTINEZ Access ion #: [id number] Sex: M : 1944 3 Dictat ed By: Michaelle Pacheco [facility] Physic shahram: KEZIA [facility] Physic shahram: YONY MAST Exam Date: [...] 2023 10:07: 22 AM Page 2 [email or web address] [facility] ([facility]) [address] [place], [address], 01/11/2024 13:44:05 Result Notes None recorded. Problems Name Problem SNOMED Code Status Onset Date Resolution Date Notes Provider Name and Address Organization Details Recorded Time Mixed anxiety and depressive disorder 760528514 Active 2022 Not Available [employer] 3 11:41:48 Major depressive disorder 268155998 Active 2022 Not Available [facility] 3 11:41:48 Hypertensi ve disorder 63384121 Active 2023 Nilson Kearney MD [address], [place] [address], [place], [address] , [employer] 4 10:53:38 Gastroesop hageal reflux disease without esophagiti s 665154507 Active 2023 Nilson Kearney MD [address] [place] [address], [place], [address] , [employer] 4 10:53:45 Overweight 626101423 Active 2023 Nilson Kearney MD [address] [facility], [place], [address] , [employer] 4 10:54:01 History of radical prostatect alyssia 4255059258892 09 Active 2023 Nilson Kearney MD [address] [facility], [place], [address] , [place] [facility] 4 11:07:18 Depressive disorder 14279919 Active 2023 Nilson Kearney MD [address], [place], [address] , [place] [facility] 4 11:11:15 Vitamin B12 deficiency (non anemic) 83400786 Active 2023 Nilson Kearney MD [address], [place], [address] , [facility] - [facility] 4 11:15:57 Nasal congestion 26133543 Active 2023 Nilson Kearney MD [address], [place], [address] , [facility] - [facility] 4 10:34:01 Sore throat 472449611 Active 2023 Nilson Kearney MD [address], [place], [address] , [facility] - [facility] 4 10:34:07 Cough 58925576 Active 2023 Nilson Kearney MD [address], [place], [address] , [facility] - [facility] 4 10:34:13 Seasonal allergic rhinitis 224057980 Active 2023 Nilson Kearney MD [address], [place], [address] , [facility] - [facility] 4 10:42:15 Lateral cervical lymphadeno chelsey 390339553 Active 2023 Nilson Kearney MD [address], [place], [address] , [facility] - [facility] 4 11:24:27 Chronic low back pain 386931030 Active 2023 Nilson Kearney MD [address], [place], [address] , [facility] - [facility] 4 15:24:59 Pain of left knee joint 3983383301104 07 Active 2023 Nilson Kearney MD [address], [place], [address] , [facility] - [facility] 4 15:26:04 Left side sciatica 1878312023553 04 Active 2023 Nilson Kearney MD [address], [place], [address] , [facility] - [facility] 4 15:27:20 Low back pain 893279360 Active 2023 Malena Sabihajamal sampson, MD - [facility] 4 15:02:51 Lumbar radiculopa thy 593004439 Active 2023 ROSS Quevedo [address], [place], [address] , [facility] - [facility] 4 15:15:06 Lumbar spondylosi s 348209479 Active 2023 ROSS Quevedo [address], [place], [address] , [facility] - [facility] 4 15:15:14 Chronic idiopathic constipati on 62036438 Active 2023 Nilson Kearney MD [address], [place], [address] , [facility] - [facility] 4 17:43:46 Anxiety disorder 293693919 Active 2023 Nilson Kearney MD [address], [place], [address] , [facility] - [facility] 4 17:49:15 Chronic insomnia 757907013 Active 2023 Nilson Kearney MD [address], [place], [address] , [facility] - [facility] 4 17:50:36 Hypomagnes emia 495313887 Active 2023 Nilson Kearney MD [address], [place], [address] , [employer] 4 15:03:25 Isolated head tremor 991806824 Active 2023 Nilson Kearney MD [address], [place], [address] , [employer] 4 15:21:08 Nocturia 484080274 Active Not Available [facility] 3 11:41:48 History of prostatism 255497222 Active Not Available [facility] 3 11:41:48 Steatosis of liver 227532807 Active 2016 Not Available [facility] 3 11:41:48 Abdominal pain 83060480 Active Not Available [facility] 3 11:41:48 Gastroesop hageal reflux disease 700995509 Active Not Available [facility] 3 11:41:48 Tight chest 35164478 Active 2016 Not Available [facility] 3 11:41:48 Rib pain 585947024 Active 2016 Not Available [facility] 3 11:41:48 Low back strain 644053026 Active 2016 Not Available [facility] 3 11:41:48 Left lower quadrant pain 583116195 Active Not Available [facility] 3 11:41:48 Vitamin D deficiency 42224498 Active Not Available [facility] 3 11:41:48 Sleep disorder 09214001 Active Not Available [facility] 3 11:41:48 Primary erectile dysfunctio n 375700800 Active 2017 Not Available [facility] 3 11:41:48 Anxiety 80745950 Active Not Available [facility] 3 11:41:48 Dysuria 66650448 Active Not Available [facility] 3 11:41:48 Hyperlipid emia 32703782 Active Not Available [facility] 3 11:41:48 Essential hypertensi on 34592804 Active Not Available [facility] 3 11:41:48 Diarrhea 95891221 Active Not Available [facility] 3 11:41:48 Pernicious anemia 31820036 Active Not Available [facility] 3 11:41:48 Fatigue 23145196 Active 2016 Not Available [facility] 3 11:41:48 History of pancreatit is 6302984074918 7 Active 2016 Not Available [facility] 3 11:41:48 Problem Notes None recorded. Procedures Surgical History Date Name Laterality Status Provider Name and Address Organization Details Recorded Time 3 colonoscopy completed Not Available [facility] 06/23/19 04:43:10 8 Colonoscopy completed Not Available [facility] 06/23/19 04:43:10 6 Prostatectomy completed Not Available [facility] 2022 04:43:10 3 colonoscopy completed Not Available [facility] 06/23/19 04:43:10 1 endoscopy completed Not Available [facility] 04:43:10 Imaging Results Imaging Date Name Status LastModified by Organiz ation Details LastModified Time 01/02/2024 XR, knee, 3 view completed [address] (Imaging) [address] [place], [address], 01/02/2024 11:32:12 01/02/2024 XR, lumbosacral spine, 4 or more view completed [facility] (Imaging) [address] [place], [address], 01/02/2024 11:32:13 01/11/2024 MRI, lumbar spine, w/o contrast completed [email or web address] [facility] (Imaging) [address] [place], [address], 01/11/2024 13:44:05 Procedure Notes None recorded. Medical Equipment None Reported. Allergies Allergen ID Allergen Name Allergen Category Reaction Reaction Severity Criticality Documentation Date Start Date Code Code System Note Provider Name and Address Organization Details Recorded Time 41298 Substance with sulfonami de structure and antibacte rial mechanism of action (substanc e) medicatio n insomnia Not available Not available 01/09/2024 31139 8003 SNOMED Nitza Paz, PHARMACY HELPER null, [place] [facility] [employer] 4 14:44:52 7150 Bactrim medicatio n Not available Not available Not available 06/22/2022 79230 9 RxNorm insom francisco Not Available [facility] [...] Updated DateTime 01/09/2024 177.8 cm 28.7 kg/m2 86625.[address] [facility] 01/09/2024 14:44:18 Date Recorded Body height Body mass index (BMI) Body weight Provider Name and Address Organization Details Last Updated DateTime 01/15/2024 177.8 cm 28.7 kg/m2 79729.[address] [facility] 01/15/2024 09:40:16 Date Recorded Body height Body mass index (BMI) Body weight Body temperature Heart rate Respiratory rate Oxygen saturation Oxygen saturation in Arterial blood by Pulse oximetry Systolic blood pressure Diastolic blood pressure Provider Name and Address Organization Details Last Updated DateTime 177.8 cm 27.5 kg/m2 98018.5 8 g 98.6 [degF] 74 /min 20 /min 99 % 99 % 134 mm[Hg] 70 mm[Hg] Chauncey Bledsoe [facility] 17:41:19 Date Recorded Body height Body mass index (BMI) Body weight Body temperature Heart rate Respiratory rate Oxygen saturation Oxygen saturation in Arterial blood by Pulse oximetry Systolic blood pressure Diastolic blood pressure Provider Name and Address Organization Details Last Updated DateTime 177.8 cm 27.7 kg/m2 33205.3 3 g 98.2 [degF] 78 /min 16 /min 99 % 99 % 118 mm[Hg] 70 mm[Hg] Chauncey Bledsoe [facility] 14:56:56 Social History Question Answer Notes LastModified by Organizat ion Details LastModified Time Tobacco Smoking Status Never [facility]oker [facility]2023 10:51:53 Do You Have An Advance Directive? Yes [email or web address] Information not available 10/06/2022 What Is Your Level Of Alcohol Consumption? Occasional [id number] Information not available 06/22/2022 Are You Blind Or Do You Have Difficulty Seeing? No Information not available 04/05/2023 Is Blood Transfusion Acceptable In An Emergency? Yes Information not available 04/05/2023 What Is Your Level Of Caffeine Consumption? Moderate [id number] Information not available 06/22/2022 How Much Tobacco Do You Chew? None [id number] Information not available 06/22/2022 What Is Your [...] Type Of Diet Are You Following? REGULAR [id number] Information not available 06/22/2022 Which Illicit Or [...] not available 04/05/2023 Where Do You Live? [facility] Information not available 04/05/2023 Do You Have A Medical Power Of Cleaning Team Member? Yes Information not available 04/05/2023 Have You Ever Been Counseled For Unhealthy Alcohol Use? No Information not available 04/05/2023 Do You Have Any Pets? No Information not available 04/05/2023 What Is Your Relationship Status? [id number] Information not available 06/22/2022 Do You Use [...] Anxious, Or Unable To Sleep At Night)? [id number] Information not available 04/05/2023 Do You Use [...] 04/05/2023 What is your exercise level? Moderate [id number] Information not available 06/22/2022 Mental Status [...] 1 N POLIO N LUNG DISEASE/DISORDER N COPD N RADIATION / CHEMOTHERAPY N Other # 2 N BLOOD DISEASES N SURGERY N EAR OR HEARING PROBLEMS N MUMPS N BOWEL PROBLEMS N FEMALE PROBLEMS / INFECTIONS N DEPRESSION (INCLUDING POST ) N STROKE/TIA N THYROID DISEASE N ULCERS N BENIGN PROSTATIC HYPERPLASIA N MEASLES N CERVICALGIA N TB SKIN TEST N MYOCARDIAL INFARCTION N OBESITY N [place]IA N GERD/NAUSEA N ANEURYSM N URINARY/BLADDER/KIDNEY PROBLEMS [...] HAVE YOU BEEN HOSPITALIZED OR SEEN IN [facility] IN THE PAST YEAR ? N [...] 0.5 mL, PF 3 completed KAREL Wilson, [facility] 04/05/2023 10:55:58 SARS-COV-2 (COVID-19) vaccine, UNSPECIFIED 2 completed [facility]2023 10:55:58 SARS-COV-2 (COVID-19) vaccine, UNSPECIFIED 1 completed KAREL Wilson, [facility] 04/05/2023 10:55:58 COVID-19, mRNA, LNP-S, PF, 100 mcg/0.5mL dose or 50 mcg/0.25mL dose 1 completed [facility]05/2023 10:55:58 COVID-19, mRNA, LNP-S, PF, 100 mcg/0.5mL dose or 50 mcg/0.25mL dose 1 completed KAREL Wilson, [facility] 04/05/2023 10:55:58 zoster live 9 completed KAREL Wilson, [facility] 04/05/2023 10:55:58 zoster live 9 completed [facility]2023 10:55:58 Pneumococcal conjugate PCV 13 7 completed KAREL Wilson, [facility] 04/05/2023 10:55:58 influenza, unspecified formulation 2 completed Sonya Rodriguez RN null, [facility] 04/05/2023 10:55:58 SARS-COV-2 (COVID-19) vaccine, UNSPECIFIED 2 completed Sonya Rodriguez RN null, [facility] 04/05/2023 10:55:58 Influenza, high-dose, quadrivalent, PF 1 completed Sonya Rodriguez RN null, [facility] 04/05/2023 10:55:58 Tdap 0 completed Sonya Rodriguez RN null, [facility] 04/05/2023 10:55:58 pneumococcal polysaccharide PPV23 3 completed Sonya Rodriguez RN null, [facility] 04/05/2023 10:55:58 Tdap 0 completed Sonya Rodriguez RN null, [facility] 04/05/2023 10:55:58 zoster live 8 completed Sonya Rodriguez RN null, [facility] 04/05/2023 10:55:58 Past Encounters Encounter ID Performer Location Encounter Start Date Encounter Closed Date Diagnosis/Indication Diagnosis SNOMED-CT Code Diagnosis ICD10 Code Diagnosis Note [id number] [address] [address] 10/07/2020 00:00:00 10/07/2020 11:14:[id number] [address] 04/07/2021 00:00:00 04/07/2021 11:23:[id number] [address] 10/06/2021 00:00:00 10/06/2021 11:45:[id number] [address] 04/06/2022 00:00:00 04/06/2022 11:26:25 [id number] Sonya Reid NP [address] [address] 10/06/2022 10:51:42 10/06/2022 11:42:46 Essential hypertension 86208978 I10 Amlodipine 2.5 mg po daily.Symone nopril 20 mg- hctz 12.5 mg po bid Hyperlipidemia 08025090 E78.5 Low fat diet. Vitamin D deficiency 347 72212 E55.9 Vit d 1,000 IU po daily. Gastroesop hageal reflux disease 089370311 K21.9 Omeprazole 20 mg po daily. Mixed anxi ety and depressive disorder 238885803 F41.8 Mirtazapin e 15 mg 1/2 tab po nightly.Dr Colton Gonzalez left practice.P t to watch weight and stay rested. Nocturia 141193213 R35.[address] Gill in May 2022. Pt states ok. Major depr essive disorder 486890353 F32.9 Mirtazapin e 15 mg, 1/2 tab po daily.Dr. Gonzalez left practice.P t to watch weight and stay rested. [id number] Sonya Reid NP [address] [address] 04/05/2023 10:50:18 04/05/2023 11:39:22 Hyperlipidemia 77417848 E78.5 Low fat diet. Essential hypertension 09277160 I10 Amlodipine 2.5 mg po daily. Incraese to 5 mg po nightly and call in 5 days with bp readings.L isinopril 20 mg- hctz 12.5 mg po bid Vitamin D deficiency 347 62340 E55.9 Vit d 1,000 IU po daily. Gastroesop hageal reflux disease 174513524 K21.9 Omeprazole 20 mg po daily. Anxiety 97535651 F41.9 Stable. Mixed anxi ety and depressive disorder 021861518 F41.8 Mirtazapin e 15 mg 1/2 tab po nightly.Dr Colton Gonzalez left practice. [place] office took over.Pt to watch weight and stay rested. Nocturia 035422198 R35.[address] Gill in May 2022. Pt states ok. Major depr essive disorder 529238801 F32.9 Mirtazapin e 15 mg, 1/2 tab po daily.Dr[address] Gonzalez left practice.P t to watch weight and stay rested. [id number] Nilson Kearney MD [address] [address] 10/11/2023 10:47:53 10/11/2023 11:46:16 Hypertensive disorder 28566516 I10 Gastroesop hageal reflux disease without esophagitis 278566145 K21.9 Vitamin D deficiency 347 01463 E55.9 Overweight 702275483 E66 .3 History of radical prostatectomy 1592510687 13817 Z90.79 2016 Depressive disorder 3548 9007 F32.A Vitamin B1 2 deficiency (non anemic) 92816627 E53.8 Hyperlipidemia 53176598 E78.5 [id number] Nilson Kearney MD [address] [address] 11/20/2023 10:25:15 11/20/2023 11:26:52 Nasal congestion 76969195 R09.81 Sore throat 838610452 J0 2.9 Seasonal a llergic rhinitis 130113114 J30.2 Lateral ce rvical lymphadenopathy 445852341 R59.0 Lt - 1 [id number] Nilson Kearney MD [address] [address] 01/01/2024 15:10:20 01/01/2024 15:42:43 Chronic low back pain 647337353 M54.50 Pain of le ft knee joint 8071362089 94975 M25.562 Left side sciatica 53699 97085 10091 M54.32 Overweight 411993045 E66 .3 [id number] ROSS Quevedo [facility] [place] [address] [place] [address] 01/09/2024 14:39:41 01/09/2024 16:18:09 Low back pain 764613524 M54.50 Lumbar radiculopathy 128 727695 M54.16 Lumbar spondylosis 10065 0009 M47.566 [id number] ROSS Quevedo [facility] [place] [address] [place] [address] 01/15/2024 09:37:34 01/15/2024 10:40:15 Lumbar radiculopathy 164551009 M54.16 Lumbar spondylosis 45131 0009 M47.896 Low back pain 061642703 M54.50 [id number] Nilson Kearney MD [address] [address] 01/30/2024 17:25:24 01/30/2024 17:57:04 Chronic idiopathic constipation 60399698 K59.04 Depressive disorder 3548 9007 F32.A Anxiety disorder 4734556 06 F41.9 Chronic insomnia 7470225 04 F51.04 [id number] Nilson Kearney MD [address] [address] 02/14/2024 14:45:22 02/14/2024 15:24:03 Anxiety disorder 049219386 F41.9 Chronic id iopathic constipation 47968432 K59.04 Advised pt to f/u with his GI about this too. Depressive disorder 3548 9007 F32.A Gastroesop hageal reflux disease without esophagitis 819924753 K21.9 Advised pt to f/u with his GI about this too. Hypomagnesemia 029612150 E83.42 Hypertensive disorder 38 741687 I10 Isolated head tremor 230 744938 G25.0 [id number] Nilson Kearney MD [address] [address] 02/15/2024 09:17:55 02/15/2024 14:06:20 Health Concerns Section Related Observation LastModified by Organization Detai ls LastModified Time None Recorded Concern Status LastModified by Organization Details LastModified Time None Recorded Advance Directives Directive Y: Payers Encounter Date Sequence Insurance Name Policy Number Policy Lozano Covered Member ID Lozano Member ID Guarantor Name 01/09/2024 1 [place] Ryan Martinez [id number] Ryan Martinez 01/09/2024 2 [employer] OPTION - PLAN F (MEDICARE SUPPLEMENT) Ryan Martinez [id number] Ryan Martinez 01/15/2024 1 [place] Ryan Martinez [id number] Ryan Martinez 01/15/2024 2 AARP HEALTHCARE OPTION - PLAN F (MEDICARE SUPPLEMENT) Ryan Martinez [id number] Ryan Martinez 01/30/2024 1 [place] Ryan Martinez [id number] Ryan Tellez Martinez 01/30/2024 2 AARP HEALTHCARE OPTION - PLAN F (MEDICARE SUPPLEMENT) Ryan Martinez [id number] Ryan Tellez Martinez 02/14/2024 1 [place] Ryan Martinez [id number] Ryan Tellez Martinez 02/14/2024 2 AARP HEALTHCARE OPTION - PLAN F (MEDICARE SUPPLEMENT) Ryan Martinez [id number] Ryan Martinez 02/15/2024 1 [place] Ryan Martinez [id number] Ryan Martinez 02/15/2024 2 AARP HEALTHCARE OPTION - PLAN F (MEDICARE SUPPLEMENT) Ryan Martinez [id number] Ryan Tellez Martinez Notes Date Note Type Note Provider [...] today with the patient. ROSS Quevedo [address] [facility], [facility] [address], [place], [address], [place] - [facility] [employer] 01/09/2024 15:15:48 01/15/2024 text/html Patient returns for [...] in today for recheck. ROSS Quevedo [address] [facility], [facility] [address], [place], [address], [employer] 01/15/2024 10:14:21 01/30/2024 text/html ACV: C/o constipation [...] Denies any mood swings/SI/HI. Nilson Kearney MD [address], [facility] [address], [place], [address], [employer] 01/30/2024 18:05:01 02/14/2024 text/html ACV: C/o facial [...] he wants to go back on it. Paulye and Linzess are costly for pt. Nilson Kearney MD [address] [facility], [facility] [address], [place], [address], [facility] - [facility] [employer] 02/14/2024 15:22:14
--- OUTSIDE RECORDS SUMMARY | 2024-07-23 09:38 | XMS_ITS | Patient Health Record ---
Author Organization [facility] Address [address] [facility] [address] [place] [address] Care Team Providers Care Head Greenskeeper Name Role Phone Kojo ORR, Grabiel Primary Care Provider Gracy Sarmiento Unavailable [phone] Allergies Allergen (clinical drug ingredient) Drug/Non Drug [...] Oxazepam (BZO) NEG 0 - 300 ng/ml 1-zdwkdapvyd-8,6-mzysiyfp-5,3-diphenylpyrrolidine (JOHNNIE P) NEG 0 - 300 ng/ml Methamphetamine (MET) NEG 0 - 1000 ng/ml Methylenedioxymethamphetamine (MDMA) NEG 0 - 500 ng/ml Morphine (MOP 300/NUO7232) NEG 0 - 300 ng/ml Methadone (MTD) NEG 0 - 300 ng/ml Phencyclidine (PCP) NEG 0 - 25 ng/ml Nortriptyline (TCA) NEG 0 - 1000 ng/ml Oxycodone NEG 0 - 300 ng/ml x NEG 0 - 300 ng/ml Reason For Referral No Information Medications Medication SIG (Take, Route, Frequency, Duration) Notes Start Date End Date Status MiraLax 17 GM/SCOOP 1 scoop mixed with 8 ounces of fluid Orally Once a day Active Lunesta 1 MG 1 tablet immediately before bedtime Orally Once a day Active Mirtazapine 30 MG 1 tablet at bedtime Oral Once a day for 90 days Active Fiber suplement Active Stool Softener Activ e Vitamin B Complex Ac tive Vitamin E Active ALPRAZolam 0.25 MG 1 tablet Oral three times a day for 30 days As needed 04/26/2024 Active Omeprazole 20 MG 1 capsule 1/2 to 1 h our before morning meal Orally Once a day Active Mirtazapine 15 MG 1 tablet at bedtime Oral Once a day for 90 days Active amLODIPine Besylate 10 MG 1 tablet Orally Once a day Active Melatonin 5 MG 1 tablet in the even ing Orally Once a day Active Social History [...] Problem Status W/U Status Risk Notes Problem [id number] Primary insomnia (F51.01) Active confirmed Problem Screening for cardiovascular system disease (418222260) Encounter for screening for cardiovascular disorders (Z13.6) Active confirmed Problem Depression Screening (258987182) Encounter for screening for depression (Z13.31) Active confirmed Problem 98198450 JORDAN (generalized anxiety disorder) (F41.1) Active confirmed Problem 028107928 MDD (major depressive disorder), recurrent episode, mild (F33.0) Active confirmed Vital Signs Heart Rate 77 /min 07/01/2024 Respiratory Rate 16 /min 02/23/2024 Height-cm 177.8 cm 07/01/2024 Blood pressure diastolic 76 mm Hg 07/01/2024 Weight-kg 85.91 kg 07/01/2024 Height 70 in 07/01/2024 Blood pressure systolic 133 mm Hg 07/01/2024 Weight 189.4 lbs 07/01/2024 BMI 27.17 kg/m2 07/01/2024 Encounters Encounter Location Date Provider Diagnosis [address] [address] 02/23/2024 Gracy Therlázaro MDD (major depressiv e disorder), recurrent episode, mild F33.0 ; JORDAN (generalized anxiety disorder) F41.1 and Primary insomnia F51.[address] [address] 03/15/2024 Gracy Therlázaro MDD (major depressiv e disorder), recurrent episode, mild F33.0 ; JORDAN (generalized anxiety disorder) F41.1 and Primary insomnia F51.[address] [address] 04/26/2024 Gracy Therlázaro MDD (major depressiv e disorder), recurrent episode, mild F33.0 ; JORDAN (generalized anxiety disorder) F41.1 and Primary insomnia F51.[address] [address] 07/01/2024 Gracy Garcia Encounter for screen ing for depression Z13.31 ; Encounter for screening for cardiovascular disorders Z13.6 ; MDD (major depressive disorder), recurrent episode, mild F33.0 ; JORDAN (generalized anxiety disorder) F41.1 and Primary insomnia F51.[address] [address] 02/22/2024 Gracy Thery [address] [address] 02/23/2024 Gracy Therlázaro Assessments Encounter Date Diagnosis (ICD Code) Assessment [...] in place of Lunesta SLUMS= 27 02/23/24 http_s://www.ronnie .org/About-Mental -Illness/Mental-H ealth-Conditions http_s://psychcen Cognuse.com/depressi on/the-cognitive- pyhbczpi-ke-gvgtu ssion#treatments http__s://www.nim .nih.gov/health/ topics/mental-hea lth-medications http__s://www.nam i.org/About-Menta l-Illness/Treatme nts/Mental-Health -Medications [...] in place of Lunesta SLUMS= 27 02/23/24 http_s://www.ronnie .org/About-Mental -Illness/Mental-H ealth-Conditions http_s://psychcen ACTIVE Networkl.com/depressi on/the-cognitive- hkbcjwpq-mu-kazeo ssion#treatments http__s://www.nim h.nih.gov/health/ topics/mental-hea lth-medications http__s://www.nam i.org/About-Menta l-Illness/Treatme nts/Mental-Health -Medications [...] twice a day as needed for anxiety [facility] educated not to take with Lunesta at bedtime and risk of respitatory depression 3. Primary Insomnia patient stopepd after 2 days d/c Trazodone 50 mg at bedtime- reported fatigue in am Melatonin 2 mg bedtime OTC SLUMS= 27 02/23/24 http_s://www.ronnie .org/About-Mental -Illness/Mental-H ealth-Conditions http_s://psychcen Cognuse.com/depressi on/the-cognitive- rqnllvgh-fr-ksfzx ssion#treatments http__s://www.nim h.nih.gov/health/ topics/mental-hea lth-medications http__s://www.nam i.org/About-Menta l-Illness/Treatme nts/Mental-Health -Medications [...] twice a day as needed for anxiety [facility] educated not to take with Lunesta at bedtime and risk of respitatory depression 3. Primary Insomnia patient stopepd after 2 days d/c Trazodone 50 mg at bedtime- reported fatigue in am Melatonin 2 mg bedtime OT SLUMS= 27 02/23/24 http_s://www.ronnie .org/About-Mental -Illness/Mental-H ealth-Conditions http_s://psychcen ACTIVE Networkl.com/depressi on/the-cognitive- zgrcnspm-hk-iswdn ssion#treatments http__s://www.nim h.nih.gov/health/ topics/mental-hea lth-medications http__s://www.nam i.org/About-Menta l-Illness/Treatme nts/Mental-Health -Medications [...] three a day as needed for anxiety [facility] educated not to take with Lunesta at bedtime and risk of respitatory depression 3. Primary Insomnia hx Lunesta 1 mg- not taking in a while Melatonin 2 mg bedtime OTC SLUMS= 27 02/23/24 http_s://www.ronnie .org/About-Mental -Illness/Mental-H ealth-Conditions http_s://psychcen tral.com/depressi on/the-cognitive- fnlwbvpa-yo-ynrzh ssion#treatments http__s://www.nim h.nih.gov/health/ topics/mental-hea lth-medications http__s://www.nam i.org/About-Menta l-Illness/Treatme nts/Mental-Health -Medications [...] prescribed medications. 07/01/2024 Encounter for screening for depression (ICD-10 - Z13.31) 1.Depression- patient reported would like to decrease dose- presently taking Remeron 30 mg at bedtime reported improved bowel issues on rx and helped mood - will decrease Remeron 15 mg bedtime - for depression, also help sleep and appetite 2. Anxiety Xanax 0.25 mg three a day as needed for anxiety- not taking often [facility] educated not to take with Lunesta at bedtime and risk of respitatory depression 3. Primary Insomnia hx Lunesta 1 mg- not taking in a while Melatonin bedtime OT SLUMS= 27 02/23/24 http_s://www.ronnie .org/About-Mental -Illness/Mental-H ealth-Conditions http_s://psychcen ACTIVE Networkl.com/depressi on/the-cognitive- imhfeppm-eu-ecnmx ssion#treatments http__s://www.nim h.nih.gov/health/ topics/mental-hea lth-medications http__s://www.nam i.org/About-Menta l-Illness/Treatme nts/Mental-Health -Medications [...] as needed for anxiety- not taking often [facility] educated not to take with Lunesta at bedtime and risk of respitatory depression 3. Primary Insomnia hx Lunesta 1 mg- not taking in a while Melatonin bedtime OT SLUMS= 27 02/23/24 http_s://www.ronnie .org/About-Mental -Illness/Mental-H ealth-Conditions http_s://psychSportsHedgen Cognuse.[employer] Practice/depressi on/the-cognitive- hshmkxee-ae-czaiq ssion#treatments http__s://www.nim h.nih.gov/health/ topics/mental-hea lth-medications http__s://www.nam i.org/About-Menta l-Illness/Treatme nts/Mental-Health -Medications [...] needed for anxiety PCP filled RX Recently [facility] due 02/29/24 educated not to [...] in place of Lunesta SLUMS= 27 02/23/24 http_s://www.ronnie .org/About-Mental -Illness/Mental-H ealth-Conditions http_s://psychcen tral.com/depressi on/the-cognitive- rvzdxesk-gr-bqnpw ssion#treatments http__s://www.nim h.nih.gov/health/ topics/mental-hea lth-medications http__s://www.nam i.org/About-Menta l-Illness/Treatme nts/Mental-Health -Medications [...] three a day as needed for anxiety [facility] educated not to take with Lunesta at bedtime and risk of respitatory depression 3. Primary Insomnia hx Lunesta 1 mg- not taking in a while Melatonin 2 mg bedtime [facility] SLUMS= 27 02/23/24 http_s://www.ronnie .org/About-Mental -Illness/Mental-H ealth-Conditions http_s://psychcen tral.com/depressi on/the-cognitive- mxhlvfly-lp-ovkun ssion#treatments http__s://www.nim h.nih.gov/health/ topics/mental-hea lt-medications http__s://www.nam i.org/About-Menta l-Illness/Treatme nts/Mental-Health -Medications [...] twice a day as needed for anxiety [facility] educated not to take with Lunesta at bedtime and risk of respitatory depression 3. Primary Insomnia patient stopepd after 2 days d/c Trazodone 50 mg at bedtime- reported fatigue in am Melatonin 2 mg bedtime OT SLUMS= 27 02/23/24 http_s://www.ronnie .org/About-Mental -Illness/Mental-H ealth-Conditions http_s://psychcen tral.com/depressi on/the-cognitive- fuvsrcts-tc-tjsbk ssion#treatments http__s://www.nim h.nih.gov/health/ topics/mental-hea lth-medications http__s://www.nam i.org/About-Menta l-Illness/Treatme nts/Mental-Health -Medications [...] three a day as needed for anxiety [facility] educated not to take with Lunesta at bedtime and risk of respitatory depression 3. Primary Insomnia hx Lunesta 1 mg- not taking in a while Melatonin 2 mg bedtime OT SLUMS= 27 02/23/24 http_s://www.ronnie .org/About-Mental -Illness/Mental-H ealth-Conditions http_s://psychcen tral.com/depressi on/the-cognitive- funnieoa-uq-xnzlc ssion#treatments http__s://www.nim h.nih.gov/health/ topics/mental-hea lth-medications http__s://www.nam i.org/About-Menta l-Illness/Treatme nts/Mental-Health -Medications [...] as needed for anxiety- not taking often [facility] educated not to take with Lunesta at bedtime and risk of respitatory depression 3. Primary Insomnia hx Lunesta 1 mg- not taking in a while Melatonin bedtime [facility] SLUMS= 27 02/23/24 http_s://www.ronnie .org/About-Mental -Illness/Mental-H ealth-Conditions http_s://psychcen tral.com/depressi on/the-cognitive- vkyxjiqd-cu-kridz ssion#treatments http__s://www.nim h.nih.gov/health/ topics/mental-hea lth-medications http__s://www.nam i.org/About-Menta l-Illness/Treatme nts/Mental-Health -Medications [...] as needed for anxiety- not taking often [facility] educated not to take with Lunesta at bedtime and risk of respitatory depression 3. Primary Insomnia hx Lunesta 1 mg- not taking in a while Melatonin bedtime OT SLUMS= 27 02/23/24 http_s://www.ronnie .org/About-Mental -Illness/Mental-H ealth-Conditions http_s://psychcen tral.com/depressi on/the-cognitive- dvwlepcw-kk-eydyv ssion#treatments http__s://www.nim h.nih.gov/health/ topics/mental-hea lth-medications http__s://www.nam i.org/About-Menta l-Illness/Treatme nts/Mental-Health -Medications [...] as needed for anxiety- not taking often [facility] educated not to take with Lunesta at bedtime and risk of respitatory depression 3. Primary Insomnia hx Lunesta 1 mg- not taking in a while Melatonin bedtime OT SLUMS= 27 02/23/24 http_s://www.ronnie .org/About-Mental -Illness/Mental-H ealth-Conditions http_s://psychcen tral.com/depressi on/the-cognitive- mfvbkmxi-ho-lrxbe ssion#treatments http__s://www.nim h.nih.gov/health/ topics/mental-hea lth-medications http__s://www.nam i.org/About-Menta l-Illness/Treatme nts/Mental-Health -Medications [...] in place of Lunesta SLUMS= 27 02/23/24 http_s://www.ronnie .org/About-Mental -Illness/Mental-H ealth-Conditions http_s://psychcen tral.com/depressi on/the-cognitive- wxbokktn-xi-hivtr ssion#treatments http__s://www.nim .nih.gov/health/ topics/mental-hea lth-medications http__s://www.nam i.org/About-Menta l-Illness/Treatme nts/Mental-Health -Medications [...] Of Treatment Next Appt Details Provider Name:Gracy Radha , 10/01/2024 10:45:00 AM, [address], [facility] [address], [place], [address], Insurance Providers Payer Name Payer Address Payer Phone Subscriber Number Group Number Insured Name Patient Relationship to Insured Coverage Start Date Coverage End Date [place] [address] [place] [address] [id number] Ryan Varghese Self - patient is the insured [facility] Medicare Supplement [address] [facility] [place] [address] [id number] Ryan Varghese Self - patient is the insured Medical [...]
== END 2024-07-23 09:09 | disposition home or self-care (01) ==
LOC: ANHIMG 09:09
PROVIDERS: PCP Internal Medicine; Visit Provider Internal Medicine
DX: I74.3 Embolism and thrombosis of arteries of the lower extremities (principal); R68.89 Other general symptoms and signs; M79.604 Pain in right leg; M79.605 Pain in left leg; I65.21 Occlusion and stenosis of right carotid artery
CPT/HCPCS: 93923

== ENCOUNTER 2024-11-01 07:37 | Outpatient (CLI) | payer MEDICARE, SELFPAY ==
--- OUTSIDE RECORDS SUMMARY | 2024-11-01 07:40 | XMS_ITS | Encounter Summary ---
Author Organization [facility] Address [address] [place] [address] Care Team Providers Care Food Editor Name Role Phone Cher Kirby MD Primary Care Provider Sonya Reid Primary Care Provider Encounter Details Date Type Department Care Team (Late st Contact Info) Description 08/01/2017 Lab Requisition [facility] Care DermPath Lab [address] [facility] [place] [address] Shemar Gonzalez MD [address] [place] [address] Social History Tobacco Use Types Packs/Day Years Used Date Smoking Tobacco: Never Assessed Sex and Gender Information Value Date Recorded Sex Assigned at Not on file 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 occiput scalp hairline 1:58 PM CDT DERMATOPATHOLOGY LABORATORY Final Diagnosis Specimen A. SKIN, right sup. occiput scalp hairline: INTRADERMAL NEVUS (D23.4) PRESENT AT MARGIN 1:58 PM CDT DERMATOPATHOLOGY LABORATORY at 1358 CDT Clinical History R/O nevus vs BCC. Check margins. 1:58 PM CDT DERMATOPATHOLOGY LABORATORY Gross Description Specimen: A: Received is one formalin filled container labeled with the patient's name and designated right sup. occiput scalp hairline. The specimen consists of a shave biopsy measuring [id number]. The margin is inked green. Jar 0. [...] by the Dermatopathology Laboratory at [facility]. These tests need not be, and therefore are not, approved by the [place] Food and Drug Administration. The tests are used for clinical purposes. Billing Codes Specimen Charges Stain Charges 62181 1 1:58 PM CDT DERMATOPATHOLOGY LABORATORY Embedded Images 1:58 PM CDT DERMATOPATHOLOGY LABORATORY Pathology/Cytolog y TISSUE SPECIMEN FROM SKIN / Unknown 08/01/2017 08/01/2017 11:57 AM CDT us Shemar Gonzalez MD LAB - PATHOLOGY/CYTOLOGY ORD ERABLES Final Result DERMATOPATHOLOGY LABORATORY [facility] - Department of Dermatology [address] [place] [address], 5th Floor Lab [address] [phone] documented in this encounter Visit Diagnoses Not on filedocumented in this encounter Care Teams Food Editor Relationship Specialty Start Date End Date Cher Kirby MD [address] [place] [phone] PCP - General 02/19/13 01/05/23 Sonya Reid APRN-HOSPITALIST PHYSICIAN [address] [place] [phone] PCP - General Nurse Practitioner Family 01/06/23 documented as of this encounter
--- OUTSIDE RECORDS SUMMARY | 2024-11-01 07:40 | XMS_ITS | Referral Summary ---
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
--- OUTSIDE RECORDS SUMMARY | 2024-11-01 07:40 | XMS_ITS | Encounter Summary ---
Author Organization [facility] Address [address] [facility] [place] [address] Care Team Providers Care Chlorinator Name Role Phone Cher Kirby MD Primary Care Provider [phone] Sonya Reid Primary Care Provider Encounter Details Date Type Department Care Team (Late st Contact Info) Description 12/09/2022 Lab Requisition [facility] - DermPath Lab [address], [facility] [place] [address] Shemar Gonzalez MD [address] [place] [address] Social History Tobacco Use Types Packs/Day Years Used Date Smoking Tobacco: Never Assessed Sex and Gender Information Value Date Recorded Sex Assigned at Not on file 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 Gender Identity Not on file Sexual Orientation Not on file documented as of this encounter Plan of Treatment Not on file documented as of this encounter Procedures Procedure Name Priority Date/Time Associated Diagnosis Comments DERMATOPATHOLOGY Routine 12/07/2022 12:0 0 AM CDT documented in this encounter Results * DERMATOPATHOLOGY (12/07/2022 12:00 AM CDT) Case Report Dermatopathology Report Case: [id number] Authorizing Provider: Shemar Gonzalez MD Collected: 12/07/2022 12:00 AM Ordering Location: [facility] DermPath Lab Received: 12/09/2022 04:56 PM Pathologist: Deisi Braxton MD Specimen: Skin, left side nose 12:56 PM CDT DERMATOPATHOLOGY LABORATORY Final Diagnosis Specimen A. SKIN, left side nose: BASAL CELL CARCINOMA, NODULAR TYPE (C44.311) 3 12:56 PM CDT DERMATOPATHOLOGY LABORATORY at 1256 CDT Clinical History R/O BCC, AK, SCC 12:56 [...] characteristic determined by the Dermatopathology Laboratory at [facility], directed by Dr. Abdirahman Swann. These tests need not be, and therefore are not, approved by the [place] Food and Drug Administration. The tests are used for clinical purposes. Billing Codes Specimen Charges Stain Charges 05143 1 3 12:56 PM CDT DERMATOPATHOLOGY LABORATORY Embedded Images 3 12:56 PM CDT DERMATOPATHOLOGY LABORATORY Pathology/Cytolog y TISSUE SPECIMEN FROM SKIN / Unknown 12/07/2022 12/09/2022 4:56 PM CDT Shemar Gonzalez MD LAB - PATHOLOGY/CYTOLOGY ORD ERABLES Final Result DERMATOPATHOLOGY LABORATORY [facility] - Department of Dermatology [address], [address] [phone] documented in this encounter Visit Diagnoses Not on filedocumented in this encounter Care Teams Chlorinator Relationship Specialty Start Date End Date Cher Kirby MD [address] [place] [phone] PCP - General 02/19/13 01/05/23 Sonya Reid, FINANCE CLERK-APARTMENT MAINTENANCE WORKER [address] [place] [phone] PCP - General Nurse Practitioner Family 01/06/23 documented as of this encounter
--- OUTSIDE RECORDS SUMMARY | 2024-11-01 07:40 | XMS_ITS | Continuity of Care Document ---
Author Organization [facility] Address [address] [place] [address] Phone Care Team Providers Care Recyclable Products Sorter Name Role Phone Murphy OD, Kendall Unavailable Unavailable Procedures Procedure Date Office/outpatient Visit, Est Eye Exam Established Pt Eye Exam & Treatment Refraction Advance Directives Directive Yes / No Effective Date File Name No Information Encounters Encounter Description Practice Location Reason(s) For Visit Diagnoses Date Provider Providers Copied on Encounter Office/outpat ient Visit, Est [facility], [id number] [place] [address] [address], [place], [place], [id number], tel:[phone] [facility] No Information Nov-0 4-201 0 Murphy OD Kendall. [address] , [address], [place], [place], [facility], . tel:[phone] [facility], [address] [place] [address] [address], [place], [place], [id number], [place] tel:[phone] [facility] No Information 4-201 0 Murphy OD Kendall. [address] , [address], [place], [place], [facility], [place]. tel:[phone] [facility], [address] [place] [address] [address], [place], [place], [id number], [place] tel:[phone] [facility] No Information Jul-2 7-201 0 Pate Emmanuelle. [address] , [address], [place], [address], [place]. tel:[phone] Family History Family Member Type Diagnosis Age At Onset No Information Payers Payer name Insurance type Covered green party ID Authormoise blunt(s) [place] [id number] Social History Type Description Quantity Date Captured Comments Sex Male Smoking Status No Information Chief Complaint And Reason For Visit No Information Reason For Referral Reason For Referral No Information History Of Present Illness Encounter Date Complaint History Of Prese nt Illness No Information Functional Status Date Functional Assessmen t No Information Instructions Date Instruction Additional Infor mation No Information Assessments Type Assessment Date No Information Patient Care Teams Name Effective Dates (start - stop) Status Members No Information
--- OUTSIDE RECORDS SUMMARY | 2024-11-01 07:40 | XMS_ITS | Clinical Summary ---
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 Gender Identity Not on file Sexual Orientation [...] 01/02/2022, 11/22/2021, Additional history exists Influenza Vaccine (Season Ended) 2024 02/18/2023, 02/16/2022, 12/23/2021, Additional history exists DTaP/Tdap/Td Vaccine (3 - Td or Tdap) 12/28/2029 12/29/2019, 02/15/2010 Pneumococcal vaccine 65+ Completed 017, 05/01/2016, 07/03/2012 Zoster Vaccine Completed 04/08/2019, 12/23, 06/05/2007 Insurance MEDICARE [facility] MEDICARE [employer] [facility] [facility] Care Teams Production Leader Relationship Specialty Start Date End Date Baldo Perera PA [address] [place] [address] PCP - General Physician Digital Manager 01/15/24
--- OUTSIDE RECORDS SUMMARY | 2024-11-01 07:40 | XMS_ITS | Clinical Summary ---
Author Organization [facility] Marie Nugent Address [address] [place] [address] Care Team Providers Care Lawn Specialist Name Role Phone Sonya Reid Primary Care [...] Encounters Date Type Department Care Team Description 10/08/2024 External Device Data [facility] ABSTRACTION Provider, Abstract 09/12/2024 External Device Data [facility] ABSTRACTION Provider, Abstract 09/10/2024 External Device Data [facility] ABSTRACTION Provider, Abstract 08/27/2024 External Device Data [facility] ABSTRACTION Provider, Abstract from Last 3 Months Family History Medical History Relation Name Comments Cancer Brother Cancer Father Shemar Lung Heart Disease Father Shemar Lung Cancer Father Shemar Cancer Mother [place] Colon Cancer Mother [place] Diabetes Mother [place] Heart Disease Mother [place] Hypertension Mother [place] Breast Cancer Sister 3 Liset Relation Name Status Comments Brother Daughter Alive Father Shemar Mother Diya Sister 1 Alive Sister 2 Alive Sister [...] Comments Blood Pressure 132/66 03/14/2024 10:16 AM COST ACCOUNTING ANALYST Pulse 74 03/14/2024 10:16 AM COST ACCOUNTING ANALYST Temperature 36.7 C (98 F) 03/14/2024 10:16 AM COST ACCOUNTING ANALYST Respiratory Rate 14 03/14/2024 10:16 AM COST ACCOUNTING ANALYST Oxygen Saturation 98% 03/14/2024 10:16 AM COST ACCOUNTING ANALYST Inhaled Oxygen Concentration - - Weight 83.5 kg (184 lb) 03/14/2024 10:16 AM COST ACCOUNTING ANALYST Height 177.8 cm (5' 10) 02/17/2022 10:57 AM CDT Body Mass Index 26.4 02/17/2022 10:57 AM CDT Plan of Treatment Upcoming Encounters Date Type Department Care Team (Late st Contact Info) Description 03/10/2025 10:15 AM COST ACCOUNTING ANALYST Office Visit [facility] Oncology and Hematology - Richard [address] [facility] [address] [place] [address] Noé Gill MD [address] [facility] [address] [place] [address] Health Maintenance Due Date Last Done Comments RSV VACCINE (60+ or ) (1 - 1-dose 75+ series) 2022 INFLUENZA VACCINE (#1) 2024 3, 02/16/2022, 02/11/2021, Additional history exists DTAP/TDAP/TD VACCINES (3 - T d or Tdap) 12/28/2029 12/29/2019, 02/15/2010 PNEUMOCOCCAL VACCINE 50+ YEARS Completed 0 06/01/2016, 05/01/2016, 07/03/2012 ZOSTER VACCINE Completed 04/08/2019, 12/23, 06/05/2007 COLORECTAL SCREENING Discontinued 05/04/2022, 05/03/2022, 05/15/2017, Additional history exists Colorectal Cancer Screening Discontinued FIT-DNA Q 3 years Discontinued FIT/FOBT Q 1 year Discontinued Flex Sig/CT Colonography Q 5 years Discontinued Insurance [facility] [id number] MEDICARE PART A AND B [facility] [id number] Care Teams Lawn Specialist Relationship Specialty Start Date End Date Sonya Reid FNP [address] [address] PCP - General Nurse Practitioner Family 10/04/19
--- OUTSIDE RECORDS SUMMARY | 2024-11-01 07:40 | XMS_ITS | Encounter Summary ---
Author Organization [facility] Address [address] [place] [address] Care Team Providers Care Geophysical E Logger Name Role Phone Sonya Reid BRENDON-IN HOME SALES REPRESENTATIVE Primary Care Provider Encounter Details Date Type Department Care Team (Late st Contact Info) Description 06/27/2024 Lab Requisition [facility] - DermPath Lab [address] [facility] [place] [address] Benita Ortiz DO [address] [facility] [facility] [address] [place] [address] Social History Tobacco Use Types Packs/Day Years Used Date Smoking Tobacco: Never Smokeless Tobacco: Never Sex and Gender Information Value Date Recorded Sex Assigned at Not on file Legal 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 Gender Identity Not on file Sexual Orientation Not on file documented as of this encounter Plan of Treatment Not on file documented as of this encounter Procedures Procedure Name Priority Date/Time Associated Diagnosis Comments DERMATOPATHOLOGY Routine 06/27/2024 1:15 PM ROTARY MACHINE OPERATOR documented in this encounter Results * DERMATOPATHOLOGY (06/27/2024 1:15 PM ROTARY MACHINE OPERATOR) Case Report Dermatopathology Report Case: [id number] Authorizing Provider: Benita Ortiz DO Collected: 06/27/2024 01:15 PM Ordering Location: [facility] - Received: 07/01/2024 08:03 AM DermPath Lab Pathologist: Remington Swann MD Specimen: Skin, right neck 1:41 PM CDT DERMATOPATHOLOGY LABORATORY Final Diagnosis Specimen A. SKIN, right neck: DERMAL SCAR RESIDUAL SQUAMOUS CELL CARCINOMA NOT IDENTIFIED (L90.5) 1:41 PM CDT DERMATOPATHOLOGY LABORATORY at 1341 CDT Clinical History BC Proven, R/O SCCIS, Pagetoid Type 1:41 PM CDT DERMATOPATHOLOGY LABORATORY Gross Description Specimen A: Received is one formalin filled container labeled with the patient's name and designated right neck. The specimen consists of a non-oriented ellipse of skin measuring [id number] mm. The epidermal surface is unremarkable. The [...] characteristic determined by the Dermatopathology Laboratory at [facility], directed by Dr. Abdirahman Swann. These tests need not be, and therefore are not, approved by the [place] Food and Drug Administration. The tests are used for clinical purposes. Billing Codes Specimen Charges Stain Charges 27813 1 1:41 PM CDT DERMATOPATHOLOGY LABORATORY Embedded Images 1:41 PM CDT DERMATOPATHOLOGY LABORATORY Pathology/Cytolo gy TISSUE SPECIMEN FROM SKIN / Unknown 06/27/2024 1:15 PM ROTARY MACHINE OPERATOR 07/01/2024 8:03 AM CDT us Benita Ortiz DO LAB - PATHOLOGY/CYTOLOGY ORDERABLES Final Result DERMATOPATHOLOGY LABORATORY [facility] - Department of Dermatology [facility] [address] [place] [address], [address] [phone] documented in this encounter Visit Diagnoses Not on filedocumented in this encounter Care Teams Geophysical E Logger Relationship Specialty Start Date End Date Sonya Reid APRN-IN HOME SALES REPRESENTATIVE [address] [place] [phone] PCP - General Nurse Practitioner Family 01/06/23 documented as of this encounter
--- OUTSIDE RECORDS SUMMARY | 2024-11-01 07:40 | XMS_ITS | Data Portability ---
Author Organization [place] [employer], Main Office Address [address] [place] [address] Care Team Providers Care Full Service Supervisor Name Role Phone NILSON KEARNEY Primary Care [...] he would like to go over to [facility] for spine surgery consultation. Talked about the [...] recorded. Lab BMP, serum or plasma 2023 [facility] (Lab), [address] [place], [address], 15:13:06 magnesium, serum or plasma 2023 [facility] (Lab), [address] [place], [address], 15:13:00 Referral orthopedic spine surgeon referral - please contact patient to schedule 2023 [facility] Referral Program, Formerly [facility] [place], [address], 09:14:22 physical therapist referral - please contact patient to schedule [address] [facility], [address], [place], [address], 12:02:23 Procedures None recorded. Surgeries None recorded. Imaging MRI, lumbar spine, w/o contrast - patient to schedule 2023 JERMAN Not available 13:20:21 Medication Orders alprazolam 0.5 mg tablet 2023 [facility] [address], [address], [place], [address], 15:10:23 mirtazapine 30 mg tablet 2023 [facility] [address], [address], [place], [address], 15:10:18 docusate sodium 100 mg capsule 2023 [facility] [address], [address], [place], [address], 17:46:49 polyethylen e glycol 3350 17 gram/dose oral powder 2023 [facility] [address], [address], [place], [address], 17:46:50 Trulance 3 mg tablet 2023 [facility] [address], [address], [place], [address], 17:52:54 buspirone 10 mg tablet 2023 [facility] [address], [address], [place], [address], 17:50:26 mirtazapine 30 mg tablet 2023 [facility], [address], [id number], 17:50:23 Lunesta 2 mg tablet 2023 [facility] [address], [address], [place], [address], 17:51:44 prednisone 10 mg tablets in a dose pack 2023 024 [email or web address] [facility], [address] [place], [address], 17:43:32 Patient TargetsNo targets recorded. Patient InstructionsNo [...] magnesium 2.0 mg/dL 1.6-2. 3 Not Available [facility] (Lab) [address] [place], [address], 02/15/2024 15:13:00 02/15/2002/15/2024 BASIC METAB OLIC PANEL sodium 131 mmol/ L 137-14 5 low Not Available [facility] (Lab) [address] [place], [address], 02/15/2024 15:13:06 02/15/2002/15/2024 BASIC METAB OLIC PANEL potassium 4.6 mmol/ L 3.5-5. 1 Not Available [facility] (Lab) [address] [place], [address], 02/15/2024 15:13:06 02/15/2002/15/2024 BASIC METAB OLIC PANEL chloride 98 mmol/ L 98-107 Not Available [facility] (Lab) [address] [place], [address], 02/15/2024 15:13:06 02/15/2002/15/2024 BASIC METAB OLIC PANEL carbon dioxide 29 mmol/ L 22-30 Not Available [facility] (Lab) [address] [place], [address], 02/15/2024 15:13:06 02/15/2002/15/2024 BASIC METAB OLIC PANEL anion gap 8.6 mmol/ L 14-22 low Not Available [facility] (Lab) [address] [place], [address], 02/15/2024 15:13:06 02/15/2002/15/2024 BASIC METAB OLIC PANEL glucose 101 mg/dL 70-99 high Not Available [facility] (Lab) [address] [place], [address], 02/15/2024 15:13:06 02/15/2002/15/2024 BASIC METAB OLIC PANEL BUN 7 mg/dL 8-19 low Not Available [facility] (Lab) [address] [place], [address], 02/15/2024 15:13:06 02/15/2002/15/2024 BASIC METAB OLIC PANEL creatinine 0.88 mg/dL 0.66-1 .25 Not Available [facility] (Lab) [address] [place], [address], 02/15/2024 15:13:06 02/15/2002/15/2024 BASIC METAB OLIC PANEL GFR >60 Refer ence Range : [place] ge GFR Healt hy Adult : >60 [...] calcu lator is avail able on the [facility] websi te: https ://ww w.kid chris.o rg/pr ofess ional s/kdo qi/gf r_cal culat or Not Available [facility] (Lab) [address] [place], [address], 02/15/2024 15:13:06 02/15/2002/15/2024 BASIC METAB OLIC PANEL calcium 10.1 mg/dL 8.4-10 .2 Not Available [facility] (Lab) [address] [place], [address], 02/15/2024 15:13:06 01/02/20 XR, knee, 3 view [facility] [address] [place] [address] Patien t Name: DEEPTHI MARTINEZ Access ion #: [id number] Sex: M : 1944 5 Dictat ed By: Michaelle cardoza Attend ing Physic shahram: WALI KEARNEY [facility] Physic shahram: WALI KEARNEY Exam Date: 2023 [...] at 2023 08:01: 49 AM Page 1 [email or web address] [facility] (Imaging) [address] [place], [address], 01/02/2024 11:32:12 01/02/20 24 XR, lumbo sacra l spine , 4 or more view [facility] [address] [place] [phone] Patien t Name: DEEPTHI MARTINEZ Access ion #: [id number] Sex: M : 1944 5 Dictat [...] ral body height s are mainta ined. Utilities Operator ior elemen ts are intact . No [...] at 2023 08:03: 54 AM Page 1 [facility] (Imaging) [address] [place], [address], 01/02/2024 11:32:13 01/11/20 24 MRI, lumba r spine , w/o contr ast [facility] [address] [place] [address] [phone] Patien t Name: DEEPTHI MARTINEZ Access ion #: [id number] Sex: M : 1944 3 Dictat [...] ral body height s are mainta ined. Utilities Operator ior elemen ts are intact . No [...] narrow ing. Mild disc bulge Page 1 [facility] [place] [address] [place] [address] Patien t Name: DEEPTHI MARTINEZ Access ion #: [id number] Sex: M : 1944 3 Dictat ed By: Michaelle Pacheco [facility] Physic shahram: KEZIA BHAKTA [facility] Physic shahram: YONY MAST Exam Date: 2023 [...] 2023 10:07: 22 AM Page 2 [email or web address] [facility] (Imaging) [address] [place], [address], 01/11/2024 13:44:05 Result Notes Documentation Provider Name and Address Organization Details Recorded Time Mri, Lumbar Spine, W/o Contrast : [facility] [address] [place] [address] Patient Name: AMY MARTINEZ Sex: M : 1945 Dictated By: Contreras Gandhi Attending Physician: YONY MAST Ordering Physician: YONY MAST Exam Date: 01/11/2024 09:06 AM Exam Name: MRI L SPINE WO Admitting Diagnosis(es): CLINICAL INFORMATION: 78 years old, Male; low back pain. TECHNIQUE: Multisequence multiplanar MRI images of the lumbar spine were obtained without contrast. COMPARISON: Radiographs dated 01/02/2024. INTERPRETATION: Minimal retrolisthesis of L2 on L3. Minimal retrolisthesis of L5 on S1. Vertebral body heights are maintained. Posterior elements are intact. No focal suspicious marrow signal abnormality. Visualized spinal cord and cauda equina are within normal limits. The conus medullaris is appropriate in signal at the L1 level. Mild fatty changes in the paraspinal musculature in the lumbosacral spine. Partially visualized 2 cm right renal cyst. L1-L2: Disc desiccation. No significant disc bulge or spinal canal stenosis. Facet hypertrophy with mild bilateral neural foraminal stenoses. L2-L3: Disc desiccation with moderate disc space narrowing and diffuse disc bulge causing severe spinal canal stenosis and effacement of the lateral recesses with concomitant infolding of the ligamentum flavum contributing to the spinal canal stenosis. Facet hypertrophy and encroachment of the neural foramina by the disc bulge contributing to severe bilateral neural foraminal stenoses. Severe crowding of the cauda equina due to the spinal canal stenosis. L3-L4: Disc desiccation with diffuse disc bulge causing moderate spinal canal stenosis and partial effacement of the lateral recesses. Facet hypertrophy and encroachment of the neural foramina by the disc bulge contributes to moderate to severe spinal canal stenosis. L4-L5: Disc desiccation with severe disc space narrowing. Mild disc bulge Page [address] [address] Patient Name: AMY MARTINEZ Sex: M : 1945 Dictated By: Contreras Gandhi Attending Physician: KEZIA BHAKTA Ordering Physician: YONY MAST Exam Date: 01/11/2024 09:06 AM Exam Name: MRI L SPINE WO Admitting Diagnosis(es): mildly indenting the ventral aspect of the thecal sac. Mild spinal canal stenosis. Partial effacement of the lateral recesses. Facet hypertrophy and encroachment of the neural foramina by the disc bulge contributes to severe bilateral neural foraminal stenoses. L5-S1: Disc desiccation with diffuse disc bulge mildly indenting the ventral aspect of the thecal sac. No significant spinal canal stenosis. Facet hypertrophy with moderate bilateral neural foraminal stenoses, right greater than left. IMPRESSION: 1. Degenerative disc disease and facet disease in the lumbar spine with associated spinal canal, subarticular, and neural foraminal stenoses as detailed above. 2. Minimal retrolisthesis of L2 on L3 and minimal retrolisthesis of L5 on S1. 3. Additional findings as detailed above. Page 2 KRISTI Scott, NAN[facility] - [employer] [facility] 01/11/2024 13:44:05 Problems Name Problem SNOMED Code Status Onset Date Resolution Date Notes Provider Name and Address Organization Details Recorded Time Mixed anxiety and depressive disorder 787532848 Active 2022 Not Available [facility] 3 11:41:48 Major depressive disorder 704395963 Active 2022 Not Available [facility] 3 11:41:48 Hypertensi ve disorder 26191047 Active 2023 Nilson Kearney MD [address], [place], [address] , [employer] 4 10:53:38 Gastroesop hageal reflux disease without esophagiti s 590840502 Active 2023 Nilson Kearney MD [address], [place], [address] , [employer] 4 10:53:45 Overweight 878793820 Active 2023 Nilson Kearney MD [address], [place], [address] , [employer] 4 10:54:01 History of radical prostatect alyssia 6040094864338 09 Active 2023 Nilson Kearney MD [address], [place], [address] , [employer] 4 11:07:18 Depressive disorder 87947541 Active 2023 Nilson Kearney MD [address], [place], [address] , [employer] 4 11:11:15 Vitamin B12 deficiency (non anemic) 44398548 Active 2023 Nilson Kearney MD [address], [place], [address] , [employer] 4 11:15:57 Nasal congestion 23947969 Active 2023 Nilson Kearney MD [address], [place], [address] , [employer] 4 10:34:01 Sore throat 251429285 Active 2023 Nilson Kearney MD [address], [place], [address] , [facility] 4 10:34:07 Cough 48102373 Active 2023 Nilson Kearney MD [address], [place], [address] , [facility] 4 10:34:13 Seasonal allergic rhinitis 666440786 Active 2023 Nilson Kearney MD [address], [place], [address] , [facility] 4 10:42:15 Lateral cervical lymphadeno chelsey 478733048 Active 2023 Nilson Kearney MD [address], [place], [address] , [facility] - [facility] 4 11:24:27 Chronic low back pain 765439011 Active 2023 Nilson Kearney MD [address], [place], [address] , [facility] 4 15:24:59 Pain of left knee joint 7325994704429 07 Active 2023 Nilson Kearney MD [address], [place], [address] , [facility] 4 15:26:04 Left side sciatica 0015258726639 04 Active 2023 Nilson Kearney MD [address], [place], [address] , [facility] - [facility] 4 15:27:20 Low back pain 414960499 Active 2023 Malena sampson, [place] [facility] 4 15:02:51 Lumbar radiculopa thy 314954352 Active 2023 ROSS Quevedo [address], [place], [address] , [employer] [facility] [employer] [facility] 4 15:15:06 Lumbar spondylosi s 163199187 Active 2023 ROSS Quevedo [address], [place], [address] , [place] [facility] [employer] [facility] 4 15:15:14 Chronic idiopathic constipati on 56196565 Active 2023 Nilson Kearney MD [address], [place], [address] , [employer] [facility] [employer] [facility] 4 17:43:46 Anxiety disorder 058169993 Active 2023 Nilson Kearney MD [address], [place], [address] , [employer] [facility] [employer] [facility] 4 17:49:15 Chronic insomnia 525471233 Active 2023 Nilson Kearney MD [address], [place], [address] , [employer] [facility] [employer] [facility] 4 17:50:36 Hypomagnes emia 413752347 Active 2023 Nilson Kearney MD [address], [place], [address] , [employer] [facility] [employer] [facility] 4 15:03:25 Isolated head tremor 185716783 Active 2023 Nilson Kearney MD [address], [place], [address] , [employer] [facility] [employer] 4 15:21:08 Nocturia 762728707 Active Not Available [facility] 3 11:41:48 History of prostatism 145228986 Active Not Available [facility] 3 11:41:48 Steatotic liver disease 291742330 Active 2016 Not Available [employer] 3 11:41:48 Abdominal pain 58801963 Active Not Available [facility] 3 11:41:48 Gastroesop hageal reflux disease 868423244 Active Not Available [facility] 3 11:41:48 Tight chest 71015149 Active 2016 Not Available [facility] 3 11:41:48 Rib pain 839832311 Active 2016 Not Available [facility] 3 11:41:48 Low back strain 995227232 Active 2016 Not Available [facility] 3 11:41:48 Left lower quadrant pain 297294282 Active Not Available [facility] 3 11:41:48 Vitamin D deficiency 44121116 Active Not Available [facility] 3 11:41:48 Sleep disorder 29023126 Active Not Available [facility] 3 11:41:48 Primary erectile dysfunctio n 983410795 Active 2017 Not Available [facility] 3 11:41:48 Anxiety 76214963 Active Not Available [facility] 3 11:41:48 Dysuria 55319695 Active Not Available [facility] 3 11:41:48 Hyperlipid emia 08761958 Active Not Available [facility] 3 11:41:48 Essential hypertensi on 56138797 Active Not Available [facility] 3 11:41:48 Diarrhea 48819517 Active Not Available [facility] 3 11:41:48 Pernicious anemia 23797477 Active Not Available [facility] 3 11:41:48 Fatigue 81278463 Active 2016 Not Available [facility] 3 11:41:48 History of pancreatit is 0958084822607 7 Active 2016 Not Available [facility] 3 11:41:48 Problem Notes None recorded. Procedures Surgical History Date Name Laterality Status Provider Name and Address Organization Details Recorded Time 3 colonoscopy completed Not Available [facility] 06/23/19 23 04:43:10 8 Colonoscopy completed Not Available [facility] 06/23/19 23 04:43:10 6 Prostatectomy completed Not Available [facility] 2022 04:43:10 3 colonoscopy completed Not Available [facility] 06/23/19 04:43:10 1 endoscopy completed Not Available [facility] 3 04:43:10 Imaging Results None recorded. Procedure Notes None recorded. Medical Equipment None Reported. Allergies Allergen ID Allergen Name Allergen Category Reaction Reaction Severity Criticality Documentation Date Start Date Code Code System Note Provider Name and Address Organization Details Recorded Time 97048 Substance with sulfonami de structure and antibacte rial mechanism of action (substanc e) medicatio n insomnia Not available Not available 01/09/2024 52554 8003 SNOMED Nitza Jackson, SPEED OPERATOR adrián, [place] - [employer] 4 14:44:52 7150 Bactrim medicatio n Not available Not available Not available 06/22/2022 18090 9 RxNorm insom francisco Not Available [facility] 3 04:56:37 Medications Name Sig Start Date [...] Updated DateTime 01/09/2024 177.8 cm 28.7 kg/m2 62579.47 g Nitza Aquinos [facility] 01/09/2024 14:44:18 Date Recorded Body height Body mass index (BMI) Body weight Provider Name and Address Organization Details Last Updated DateTime 01/15/2024 177.8 cm 28.7 kg/m2 45757.47 g Nitza Aquinos [facility] 01/15/2024 09:40:16 Date Recorded Body height Body mass index (BMI) Body weight Body temperature Heart rate Respiratory rate Oxygen saturation Oxygen saturation in Arterial blood by Pulse oximetry Systolic And Diastolic Provider Name and Address Organization Details Last Updated DateTime 4 177.8 cm 27.5 kg/m2 24957.5 8 g 98.6 [degF] 74 /min 20 /min 99 % 99 % 134/70 mm[Hg] Chauncey Bledsoe [facility] 17:41:19 Date Recorded Body height Body mass index (BMI) Body weight Body temperature Heart rate Respiratory rate Oxygen saturation Oxygen saturation in Arterial blood by Pulse oximetry Systolic And Diastolic Provider Name and Address Organization Details Last Updated DateTime 177.8 cm 27.7 kg/m2 30238.3 3 g 98.2 [degF] 78 /min 16 /min 99 % 99 % 118/70 mm[Hg] Chauncey [facility] 14:56:56 Social History Question Answer Notes LastModified by Organizat ion Details LastModified Time Tobacco Smoking Status Never Smoker Maggie sampson, [facility] 04/05/2023 10:51:53 Do You Have An Advance Directive? Yes [email or web address] Information not available 10/06/2022 Are You Blind Or Do You Have Difficulty Seeing? No Information not available 04/05/2023 Is Blood Transfusion Acceptable In An Emergency? Yes Information not available 04/05/2023 What Is Your Level Of Caffeine Consumption? Moderate [id number] Information not available 06/22/2022 How Much Tobacco Do You Chew? None [id number] Information not available 06/22/2022 What Is Your Code Status? Full Code Information not available 04/05/2023 In The 14 Days Before Symptom Onset, Have You Had Close Contact With A Laboratory-confir med COVID-19 While That Case Was Ill? No [...] Type Of Diet Are You Following? REGULAR [id number] Information not available 06/22/2022 Which Illicit Or Recreational Drugs Have You Used? None Information not available 04/05/2023 Have There Been Any Changes To Your Family Or Social Situation? No Information no t available 04/05/2023 Do You Use Insect Repellent Routinely? Yes Information not available 04/05/2023 Where Do You Live? [facility] Information not available 04/05/2023 Do You Have A Medical Power Of Data Center Architect? Yes Information not available 04/05/2023 Have You Ever Been Counseled For Unhealthy Alcohol Use? No Information not available 04/05/2023 Do You Have Any Pets? No Information not available 04/05/2023 What Is Your Relationship Status? [id number] Information not available 06/22/2022 Do You Use Your Seat Belt Or Car Seat Routinely? Yes Information not available 04/05/2023 Do You Have Smoke And Carbon Monoxide Detectors In Your Home? Yes Information not available 04/05/2023 Are You Passively Exposed To Smoke? No Information no t available 04/05/2023 Are There Any Smokers In Your House? No Information not available 04/05/2023 Do You Participate In Social Media? No Information not available 04/05/2023 Do You Use Sunscreen Routinely? Yes Information not available 04/05/2023 Have You Recently Traveled Abroad? No Information not available 04/05/2023 Do You Have Difficulty Walking Or Climbing Stairs? No Information not available 04/05/2023 Do You Have Any Dietary Restrictions? No Information not available 04/05/2023 Sex: Unknown Functional Status Question Answer Note LastModified by Organizat ion Details LastModified Time Do you use any illicit or recreational drugs? No Information not available 04/05/2023 What is your level of alcohol consumption? Occasional [id number] Information not available 06/22/2022 Are you currently employed? No Information not available 04/05/2023 Do you have transportation difficulties? No Information not available 04/05/2023 Are you able to walk? [employer]WOREST Information not available 04/05/2023 Do you have difficulty doing errands alone? No Information not available 04/05/2023 Are you able to care for yourself? No Information n ot available 04/05/2023 What is your occupation? RETIRED Information not available 04/05/2023 Do you have difficulty dressing or bathing? No Information not available 04/05/2023 Do you or have you ever used e-cigarettes or vape? Never used electronic cigarettes Information not available 04/05/2023 What is your exercise level? Moderate [id number] Information not available 06/22/2022 Mental Status Question Answer Note LastModified by Organizat ion Details LastModified Time Do you feel stressed (tense, restless, nervous, or anxious, or unable to sleep at night)? [id number] Information not available 04/05/2023 Do you have difficulty concentrating, remembering or making decisions? No Information no t available 04/05/2023 Family History Relationship Description Onset Age of this Age Resolved Age Notes LastModified by Organization Details LastModified Time Father Malignant neoplasm of lung [email or web address] Not available 2023 09:38:40 [...] YOU BEEN HOSPITALIZED [facility] IN [facility] IN THE PAST YEAR ? [...] 0.5 mL, PF 3 completed KAREL Wilson, [facility] 04/05/2023 10:55:58 SARS-COV-2 (COVID-19) vaccine, UNSPECIFIED 2 [facility] 04/05/2023 10:55:58 SARS-COV-2 (COVID-19) vaccine, UNSPECIFIED 1 [facility] 04/05/2023 10:55:58 COVID-19, mRNA, LNP-S, PF, 100 mcg/0.5mL dose or 50 mcg/0.25mL dose 1 completed KAREL Wilson, [facility] 04/05/2023 10:55:58 COVID-19, mRNA, LNP-S, PF, 100 mcg/0.5mL dose or 50 mcg/0.25mL dose 1 completed KAREL Wilson, [facility] 04/05/2023 10:55:58 zoster live 9 [facility] 04/05/2023 10:55:58 zoster live 9 completed Sonya Rodriguez RN null, [facility] 04/05/2023 10:55:58 Pneumococcal conjugate PCV 13 7 completed Sonya Rodriguez RN null, [facility] 04/05/2023 10:55:58 influenza, unspecified formulation 2 completed Sonya Rodriguez RN null, [facility] 04/05/2023 10:55:58 SARS-COV-2 (COVID-19) vaccine, UNSPECIFIED 2 completed Sonya Rodriguez RN null, [facility] 04/05/2023 10:55:58 Influenza, high-dose, quadrivalent, PF 1 completed Sonya Rodriguez RN null, [facility] 04/05/2023 10:55:58 Tdap 0 completed Sonya Rodriguez RN null, [facility] 04/05/2023 10:55:58 pneumococcal polysaccharide PPV23 3 completed Sonya Rodriguze RN null, [facility] 04/05/2023 10:55:58 Tdap 0 completed Sonya Rodriguez RN null, [facility] 04/05/2023 10:55:58 zoster live 8 completed Sonya Rodriguez RN null, [facility] 04/05/2023 10:55:58 Past Encounters Encounter ID Performer Location Encounter Start Date Encounter Closed Date Diagnosis/Indication Diagnosis SNOMED-CT Code Diagnosis ICD10 Code Diagnosis Note [id number] [facility] [address] [place] [phone] 10/07/2020 00:00:00 10/07/2020 11:14:38 [id number] Nilson Kearney MD [facility] [address] [place] [id number] 1 04/07/2021 00:00:00 04/07/2021 11:23:45 [id number] Nilson Kearney MD [address] [phone] 10/06/2021 00:00:00 10/06/2021 11:45:47 [id number] Nilson Kearney MD [address] [address] 04/06/2022 00:00:00 04/06/2022 11:26:25 [id number] Sonya Reid NP [address] [address] 10/06/2022 10:51:42 10/06/2022 11:42:46 Essential hypertension 07482525 I10 Amlodipine 2.5 mg po daily.Symone nopril 20 mg- hctz 12.5 mg po bid Hyperlipidemia 84149851 E78.5 Low fat diet. Vitamin D deficiency 347 65078 E55.9 Vit d 1,000 IU po daily. Gastroesop hageal reflux disease 092105099 K21.9 Omeprazole 20 mg po daily. Mixed anxi ety and depressive disorder 710430846 F41.8 Mirtazapin e 15 mg 1/2 tab po nightly.Dr Colton Gonzalez left practice.P t to watch weight and stay rested. Nocturia 567706337 R35.[address] Gill in May 2022. Pt states ok. Major depr essive disorder 572576359 F32.9 Mirtazapin e 15 mg, 1/2 tab po daily.Dr. Gonzalez left practice.P t to watch weight and stay rested. [id number] Sonya Reid NP [facility]_[address] [address] 04/05/2023 10:50:18 04/05/2023 11:39:22 Hyperlipidemia 33321530 E78.5 Low fat diet. Essential hypertension 76600471 I10 Amlodipine 2.5 mg po daily. Incraese to 5 mg po nightly and call in 5 days with bp readings.L isinopril 20 mg- hctz 12.5 mg po bid Vitamin D deficiency 347 03073 E55.9 Vit d 1,000 IU po daily. Gastroesop hageal reflux disease 405118728 K21.9 Omeprazole 20 mg po daily. Anxiety 18946289 F41.9 Stable. Mixed anxi ety and depressive disorder 881194830 F41.8 Mirtazapin e 15 mg 1/2 tab po nightly.Dr Colton Gonzalez left practice. [facility] office took over.Pt to watch weight and stay rested. Nocturia 961946065 R35.[address] Gill in May 2022. Pt states ok. Major depr essive disorder 567762942 F32.9 Mirtazapin e 15 mg, 1/2 tab po daily.Dr. Gonzalez left practice.P t to watch weight and stay rested. [id number] Nilson Kearney MD [address] [address] 10/11/2023 10:47:53 10/11/2023 11:46:16 Hypertensive disorder 33139554 I10 Gastroesop hageal reflux disease without esophagitis 911398033 K21.9 Vitamin D deficiency 347 85773 E55.9 Overweight 642189020 E66 .3 History of radical prostatectomy 0240769091 67064 Z90.79 2016 Depressive disorder 3548 9007 F32.A Vitamin B1 2 deficiency (non anemic) 21685501 E53.8 Hyperlipidemia 09234764 E78.5 [id number] Nilson Kearney MD [address] [address] 11/20/2023 10:25:15 11/20/2023 11:26:52 Nasal congestion 92845552 R09.81 Sore throat 201701221 J0 2.9 Seasonal a llergic rhinitis 575986157 J30.2 Lateral ce rvical lymphadenopathy 501600346 R59.0 Lt - 1 [id number] Nilson Kearney MD [address] [address] 01/01/2024 15:10:20 01/01/2024 15:42:43 Chronic low back pain 262601761 M54.50 Pain of le ft knee joint 1122393753 37659 M25.562 Left side sciatica 27399 13448 82149 M54.32 Overweight 554389279 E66 .3 [id number] Nino Pro MD [facility] [address] [place] [address] 01/09/2024 14:39:41 01/09/2024 16:18:09 Low back pain 535423781 M54.50 Lumbar radiculopathy 128 922468 M54.16 Lumbar spondylosis 03224 0009 M47.740 [id number] Nino Pro MD [facility] [place] [address] [place] [address] 01/15/2024 09:37:34 01/15/2024 10:40:15 Lumbar radiculopathy 456555622 M54.16 Lumbar spondylosis 59589 0009 M47.896 Low back pain 244389061 M54.50 [id number] Nilson Kearney MD [place] [address] 1 01/30/2024 17:25:24 01/30/2024 17:57:04 Chronic idiopathic constipation 45113745 K59.04 Depressive disorder 3548 9007 F32.A Anxiety disorder 7411216 06 F41.9 Chronic insomnia 2612793 04 F51.04 [id number] Nilson Kearney MD [place] [address] 1 02/14/2024 14:45:22 02/14/2024 15:24:03 Anxiety disorder 451469084 F41.9 Chronic id iopathic constipation 18566932 K59.04 Advised pt to f/u with his GI about this too. Depressive disorder 5438 9007 F32.A Gastroesop hageal reflux disease without esophagitis 268979576 K21.9 Advised pt to f/u with his GI about this too. 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 [id number] Nilson Kearney MD [facility] [address] [place] [address] 02/15/2024 09:17:55 02/15/2024 14:06:20 Health Concerns Section Related Observation LastModified by Organization Selvin claudio LastModified Time None Recorded Concern Status LastModified by Organization Details LastModified Time None Recorded Advance Directives Directive Y: Payers Insurance Date Sequence Insurance Name Policy Number Policy Lozano Covered Member ID Lozano Member ID Guarantor Name 01/30/2024 1 [place] Amy Tellez Martinez [id number] Amy Rosalinda Abimael 02/22/2024 2 AARP (MEDICARE SUPPLEMENT) Amy Tellez Abimael [id number] Amy Tellez Abimael Notes Date Note Type Note Provider Name [...] today with the patient. ROSS Quevedo [address], [place], [address], [facility] [employer] 01/09/2024 15:15:48 01/15/2024 text/html Patient returns for [...] in today for recheck. ROSS Quevedo [address], [place], [address], [facility] [employer] 01/15/2024 10:14:21 01/30/2024 text/html ACV: C/o constipation [...] any mood swings/SI/HI. Nilson Kearney MD [address] [facility], [facility] [address], [place], [address], [facility] [employer] 01/30/2024 18:05:01 02/14/2024 text/html ACV: C/o facial [...] pt. Nilson Kearney MD [address], [facility] [address], [place], [address], [facility] [employer] 02/14/2024 15:22:14
--- OUTSIDE RECORDS SUMMARY | 2024-11-01 07:40 | XMS_ITS | Data Portability ---
Author Organization [facility] Address [address] [place] [address] Assessment No assessment recorded. Plan of Treatment [...] or 50 mcg/0.25mL dose 05/28/2020 completed MARGARET Balbuena [facility], [facility] 05/28/2020 16:10:53 COVID-19, mRNA, LNP-S, PF, 100 mcg/0.5mL dose or 50 mcg/0.25mL dose 06/25/2020 completed Janeen Osborn MA [facility], [facility] 06/25/2020 13:20:39 Past Encounters Encounter ID Performer Location Encounter Start Date Encounter Closed Date Diagnosis/Indication Diagnosis SNOMED-CT Code Diagnosis ICD10 Code Diagnosis Note [id number] MD Tejas López 14 IM [address] [facility] [place] [address] 05/28/2020 12:54:50 05/29/2020 06:10:51 Administration of SARS-CoV-2 antigen vaccine 684307748 Z23 [id number] MD Tejas López 14 IM [address] [facility] [place] [address] 06/25/2020 12:06:15 06/26/2020 07:27:52 Administration of SARS-CoV-2 antigen vaccine 608000044 Z23 Health Concerns Section Related Observation LastModified by Organization Selvin claudio LastModified Time None Recorded Concern Status LastModified by Organization Details LastModified Time None Recorded Advance Directives Directive None Recorded Payers Insurance Date Sequence Insurance Name Policy Number Policy Lozano Covered Member ID Lozano Member ID Guarantor Name 09/20/2023 [place] [facility] Ryan Varghese [id number] Ryan Varghese 09/20/2023 2 AARP (MEDICARE SUPPLEMENT) Ryan Varghese [id number] Ryan Varghese 09/20/2023 1 [place] Ryan Varghese [id number] Ryan Varghese
--- OUTSIDE RECORDS SUMMARY | 2024-11-01 07:40 | XMS_ITS ---
Author Organization [facility] Address [address] [place] [address] Care Team Providers Care Qa Auditor Name Role Phone Baldo Perera Primary Care Provider [phone] Active Problems Problem Noted Date Diagnosed Date [...] prostate 07/29/2015 Overview (08/03/2017): Description: s/p RRP 09/07/2015------[place] 4+3, (-) margins, T2c Prostate cancer 07/29/2015 [...]
--- OUTSIDE RECORDS SUMMARY | 2024-11-01 07:40 | XMS_ITS | Clinical Summary ---
Author Organization [facility] Address [address] [place] [address] Care Team Providers Care Barn Hand Name Role Phone Sonya Reid Kevin OLIVAS-ROAD ENGINEER FREIGHT Primary Care Provider Source Comments [facility],non-owned Affiliates and Associated Physician Practices is amultiple site organization consisting of ambulatory clinics and hospital sitesin [place], [place]. This disclosure is being madepursuant to the Care Everywhere program and may not contain all information available regarding this patient. Last updated 18.[facility] Allergies Active Allergy Reactions Criticality Noted Date Comments Bactrim Ds Other 01/06/2023 Muscle twitching and insomnia Sulfacetamide Other 01/06/2023 Muscles twitch and insomnia Medications * Be aware that medications may not be up to date on this document. Alwaysverify current medications with the patient. lisinopril-hydr oCHLOROthiazide (Prinzide; Zestoretic) 20-12.5 MG tablet Take 1 tablet twice a day by oral route. Active mirtazapine (Remeron) 15 MG tablet Take 0.5 tablets every day by oral route. 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 - Received: 10/01/2024 06:46 AM DermPath Lab Pathologist: Sudha Valadez MD Specimen: Skin, left calf 11:19 AM CDT DERMATOPATHOLOGY LABORATORY Final Diagnosis Specimen A. SKIN, left calf: BASAL CELL CARCINOMA, NODULAR TYPE (C44.719) 11:19 AM CDT DERMATOPATHOLOGY LABORATORY at 1119 CDT Clinical History SCC vs AK vs Other; Irritated 11:19 AM CDT DERMATOPATHOLOGY LABORATORY Gross Description Specimen A: Received is one formalin filled container labeled with the patient's name and designated left calf. The specimen consists of a shave biopsy measuring 9x7x2 mm. Jar 0. 11:19 AM CDT DERMATOPATHOLOGY LABORATORY Microscopic Description Specimen A. SKIN, left calf: Within the dermis there are aggregates of basaloid cells with a high nuclear to cytoplasmic ratio and peripheral palisading. 11:19 AM CDT DERMATOPATHOLOGY LABORATORY Disclaimer An external and internal positive and negative controls are appropriate for the histochemical, immunohistochemical and immunofluorescence stain(s) in this case (if any), except where stated explicitly. The performance characteristics of the stain(s) cited in this report were developed and its performance characteristic determined by the Dermatopathology Laboratory at [facility], directed by Dr. Abdirahman Swann. These tests need not be, and therefore are not, approved by the [place] Food and Drug Administration. The tests are used for clinical purposes. Billing Codes Specimen Charges Stain Charges 78532 1 11:19 AM CDT DERMATOPATHOLOGY LABORATORY Embedded Images 11:19 AM CDT DERMATOPATHOLOGY LABORATORY Pathology/Cytolo gy TISSUE SPECIMEN FROM SKIN / Unknown 09/30/2024 9:46 AM CDT 10/01/2024 6:46 AM CDT us Marilyn Nicolas MD LAB - PATHOLOGY/CYTOLOGY OR DERABLES Final Result DERMATOPATHOLOGY LABORATORY [facility] - Department of Dermatology [address] [place] [address], [facility] [phone] from Last 3 Months Insurance MEDICARE MEDICARE [facility] SELF PAY NO INSURANCE Member Subscriber Plan / Payer (Ef fective for All Dates) Name:Ryan Varghese Member ID:Not on file Relation to Subscriber:Not on file Name:RYAN VARGHESE Subscriber ID:Not on file (Home) Address: [address] [place] [address] Payer ID:Not on file Group ID:Not on file Type:Self Pay Address: [place], [place] Care Teams Barn Hand Relationship Specialty Start Date End Date Sonya Reid APRN-RICCARDO [address] [place] [address] PCP - General Nurse Practitioner Family 01/06/23
--- OUTSIDE RECORDS SUMMARY | 2024-11-01 07:40 | XMS_ITS | Encounter Summary ---
Author Organization [facility] Address [address] [place] [address] Care Team Providers Care General Surgeon Name Role Phone Sonya Reid BUSINESS PERFORMANCE ADVISOR-BLENDING SUPERVISOR Primary Care Provider Encounter Details Date Type Department Care Team (Late st Contact Info) Description 05/21/2024 Lab Requisition [facility] - DermPath Lab [address] [facility] [place] [address] Marilyn Nicolas MD [address] [facility] [address] [place] [address] Social History Tobacco Use Types Packs/Day Years Used Date Smoking Tobacco: Never Smokeless Tobacco: Never Sex and Gender Information Value Date Recorded Sex Assigned at Not on file 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 Gender Identity Not on file Sexual Orientation Not on file documented as of this encounter Plan of Treatment Not on file documented as of this encounter Procedures Procedure Name Priority Date/Time Associated Diagnosis Comments DERMATOPATHOLOGY Routine 05/21/2024 2:33 PM FLEET MECHANIC documented in this encounter Results * DERMATOPATHOLOGY (05/21/2024 2:33 PM FLEET MECHANIC) Case Report Dermatopathology Report Case: [id number] Authorizing Provider: Marilyn Nicolas MD Collected: 05/21/2024 02:33 PM Ordering Location: [facility] Physician [facility] - Received: 05/22/2024 01:03 PM DermPath Lab Pathologist: Deisi Braxton MD Specimens: A) - Skin, right inf cheek B) - Skin, right neck 3:57 PM [facility] DERMATOPATHOLOGY LABORATORY Final Diagnosis Specimen A. SKIN, right inf cheek: HYPERPLASTIC (HYPERTROPHIC) ACTINIC KERATOSIS, ERODED; EXTENDING TO THE BASE OF THE SPECIMEN (L57.0) (see microscopic description and comment) Specimen B. SKIN, right neck: SQUAMOUS CELL CARCINOMA IN-SITU, PAGETOID TYPE; PRESENT AT THE BASE OF THE SPECIMEN (D04.4) (see microscopic description and comment) 3:57 PM [facility] DERMATOPATHOLOGY LABORATORY at [address] [facility] Clinical History A: R/O BCC B: R/O NMSC 3:57 PM [facility] DERMATOPATHOLOGY LABORATORY Gross Description Specimen A: Received [...] measuring 7x5x1 mm. Jar 0. 3:57 PM [facility] DERMATOPATHOLOGY LABORATORY Microscopic Description Specimen A. SKIN, [...] carcinoma cannot be ruled out. 3:57 PM [facility] DERMATOPATHOLOGY LABORATORY Disclaimer An external and internal positive and negative controls are appropriate for the histochemical, immunohistochemical and immunofluorescence stain(s) in this case (if any), except where stated explicitly. The performance characteristics of the stain(s) cited in this report were developed and its performance characteristic determined by the Dermatopathology Laboratory at [facility], directed by Dr. Abdirahman Swann. These tests need not be, and therefore are not, approved by the [place] Food and Drug Administration. The tests are used for clinical purposes. Billing Codes Specimen Charges Stain Charges 60968 57074 1 1 35118 20661 1 1 5 3:57 PM FLEET MECHANIC DERMATOPATHOLOGY LABORATORY Embedded Images 3:57 PM FLEET MECHANIC DERMATOPATHOLOGY LABORATORY Pathology/Cytology TISSUE SPECIMEN FROM SKIN / Unknown 05/21/2024 2:33 PM FLEET MECHANIC 05/22/2024 1:03 PM FLEET MECHANIC Miscellaneous samples (specimen) TISSUE SPECIMEN FROM SKIN / Unknown 05/21/2024 2:33 PM FLEET MECHANIC 05/22/2024 1:03 PM FLEET MECHANIC Marilyn Nicolas MD LAB - PATHOLOGY/CYTOLOGY OR DERABLES Final Result DERMATOPATHOLOGY LABORATORY [facility] - Department of Dermatology [facility] Medicine [address] [place] [address], [address] [phone] documented in this encounter Visit Diagnoses Not on filedocumented in this encounter Care Teams General Surgeon Relationship Specialty Start Date End Date Sonya Reid APRN-BLENDING SUPERVISOR [address] [place] [address] PCP - General Nurse Practitioner Family 01/06/23 documented as of this encounter
--- OUTSIDE RECORDS SUMMARY | 2024-11-01 07:40 | XMS_ITS | Encounter Summary ---
Author Organization [facility] Address [address] [place] [address] Care Team Providers Care Compensation And Benefits Manager Name Role Phone Sonya Reid CORPORATE OFFICER-WIND ENERGY MECHANIC Primary Care Provider Encounter Details Date Type Department Care Team (Late st Contact Info) Description 09/30/2024 Lab Requisition [facility] - DermPath Lab [address] 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 Gender Identity Not on file Sexual Orientation Not on file documented as of this encounter Plan of Treatment Not on file documented as of this encounter Procedures Procedure Name Priority Date/Time Associated Diagnosis Comments DERMATOPATHOLOGY Routine 09/30/2024 9:46 AM CDT documented in this encounter Results * DERMATOPATHOLOGY (09/30/2024 9:46 AM CDT) Case Report Dermatopathology Report Case: [id number] Authorizing Provider: Marilyn Nicolas MD Collected: 09/30/2024 09:46 AM Ordering Location: [facility] Physician [facility] - Received: 10/01/2024 06:46 AM DermPath Lab Pathologist: Sudha Valadez MD Specimen: Skin, left calf 06/11/202 5 11:19 AM CDT DERMATOPATHOLOGY LABORATORY Final Diagnosis Specimen A. SKIN, left calf: BASAL CELL CARCINOMA, NODULAR TYPE (C44.719) 5 11:19 AM CDT DERMATOPATHOLOGY LABORATORY at 1119 [...] characteristic determined by the Dermatopathology Laboratory at [facility], directed by Dr. Abdirahman Swann. These tests need not be, and therefore are not, approved by the [place] Food and Drug Administration. The tests are used for clinical purposes. Billing Codes Specimen Charges Stain Charges 70530 1 11:19 AM CDT DERMATOPATHOLOGY LABORATORY Embedded Images 11:19 AM CDT DERMATOPATHOLOGY LABORATORY Pathology/Cytolo gy TISSUE SPECIMEN FROM SKIN / Unknown 09/30/2024 9:46 AM CDT 10/01/2024 6:46 AM CDT us Marilyn Nicolas MD LAB - PATHOLOGY/CYTOLOGY OR DERABLES Final Result DERMATOPATHOLOGY LABORATORY [facility] - Department of Dermatology [address] [phone] documented in this encounter Visit Diagnoses Not on filedocumented in this encounter Care Teams Compensation And Benefits Manager Relationship Specialty Start Date End Date Sonya Reid, CORPORATE OFFICER-WIND ENERGY MECHANIC [address] [place] [address] PCP - General Nurse Practitioner Family 01/06/23 documented as of this encounter
--- OUTSIDE RECORDS SUMMARY | 2024-11-01 07:40 | XMS_ITS | Encounter Summary ---
Author Organization [facility] Address [address] [place] [address] Care Team Providers Care Environmental Safety Specialist Name Role Phone Sonya Reid AUTO HAULER-PHARMACOEPIDEMIOLOGIST Primary Care Provider Encounter Details Date Type Department Care Team (Late st Contact Info) Description 07/15/2024 Lab Requisition [facility] - DermPath Lab [address] [place] [address] Marilyn Nicolas MD [address] [place] [address] Social History Tobacco Use Types Packs/Day Years Used Date Smoking Tobacco: Never Smokeless Tobacco: Never Sex and Gender Information Value Date Recorded Sex Assigned at Not on file 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 Gender Identity Not on file Sexual Orientation Not on file documented as of this encounter Plan of Treatment Not on file documented as of this encounter Procedures Procedure Name Priority Date/Time Associated Diagnosis Comments DERMATOPATHOLOGY Routine 07/15/2024 9:16 AM CDT documented in this encounter Results * DERMATOPATHOLOGY (07/15/2024 9:16 AM CDT) Case Report Dermatopathology Report Case: [id number] Authorizing Provider: Marilyn Nicolas MD Collected: 07/15/2024 09:16 AM Ordering Location: [facility] - Received: 07/17/2024 07:13 AM DermPath Lab Pathologist: Remington Swann MD Specimen: Skin, right mid quick 12:58 PM CDT DERMATOPATHOLOGY LABORATORY Final Diagnosis Specimen A. SKIN, right mid quick: INFILTRATIVE BASAL CELL CARCINOMA, KERATOTIC TYPE (C44.712) ULCER WITH SUPERFICIAL DERMAL NECROSIS (L98.499) 12:58 PM CDT DERMATOPATHOLOGY LABORATORY at 1257 CDT Clinical History R/O NMSC 12:58 PM CDT DERMATOPATHOLOGY LABORATORY Gross Description Specimen A: Received is one formalin filled container labeled with the patient's name and designated right mid quick. The specimen consists of a shave biopsy measuring 11x9x2 mm. Jar 0. 12:58 PM CDT DERMATOPATHOLOGY LABORATORY Microscopic Description Specimen A. SKIN, right mid quick: The dermis is infiltrated by nests of basaloid cells that show peripheral palisading and are associated with fibromyxoid stroma. Both mitotic figures and necrotic cells are identified. There are also areas with squamous differentiation and keratinization within the nests. The nests are highlighted by pancytokeratin and P63. STACY-EP4 highlights only nests at the periphery. There is an ulcer, beneath which there are vascular proliferation, fibroblasts, and an edematous stroma. 12:58 PM CDT DERMATOPATHOLOGY LABORATORY Disclaimer An external and internal positive and negative controls are appropriate for the histochemical, immunohistochemical and immunofluorescence stain(s) in this case (if any), except where stated explicitly. The performance characteristics of the stain(s) cited in this report were developed and its performance characteristic determined by the Dermatopathology Laboratory at [facility], directed by Dr. Abdirahman Swann. These tests need not be, and therefore are not, approved by the [place] Food and Drug Administration. The tests are used for clinical purposes. Billing Codes Specimen Charges Stain Charges 72174 1 81024 10990 24151 1 1 1 12:58 PM CDT DERMATOPATHOLOGY LABORATORY Embedded Images 12:58 PM CDT DERMATOPATHOLOGY LABORATORY Pathology/Cytolo gy TISSUE SPECIMEN FROM SKIN / Unknown 07/15/2024 9:16 AM CDT 07/17/2024 7:13 AM CDT us Marilyn Nicolas MD LAB - PATHOLOGY/CYTOLOGY OR DERABLES Final Result DERMATOPATHOLOGY LABORATORY [facility] - Department of Dermatology [facility] [address] [place] [address], [address] [phone] documented in this encounter Visit Diagnoses Not on filedocumented in this encounter Care Teams Environmental Safety Specialist Relationship Specialty Start Date End Date Sonya Reid, AUTO HAULER-PHARMACOEPIDEMIOLOGIST [address] [place] [phone] PCP - General Nurse Practitioner Family 01/06/23 documented as of this encounter
--- OUTSIDE RECORDS SUMMARY | 2024-11-01 07:40 | XMS_ITS | Patient Health Record ---
Author Organization [facility] Address [address] [facility] [address] [place] [address] Care Team Providers Care Weight Shifter Name Role Phone Grabiel Varma MD Primary Care Provider Gracy Sarmiento Unavailable [phone] Allergies Allergen (clinical drug ingredient) Drug/Non Drug [...] Oxazepam (BZO) NEG 0 - 300 ng/ml 6-lfnwcfkoyi-4,9-lqvnphtr-1,3-diphenylpyrrolidine (JOHNNIE P) NEG 0 - 300 ng/ml Methamphetamine (MET) NEG 0 - 1000 ng/ml Methylenedioxymethamphetamine (MDMA) NEG 0 - 500 ng/ml Morphine (MOP 300/ANJ3832) NEG 0 - 300 ng/ml Methadone (MTD) NEG 0 - 300 ng/ml Phencyclidine (PCP) NEG 0 - 25 ng/ml Nortriptyline (TCA) NEG 0 - 1000 ng/ml Oxycodone NEG 0 - 300 ng/ml x NEG 0 - 300 ng/ml Reason For Referral No Information Medications Medication SIG (Take, Route, Frequency, Duration) Notes Start Date End Date Status amLODIPine Besylate 10 MG 1 tablet Orally Once a day Active Melatonin 5 MG 1 tablet in the even ing Orally Once a day Active Vitamin B Complex Ac tive Vitamin E Active ALPRAZolam 0.25 MG 1 tablet Oral three times a day; Duration: 30 days As needed 04/26/2024 Active Omeprazole 20 MG 1 capsule 1/2 to 1 h our before morning meal Orally Once a day Active Lunesta 1 MG 1 tablet immediately before bedtime Orally Once a day Active Linzess 145 MCG Oral; Duration: 90 Days Active Fiber suplement Active Mirtazapine 15 MG 0.5 tablet bedtime O ral Once a day; Duration: 90 days Active Stool Softener Activ e MiraLax 17 GM/SCOOP 1 scoop mixed with 8 ounces of fluid Orally Once a day Active Social History [...] Problem Status W/U Status Risk Notes Problem Primary insomnia (3941739) Primary insomnia (F51.01) Active confirmed Problem Screening for cardiovascular system disease (621424118) Encounter for screening for cardiovascular disorders (Z13.6) Active confirmed Problem Depression Screening (713727086) Encounter for screening for depression (Z13.31) Active confirmed Problem Generalized anxiety disorder (33981857) JORDAN (generalized anxiety disorder) (F41.1) Active confirmed Problem MDD (major depressive disorder), recurrent episode, mild (F33.0) Active confirmed Vital Signs Heart Rate 69 /min 10/01/2024 Respiratory Rate 16 /min 10/01/2024 Height-cm 177.8 cm 10/01/2024 Blood pressure diastolic 78 mm Hg 10/01/2024 Weight-kg 86.27 kg 10/01/2024 Height 70 in 10/01/2024 Blood pressure systolic 122 mm Hg 10/01/2024 Weight 190.2 lbs 10/01/2024 BMI 27.29 kg/m2 10/01/2024 Encounters Encounter [facility] Date [facility] [address] [address] 02/23/2024 Gracy Thery MDD (major depressiv e disorder), recurrent episode, mild F33.0 ; JORDAN (generalized anxiety disorder) F41.1 and Primary insomnia F51.[address] [address] 03/15/2024 Gracy Thery MDD (major depressiv e disorder), recurrent episode, mild F33.0 ; JORDAN (generalized anxiety disorder) F41.1 and Primary insomnia F51.[address] [address] 04/26/2024 Gracy Thery MDD (major depressiv e disorder), recurrent episode, mild F33.0 ; JORDAN (generalized anxiety disorder) F41.1 and Primary insomnia F51.[address] [address] 07/01/2024 Gracy Thery Encounter for screen ing for depression Z13.31 ; Encounter for screening for cardiovascular disorders Z13.6 ; MDD (major depressive disorder), recurrent episode, mild F33.0 ; JORDAN (generalized anxiety disorder) F41.1 and Primary insomnia F51.01 [facility] [address] [address] 10/01/2024 Gracy Thery Encounter for screen ing for depression Z13.31 ; MDD (major depressive disorder), recurrent episode, mild F33.0 ; Encounter for screening for cardiovascular disorders Z13.6 ; JORDAN (generalized anxiety disorder) F41.1 and Primary insomnia F51.01 [facility] [address] [address] 02/22/2024 Gracy Thery [address] [address] 02/23/2024 Gracy Thery Assessments Encounter Date Diagnosis (ICD Code) Assessment Notes Treatment Notes Treatment Clinical Notes Section Notes 10/01/2024 Encounter for screening for depression (ICD-10 - Z13.31) 1.Depression- patient reported would like to decrease dose- presently taking Remeron 7.5 mg at bedtime reported improved bowel issues on rx and helped mood - Remeron 7.5 mg bedtime - for depression, also help sleep and appetite 2. Anxiety Xanax 0.25 mg three a day as needed for anxiety- not taking often- no refill needed [facility] educated not to take with Lunesta at bedtime and risk of respitatory depression 3. Primary Insomnia hx Lunesta 1 mg- not taking in a while Melatonin bedtime OTC SLUMS= 27 02/23/24 http_s://www.ronnie .org/About-Mental -Illness/Mental-H ealth-Conditions http_s://psychceTushky/depressi on/the-cognitive- jezzzedo-ke-vtpem ssion#treatments http__s://www.nim .nih.gov/health/ topics/mental-hea lth-medications http__s://www.nam i.org/About-Menta [...] potential neurotoxicity and interactions with prescribed medications. 10/01/2024 MDD (major depressive disorder), recurrent episode, mild (ICD-10 - F33.0) Learning About Depression Screening material was published, Learning About Depression material was published, Learning About How to Get Help During a Mental Health Crisis material was published, Seasonal Affective Disorder: Care Instructions material was published 1.Depression- patient reported would like to decrease dose- presently taking Remeron 7.5 mg at bedtime reported improved bowel issues on rx and helped mood - Remeron 7.5 mg bedtime - for depression, also help sleep and appetite 2. Anxiety Xanax 0.25 mg three a day as needed for anxiety- not taking often- no refill needed [facility] educated not to take with Lunesta at bedtime and risk of respitatory depression 3. Primary Insomnia hx Lunesta 1 mg- not taking in a while Melatonin bedtime OTC SLUMS= 27 02/23/24 http_s://www.ronnie .org/About-Mental -Illness/Mental-H ealth-Conditions http_s://psychcen tral.com/depressi on/the-cognitive- ihspiknc-sy-otrjq ssion#treatments http__s://www.nim h.nih.gov/health/ topics/mental-hea lth-medications http__s://www.nam i.org/About-Menta [...] 27 02/23/24 http_s://www.ronnie .org/About-Mental -Illness/Mental-H ealth-Conditions http_s://psychcen PingSome.com/depressi on/the-cognitive- mqustqxe-fq-vuvmi ssion#treatments http__s://www.nim h.nih.gov/health/ topics/mental-hea lth-medications http__s://www.nam i.org/About-Menta [...] twice a day as needed for anxiety [facility] educated not to take with Lunesta at bedtime and risk of respitatory depression 3. Primary Insomnia patient stopepd after 2 days d/c Trazodone 50 mg at bedtime- reported fatigue in am Melatonin 2 mg bedtime OT SLUMS= 27 02/23/24 http_s://www.ronnie .org/About-Mental -Illness/Mental-H ealth-Conditions http_s://psychcen PingSome.com/depressi on/the-cognitive- yagioygm-mi-yyzsz ssion#treatments http__s://www.nim h.nih.gov/health/ topics/mental-hea lth-medications http__s://www.nam i.org/About-Menta [...] twice a day as needed for anxiety [facility] educated not to take with Lunesta at bedtime and risk of respitatory depression 3. Primary Insomnia patient stopepd after 2 days d/c Trazodone 50 mg at bedtime- reported fatigue in am Melatonin 2 mg bedtime OT SLUMS= 27 02/23/24 http_s://www.ronnie .org/About-Mental -Illness/Mental-H ealth-Conditions http_s://psychcen PingSome.com/depressi on/the-cognitive- wkeepjlp-ft-vditn ssion#treatments http__s://www.nim h.nih.gov/health/ topics/mental-hea [facility]-medications http__s://www.nam i.org/About-Menta l-Illness/Treatme nts/Mental-Health -Medications Discussed and [...] http_s://www.ronnie .org/About-Mental -Illness/Mental-H ealth-Conditions http_s://psychcen tral.com/depressi on/the-cognitive- nmbxjghz-vo-wowid ssion#treatments http__s://www.nim h.nih.gov/health/ topics/mental-hea lth-medications http__s://www.nam i.org/About-Menta [...] http_s://www.ronnie .org/About-Mental -Illness/Mental-H ealth-Conditions http_s://psychcen tral.com/depressi on/the-cognitive- gpbuhwly-pp-roais ssion#treatments http__s://www.nim h.nih.gov/health/ topics/mental-hea lt-medications http__s://www.nam i.org/About-Menta [...] three a day as needed for anxiety [facility] educated not to take with Lunesta at bedtime and risk of respitatory depression 3. Primary Insomnia hx Lunesta 1 mg- not taking in a while Melatonin 2 mg bedtime OTC SLUMS= 27 02/23/24 http_s://www.ronnie .org/About-Mental -Illness/Mental-H ealth-Conditions http_s://psychcen tral.com/depressi on/the-cognitive- sdcvgcnl-zu-rwwmj ssion#treatments http__s://www.nim h.nih.gov/health/ topics/mental-hea [facility]-medications http__s://www.nam i.org/About-Menta l-Illness/Treatme nts/Mental-Health -Medications Discussed and [...] twice a day as needed for anxiety [facility] educated not to take with Lunesta at bedtime and risk of respitatory depression 3. Primary Insomnia patient stopepd after 2 days d/c Trazodone 50 mg at bedtime- reported fatigue in am Melatonin 2 mg bedtime OTC SLUMS= 27 02/23/24 http_s://www.ronnie .org/About-Mental -Illness/Mental-H ealth-Conditions http_s://psychcen tral.com/depressi on/the-cognitive- vluuuica-wp-wxjvt ssion#treatments http__s://www.[facility].nih.gov/health/ topics/mental-hea [facility]-medications http__s://www.nam i.org/About-Menta l-Illness/Treatme nts/Mental-Health -Medications Discussed and [...] three a day as needed for anxiety [facility] educated not to take with Lunesta at bedtime and risk of respitatory depression 3. Primary Insomnia hx Lunesta 1 mg- not taking in a while Melatonin 2 mg bedtime OTC SLUMS= 27 02/23/24 http_s://www.ronnie .org/About-Mental -Illness/Mental-H ealth-Conditions http_s://psychcen tral.com/depressi on/the-cognitive- dqzhmfao-af-dftsl ssion#treatments http__s://www.nim h.nih.gov/health/ topics/mental-hea [facility]-medications http__s://www.nam i.org/About-Menta l-Illness/Treatme nts/Mental-Health -Medications Discussed and [...] http_s://www.ronnie .org/About-Mental -Illness/Mental-H ealth-Conditions http_s://psychcen tral.com/depressi on/the-cognitive- huxytevu-ow-jmhjx ssion#treatments http__s://www.[facility].nih.gov/health/ topics/mental-hea lth-medications http__s://www.nam i.org/About-Menta l-Illness/Treatme nts/Mental-Health -Medications [...] as needed for anxiety- not taking often [employer] [facility] educated not to take with Lunesta at bedtime and risk of respitatory depression 3. Primary Insomnia hx Lunesta 1 mg- not taking in a while Melatonin bedtime OTC SLUMS= 27 02/23/24 http_s://www.ronnie .org/About-Mental -Illness/Mental-H ealth-Conditions http_s://psychcen tral.com/depressi on/the-cognitive- twoxpmyd-xy-gxirb ssion#treatments http__s://www.nim .nih.gov/health/ topics/mental-hea [facility]-medications http__s://www.nam i.org/About-Menta l-Illness/Treatme nts/Mental-Health -Medications Discussed and [...] potential neurotoxicity and interactions with prescribed medications. 10/01/2024 Encounter for screening for cardiovascular disorders (ICD-10 - Z13.6) 1.Depression- patient reported would like to decrease dose- presently taking Remeron 7.5 mg at bedtime reported improved bowel issues on rx and helped mood - Remeron 7.5 mg bedtime - for depression, also help sleep and appetite 2. Anxiety Xanax 0.25 mg three a day as needed for anxiety- not taking often- no refill needed [facility] educated not to take with Lunesta at bedtime and risk of respitatory depression 3. Primary Insomnia hx Lunesta 1 mg- not taking in a while Melatonin bedtime OTC SLUMS= 27 02/23/24 http_s://www.ronnie .org/About-Mental -Illness/Mental-H ealth-Conditions http_s://psychcen tral.com/depressi on/the-cognitive- gaifhexe-mn-vctxu ssion#treatments http__s://www.nim .nih.gov/health/ topics/mental-hea [facility]-medications http__s://www.nam i.org/About-Menta l-Illness/Treatme nts/Mental-Health -Medications Discussed and [...] potential neurotoxicity and interactions with prescribed medications. 10/01/2024 JORDAN (generalized anxiety disorder) (ICD-10 - F41.1) Generalized Anxiety Disorder: Care Instructions material was published, Learning About Generalized Anxiety Disorder material was published, Learning About Anxiety Disorders material was published 1.Depression- patient reported would like to decrease dose- presently taking Remeron 7.5 mg at bedtime reported improved bowel issues on rx and helped mood - Remeron 7.5 mg bedtime - for depression, also help sleep and appetite 2. Anxiety Xanax 0.25 mg three a day as needed for anxiety- not taking often- no refill needed [facility] educated not to take with Lunesta at bedtime and risk of respitatory depression 3. Primary Insomnia hx Lunesta 1 mg- not taking in a while Melatonin bedtime OTC SLUMS= 27 02/23/24 http_s://www.ronnie .org/About-Mental -Illness/Mental-H ealth-Conditions http_s://psychcen tral.com/depressi on/the-cognitive- ajowtfgo-wz-kkati ssion#treatments http__s://www.[facility].nih.gov/health/ topics/mental-hea [facility]-medications http__s://www.nam i.org/About-Menta l-Illness/Treatme nts/Mental-Health -Medications Discussed and [...] 27 02/23/24 http_s://www.ronnie .org/About-Mental -Illness/Mental-H ealth-Conditions http_s://psychcen Reduxiol.com/depressi on/the-cognitive- cahvdzpz-mw-vsejt ssion#treatments http__s://www.[facility].nih.gov/health/ topics/mental-hea lth-medications http__s://www.nam i.org/About-Menta l-Illness/Treatme nts/Mental-Health -Medications [...] three a day as needed for anxiety [facility] educated not to take with Lunesta at bedtime and risk of respitatory depression 3. Primary Insomnia hx Lunesta 1 mg- not taking in a while Melatonin 2 mg bedtime OTC SLUMS= 27 02/23/24 http_s://www.ronnie .org/About-Mental -Illness/Mental-H ealth-Conditions http_s://psychcen PingSome.com/depressi on/the-cognitive- ocdqdxwq-eo-jhypl ssion#treatments http__s://www.[facility].nih.gov/health/ topics/mental-hea lth-medications http__s://www.nam i.org/About-Menta l-Illness/Treatme nts/Mental-Health -Medications [...] potential neurotoxicity and interactions with prescribed medications. 10/01/2024 Primary insomnia (ICD-10 - F51.01) Learning About Sleeping Well material was published, Insomnia: Care Instructions material was published 1.Depression- patient reported would like to decrease dose- presently taking Remeron 7.5 mg at bedtime reported improved bowel issues on rx and helped mood - Remeron 7.5 mg bedtime - for depression, also help sleep and appetite 2. Anxiety Xanax 0.25 mg three a day as needed for anxiety- not taking often- no refill needed [facility] educated not to take with Lunesta at bedtime and risk of respitatory depression 3. Primary Insomnia hx Lunesta 1 mg- not taking in a while Melatonin bedtime OTC SLUMS= 27 02/23/24 http_s://www.ronnie .org/About-Mental -Illness/Mental-H ealth-Conditions http_s://psychcen PingSome.com/depressi on/the-cognitive- noumggel-wj-svfhv ssion#treatments http__s://www.[facility].nih.gov/health/ topics/mental-hea lth-medications http__s://www.nam i.org/About-Menta l-Illness/Treatme nts/Mental-Health -Medications [...] 27 02/23/24 http_s://www.ronnie .org/About-Mental -Illness/Mental-H ealth-Conditions http_s://psychcen PingSome.com/depressi on/the-cognitive- ugtjcocn-az-ilzng ssion#treatments http__s://www.[facility].nih.gov/health/ topics/mental-hea lth-medications http__s://www.nam i.org/About-Menta l-Illness/Treatme nts/Mental-Health -Medications [...] 27 02/23/24 http_s://www.ronnie .org/About-Mental -Illness/Mental-H ealth-Conditions http_s://psychcen Reduxiol.com/depressi on/the-cognitive- sajitkwu-sh-pztbw ssion#treatments http__s://www.[facility].nih.gov/health/ topics/mental-hea lth-medications http__s://www.nam i.org/About-Menta l-Illness/Treatme nts/Mental-Health -Medications [...] 27 02/23/24 http_s://www.ronnie .org/About-Mental -Illness/Mental-H ealth-Conditions http_s://psychcen Reduxiol.com/depressi on/the-cognitive- emylhclr-vp-taptt ssion#treatments http__s://www.nim .nih.gov/health/ topics/mental-hea lth-medications http__s://www.nam i.org/About-Menta [...] Next Appt Details Provider Name:Gracy Garcia , 04/01/2025 09:15:00 AM, [address], [facility] [address], [place], [address], Insurance Providers Payer Name Payer Address Payer Phone Subscriber Number Group Number Insured Name Patient Relationship to Insured Coverage Start Date Coverage End Date [place] [address] [place] [address] [id number] Abimael Ryan Self - patient is the insured [facility] Medicare Supplement [address] [facility] [address] [id number] Ryan Varghese Self - patient is [...]
[2024-11-01 09:41] LABS: Anion Gap 8 mmol/L (4-12); Blood Urea Nitrogen 6 mg/dL (9-20); Calcium 9.5 mg/dL (8.4-10.2); Carbon Dioxide 29 mmol/L (22-30); Chloride 93 mmol/L (98-107); Estimated Glomerular Filt Rate > 60; Glucose 87 mg/dL (65-110); Potassium 4.1 mmol/L (3.4-5.0); Sodium 130 mmol/L (137-145)
[2024-11-04 01:07] LABS: Osmolality, Urine 380 mOsmol/kg (.)
== END 2024-11-01 07:38 | disposition home or self-care (01) ==
LOC: ANHLAB 07:38
PROVIDERS: PCP Internal Medicine; Visit Provider Internal Medicine
DX: R79.89 Other specified abnormal findings of blood chemistry (principal)
CPT/HCPCS: 36415; 80048; 83935

== ENCOUNTER 2025-03-04 11:40 | Outpatient (CLI) | payer MEDICARE, SELFPAY ==
--- NOTE | ~2025-03-04 | US_ITS ---
EXAMINATION: US abdomen complete, 03/04/2025 11:43 HALL MANAGER HISTORY: R10.9 - Unspecified abdominal pain COMPARISON: None Technique: Vásquez-scale and color Doppler images were obtained. Findings: LIVER: Lliver contours intact, no lesions. Normal echogenicity. . GALLBLADDER/BILIARY: Unremarkable.No cholelithiais, wall thickening or pericholecystic fluid. No biliary dilatation. CBD 4 mm. Ewing sign negative. PANCREAS: Unremarkable. SPLEEN: Spleen 10.4 cm.. KIDNEYS: The renal cortices are intact with no solid masses or calculi, no hydronephrosis. Right Kidney: Right kidney 11.7 x 6.3 x 6.5 cm. Right kidney midpole simple cyst 2.6 x 2.6 cm. Left Kidney: Left kidney 12 x 5.7 x 5.1 cm. Left kidney inferior pole simple cyst 2.6 x 2.6 cm. AORTA: Normal caliber aorta. IVC: Unremarkable. FREE FLUID: None. Impression: Bilateral simple appearing renal cysts Reviewed, dictated and finalized at location P. MANAGER Impression: Bilateral simple appearing renal cysts
== END 2025-03-04 11:41 | disposition home or self-care (01) ==
LOC: MICIMG 11:41
PROVIDERS: PCP Internal Medicine; Visit Provider Internal Medicine
DX: R10.9 Unspecified abdominal pain (principal); K59.00 Constipation, unspecified; R19.7 Diarrhea, unspecified; N28.1 Cyst of kidney, acquired
CPT/HCPCS: 76700